=== PATIENT | female | born 1945 | race Caucasian/White ===

== ENCOUNTER → 2018-03-11 08:34 | Outpatient (CLI) | payer MEDICARE, OTHER, SELFPAY ==
[2018-03-13 14:08] LABS: Fecal Immunochemical Test NOT DETECTED
== END ==
PROVIDERS: PCP Physician Assistant; Visit Provider Physician Assistant
DX: Z12.11 Encounter for screening for malignant neoplasm of colon (principal)
CPT/HCPCS: 82274

== ENCOUNTER → 2018-09-01 07:06 | Outpatient (CLI) | payer MEDICARE, OTHER, SELFPAY ==
[2018-09-01 08:06] LABS: Cholesterol 190 mg/dL (140-199); HDL Cholesterol 40 mg/dL (40-60); LDL Cholesterol Calculated 122 mg/dL (<100); Triglycerides 139 mg/dL (35-150)
[2018-09-01 08:40] LABS: Creatinine Urine Random 149.7 mg/dL
[2018-09-01 08:44] LABS: Microalbumi Creatinin Ratio Ur 10.6 ug/mg CR (<30); Microalbumin Urine Random 1.6 mg/dL (0-1.6)
== END ==
PROVIDERS: PCP Physician Assistant; Visit Provider Physician Assistant
DX: I10 Essential (primary) hypertension (principal); E78.2 Mixed hyperlipidemia
CPT/HCPCS: 36415; 80061; 82043; 82570

== ENCOUNTER → 2018-10-07 11:53 | Outpatient (CLI) | payer MEDICARE, OTHER, SELFPAY ==
--- NOTE | 2018-10-07 11:55 | DI.MG.S_ITS ---
BILATERAL DIGITAL SCREENING MAMMOGRAM 3D/2D WITH CAD: 10/07/2018 CLINICAL: Routine screening. Comparison is made to exams dated: 06/19/2017 mammogram, 04/18/2016 mammogram, and 03/22/2015 mammogram - [facility]. There are scattered fibroglandular elements in both breasts. Current study was also evaluated with a Computer Aided Detection (CAD) system. No significant masses, calcifications, or other findings are seen in either breast. There has been no significant interval change. IMPRESSION: NEGATIVE There is no mammographic evidence of malignancy. A 1 year screening mammogram is recommended. This exam was interpreted at Station ID: [id number]. NOTE: For mammograms, a report in lay terms will be sent to the patient. Approximately 15% of breast malignancies will not be visualized mammographically. In the management of a palpable breast mass, a negative mammogram must not discourage biopsy of a clinically suspicious lesion. Electronically Signed By: Rickey cintron/yuliana:10/07/2018 12:18:29 letter sent: Normal Exam ACR BI-RADS Category 1: Negative [id number]
== END ==
PROVIDERS: PCP Physician Assistant; Visit Provider Physician Assistant
DX: Z12.31 Encounter for screening mammogram for malignant neoplasm of breast (principal)
CPT/HCPCS: 77063; 77067

== ENCOUNTER → 2019-04-04 08:17 | Outpatient (CLI) | payer MEDICARE, OTHER, SELFPAY ==
[2019-04-04 09:49] LABS: Creatinine Urine Random 196.4 mg/dL
[2019-04-04 09:51] LABS: Alanine Aminotransferase 34 IU/L (<35); Albumin 4.5 g/dL (3.5-5.0); Albumin Globulin Ratio 1.4 (1.0-2.8); Alkaline Phosphatase 76 U/L (38-126); Aspartate Aminotransferase 50 IU/L (14-36); BUN Creatinine Ratio 23.8 (6-22); Bilirubin Total 0.8 mg/dL (0.2-1.3); Blood Urea Nitrogen 19 mg/dL (7-17); Calcium 10.5 mg/dL (8.4-10.2); Carbon Dioxide 24 mmol/L (22-32); Chloride 107 mmol/L (98-107); Cholesterol 210 mg/dL (140-199); Estimated Glomerular Filt Rate > 60.0 mL/min (>60); Globulin 3.3 g/dL (1.7-4.1); Glucose 129 mg/dL (80-110); HDL Cholesterol 38 mg/dL (40-60); HEMOLYSIS < 15 (0-50); LDL Cholesterol Calculated 140 mg/dL (<100); Potassium 4.4 mmol/L (3.4-5.1); Sodium 141 mmol/L (137-145); Total Protein 7.8 g/dL (6.3-8.2); Triglycerides 158 mg/dL (35-150)
[2019-04-04 09:55] LABS: Microalbumi Creatinin Ratio Ur 50.4 ug/mg CR (<30); Microalbumin Urine Random 9.9 mg/dL (0-1.6)
[2019-04-04 10:00] LABS: Thyroid Stimulating Hormone 2.49 uIU/mL (0.47-4.68)
== END ==
PROVIDERS: PCP Physician Assistant; Visit Provider Physician Assistant
DX: E78.2 Mixed hyperlipidemia (principal); I10 Essential (primary) hypertension
CPT/HCPCS: 36415; 80053; 80061; 82043; 82570; 84443

== ENCOUNTER → 2019-04-10 08:12 | Outpatient (CLI) | payer MEDICARE, OTHER, SELFPAY ==
--- NOTE | 2019-04-10 08:15 | DI.MRI.S_ITS ---
PROCEDURE: MR HEAD/BRAIN WO/W CON INDICATIONS: TIA TECHNIQUE: Noncontrast axial T1 spin echo, axial T2 fast spin echo, sagittal and axial FLAIR, coronal T2 fast spin echo, axial gradient echo, axial diffusion and ADC through the brain. After the administration of contrast, axial and coronal T1 spin echo with fat saturation through the brain. COMPARISON: [facility], , CAROTID ARTERY DOPPLER BILAT, 12/10/2016, 14:42. FINDINGS: Image quality: Excellent. CSF spaces: Basal cisterns are patent. No extra-axial fluid collections. Ventricles are normal in size and shape. Brain: There is a small focus of abnormal diffusion weighted hyperintensity seen within the deep white matter of the right hilum, as on series 11 image 64 there is decreased signal seen within the a.c. Brian at this site, as on series 12 image 15 and developing increased T2-weighted/FLAIR signal can be seen at this site. No midline shift. No intracranial bleeds or masses. No abnormal intracranial enhancement. There is cerebral volume loss for age. There is periventricular white matter chronic small vessel ischemic change. The brainstem appears normal. No chronic ischemic insults. Normal intravascular flow voids are present. Skull and face: Calvarial marrow is normal in signal. Orbits appear normal. Note is made of bilateral lens replacements. Sinuses: Sinuses and mastoids appear clear. IMPRESSION: There is a small focus of subacute infarction seen involving the deep white matter of the right frontal lobe. No masses or abnormal enhancement can be seen. Note is made of age-appropriate brain parenchymal volume loss and chronic small vessel ischemic changes. Dictated by: Aleksandar Bermudez M.D. on 04/10/2019 at 8:54 Approved by: Aleksandar Bermudez M.D. on 04/10/2019 at 8:58
== END ==
PROVIDERS: PCP Physician Assistant; Visit Provider Physician Assistant
DX: G45.9 Transient cerebral ischemic attack, unspecified (principal); E78.2 Mixed hyperlipidemia; I10 Essential (primary) hypertension
CPT/HCPCS: 70553

== ENCOUNTER → 2019-04-24 07:50 | Outpatient (CLI) | payer MEDICARE, OTHER, SELFPAY ==
--- NOTE | 2019-04-24 07:52 | DI.US.S_ITS ---
PROCEDURE: US CAROTID DOPPLER BI INDICATIONS: TIA TECHNIQUE: Color and pulse Doppler interrogation was performed of both carotid systems, with image documentation and velocity measurements. COMPARISON: [facility], [place], CAROTID ARTERY DOPPLER BILAT, 12/10/2016, 14:42. FINDINGS: Stenosis calculations are based on SRU (Society of Radiologists in Ultrasound) criteria. Right side: Brachial blood pressure: 149/73 mm Hg. Common carotid artery peak systolic velocity: 77 cm/sec. Internal carotid artery peak systolic velocity: 121 cm/sec. Internal carotid artery end diastolic velocity: 31 cm/sec. External carotid artery peak systolic velocity: 142 cm/sec. ICA/CCA peak systolic ratio: 1.6. Lennon scale imaging description: Mild/moderate scattered plaque. Right thyroid nodule measuring 14 mm. Cyst Percent internal carotid artery stenosis: Less than 50%. Vertebral artery: Flow direction is antegrade. Left side: Brachial blood pressure: 150/78 mm Hg. Common carotid artery peak systolic velocity: 97 cm/sec. Internal carotid artery peak systolic velocity: 86 cm/sec. Internal carotid artery end diastolic velocity: 21 cm/sec. External carotid artery peak systolic velocity: 123 cm/sec. ICA/CCA peak systolic ratio: 0.9. Lennon scale imaging description: Mild scattered plaque. Percent internal carotid artery stenosis: Less than 50%. Vertebral artery: Flow direction is antegrade. IMPRESSION: 1. Less than 50% bilateral internal carotid artery stenosis. 2. Incidental finding of right thyroid nodule. When clinically feasible recommend normal thyroid ultrasound. Dictated by: Cedrick ORTIZ Interpreted: Olena Lopez MD on 04/24/2019 at 10:54 Approved by: Olena Lopez M.D. on 04/24/2019 at 14:57
--- NOTE | 2019-04-24 07:52 | DI.ECHO.S_ITS ---
[facility] +---------+ : : [address] [place] [address] : : : : [id number] : : : : Phone: [phone] Echocardiogram Report + + :Name: NATALIE COLLAZO Study Date: 04/24/2019 Height: 68 in : :[facility] Weight: 200 lb : : Gender: Female BSA: 2.0 m2 : :: 1945 Age: 73 yrs BP: 152/68 mmHg: :Reason For Study: TIA : : Performed By: Xenia Downs : :Referring: DIAN KAN : + + Interpretation Summary 1) Normal left ventricular thickness, size, wall motion, and systolic function (EF 60-65%). 2) Normal right ventricular size and function. 3) No significant valvular abnormalities. 4) Injection of contrast documented no interatrial shunt. 5) The right ventricular systolic pressure is estimated to be at least 40 mmHg based on an estimated right atrial pressure of 3 mm Hg. 6) Hypertension present during the study (BP 152/68mmHg). 7) Compared to the Echo done 04/05/2014, mild pulmonary hypertension and moderate systemic arterial hypertension are present on this study. Procedure: A two-dimensional transthoracic echocardiogram with color flow and Doppler was performed. The study quality was technically adequate. Comparison is made with the echocardiogram of 11-17-14. The heart rate ranged between 53-59 bpm during the study. Left Ventricle: The left ventricle is normal in size, wall thickness, and systolic function without any focal wall motion abnormalities. The ejection fraction is estimated to be 60-65%. Right Ventricle: The right ventricle grossly appears normal in size with probable normal systolic function. Atria: The left atrium is moderately dilated. Right atrial size is normal. The interatrial septum is intact with no evidence for an atrial septal defect. Injection of contrast documented no interatrial shunt. Mitral Valve: The mitral valve leaflets appear borderline thickened, but open well. There is mild mitral regurgitation. Aortic Valve: The aortic valve is trileaflet. The aortic valve opens well. There is no aortic valve stenosis. No aortic regurgitation is present. Tricuspid Valve: The tricuspid valve leaflets are thin and pliable. There is mild tricuspid regurgitation. The right ventricular systolic pressure is estimated to be at least 40 mmHg based on an estimated right atrial pressure of 3 mm Hg. Pulmonic Valve: The pulmonic valve is not well seen, but is grossly normal. There is no pulmonic valvular regurgitation. Great Vessels: The aortic root is normal size. The ascending aorta is at the upper limits of normal in size. The aortic arch is normal in size. The IVC is of normal diameter and collapses greater than 50% with a sniff. This suggests a low right atrial pressure of 3 mm Hg. Pericardium/ Pleura There is no pericardial effusion. There is no pleural effusion. MMode/2D Measurements & Calculations LVIDd: 5.3 cm Ao root diam: 3.0 cm LVIDs: 3.6 cm Aortic Jxn: 2.8 cm FS: 32.4 % asc Aorta Diam: 3.6 cm EPSS: 0.93 cm Ao Arch Diam (Prox Trans): 2.9 cm IVSd: 1.0 cm LVPWd: 0.80 cm LV germain. diameter/BSA (cm/m^2): 2.6 LV sys. diameter/BSA (cm/m^2): 1.8 LA dimension: 4.4 cm RA long axis: 5.2 cm LA A2 area: 26.7 cm2 RA area: 19.5 cm2 LA A4 area: 24.0 cm2 RA vol: 62.3 ml LA length (vol): 5.4 cm RA : 30.5 ml/m2 LA vol: 101.3 ml IVC diam: 1.7 cm LA vol index: 49.6 ml/m2 RVDd major: 5.0 cm RVD1 (basal): 3.6 cm RVD2 (mid): 3.1 cm Doppler Measurements & Calculations Ao V2 max: 146.8 cm/sec MV E max forest: 103.2 cm/sec Ao V2 mean: 97.0 cm/sec MV A max forest: 56.5 cm/sec Ao max P.6 mmHg MV E/A: 1.8 Ao mean P.3 mmHg Med Peak E' Forest: 5.4 cm/sec Ao V2 VTI: 36.0 cm E/E' med: 19.2 Lat Peak E' Forest: 8.7 cm/sec E/E' lat: 11.8 E/e' average: 15.5 MV dec time: 0.20 sec MV P1/2t: 60.8 msec TR max forest: 304.7 cm/sec MV P1/2t max forest: 103.5 cm/sec TR max P.1 mmHg MVA(P1/2t): 3.6 cm2 PA V2 max: 114.4 cm/sec PA V2 mean: 79.9 cm/sec PA mean P.9 mmHg PA Accel Time: 0.13 sec Reading Physician:02:05 PM
== END ==
PROVIDERS: PCP Physician Assistant; Visit Provider Physician Assistant
DX: G45.9 Transient cerebral ischemic attack, unspecified (principal); I08.1 Rheumatic disorders of both mitral and tricuspid valves; I10 Essential (primary) hypertension; E78.2 Mixed hyperlipidemia; E04.1 Nontoxic single thyroid nodule
CPT/HCPCS: 93306; 93880

== ENCOUNTER 2019-05-05 02:50 | Inpatient (IN) | payer MEDICARE, OTHER, SELFPAY ==
[2019-05-05] VITALS (12 sets, daily range): BP systolic 119–153; BP diastolic 60–92; PULSE 55–79; RESP 11–18; TEMP 36.3–37.1; O2SAT 95–99; BMI 25.5; BMI 31.9
--- NOTE | 2019-05-05 03:18 | DI.RAD.S_ITS ---
PROCEDURE: XR CHEST 1V INDICATIONS: Syncope TECHNIQUE: One view of the chest was acquired. COMPARISON: [facility], , CHEST 1 VIEW, 05/10/2014, 9:22. FINDINGS: Surgical changes and devices: Lower cervical spine fusion. Lungs and pleura: Lungs are clear. No pleural effusions or pneumothorax. Mediastinum: Mediastinal contours appear normal. Heart size is normal. Bones and chest wall: No suspicious bony lesions. Overlying soft tissues appear unremarkable. IMPRESSION: No acute cardiopulmonary disease. Dictated by: Stella Urrutia M.D. on 05/05/2019 at 8:27 Approved by: Stella Urrutia M.D. on 05/05/2019 at 8:28
[2019-05-05] MEDS: SODIUM CHLORIDE 0.9% 1,000 ML 150 ML IV (03:24)
--- NOTE | 2019-05-05 03:32 | ED_ITS ---
HPI - Syncope General Chief Complaint: Syncope Stated Complaint: Found down Time Seen by Provider: 05/05/19 03:04 Source: patient and EMS Mode of arrival: EMS Limitations: no limitations History of Present Illness HPI narrative: The patient took 2 clocks and I, prepping for a colonoscopy. She had to go the bathroom. She apparently passed out. Her heard her fall against the wall. She did not go to the floor. Her discovered her unconscious in the bathroom, slumped from the commode against the wall. He contacted 911, the patient awoke with 911 personnel arriving. She denies dizziness, visual changes, chest pain or palpitations. She now has no confusion, no focal weakness. She has had no recent fever, chills, respiratory symptoms, or nausea vomiting. She has no abdominal pain. The colonoscopy was for routine screening. She has no recent illness. She was found to be in a controlled AFib upon arrival. She was visiting family in [place] January 2019. While there she had a brief event of dysarthria, resolving quickly. She had brief neurologic deficits the right arm. Symptoms resolved within minutes, she was not evaluated at that time. At some point she realized she probably had a TIA, she was seen by her care provider, DILSHAD Hawkins. An MRI was done last month indicating subacute CVA. A carotid Doppler study discovered less than 50% bilateral internal carotid artery stenosis. Echo earlier this month was relatively normal, other than suggesting evolving pulmonary hypertension. The patient apparently had an EKG indicating tachycardia. That EKG is unavailable to me. The patient is on Cardizem. Related Data Home Medications Medication Instructions Recorded Confirmed MULTIVITAMIN (One Daily 1 tab PO Q DAY #0 05/23/11 04/01/19 Multivitamin) [CO-Q-10] 100 mg PO HS #0 12/27/15 04/01/19 clobetasol 0.05 % TOPICAL PRN PRN #0 12/27/15 04/01/19 diltiazem HCl 240 mg PO QDAY #0 02/27/17 05/05/19 DHEA See Rx Instructions .ROUTE .COMPLEX 02/05/18 04/01/19 Diltiazem 12 hour See Rx Instructions .ROUTE .COMPLEX 02/05/18 04/01/19 Fluocinolone 0.01% Scalp See Rx Instructions .ROUTE .COMPLEX 02/05/18 04/01/19 Niacin Non-flush See Rx Instructions .ROUTE .COMPLEX 02/05/18 04/01/19 Prebiotic See Rx Instructions .ROUTE .COMPLEX 02/05/18 04/01/19 [id number] 333 mg PO BID tab 06/12/18 04/01/19 mg-1.7 mg chewable tablet polypodium leucotomos extract 240 240 mg PO .QDAY cap 06/12/18 04/01/19 mg capsule FISH OIL See Rx Instructions .ROUTE .COMPLEX 06/17/18 04/01/19 OLIVE LEAF EXTRACT See Rx Instructions .ROUTE .COMPLEX 06/17/18 04/01/19 hydrocortisone 2.5 % topical cream 1 applictn TOP BID PRN 06/17/18 04/01/19 ketoconazole 2 % shampoo 1 applictn TOP .once a week PRN ml 06/17/18 04/01/19 triamcinolone acetonide 0.1 % 1 applictn TOP BID PRN 06/17/18 04/01/19 topical cream aspirin 325 mg tablet 325 mg PO DAILY 04/01/19 04/01/19 Previous Rx's Medication Instructions Recorded CMP BIEST HRT COMPOUND See Rx Instructions .ROUTE 05/22/18 .COMPLEX #90 enalapril maleate 20 mg tablet 20 mg PO BID #180 tab 02/03/19 progesterone micronized 100 mg See Rx Instructions .ROUTE 02/05/19 capsule .COMPLEX #90 capsule Allergies Allergy/AdvReac Type Severity Reaction Status Date / Time diazepam Allergy Severe SEEING Verified 04/01/19 08:17 DOUBLE, HEART PALPITATIONS, DIFFICULTY BREATHING Sulfa (Sulfonamide Allergy Intermediate VERY SICK Verified 04/01/19 08:17 Antibiotics) beet AdvReac Mild N/V Verified 04/01/19 08:17 Review of Systems Constitutional Constitutional: Denies chills, Denies fever(s), Denies lethargy and Denies weakness Comments: No recent illness Eyes Eyes: Denies change in vision and Denies loss of vision ENT Ears, Nose, Mouth, and Throat: Denies change in voice, Denies vertigo, Denies dizziness, Denies dry mouth, Denies neck pain, Denies disequilibrium and Denies sore throat Cardiovascular Cardiovascular: Denies chest pain, Denies irregular heart rhythm, Denies lightheadedness, Denies palpitations, Denies dyspnea, Denies dyspnea on exertion and Denies orthopnea Respiratory Respiratory: Denies cough, Denies dyspnea, Denies dyspnea on exertion and Denies wheezing Gastrointestinal Gastrointestinal: Denies abdominal pain, Denies change in bowel habits, Denies nausea and Denies vomiting Comments: Loose BMs. No history of GI bleed. Genitourinary Genitourinary: Denies dysuria Musculoskeletal Musculoskeletal: Denies abnormal gait, Denies back pain and Denies neck pain Integumentary/Breasts Skin/Breast: Denies pruritus, Denies erythema, Denies rash and Denies wounds Neurologic Neurologic: Denies abnormal gait, Denies confusion, Denies vertigo, Denies dizziness, Denies loss of vision, Denies disequilibrium and Denies weakness Psychiatric Psychiatric: Denies anxiety and Denies confusion Endocrine Endocrine: Denies palpitations Allergic/Immunologic Allergic/Immunologic: Denies wheezing Patient History Medical History Cervical vertebral fusion (Acute) Surgical History History of bilateral salpingo-oophorectomy (BSO) S/P total abdominal hysterectomy and bilateral salpingo-oophorectomy Family History Brother Coronary artery disease Brother History of oral cancer Father Coronary artery disease Mother Coronary artery disease Carotid artery disease Sister Irregular heart beat Sister Coronary artery disease Carotid artery disease Social History Smoking Status: Never smoker second hand exposure: No alcohol intake: current (twice a week.) substance use type: does not use Smoking Status: Never smoker alcohol intake frequency: 0-2 drinks per day Substance Use Type: does not use Exam Initial Vital Signs Initial Vital Signs: Vital Signs Temperature 97.7 F 05/05/19 03:00 Pulse Rate 63 05/05/19 03:00 Respiratory Rate 14 05/05/19 03:00 Blood Pressure 146/92 H 05/05/19 03:00 Pulse Oximetry 96 05/05/19 03:00 Const General: cooperative and well developed Nutritional Appearance: well nourished Orientation: alert, awake, oriented x3 and not confused [facility] Head: normocephalic and atraumatic Mouth: oral mucosae normal Eyes General: appearance normal, both eyes and all related structures Eyelids: eyelids normal Conjunctivae: conjunctivae normal Sclera: sclerae normal Pupils: PERRL EOM: EOM intact bilaterally Neck Neck: normal visual inspection, trachea midline, No lymphadenopathy, No midline deformity and No JVD Chest Chest: normal inspection of the chest Resp Effort & Inspection: normal respiratory effort and able to speak in complete sentences Auscultation: clear to auscultation bilaterally, no rales, no rhonchi and no wheezes Cardio Rate: regular rate Rhythm: abnormal rhythm irregularly irregular Heart Sounds: S1 normal, S2 normal, no click, no gallops, no murmurs and no rubs Pulses: normal peripheral pulses GI Inspection: non-distended Palpation: soft, no hepatosplenomegaly, No guarding, No pulsatile mass and No tender Auscultation: normal bowel sounds Back/Spine/Pelvis Back: No back tenderness and No CVA tenderness Skin General: no rashes or lesions noted and No petechiae Neuro General: alert, oriented x3, gait normal and no focal motor deficits Speech: speech normal Motor: muscle tone normal throughout Sensory Exam: no sensory deficits noted Extrem General: full ROM, no clubbing, cyanosis or edema, no pedal edema and no calf tenderness Psych Appearance: well kempt Mental Status: mental status grossly normal Attitude: cooperative Thought Content: normal Judgment: judgment good Course Course Course Narrative: The patient has been in a controlled rate of AFib since arrival. She has been alert oriented without neurologic deficits. She has been normotensive. There have been no bradycardia or tachycardia events. The syncope may be attributable to the bowel prep and perhaps a vasovagal event. Concern is the newly discovered arrhythmia, perhaps related to the recent stroke. Are only comparison material is a EKG from 2013 indicating normal sinus rhythm. She has had no history of cardiac concerns, no palpitations, no obviously arrhythmias. The syncope may have also been associated with arrhythmia. The situation discussed with the on-call hospitalist, WAYNE Villafuerte. The patient be anticoagulated initially with Lovenox and admitted on telemetry. Orders Ordered: ED Orders 05/05/19 02:45 Complete Blood Count AUTO DIFF Stat Prothrombin Time INR Stat 05/05/19 02:56 EKG-12 Lead Routine 05/05/19 03:18 XR chest 1V Stat 05/05/19 04:05 Comprehensive Metabolic Panel Stat Magnesium Stat Troponin & CK Cardiac Panel Stat Sodium Chloride (Normal Saline 0.9%) 1,000 mls @ 150 mls/hr IV CONT SIENNA Last Admin: 05/05/19 03:24 Dose: 150 mls/hr Documented by: NIMA Discontinued Medications Enoxaparin Sodium (Lovenox) 75 mg 1 mg/kg (75 mg) SUBCUT NOW ONE Stop: 05/05/19 06:08 Last Admin: 05/05/19 06:25 Dose: 75 mg Documented by: SANDRA Vital Signs Vital signs: Vital Signs - 8 hr 05/05/19 03:00 05/05/19 03:20 05/05/19 03:53 Temperature 97.7 F Pulse Rate 63 77 58 L Respiratory Rate 14 16 12 Blood Pressure 146/92 H Blood Pressure [Right Arm] 123/68 134/80 Pulse Oximetry 96 97 96 05/05/19 05:57 Temperature Pulse Rate 79 Respiratory Rate 12 Blood Pressure Blood Pressure [Right Arm] 119/79 Pulse Oximetry 97 MDM - Syncope Lab Data Result diagrams: 05/05/19 02:45 05/05/19 04:05 Labs: Lab Results 05/05/19 05/05/19 05/05/19 Range/Units 02:45 02:45 04:05 WBC 13.5 H (4.5-11.0) X10^3/uL RBC 4.65 (4.0-5.2) X10^6/uL Hgb 14.3 (12.0-16.0) g/dL Hct 42.9 (36-46) % MCV 92.3 (80-100) fL MCH 30.8 (26-34) PG MCHC 33.4 (30-36) % RDW 13.2 (11.6-14.8) % Plt Count 364 (150-400) X10^3/uL Neut % (Auto) 57.9 (50-75) % Lymph % (Auto) 30.9 (25-40) % Davis % (Auto) 8.1 (3-14) % Eos % (Auto) 2.4 (2-4) % Baso % (Auto) 0.7 (0-2) % Neut # (Auto) 7800 H (1952-4875) /uL Lymph # (Auto) 4200 (4472-7244) /uL Davis # (Auto) 1100 H (0-900) /uL Eos # (Auto) 300 (0-450) /uL Baso # (Auto) 100 (0-100) /uL PT 12.8 H (10.1-12.7) SECONDS INR 1.1 (0.9-1.3) Sodium 141 (137-145) mmol/L Potassium 4.0 (3.4-5.1) mmol/L Chloride 104 (98-107) mmol/L Carbon Dioxide 27 (22-32) mmol/L BUN 21 H (7-17) mg/dL Creatinine 0.70 (0.52-1.04) mg/dL Estimated GFR > 60.0 (>60) mL/min BUN/Creatinine Ratio 30.0 H (6-22) Glucose 122 H (80-110) mg/dL Calcium 11.1 H (8.4-10.2) mg/dL Magnesium 2.1 (1.6-2.3) mg/dL Total Bilirubin 0.6 (0.2-1.3) mg/dL AST 26 (14-36) IU/L ALT 29 (<35) IU/L Alkaline Phosphatase 67 (38-126) U/L Total Creatine Kinase 36 (30-135) U/L CK-MB (CK-2) TNP CK-MB (CK-2) Rel Index TNP Troponin I < 0.012 (0.01-0.034) ng/mL Total Protein 7.5 (6.3-8.2) g/dL Albumin 4.5 (3.5-5.0) g/dL Globulin 3.0 (1.7-4.1) g/dL Albumin/Globulin Ratio 1.5 (1.0-2.8) Imaging Data Chest x-ray: My impression: No acute cardiopulmonary process ECG Data Attestation: I personally reviewed and interpreted this ECG as follows: (Atrial fib rate 65 beats per minute. Nonspecific ST T wave changes. No acute ST elevation.) Critical Care Time Critical Care Time Critical Care Time: Yes Total Critical Care Time: 45 Attestation: Time included the initial evaluation of patient, records review, review of lab, EKG and x-ray data, further discussion with the patient about clinical concerns, and discussion with admitting physician. Discharge Plan Departure Patient Disposition: Admitted as Observation Clinical Impression: History of CVA (cerebrovascular accident) Syncope Qualifiers: Syncope type: unspecified Qualified Code(s): R55 - Syncope and collapse Atrial fibrillation Qualifiers: Atrial fibrillation type: unspecified Qualified Code(s): I48.91 - Unspecified atrial fibrillation Referrals: Berta Hawkins PA-C [Primary Care Provider] - Admit Date/Time: 05/05/19 06:20 Admit Provider: Maycol Villafuerte
[2019-05-05 03:40] LABS: Add Manual Diff / Slide Review NO; Basophils Absolute Auto 100 /uL (0-100); Basophils Percent Auto 0.7 % (0-2); Eosinophils Absolute Auto 300 /uL (0-450); Eosinophils Percent Auto 2.4 % (2-4); Hematocrit 42.9 % (36-46); Hemoglobin 14.3 g/dL (12.0-16.0); Lymphocytes Absolute Auto 4200 /uL (1100-4500); Lymphocytes Percent Auto 30.9 % (25-40); Mean Corpuscular HGB Conc 33.4 % (30-36); Mean Corpuscular Hemoglobin 30.8 PG (26-34); Mean Corpuscular Volume 92.3 fL (80-100); Monocytes Absolute Auto 1100 /uL (0-900); Monocytes Percent Auto 8.1 % (3-14); Neutrophils Absolute Auto 7800 /uL (1500-7000); Neutrophils Percent Auto 57.9 % (50-75); Platelet Count 364 X10^3/uL (150-400); Red Blood Cell Count 4.65 X10^6/uL (4.0-5.2); Red Cell Distribution Width 13.2 % (11.6-14.8); White Blood Cell Count 13.5 X10^3/uL (4.5-11.0)
[2019-05-05 03:44] LABS: INR 1.1 (0.9-1.3); Prothrombin Time 12.8 SECONDS (10.1-12.7)
[2019-05-05 04:28] LABS: Alanine Aminotransferase 29 IU/L (<35); Albumin 4.5 g/dL (3.5-5.0); Albumin Globulin Ratio 1.5 (1.0-2.8); Alkaline Phosphatase 67 U/L (38-126); Aspartate Aminotransferase 26 IU/L (14-36); Bilirubin Total 0.6 mg/dL (0.2-1.3); Blood Urea Nitrogen 21 mg/dL (7-17); Calcium 11.1 mg/dL (8.4-10.2); Carbon Dioxide 27 mmol/L (22-32); Chloride 104 mmol/L (98-107); Creatine Kinase 36 U/L (30-135); Estimated Glomerular Filt Rate > 60.0 mL/min (>60); Glucose 122 mg/dL (80-110); HEMOLYSIS < 15 (0-50); Magnesium 2.1 mg/dL (1.6-2.3); Sodium 141 mmol/L (137-145); Total Protein 7.5 g/dL (6.3-8.2)
[2019-05-05 04:39] LABS: Troponin I < 0.012 ng/mL (0.01-0.034)
[2019-05-05] MEDS: ENOXAPARIN 100 MG/ML SYRINGE 75 MG SUBCUT (06:25)
--- NOTE | 2019-05-05 06:51 | P.HP_ITS ---
History of Present Illness History of Present Illness Date Patient Seen: 05/05/19 Time Patient Seen: 06:20 Chief complaint: Found down Narrative: Ms. Sandeep David is a 73-year-old female with a history SVT, hypertension, hyperlipidemia, mild pulmonary hypertension and stroke who presents to the ER today with a syncopal episode. Patient was getting up to the bathroom at approximately 2:00 a.m. and had been undergoing prep for an elective colonoscopy using Dulcolax. She states when she got up out of bed she felt a little tingly. Her heard a thump in the bathroom and went to check found her sitting on the commode semiconscious attempting to open her eyes in speaking but not making sense. The patient does not recall any antecedent symptoms other than the tingling and the next thing she knew the paramedics were present, she is amnesic to events for approximately 10-20 minutes. Patient denies any recent headaches or dizziness and had been drinking attempt remain hydrated during the bowel prep. She denies nasal congestion or sore throat. S he has had no chest pain and had palpitations in the remote past 5-6 years ago associated with SVT.. The patient denies shortness of breath cough or wheezing. She has no abdominal pain and denies nausea vomiting. Her colonoscopy is elective and has had no rectal bleeding. Patient has had cardiac evaluation 3B self but cannot recall the physician's name. She has an appointment with cardiology at with [facility]. Upon arrival to the ER the patient is afebrile with a temperature 97.7?, heart rate of 63, blood pressure 146/92, respirations of 14 saturating 96% on room air. EKG is obtained finding atrial fibrillation with a ventricular rate of 65, no ectopy, no ST or T-wave changes, no indication of infarct. Chest x-ray is taken and is unremarkable. On laboratory analysis the patient has white count is 13.5, hemoglobin 14.3, hematocrit of 42.9, platelets 364. Her electrolytes are within normal range notably with a potassium 4.0 and a magnesium of 2.1. Her BUN is 21 and creatinine is 0.7 and nonfasting glucose is 122. She has a calcium that's elevated 11.1 and her liver functions are all within normal limits Her troponin is negative at less than 0.012. The patient is admitted to the hospital for new diagnosis of atrial fibrillation in the setting of a syncopal episode. Patient History Medical History (Updated 05/05/19 @ 07:04 by WAYNE Tellez) Essential hypertension (Inactive 09/05/10) History of CVA (cerebrovascular accident) (Inactive) History of malignant melanoma (Inactive) Mixed hyperlipidemia (Inactive 09/05/10) Peripheral edema (Inactive) Scalp psoriasis (Inactive) Serum calcium elevated (Inactive) Supraventricular tachycardia (Acute) Surgical History (Updated 05/05/19 @ 07:04 by WAYNE Tellez) Cervical vertebral fusion (Acute) History of bilateral salpingo-oophorectomy (BSO) S/P total abdominal hysterectomy and bilateral salpingo-oophorectomy Family & Social History Family History Brother Coronary artery disease Brother History of oral cancer Father Coronary artery disease Mother Coronary artery disease Carotid artery disease Sister Irregular heart beat Sister Coronary artery disease Carotid artery disease Safety & Behavioral: Feels Safe in Current Yes Environment Tobacco & Substance use: Smoking Status Never smoker alcohol intake current alcohol intake frequency 0-2 drinks per day Substance Use Type does not use Comment: The patient lives in a single family home with her to whom she has been for 47 years. Smoking: The patient denies use of tobacco products. Alcohol: Patient endorses consuming 2 drinks per week. Substance use: The patient denies recreational pharmaceuticals herbal or cannabis products. Advanced directives: The patient has formal advanced directives states her wishes to be FULL CODE. She designates her to be surrogate decision maker. Meds Home Medications and Allergies Home Medications Medication Instructions Recorded Confirmed Type MULTIVITAMIN (One Daily 1 tab PO Q DAY #0 05/23/11 04/01/19 History Multivitamin) [CO-Q-10] 100 mg PO HS #0 12/27/15 04/01/19 History clobetasol 0.05 % TOPICAL PRN PRN #0 12/27/15 04/01/19 History diltiazem HCl 240 mg PO QDAY #0 02/27/17 05/05/19 History DHEA See Rx Instructions .ROUTE .COMPLEX 02/05/18 04/01/19 History Diltiazem 12 hour See Rx Instructions .ROUTE .COMPLEX 02/05/18 04/01/19 History Fluocinolone 0.01% Scalp See Rx Instructions .ROUTE .COMPLEX 02/05/18 04/01/19 History Niacin Non-flush See Rx Instructions .ROUTE .COMPLEX 02/05/18 04/01/19 History Prebiotic See Rx Instructions .ROUTE .COMPLEX 02/05/18 04/01/19 History CMP BIEST HRT COMPOUND See Rx Instructions .ROUTE 05/22/18 04/01/19 Rx .COMPLEX #90 [id number] 333 mg PO BID tab 06/12/18 04/01/19 History mg-1.7 mg chewable tablet polypodium leucotomos extract 240 240 mg PO .QDAY cap 06/12/18 04/01/19 History mg capsule FISH OIL See Rx Instructions .ROUTE .COMPLEX 06/17/18 04/01/19 History OLIVE LEAF EXTRACT See Rx Instructions .ROUTE .COMPLEX 06/17/18 04/01/19 History hydrocortisone 2.5 % topical cream 1 applictn TOP BID PRN 06/17/18 04/01/19 History ketoconazole 2 % shampoo 1 applictn TOP .once a week PRN ml 06/17/18 04/01/19 History triamcinolone acetonide 0.1 % 1 applictn TOP BID PRN 06/17/18 04/01/19 History topical cream enalapril maleate 20 mg tablet 20 mg PO BID #180 tab 02/03/19 05/05/19 Rx progesterone micronized 100 mg See Rx Instructions .ROUTE 02/05/19 04/01/19 Rx capsule .COMPLEX #90 capsule aspirin 325 mg tablet 325 mg PO DAILY 04/01/19 04/01/19 History Allergies Allergy/AdvReac Type Severity Reaction Status Date / Time diazepam Allergy Severe SEEING Verified 04/01/19 08:17 DOUBLE, HEART PALPITATIONS, DIFFICULTY BREATHING Sulfa (Sulfonamide Allergy Intermediate VERY SICK Verified 04/01/19 08:17 Antibiotics) beet AdvReac Mild N/V Verified 04/01/19 08:17 Review of Systems Review of Systems Narrative: All systems are reviewed and from to unremarkable except as noted in HPI above. Exam Vital Signs (past 8 hours): - 05/05/19 03:00 05/05/19 03:20 05/05/19 03:53 Temperature 97.7 F Pulse Rate 63 77 58 L Respiratory Rate 14 16 12 Blood Pressure 146/92 H Blood Pressure [Right Arm] 123/68 134/80 Pulse Oximetry 96 97 96 05/05/19 05:57 05/05/19 06:32 Temperature Pulse Rate 79 76 Respiratory Rate 12 11 L Blood Pressure Blood Pressure [Right Arm] 119/79 138/69 Pulse Oximetry 97 98 Oxygen Delivery Method Room Air Narrative Exam Narrative: GENERAL APPEARANCE: well developed, well nourished, mildly anxious, in no acute distress. HEENT: Normocephalic, symmetrical face ease, no ptosis, PERRLA, conjunctiva clear, EOMs intact without nystagmus, no rhinorrhea, mucous membranes are moist and pink without lesions or exudate. NECK/THYROID: neck supple, no JVD, no carotid bruit, no thyromegaly, trachea midline. LYMPH NODES: no cervical or supraclavicular lymphadenopathy. SKIN: [place], warm and dry, no visible lesions, rashes, ulcerations or petechiae. HEART: Irregularly irregular rhythm, S1-S2, no murmur, no rubs or gallops, 1+ bilateral dorsalis pedis pulses, trace peripheral edema. LUNGS: clear to auscultation bilaterally, no coarseness crackles or wheezing, no cough present CHEST: Symmetrical movement, no accessory muscle use, good tidal volume. ABDOMEN: Soft, no distention, dull to percussion, no abdominal tenderness, no guarding or peritoneal signs, no organomegaly, no flank tenderness, active bowel tones. EXTREMITIES: moves all extremities, strength is 5/5 and symmetrical, no deformities or joint effusions. NEUROLOGIC: AAO x4, cranial nerves II-XII grossly intact, sensation intact to light touch, hearing grossly normal to speech. PSYCH: Mildly anxious, could recall, good insight, linear thought process, cooperative, appropriate with stable behavior Objective Labs Result Diagrams: 05/05/19 02:45 05/05/19 04:05 Labs: Laboratory Results - last 24 hr 05/05/19 05/05/19 05/05/19 02:45 02:45 04:05 WBC 13.5 H RBC 4.65 Hgb 14.3 Hct 42.9 MCV 92.3 MCH 30.8 MCHC 33.4 RDW 13.2 Plt Count 364 Neut % (Auto) 57.9 Lymph % (Auto) 30.9 Reagan % (Auto) 8.1 Eos % (Auto) 2.4 Baso % (Auto) 0.7 Neut # (Auto) 7800 H Lymph # (Auto) 4200 Reagan # (Auto) 1100 H Eos # (Auto) 300 Baso # (Auto) 100 PT 12.8 H INR 1.1 Sodium 141 Potassium 4.0 Chloride 104 Carbon Dioxide 27 BUN 21 H Creatinine 0.70 Estimated GFR > 60.0 BUN/Creatinine Ratio 30.0 H Glucose 122 H Calcium 11.1 H Magnesium 2.1 Total Bilirubin 0.6 AST 26 ALT 29 Alkaline Phosphatase 67 Total Creatine Kinase 36 CK-MB (CK-2) TNP CK-MB (CK-2) Rel Index TNP Troponin I < 0.012 Total Protein 7.5 Albumin 4.5 Globulin 3.0 Albumin/Globulin Ratio 1.5 Assessment & Plan Assessment & Plan narrative: This is a 73-year-old female patient who had a syncopal episode while undergoing bowel prep with Dulcolax. There is extensive history of cardiovascular disease and the patient has suffered a stroke, has hypertension with pulmonary artery hypertension and now is found tonight to have atrial fibrillation. 1. Syncopal episode, acute, resolved upon arrival, active. -differential diagnosis includes: Vasovagal event commode during bowel prep for elective colonoscopy Hemodynamic instability related to tachy or bradyarrhythmia with atrial fibrillation TIA with history of recent stroke and new finding of atrial fibrillation. -each etiology is expanded upon below. 2. Possible TIA, recent stroke, resolved upon arrival, active -patient had a witnessed his syncope event being found by her becoming semiconscious with unequal eye opening and not making sense. -patient with previous stroke presenting with aphasia right arm weakness and numbness with findings of a small right frontal lobe stroke identified on MRI 04/10/2019. -ABCDs score is 3, NIH score 0 -will obtain MR stroke protocol. 3. Paroxysmal versus persistent atrial fibrillation, present on admission, active -patient with a previous history of SVT stating she has had 3 episodes approximately 5-6 years ago 1 which required cardioversion with no further reoccurrences. -patient with echocardiogram completed on 04/24/2019 at which time she was in sinus rhythm, EF 60-65%, LV is normal structure and function, RV is normal in structure and function. -EKG today reveals atrial fibrillation with ventricular rate of 65, no ectopy, ST or T-wave changes. No indication ischemia or infarct. Troponin is less than 0.012. -electrolytes at adequate levels for the rhythm with potassium is 4.0 and magnesium is 2.1 -will obtain limited echo to rule out thrombus with new diagnosis of atrial fibrillation. -patient is anticoagulated with Lovenox 1 milligram/kilogram. -patient has been evaluated by ice cream maker associated with [facility] but she cannot recall the name and is to be set up with cardiology at Dr. Day Pe[facility]aloza. 4. Essential hypertension, present on admission, active. -patient hypertensive upon arrival to the hospital the pressure 146/92. On admission to the floor the patient is 153/60. -continue routine home medication diltiazem 240 mg daily and enalapril 20 mg twice daily. -will monitor blood pressures. 5. Hyperlipidemia, stable. -patient has been taking vitamin therapy including niacin and omega-3 fish oil. -she is not on statin therapy with a history of stroke and a very strong family history of cardiovascular disease. -will obtain lipid panel. 6. Preventive health exam, colonoscopy -patient has previously undergone full bowel prep and reportedly ate resulting in a postponement of the procedure. Patient is being re-prepped with Dulcolax. -patient has had no symptoms melena hematochezia or abdominal pain. -she has been drinking Gatorade to remain hydrated. VTE prophylaxis: Patient is receiving therapeutic Lovenox Diet: Heart healthy The patient is admitted to the hospital due to the severity of his symptoms and risk for potential complications or adverse events. The patient is admitted as observation with expected length of stay to be less than 2 midnights. Scores GCS [place] coma scale eye opening: Spontaneous [place] coma scale verbal response: Orientated [place] coma scale motor response: Obey commands Rebel coma scale total score: 15 ABCD2 Age >= 60 years: yes Initial BP. Either SBP >= 140 or DBP >= 90.: yes Clinical features of the TIA: other symptoms Duration of symptoms: 10-59 minutes History of diabetes: no ABCD2 Score: 3
[2019-05-05 07:14] LABS: Cholesterol 192 mg/dL (140-199); HDL Cholesterol 34 mg/dL (40-60); LDL Cholesterol Calculated 129 mg/dL (<100); Triglycerides 145 mg/dL (35-150)
--- NOTE | 2019-05-05 07:15 | DI.MRI.S_ITS ---
PROCEDURE: MR STROKE Pre- and post-contrast brain MRI, non-contrast brain MR angiogram, pre- and postcontrast neck MR angiogram INDICATIONS: Syncope, transient neuro symptoms, prior stroke TECHNIQUE: Brain: Noncontrast axial T1 spin echo, axial T2 fast spin echo, sagittal and axial FLAIR, coronal T2 fast spin echo, axial gradient echo, axial diffusion and ADC through the brain. After the administration of contrast, axial 3D VIBE of the cranial vasculature and brain. Brain MRA: Non-contrast 3-D time of flight MR angiogram, with multiple twixial-wlddzgoml-nrbgseonac (MIP) reformats performed. Neck MRA: Axial and sagittal TruFISP through the neck. Coronal dynamic MR angiogram during administration of contrast in the arterial and venous phases, with 3-dimenstional amtxieo-hjzelxieq-qezmdvwocf (MIP) reformats constructed from subtraction images. COMPARISON: [facility], MR, MR HEAD/BRAIN WO/W CON, 04/10/2019, 8:28. FINDINGS: Image quality: Excellent. BRAIN: CSF spaces: Ventricles are normal in size and shape. Basal cisterns are patent. No extra-axial fluid collections. Brain: No intracranial bleeds or mass effects. Lennon-white matter interface is normal. Previously seen infarction within the right mid cordoba radiata is present, and demonstrates increased FLAIR signal intensity, consistent with normal evolution of a late subacute infarct. Within the right superior medial frontal lobe, there are 2 new regions of adjacent diffusion signal elevation measuring roughly 6 mm diameter, which demonstrate mild FLAIR signal elevation, consistent with early subacute infarcts. Mild diffuse cervical volume loss is present, as before. Moderate degree of patchy high FLAIR signal within the periventricular and subcortical met matter is present, consistent with small vessel ischemic disease. Brainstem appears normal. Normal intravascular flow voids are present. No abnormal intracranial enhancement. Skull and face: Calvarial marrow signal is normal. Orbits appear normal. Sinuses: Sinuses and mastoids are clear. BRAIN MR ANGIOGRAM: Anterior circulation: Intracranial internal carotid arteries are normal in size and enhancement. The flow within the paired anterior cerebral arteries is normal and symmetric. The flow within the middle cerebral arteries is normal and symmetric. The anterior communicating artery is seen. No stenoses, occlusions, or aneurysms. Posterior circulation: The visualized portions of the vertebral arteries demonstrate normal caliber. Left vertebral artery appears to terminate in a posterior inferior cervical artery. Basilar artery is patent. The flow within the posterior cerebral arteries is normal and symmetric. No stenoses, occlusions, or aneurysms. NECK MR ANGIOGRAM: Carotids: Great vessels demonstrate a conventional anatomy as they arise from the aortic arch. The origins of the common carotid arteries appear patent. The calibers and courses of both common carotid arteries are normal. The bifurcation regions appear normal bilaterally. The internal carotid arteries demonstrate normal course and caliber. Left vertebral artery terminates in a posterior inferior cerebellar artery. Posterior circulation: The origins of the vertebral arteries are not well-seen. More superior portions of both vertebral arteries demonstrate normal course and caliber. Miscellaneous: Subclavian arteries appear patent. Pre-contrast images through the neck show no soft tissue abnormalities. IMPRESSION: BRAIN MRI: 1. New small subacute infarcts within the right superomedial frontal lobe. 2. Normal evolution of previously seen right cordoba radiata infarct. 3. Volume loss and small vessel ischemic disease. BRAIN MR ANGIOGRAM: Negative cerebral MR angiography. NECK MR ANGIOGRAM: 1. No internal carotid artery stenosis bilaterally. 2. Suboptimally visualized vertebral artery origins, which are otherwise patent. Dictated by: Olena Lopez M.D. on 05/05/2019 at 11:44 Approved by: Olena Lopez M.D. on 05/05/2019 at 11:53
--- NOTE | 2019-05-05 07:25 | DI.ECHO.S_ITS ---
[facility] +---------+ [facility] +---------+ : : [address] [place] : : : : [id number] : : : : Phone: [phone]---------+ Echocardiogram Report + + :Name: NATALIE COLLAZO Study Date: 05/05/2019 Height: 67 in : :[facility] Weight: 163 lb : : Gender: Female BSA: 1.9 m2 : :: 1945 Age: 73 yrs BP: 141/74 mmHg: :Reason For Study: AFIB : : Performed By: [facility] Staff : :Referring: PEREZ STOVALL : + + Interpretation Summary Limited Echo: 1) Normal left ventricular size, thickness, wall motion, and systolic function (EF 60-65%). 2) Normal right ventricular size and function. 3) No significant valvular abnormalities grossly. 4) Compared to the Echo done 04/24/2019, no significant change. Procedure: A two-dimensional transthoracic echocardiogram with color flow and Doppler was performed in limited views only. The study quality was technically adequate. This is a limited echocardiogram for Afib. Prior echo performed on 04/24/09. The patient was in a bradycardic rhythm during the exam. Left Ventricle: The left ventricle is normal in size. There is normal left ventricular wall thickness. Left ventricular systolic function is normal. The ejection fraction is estimated to be 60-65%. Left ventricular wall motion is normal. Right Ventricle: The right ventricle is normal in size and function. Great Vessels: The IVC is dilated (diameter is greater than 2.1 cm) yet it collapses greater than 50% with a sniff. This suggests a right atrial pressure of 8 mm Hg. Pericardium/ Pleura There is no pericardial effusion. There is no pleural effusion. MMode/2D Measurements & Calculations LVIDd: 4.5 cm TAPSE: 2.1 cm LVIDs: 3.2 cm FS: 29.6 % EPSS: 0.91 cm IVSd: 1.4 cm LVPWd: 1.1 cm LV germain. diameter/BSA (cm/m^2): 2.4 LV sys. diameter/BSA (cm/m^2): 1.7 Reading Physician:01:41 PM
[2019-05-05] MEDS: SODIUM CHLORIDE 0.9% 1,000 ML 100 ML IV (08:02)
[2019-05-05] MEDS: ENALAPRIL 20 MG TABLET PO ×2 (08:51→20:44)
[2019-05-05] MEDS: ASPIRIN 325 MG TABLET PO (08:51)
[2019-05-05] MEDS: dilTIAZem CD 240 MG CAP PO (08:51)
--- NOTE | 2019-05-05 10:42 | CM.DANOTE ---
DCP: Case received, EMR reviewed and met with patient. Introduced self and role. Was able to meet with patient to obtain baseline health and history information. , Marino, at bedside. DCP assessment completed with information currently available. Patient is a 73 year old female who admitted early this morning to the care of the hospitalist team. PCP: NAHED Shoemaker. Payer: confirmed: Medicare/[employer]. Patient came to the hospital via ambulance to to a syncopal episode in her bathroom. She had been doing a bowel prep for a colonoscopy, and found her on the floor. Patient holds diagnosis of a-fib. Met with patient and in her room. She is independent, does not use any DME and drives. Stated, this has never happened to her before. She is scheduled for some cardiac tests today. P: DCP to follow closely. Added P.T and O.T. orders per Dr. Pereira in team rounds. Bhavna Pitt RN/Director Career Services
[2019-05-05 11:33] LABS: Appearance Urine UA CLEAR; Bilirubin Urine UA NEGATIVE (NEGATIVE); Color Urine UA YELLOW; Glucose Urine UA NEGATIVE (Negative); Ketones Urine UA NEGATIVE (NEGATIVE); Leukocyte Esterase Urine UA NEGATIVE (NEGATIVE); Nitrite Urine UA NEGATIVE (Negative); Occult Blood Urine UA NEGATIVE (Negative); Protein Urine UA NEGATIVE (Negative); Specific Gravity Urine UA <=1.005 (1.000-1.035); Urobilinogen Urine UA 0.2 E.U./dL (0.2)
[2019-05-05 11:48] LABS: Bacteria Urine Occasional (0-1); Culture Indicated Urine Cult Not Indicated; RBC Urine None Seen (0-5/HPF); Squamous Epithelial Cell Urine 0-1 /HPF (0-5/HPF); WBC Urine 0-1/HPF (0-5/HPF)
--- NOTE | 2019-05-05 12:15 | PC.NURSE ---
Addendum entered by Nadja Gregory R.N. 05/05/19 14:19: Pt Asymptomatic throughout shift. Pt requested MRI disc and report. Along with ECHO report. Film/CD pickup dept called and requested MRI, ECHO, and XR report and disc. Brought up to unit and placed in pt's chart until discharge or Dr. Pereira updates pt with MRI and ECHO results. Authorization to disclose/obtain PHI release form signed by pt. Original Note: Day Shift- Pt arrived to unit room 207 at 0650, per night RN DENVER Stuart oriented pt to call light, room number. Pt's Brian at bedside. Upon this shift assessment, pt re-oriented to call light, bed function, plan for MRI, ECHO, need for urine sample. Pt denies pain, discomfort, nausea, chest pain, pressure, vision changes, light-headedness or dizziness. Pt does have anterior upper lobe expiratory wheeze, pt states she has intermittent with sensitivities to smells. No respiratory distress noted, RR 18bpm. Pt went to MRI at 1035 and back at 1120. Pt aware of new order for PT/OT assessments today. LEft wrist PIV, pt states hurts to bend wrist. No signs of inflammation, infiltration, phlebitis. Will monitor. Pt wants to think about it for a little while if she wants staff to place a new PIV site as offered by this law writer. No other voiced concerns. Call light within reach and bed alarm on.
--- NOTE | 2019-05-05 14:38 | PT.IIE ---
Surgical History (Last Updated 05/05/19 @ 07:04 by WAYNE Tellez) Cervical vertebral fusion (Acute) History of bilateral salpingo-oophorectomy (BSO) S/P total abdominal hysterectomy and bilateral salpingo-oophorectomy Medical History (Last Updated 05/05/19 @ 07:04 by WAYNE Tellez) Essential hypertension (Inactive 09/05/10) History of CVA (cerebrovascular accident) (Inactive) History of malignant melanoma (Inactive) Mixed hyperlipidemia (Inactive 09/05/10) Peripheral edema (Inactive) Scalp psoriasis (Inactive) Serum calcium elevated (Inactive) Supraventricular tachycardia (Acute) Physical Therapy Inpatient Evaluation/Re-Eval M1 PT/OT-IP Prior Functional Status Start: 05/05/19 16:17 Freq: NEEDED Status: Active Protocol: Document 05/05/19 14:38 AB (Rec: 05/05/19 16:40 AB [id number]) Medical Review Prior Functional Status Medical History Reviewed Yes Communication able to make needs known Mobility and Gait pt stated that she is independent with all mobilities and ambulation without AD Social History Household Members spouse Living Arrangements House Number of Floors (Floors) One Floor Number of Stairs To Enter/Railing? no steps to enter Home Environment High Toilet,Built-In Shower Seat Home Equipment Front Wheel Walker,Four Wheel Walker,Quad Cane,Straight Cane ,Bedside Commode,Grab Bars In Shower Additional Social History Comment has a safety toilet frame, transport chair M2 PT-IP Current Condition Start: 05/05/19 16:17 Freq: NEEDED Status: Active Protocol: Document 05/05/19 14:38 AB (Rec: 05/05/19 16:40 AB [id number]) Physical Therapy Current Condition Current Condition Evaluation Date 05/05/19 Treatment Diagnosis CVA; difficulty in walking Onset Date 05/05/19 M3 PT-IP Subjective Start: 05/05/19 16:17 Freq: NEEDED Status: Active Protocol: Document 05/05/19 14:38 AB (Rec: 05/05/19 16:40 AB [id number]) Subjective Physical Therapy Visit Type Type Initial Evaluation Visit Start Time 14:38 Visit Stop Time 14:55 Total Visit Minutes 17 Number of DOOR ASSEMBLER Visits 0 Physical Therapy Visit Comments Patient Comments pt agreeable to do PT Therapy Pain Assessment Pain Present Pain Present Denied Pain M4 PT-IP Mobility and Gait Start: 05/05/19 16:17 Freq: NEEDED Status: Active Protocol: Document 05/05/19 14:38 AB (Rec: 05/05/19 16:40 AB [id number]) PT-Bed Mobility Assessment Supine to Sit Supine to Sit Independent Sit to Supine Sit to Supine Independent Scooting Scooting to Edge of Bed Independent PT-Transfer Assessment Sit to and From Stand Sit to and from Stand Independent Equipment Transfer Assistive Device Gait Belt Orthotic/Prosthetic Devices or Brace: No Transfers Transfer Destination Bed,Chair Transfer Technique Stand Step Pivot Transfer Ability Level of Assist Standby Assistance Gait Assessment Gait Gait Assistance Required: Standby Assistance Distance (Feet) 50 Able to Maintain Weight Bearing Status Yes During Gait Assistive Devices Assistive Device Gait Belt Orthotic/Prosthetic Devices or Brace: No Factors Limiting Gait Function Factors Limiting Gait Function Poor Safety Awareness Stair Climbing Assessment Evaluation Level of Assist On Stairs Standby Assistance Devices Stair Climbing Assistive Devices Left Railing Technique/Endurance Stair Climbing Direction Ascend and Descend Stair Climbing Technique Step Over Step Number of Steps Climbed 3 Query Text: Stair Climbing Set # Repetitions (reps) 2 PT-Balance Assessment Sitting Balance and Reactions Static Sitting Balance Ability Normal Dynamic Sitting Balance Ability Normal Standing Balance and Reactions Static Standing Balance Ability Good Dynamic Standing Balance Ability Good Device Used without AD Functional Assessments Functional Tests Tinetti Balance and Gait Assessment balance score: gait score 04/30 total score: 28 Other Functional Tests Performed Tinetti balance assessment: 28 /28 which relates to low fall risk M5 PT-IP Objective Assessments Start: 05/05/19 16:17 Freq: NEEDED Status: Active Protocol: Document 05/05/19 14:38 AB (Rec: 05/05/19 16:40 AB [id number]) Orientation Orientation/Cognition Level of Alertness Alert Orientation Name,Age,Birthday,Month,Date, Year,Day of Week,Place, Situation Language Function Ability No Deficits Noted Safety Awareness Decreased Safety Awareness Memory Description No Deficits Noted Gross Range of Motion Lower Extremity ROM Assessment Within Functional Limits Strength Lower Extremity Strength Assessment Within Functional Limits Sensation Assessment Sensation Gross Sensation WNL Muscle Tone Muscle Tone WNL Yes M6 PT-IP Treatment Start: 05/05/19 16:17 Freq: NEEDED Status: Active Protocol: Document 05/05/19 14:38 AB (Rec: 05/05/19 16:40 AB [id number]) Physical Therapy Treatment Education Education Provided Safety M7 PT-IP Assessment and Plan Start: 05/05/19 16:17 Freq: NEEDED Status: Active Protocol: Document 05/05/19 14:38 AB (Rec: 05/05/19 16:40 AB [id number]) PT Summary Assessment and Plan Potential Rehabilitation Potential Good Status of Condition at Evaluation Stable Summary Assessment Summary PT eval completed and pt is independent with bed mobility and SBA for transfers and ambulation for safety. pt tends to be impulsive but without LOB during mobility. No further PT intervention indicated at this time. pt plans to go home and spouse will assist pt when necessary. Frequency of Treatment Frequency Of Treatment Discharge Recommendations To Nursing Amount of Assist Needed Standby Assistance Discharge Recommendations PT Discharge Recommendations Home
--- NOTE | 2019-05-05 14:39 | OT.IP.EVAL ---
Past Medical History (Last Updated 05/05/19 @ 07:04 by WAYNE Tellez) Essential hypertension (Inactive 09/05/10) History of CVA (cerebrovascular accident) (Inactive) History of malignant melanoma (Inactive) Mixed hyperlipidemia (Inactive 09/05/10) Peripheral edema (Inactive) Scalp psoriasis (Inactive) Serum calcium elevated (Inactive) Supraventricular tachycardia (Acute) Surgical History (Last Updated 05/05/19 @ 07:04 by WAYNE Tellez) Cervical vertebral fusion (Acute) History of bilateral salpingo-oophorectomy (BSO) S/P total abdominal hysterectomy and bilateral salpingo-oophorectomy Occupational Therapy Inpatient Evaluation/Re-Eval M1 PT/OT-IP Prior Functional Status Start: 05/05/19 16:45 Freq: NEEDED Status: Active Protocol: Document 05/05/19 14:39 [facility] (Rec: 05/05/19 17:02 [facility] [id number]) Medical Review Prior Functional Status Medical History Reviewed Yes Communication able to make needs known Mobility and Gait pt stated that she is independent with all mobilities and ambulation without AD Activities of Daily Living and IADL's Pt states completely independent with bills, cooking, cleaning, medication, and driving. Social History Household Members spouse Living Arrangements House Number of Floors (Floors) One Floor Number of Stairs To Enter/Railing? no steps to enter Home Environment High Toilet,Built-In Shower Seat Home Equipment Front Wheel Walker,Four Wheel Walker,Quad Cane,Straight Cane ,Bedside Commode,Grab Bars In Shower Additional Social History Comment has a safety toilet frame, transport chair M2 OT-IP Current Condition Start: 05/05/19 16:45 Freq: Status: Active Protocol: Document 05/05/19 14:39 [facility] (Rec: 05/05/19 17:02 [facility] [id number]) Occupational Therapy Current Condition Current Condition Evaluation Date 05/05/19 Treatment Diagnosis CVA, right superomedial frontal lobe Diagnosis Onset Date 05/05/19 Weight Bearing Status Weight Bearing Status Weight Bear as Tolerated M3 OT- IP Subjective and Pain Start: 05/05/19 16:45 Freq: Status: Active Protocol: Document 05/05/19 14:39 [facility] (Rec: 05/05/19 17:02 [facility] [id number]) OT- Subjective Occupational Therapy Visit Type Type Initial Evaluation Visit Start Time 14:39 Visit Stop Time 15:25 Total Visit Minutes 46 Occupational Therapy Visit Comments Patient Comments Pt anxious to go home tomorrow and feels that she is back to normal. Patient/Caregiver Goals To go home tomorrow. OT Pain Assessment Pain When Pain Assessed At Rest Pain Present Pain Present Denied Pain M4 OT- IP ADL's Start: 05/05/19 16:45 Freq: Status: Active Protocol: Document 05/05/19 14:39 [facility] (Rec: 05/05/19 17:02 [facility] [id number]) OT [id number] Comments OT Self-Feeding Comments Not at meal time. OT ADL-Grooming Comments OT Grooming Comments Pt states already completed earlier. OT ADL-Dressing General Eval Lower Body Dressing Ability Independent OT ADL-Toileting Comments OT Toileting Comments Not having to go and states able to do on her own. OT ADL-Bathing Comments OT Bathing Comments Pt not wanting to shower at this time. M5 OT- IP IADL's Start: 05/05/19 16:45 Freq: Status: Active Protocol: Document 05/05/19 14:39 [facility] (Rec: 05/05/19 17:02 [facility] [id number]) OT-Instrumental Activities of Daily Living Home Safety Awareness Ability to Problem Solve Emergency Able to Problem Solve Situations Home Safety Comments Pt 100% for hoome safety questionnaire. Medication Management Medication Management No Deficits Identified Money Management Money Management Comments Suggested pt to have supervise initially when at home. Meal Preparation Meal Preparation Comments To have supervision initially. Driving Driving Concerns Identified Regarding Safety M6 OT- IP Functional Cognition Start: 05/05/19 16:45 Freq: Status: Active Protocol: Document 05/05/19 14:39 [facility] (Rec: 05/05/19 17:02 [facility] [id number]) Cognitive Factors Limiting Selfcare Function Cognitive Ability Level of Alertness Alert Patient Orientation Name,Age,Birthday,Month,Date, Year,Day of Week,Place, Situation Attention Span Ability Capable of Focused Attention, Capable of Sustained Attention Ability to Follow Commands Able to Follow Multi-Step Commands Memory Description Short Term Impaired Safety Awareness Underestimates Need for Assistance Problem Solving Ability Needs Assist to Identify Solutions Executive Function Ability Unable to Filter Distractions, Unable to Organize Plans, Unable to Remember Details Cognitive Tests SLUMS Pt scored 21/30 , normal score for pt is 27/30. Pt having difficulty to do math equation , only able to recall 2/5 objects, not able to draw the hour hands corrects, and got 3 /4 questions correct after paragraph read. Pt's score implies cognitive deficits. Cognitive Comments Cognitive Assessment Comments Pt tends to be a little impulsive, needing time to thinks things through before answering questions. Pt initially not able to recall directions of [place] [employer] , however after placing her glasses on and repeating the directions to herself able to complete in 64 seconds which implies no deficits for mental flexiblity, speed of processing, however based on SLUMS and interactions with pt , suggest that pt not drive at this time as pt's cognition and thinking seems to fluctuate. To reassess pt tomorrow. Pt's states prior pt has history of not focusing well for tasks at hand. OT- Vision and Hearing OT- Hearing Assessment OT- Hearing Assessment WFL OT- Vision Assessment Visual Acuity Glasses For Reading M7 OT- IP Mobility and Balance Start: 05/05/19 16:45 Freq: Status: Active Protocol: Document 05/05/19 14:39 [facility] (Rec: 05/05/19 17:02 [facility] [id number]) OT- Bed Mobility Assessment Supine to Sit Supine to Sit Assist Independent Sit to Supine Sit to Supine Assist Independent OT-Transfer Assessment Sit to and From Stand Sit to and from Stand Standby Assistance Transfers Transfer Ability Standby Assistance Technique Transfer Destination Bed,Chair Comments Mobility Comments SBA with gait belt and assit to manage IV pole. OT- Balance Assessment Sitting Balance and Reactions Static Sitting Balance Ability Normal Dynamic Sitting Balance Ability Normal Standing Balance and Reactions Static Standing Balance Ability Normal M8 OT- IP Objective Assessments Start: 05/05/19 16:45 Freq: Status: Active Protocol: Document 05/05/19 14:39 [facility] (Rec: 05/05/19 17:02 [facility] [id number]) OT Gross Range of Motion Upper Extremity Range of Motion Assessment Within Functional Limits ROM Impairments Pt tends to hold her left hand at her chest due to pain from IV line in her wrist. OT Strength Upper Extremity Strength Assessment Within Functional Limits OT Sensation Assessment Comments Summary Comments Intact for light touch, slightly decreased for proprioception for LUE. M9 OT- IP Assessment and Plan Start: 05/05/19 16:45 Freq: Status: Active Protocol: Document 05/05/19 14:39 [facility] (Rec: 05/05/19 17:02 [facility] [id number]) OT Summary Assessment and Plan Potential Rehabilitation Potential Excellent Analytic Complexity at Evaluation Low Summary OT Impairments Pain,Functional Cognition Progress Towards Goals Progressing Toward Goals Assessment Summary Pt low complexity and main barrier is decreased safety awareness and executive thinking and short term memory . Pending progress tomorrow may benefit from outpt OT for short term memory strategies. Pt to go home with pt's . Goals Shower Transfer Goal Independent Patient/Caregiver Education Goal Caregiver Independent Assisting Patient Days to Meet Goals 1 Frequency of Treatment Frequency Of Treatment Once a Day Treatment Plan OT Treatment Plan Functional Cognition Training, Functional Mobility,Patient/ Family Education,Discharge Planning Other Treatment Recommendations and Next shower and reassess cognition Treatment Focus Discharge Recommendations OT Discharge Recommendations Home with Assistance Other Discharge Recommendations Possible outpt OT
--- NOTE | 2019-05-05 18:17 | DI.US.S_ITS ---
PROCEDURE: US PERIPH VENOUS LOW EXTREM BI INDICATIONS: EDEMA TECHNIQUE: Real-time imaging, as well as color and pulse Doppler interrogation, were performed of the deep veins of both legs from the inguinal ligament to the popliteal fossa. COMPARISON: None. FINDINGS: Right: The common femoral, femoral and popliteal veins are normally compressible, and free of intraluminal thrombus. Color and pulse Doppler demonstrate normal phasic intravascular flow. There is normal augmentation response to distal compression maneuver. Left: The common femoral, femoral and popliteal veins are normally compressible, and free of intraluminal thrombus. Color and pulse Doppler demonstrate normal phasic intravascular flow. There is normal augmentation response to distal compression maneuver. IMPRESSION: Negative for deep venous thrombosis in the bilateral lower extremities. Dictated by: Rickey Holguin M.D. on 05/05/2019 at 20:30 Approved by: Rickey Holguin M.D. on 05/05/2019 at 20:32
[2019-05-05 19:08] LABS: Hemoglobin A1C% w Est Avg Glu 5.4 % (4.0-6.0)
[2019-05-05 20:13] LABS: TSH w/ Reflex to FT4 3.97 uIU/mL (0.47-4.68)
[2019-05-05] MEDS: APIXABAN 5 MG TABLET PO (20:44)
[2019-05-06 01:45] VITALS: BP 143/62; PULSE 52; RESP 16; TEMP 36.2; O2SAT 99
--- NOTE | 2019-05-06 02:42 | PC.NURSE ---
Addendum entered by Ramona Quevedo R.N. 05/06/19 06:54: States she is having some tingling in right upper arm this morning but has had similar intermittent symptoms related to cervical problems. NIH performed and is 0. Original Note: Patient is alert and oriented. Breath sounds CTA with RA sat of 99%. HRR but bradycardic in 50's. Telemetry reading at 0000 was SA-SB with occasional PVC's. Denies nausea. BT hypoactive but is passing flatus. Denies dysuria, frequency or urgency and is continent of urine. Able to move self in bed. Fall risk score is moderate so verbalizes agreement to have staff provide SBA when up to bathroom. Denies pain. Wearing bilateral calf SCD's. NIH 1; states touch to left side of face/arms is sharper than on right.
[2019-05-06 06:00] VITALS: BP 147/77; PULSE 51; RESP 16; TEMP 36.2; O2SAT 98
[2019-05-06 07:35] VITALS: BP 155/76; PULSE 57; RESP 17; TEMP 36.1; O2SAT 99
--- NOTE | 2019-05-06 08:32 | PM.DS.1 ---
History of Present Illness History of Present Illness Date Patient Seen: 05/05/19 Chief complaint: Found down Narrative: Written by Maycol BLACK: Ms. Sandeep David is a 73-year-old female with a history SVT, hypertension, hyperlipidemia, mild pulmonary hypertension and stroke who presents to the ER today with a syncopal episode. Patient was getting up to the bathroom at approximately 2:00 a.m. and had been undergoing prep for an elective colonoscopy using Dulcolax. She states when she got up out of bed she felt a little tingly. Her heard a thump in the bathroom and went to check found her sitting on the commode semiconscious attempting to open her eyes in speaking but not making sense. The patient does not recall any antecedent symptoms other than the tingling and the next thing she knew the paramedics were present, she is amnesic to events for approximately 10-20 minutes. Patient denies any recent headaches or dizziness and had been drinking attempt remain hydrated during the bowel prep. She denies nasal congestion or sore throat. She has had no chest pain and had palpitations in the remote past 5-6 years ago associated with SVT.. The patient denies shortness of breath cough or wheezing. She has no abdominal pain and denies nausea vomiting. Her colonoscopy is elective and has had no rectal bleeding. Patient has had cardiac evaluation 3B self but cannot recall the physician's name. She has an appointment with cardiology at with Day Peñaloza. Upon arrival to the ER the patient is afebrile with a temperature 97.7?, heart rate of 63, blood pressure 146/92, respirations of 14 saturating 96% on room air. EKG is obtained finding atrial fibrillation with a ventricular rate of 65, no ectopy, no ST or T-wave changes, no indication of infarct. Chest x-ray is taken and is unremarkable. On laboratory analysis the patient has white count is 13.5, hemoglobin 14.3, hematocrit of 42.9, platelets 364. Her electrolytes are within normal range notably with a potassium 4.0 and a magnesium of 2.1. Her BUN is 21 and creatinine is 0.7 and nonfasting glucose is 122. She has a calcium that's elevated 11.1 and her liver functions are all within normal limits Her troponin is negative at less than 0.012. The patient is admitted to the hospital for new diagnosis of atrial fibrillation in the setting of a syncopal episode. Discharge Providers Provider Date of admission: 05/05/19 06:20 Discharge Date: 05/06/19 Primary care physician: Berta Hawkins PA-C Consults: 05/05/19 06:51 Consult to Discharge Planning Routine Comment: 05/05/19 08:01 Consult to Dietitian, Adult Routine Comment: Reason For Exam: pt trying to lose weight, 12 lbs recent 05/05/19 10:09 Consult to Occupational Therapy Evaluate & Treat Comment: Physician Instructions: Evaluate and treat Consult to Physical Therapy Evaluate & Treat Comment: Physician Instructions: Evaluate and Treat 05/06/19 07:57 Consult to Speech Therapy Evaluate & Treat Comment: frontal CVA, cognitive eval to assess for deficits Physician Instructions: Evaluate and treat Discharge provider: Yaz Pereira DO Summary Hospital Course Discharge Diagnosis: 1. New subacute frontal CVAs, present on admission. Stable. 2. Newly diagnosed paroxysmal atrial fibrillation/flutter, present on admission. Active. 3. Hypertension, chronic, present on admission. Active. 4. Hyperlipidemia, chronic, present on admission. Active. 5. Obstructive sleep apnea, possibly inadequately treated, present on admission. Stable. 6. Planned upcoming colonoscopy. Hospital Course: 1. New subacute frontal CVAs, present on admission. Stable. -Patient presented after syncopal episode with left-sided weakness, facial droop, and dysarthria per that resolved prior to admission. The patient recently had previous small right frontal lobe CVA diagnosed with MR stroke protocol on 04/10/2019. -Cardiovascular risk factors include: Significant family history of cardiovascular disease in multiple primary relatives, hypertension, hyperlipidemia, obstructive sleep apnea possibly inadequately treated, stress, and hormone replacement therapy. -NIH score 0. -Allowed for permissive hypertension for first 24 hours. -EKG demonstrated atrial flutter with ventricular rate of 65, no ectopy, ST or T-wave changes. No indication ischemia or infarct. Troponin is less than 0.012. Continued to monitor closely on telemetry. Patient was in atrial fibrillation and spontaneously converted to sinus rhythm on 05/04 at 6:46. -Risk stratified with hemoglobin A1c which was normal at 5.4% and fasting lipid panel which demonstrated poor lipid control: Total cholesterol 192, triglycerides, 145, LDL 129 (goal < 70), HDL low at 34. -Started anticoagulation with Eliquis 5 mg twice daily as patient likely had embolic stroke. -Discussed statin therapy for which the patient reports statin induced myalgias and intolerance. Recommended she consider low-dose rosuvastatin (high potency and water-soluble with low side effect profile) trial with PCP and close monitoring for myopathy and if patient develops myalgia check a total creatinine kinase level. Started ezetimibe 10 mg daily and continued omega 3 1000 mg daily. -Echocardiogram did not demonstrate any embolic source or interatrial shunt. -Bilateral lower extremity Doppler ultrasound did not demonstrate any DVT. -MR stroke protocol demonstrated new small subacute infarcts within the right superomedial frontal lobe, normal evolution of previously seen right cordoba radiata infarct, volume loss and small vessel ischemic disease, no internal carotid artery stenosis bilaterally and suboptimally visualized vertebral artery origins, which are otherwise patent. -Continued physical, occupational and speech therapy evaluation and treatment. Patient had no significant residual deficits and improved more quickly than anticipated. She was discharged home with no needs. 2. Newly diagnosed paroxysmal atrial fibrillation/flutter, present on admission. Stable. -Patient with a previous history of SVT stating she has had 3 episodes approximately 5-6 years ago of which one episode required cardioversion with no further reoccurrences. -Previous recent echocardiogram 04/24/2019 demonstrated normal sinus rhythm, EF 60-65%, LV is normal structure and function, RV is normal in structure and function. -EKG demonstrated atrial flutter with ventricular rate of 65, no ectopy, ST or T-wave changes. No indication ischemia or infarct. Troponin is less than 0.012. -Electrolytes at adequate levels for the rhythm with potassium 4.0 and magnesium 2.1. -Initially placed on anticoagulation with therapeutic Lovenox 1 mg/kg and switched to Eliquis 5 mg twice daily. -Patient previously followed by cardiology at [facility] but she cannot recall the doctor's name. She is scheduled to be evaluated by cardiology at with Dr. Day Peñaloza. 3. Hypertension, chronic, present on admission. Active. -Patient mildly hypertensive throughout hospitalization with SBP 140-150's. -Allowed for permissive hypertension for first 24 hours. -Continued home medications diltiazem 240 mg daily and enalapril 20 mg twice daily. Started chlorthalidone 25 mg daily for improved blood pressure control. 4. Hyperlipidemia, chronic, present on admission. Active. -Risk stratified with hemoglobin A1c which was normal at 5.4% and fasting lipid panel which demonstrated poor lipid control: Total cholesterol 192, triglycerides, 145, LDL 129 (goal < 70), HDL low at 34. -Discussed statin therapy for which the patient reports statin induced myalgias and intolerance. Recommended she consider low-dose rosuvastatin (high potency and water-soluble with low side effect profile) trial with PCP and close monitoring for myopathy and if patient develops myalgia check a total creatinine kinase level. Started ezetimibe 10 mg daily and continued omega 3 1000 mg daily. 5. Obstructive sleep apnea, possibly inadequately treated, present on admission. Stable. -Patient reports she uses mouth appliances to treat obstructive sleep apnea. -Recommended repeat outpatient sleep study with oral appliances to assure that this is adequately treating LEXY and if not implementation of CPAP. 6. Planned upcoming colonoscopy. -Patient has previously undergone full bowel prep and reportedly ate resulting in a postponement of the procedure. Patient is being re-prepped with Dulcolax. -Patient has had no melena, hematochezia or abdominal pain. -She had been drinking Gatorade to remain hydrated. Exam Vital Signs (past 8 hours): - 05/06/19 01:45 05/06/19 06:00 Temperature 97.1 F L 97.2 F L Pulse Rate 52 L 51 L Respiratory Rate 16 16 Blood Pressure 143/62 H 147/77 H Pulse Oximetry 99 98 Oxygen Delivery Method Room Air Oxygen Flow Rate 0 Narrative Exam Narrative: General: Older female standing in room and in no acute distress, well-developed, well-nourished, appropriately interactive. HEENT: Normocephalic, atraumatic. External ears without defect. Pupils equal, round, and reactive to light. Anicteric sclerae, moist conjunctivae, and no lid lag. Oropharynx free of erythema and cobble stoning with moist mucosa. Neck: Supple with full range of motion. No jugular venous distension. No bruits. No lymphadenopathy or thyromegaly. Cardiovascular: Regular rate and rhythm without murmurs, rubs, or gallops appreciated. Pulmonary: Clear to auscultation bilaterally without crackles, wheezes, or rhonchi. Normal respiratory effort with no use of accessory muscles. Abdomen: Soft, bowel sounds present, nontender, nondistended. No hepatosplenomegaly or masses appreciated. Extremities: No clubbing, cyanosis, or edema. Skin: Normal temperature, turgor, and texture; no rash, ulcers, or subcutaneous nodules appreciated. Neurological: Cranial nerves grossly intact. Normal muscle strength, tone, and bulk. Reflexes, coordination, and sensory function within normal limits. No known gait impairment. No focal neurological deficits. Psychiatric: Normal mood and affect. Alert and oriented to person, place, and time. Objective Labs Result Diagrams: 05/05/19 02:45 05/05/19 04:05 Labs: Laboratory Results - last 24 hr 05/05/19 05/05/19 05/05/19 02:45 04:05 10:15 Hemoglobin A1c 5.4 TSH 3.97 Urine Color Yellow Urine Appearance Clear Urine pH 5.0 Ur Specific [place] <=1.005 Urine Protein Negative Urine Glucose (UA) Negative Urine Ketones Negative Urine Occult Blood Negative Urine Nitrate Negative Urine Bilirubin Negative Urine Urobilinogen 0.2 Ur Leukocyte Esterase Negative Urine RBC None seen Urine WBC 0-1/hpf Ur Squamous Epith Cells 0-1 /hpf Urine Bacteria Occasional (0-1) Ur Culture Indicated? Cult not indicated Discharge Plan Discharge Plan Patient Disposition: Home Discharge comment: You are being discharged home. You have had multiple strokes in your right frontal lobe that are likely secondary to blood clot from your newly diagnosed paroxysmal atrial fibrillation. You have been prescribed a potent blood thinner called Eliquis 5 mg twice daily to protect you from further strokes. You've have been prescribe ezetimibe 10 mg daily to help lower your cholesterol. Please consider a low-dose, high potency, low side effect profile statin trial (Crestor) under the supervision of your primary care provider. You have been prescribed chlorthalidone 25 mg daily in addition to your diltiazem and enalapril to help lower your blood pressure. Highly recommend you stop hormone replacement therapy if possible as this carries high risk of cardiovascular disease (heart attack and stroke) and clot formation. Please follow-up with your primary care provider, Latasha Hawkins, regarding your hospitalization for multiple strokes and referral to outpatient sleep medicine for repeat sleep study with your oral appliances to assure that your obstructive sleep apnea is adequately treated and if not implement CPAP. Continue lifestyle modification with diet and exercise as discussed. The [place] [employer] recommends 150 minutes a week of moderate intensity cardiovascular exercise. If your sedentary start with small obtainable goals and work your way up to 150 minutes. You were provided a handout on Mediterranean diet. Discharge orders & Medications Prescriptions: New chlorthalidone 25 mg Tablet 25 mg PO DAILY Qty: 30 RF: 0 ezetimibe [Zetia] 10 mg Tablet 10 mg PO DAILY Qty: 30 RF: 0 Fish Oil 340-1,000 mg Capsule 1,000 mg PO DAILY Qty: 30 RF: 0 Eliquis 5 mg Tablet 5 mg PO BID Qty: 60 RF: 0 Continued Fluocinolone 0.01% Scalp oil See Rx Instructions .ROUTE .COMPLEX RF: 0 Prebiotic powder 1 dose PO DAILY RF: 0 ketoconazole 2 % shampoo 1 applictn TOP .once a week PRN (Reason: as directed) RF: 0 triamcinolone acetonide 0.1 % cream 1 applictn TOP BID PRN (Reason: as directed) RF: 0 hydrocortisone 2.5 % cream 1 applictn TOP BID PRN (Reason: as directed) RF: 0 OLIVE LEAF EXTRACT 2 cap PO DAILY RF: 0 [id number] [Airborne (ascorbate sodium)] 333-1.7 mg tablet,chewable 0 mg PO BID PRN (Reason: as directed) RF: 0 MULTIVITAMIN (One Daily Multivitamin) 1 tab PO Q DAY Qty: 0 RF: 0 coenzyme Q10 [CoQ-10] 100 mg Capsule 100 mg PO HS Qty: 0 RF: 0 clobetasol 0.05 % solution 0.05 % Topical PRN PRN (Reason: as directed) Qty: 0 RF: 0 diltiazem HCl 240 MG capsule,extended release 24hr 240 mg PO QDAY Qty: 0 RF: 0 polypodium leucotomos extract [Heliocare] 240 mg capsule 240 mg PO DAILY RF: 0 enalapril maleate 20 mg tablet 20 mg PO BID Qty: 180 RF: 3 Discontinued Niacin Non-flush capsule 1 cap PO BEDTIME RF: 0 DHEA tablet See Rx Instructions .ROUTE .COMPLEX RF: 0 CMP BIEST HRT COMPOUND cream See Patient Comments .ROUTE .COMPLEX Qty: 90 RF: 3 aspirin 325 mg tablet 325 mg PO DAILY RF: 0 progesterone micronized 100 mg capsule 100 mg PO QPM RF: 0 Follow up/Referrals: Berta Hawkins PA-C [Primary Care Provider] - Diet/Activity/Treatments Diet: Low-fat, Low-sodium and Low-cholesterol Activity: Activity as tolerated Visit Report/Discharge Packet Instructions: The Mediterranean Diet and Good Health, DI for Stroke-Ischemic, Mediterranean Diet May Reduce the Risk of Stroke in People with High Risk o, Apixaban, Chlorthalidone (By mouth), Ezetimibe (By mouth) Visit Report Forms: Patient Portal/API, Stroke Signs & Symptoms Discharge Data Primary Care Provider: Berta Hawkins Attending Provider: Maycol Villafuerte Admmohamud Date/Time: 05/05/19 06:20 Quality VTE Deep Vein Thrombosis/Pulmonary Embolism Present on Admission: No
--- NOTE | 2019-05-06 09:00 | OT.IP.TRT ---
Occupational Therapy Treatment Note M2 OT-IP Current Condition Start: 05/05/19 16:45 Freq: Status: Active Protocol: Document 05/05/19 14:39 [facility] (Rec: 05/05/19 17:02 [facility] [id number]) Occupational Therapy Current Condition Current Condition Evaluation Date 05/05/19 Treatment Diagnosis CVA, right superomedial frontal lobe Diagnosis Onset Date 05/05/19 Weight Bearing Status Weight Bearing Status Weight Bear as Tolerated M3 OT- IP Subjective and Pain Start: 05/05/19 16:45 Freq: Status: Active Protocol: Document 05/06/19 10:35 [facility] (Rec: 05/06/19 10:58 [facility] [id number]) OT- Subjective Occupational Therapy Visit Type Type Treatment Note Visit Start Time 09:00 Visit Stop Time 10:26 Total Visit Minutes 86 Occupational Therapy Visit Comments Patient Comments Pt anxious to go home today and mainly just feels tired but otherwise back to normal. Pt to shower. Patient/Caregiver Goals To go home. OT Pain Assessment Pain When Pain Assessed At Rest Pain Present Pain Present Denied Pain M4 OT- IP ADL's Start: 05/05/19 16:45 Freq: Status: Active Protocol: Document 05/06/19 10:35 [facility] (Rec: 05/06/19 10:58 [facility] [id number]) OT [id number] Comments OT Self-Feeding Comments Not at meal time, per pt has no trouble. OT ADL-Grooming General Evaluation Grooming Ability Independent OT ADL-Dressing General Eval Upper Body Dressing Ability Independent Lower Body Dressing Ability Independent OT ADL-Toileting General Evaluation Toileting Ability Independent OT ADL-Bathing Bathing Type Bathing Type Shower General Evaluation Bathing Ability Standby Assistance Areas Needing Assistance Retrieving/Setting Up Items Devices Bathing Equipment Shower Chair with Arms Comments OT Bathing Comments Distant SBA, pt able to safely sit to shave her legs and stand to wash her hair and has good awareness for safety. Pt states able to use shower chair at home if needed and to be close by. M5 OT- IP IADL's Start: 05/05/19 16:45 Freq: Status: Active Protocol: Document 05/06/19 10:35 [facility] (Rec: 05/06/19 10:58 [facility] [id number]) OT-Instrumental Activities of Daily Living Home Safety Awareness Ability to Problem Solve Emergency Able to Problem Solve Situations Home Safety Comments Pt 100% for hoome safety questionnaire. Medication Management Medication Management No Deficits Identified Money Management Money Management No Deficits Identified Money Management Comments Pt doing better with calculations today and pt states heavily relies on a calculator at home. Meal Preparation Meal Preparation Comments To have supervision initially. Driving Driving Caregiver Provides Supervision M6 OT- IP Functional Cognition Start: 05/05/19 16:45 Freq: Status: Active Protocol: Document 05/06/19 10:35 [facility] (Rec: 05/06/19 10:58 [facility] [id number]) Cognitive Factors Limiting Selfcare Function Cognitive Ability Level of Alertness Alert Patient Orientation Name,Age,Birthday,Month,Date, Year,Day of Week,Place, Situation Attention Span Ability Capable of Focused Attention, Capable of Sustained Attention Ability to Follow Commands Able to Follow Multi-Step Commands Memory Description Short Term Impaired Safety Awareness No Deficits Noted Problem Solving Ability No deficits Noted Executive Function Ability Unable to Filter Distractions, Unable to Organize Plans, Unable to Remember Details Cognitive Tests SLUMS Pt scored 25/30 today ,much improved from yesterday, main issues is short term memory recall 2/5 objects and got 3/4 questions correct after paragraph read. ACL Pt scored 5.4 out of 6.0 which implies may live alone or with others, may need prompts to anticipate hazards and prevent accidents. Help with estimating effective use of time, and collaboration. Cognitive Comments Cognitive Assessment Comments Pt forgot the sequence and jumped from 5-F versus 5-E , therefore still showing impairments with mental flexibility, speed of processing, and problem solving. At this time, borderline whether safe to drive, pt aware and suggested to have drive initially and then have present when driving before trying to drive on her own. Main issue for pt is at times has trouble with focusing and get distracted. M7 OT- IP Mobility and Balance Start: 05/05/19 16:45 Freq: Status: Active Protocol: Document 05/06/19 10:35 [facility] (Rec: 05/06/19 10:58 [facility] [id number]) OT- Bed Mobility Assessment Supine to Sit Supine to Sit Assist Independent Sit to Supine Sit to Supine Assist Independent OT-Transfer Assessment Sit to and From Stand Sit to and from Stand Independent Transfers Transfer Ability Independent,Standby Assistance Comments Mobility Comments Pt able to get up and down from the floor with use of bench to help push up from . OT- Gait Assessment Gait Gait Assistance Required: Independent OT- Balance Assessment Sitting Balance and Reactions Static Sitting Balance Ability Normal Dynamic Sitting Balance Ability Normal Standing Balance and Reactions Static Standing Balance Ability Normal Dynamic Standing Balance Ability Good M8 OT- IP Objective Assessments Start: 05/05/19 16:45 Freq: Status: Active Protocol: Document 05/06/19 10:35 [facility] (Rec: 05/06/19 10:58 [facility] [id number]) OT- Coordination Assessment Comments Coordination Comments 9 hole peg Right hand 26 sec , Left hand 28 sec M9 OT- IP Assessment and Plan Start: 05/05/19 16:45 Freq: Status: Active Protocol: Document 05/06/19 10:35 [facility] (Rec: 05/06/19 10:58 [facility] [id number]) OT Summary Assessment and Plan Potential Rehabilitation Potential Excellent Analytic Complexity at Evaluation Low Summary OT Impairments Pain,Coordination Progress Towards Goals Safe For Discharge Assessment Summary Pt still having slight short term memory and executive function impairments. Pt showing improvement from yesterday and independent with all ADl and mobility needs at this time. Pt aware that may be best to have drive initially or drive with before driving on her own. Pt feel will be thinking better after able to get some sleep and aware if still having any cognitive issues to speak to her primary to get an order for outpt OT. Goals Patient/Caregiver Education Goal Caregiver Independent Assisting Patient Frequency of Treatment Frequency Of Treatment Once a Day Discharge Recommendations OT Discharge Recommendations Home with Assistance
[2019-05-06] MEDS: ENALAPRIL 20 MG TABLET PO (09:04)
[2019-05-06] MEDS: APIXABAN 5 MG TABLET PO (09:04)
[2019-05-06] MEDS: FISH OIL 1,000 MG CAPSULE 1000 MG PO (09:04)
[2019-05-06] MEDS: dilTIAZem CD 240 MG CAP PO (09:04)
[2019-05-06] MEDS: EZETIMIBE 10 MG TABLET PO (09:04)
[2019-05-06] MEDS: SODIUM CHLORIDE 0.9% FLUSH 10 ML IV (09:05)
[2019-05-06 11:40] VITALS: BP 136/76; PULSE 55; RESP 17; TEMP 36.6; O2SAT 97
[2019-05-06] MEDS: CHLORTHALIDONE 25 MG TABLET PO (12:00)
--- NOTE | 2019-05-06 13:39 | PC.NURSE ---
Day Shift- NIH score is 0. pt asymptomatic. Able to make needs known using call light. Spoke with Dr. Pereira at [phone] regarding pt's anxiousness regarding plan of care events from home to hospitalization regarding spoke. Dr. Pereira to speak with pt, plan for discharge. Pt's present in room. Discharge summary packet given to pt and her . Reviewed all information. aware to picker / packer prescriptions at [facility] in [place]. No further voiced concerns. Pt states she has a follow up appointment already made for PCP. Spoke with medical records department, pt requested reports from previous MRI and previous ECHO, and current discharge summary. Pt aware to go to medical records upon discharge to picker / packer. As noted yesterday, pt now given requested reports from 05/05 MRI, ECHO, XRAY and MRI disc. PHI release authorization signed and placed in pt's chart. Pt left unit via wheelchair with all belongings in no distress at [phone]. with PERSONAL DEVELOPMENT EDUCATOR escort, pt's Brian present to drive pt home.
== END 2019-05-06 12:42 | disposition home or self-care (01) | DRG 65 ==
LOC: ED 04:48 → AC 06:37
PROVIDERS: Internal Medicine; Admitting Provider Nurse Practitioner Adult Health; Emergency Provider Emergency Medicine; PCP Physician Assistant; Visit Provider Nurse Practitioner Adult Health
DX: I63.89 Other cerebral infarction (principal); G81.94 Hemiplegia, unspecified affecting left nondominant side; R29.810 Facial weakness; R47.1 Dysarthria and anarthria; I10 Essential (primary) hypertension; E78.5 Hyperlipidemia, unspecified; I48.0 Paroxysmal atrial fibrillation; G47.33 Obstructive sleep apnea (adult) (pediatric); Z82.49 Family history of ischemic heart disease and other diseases of the circulatory system
CPT/HCPCS: 36415; 70548; 70553; 71045; 80053; 80061; 81001; 82550; 83036; 83735; 84443; 84484; 85025; 85610; 93005; 93010; 93307; 93970; 94762; 96360; 96361; 96372; 97161; 97165; 97530; 97535; 99284; 99285; G0378; A9270; J1650

== ENCOUNTER → 2019-06-10 13:27 | Outpatient (CLI) | payer MEDICARE, OTHER, SELFPAY ==
[2019-05-05 07:49] VITALS: BMI 31.9
--- NOTE | 2019-06-10 13:49 | DIET.PN ---
Dietary Progress Note Assessment: 73y F referred to nutrition for help managing HLD s/p stroke in April. Has been on statin (crestor) since 05/20/19 after stroke, taking 2.5mg every other day, wants to get off of them as her energy is low and she is having side effects. Usual intake: 5am wakes- decaf coffee c stevia drinks a lot of cold water throughout day Rows M, W, F (9-10am) smoothie: 1c spinach, 1 scoop pro powder (chocolate, whey) avocado, prebiotic powder (gundry), 1tbs almond butter, 2 c filtered water after row: paleo bar c water Lunch (1pm): fish fillet (salmon, tuna, francois francois) or chicken breast c salad c evoo balsamic vinegar and sometimes vegetable sn (3-4pm): edamame c fruit D (light): smoothie recently craving carbs: spinach and avocado dip c multigrain chip (10 chips) glass wine (white or red) once or twice per week, very occ crown c club soda Pt went off Coke/Coke zero 2mo ago prior to stroke ate out 1x/w, now less. Pt's diet is excellent with good sources of healthy fats to boost HDL, low levels of saturated fat. Pt has adequate exercise with rowing, could use additional to boost HDL. Pt diet low in soluble fiber. Labs: HDL 34 L, LDL 130 H, Vit D 24 L Interventions: 1. In addition to 3hr per week of rowing, add 2d/w moderate cardiovascular exercise for at least 20 minutes each time. 2. Include 1 tbs mary seeds to daily smoothie to increase soluble fiber. 3. Consider taking 2000 IU vitamin D daily for low lab levels. Monitoring/Evaluations: Will recheck labs on 06/29/2019, f/u as desired by pt.
== END ==
PROVIDERS: PCP Physician Assistant; Visit Provider Physician Assistant
DX: E78.5 Hyperlipidemia, unspecified (principal); Z86.73 Personal history of transient ischemic attack (TIA), and cerebral infarction without residual deficits
CPT/HCPCS: 97802

== ENCOUNTER → 2019-06-29 07:10 | Outpatient (CLI) | payer MEDICARE, OTHER, SELFPAY ==
[2019-05-05 07:49] VITALS: BMI 31.9
[2019-06-29 08:44] LABS: Alanine Aminotransferase 27 IU/L (<35); Albumin 4.6 g/dL (3.5-5.0); Albumin Globulin Ratio 1.3 (1.0-2.8); Alkaline Phosphatase 57 U/L (38-126); Aspartate Aminotransferase 28 IU/L (14-36); BUN Creatinine Ratio 27.5 (6-22); Bilirubin Total 0.8 mg/dL (0.2-1.3); Blood Urea Nitrogen 22 mg/dL (7-17); Calcium 10.6 mg/dL (8.4-10.2); Carbon Dioxide 32 mmol/L (22-32); Chloride 95 mmol/L (98-107); Cholesterol 116 mg/dL (140-199); Estimated Glomerular Filt Rate > 60.0 mL/min (>60); Globulin 3.5 g/dL (1.7-4.1); Glucose 120 mg/dL (80-110); HDL Cholesterol 32 mg/dL (40-60); HEMOLYSIS < 15 (0-50); LDL Cholesterol Calculated 65 mg/dL (<100); Potassium 3.7 mmol/L (3.4-5.1); Sodium 137 mmol/L (137-145); Total Protein 8.1 g/dL (6.3-8.2); Triglycerides 93 mg/dL (35-150)
== END ==
PROVIDERS: PCP Physician Assistant; Referring Provider Physician Assistant; Visit Provider Physician Assistant
DX: E78.5 Hyperlipidemia, unspecified (principal); I10 Essential (primary) hypertension
CPT/HCPCS: 36415; 80053; 80061

== ENCOUNTER → 2019-10-29 07:53 | Outpatient (CLI) | payer MEDICARE, OTHER, SELFPAY ==
[2019-05-05 07:49] VITALS: BMI 31.9
[2019-10-29 08:43] LABS: Add Manual Diff / Slide Review NO; Basophils Absolute Auto 100 /uL (0-100); Basophils Percent Auto 0.6 % (0-2); Eosinophils Absolute Auto 200 /uL (0-450); Eosinophils Percent Auto 2.5 % (2-4); Hematocrit 37.1 % (36-46); Hemoglobin 12.8 g/dL (12.0-16.0); Lymphocytes Absolute Auto 2100 /uL (1100-4500); Lymphocytes Percent Auto 25.9 % (25-40); Mean Corpuscular HGB Conc 34.5 % (30-36); Mean Corpuscular Hemoglobin 31.7 PG (26-34); Mean Corpuscular Volume 91.9 fL (80-100); Monocytes Absolute Auto 600 /uL (0-900); Monocytes Percent Auto 7.6 % (3-14); Neutrophils Absolute Auto 5200 /uL (1500-7000); Neutrophils Percent Auto 63.4 % (50-75); Platelet Count 338 X10^3/uL (150-400); Red Blood Cell Count 4.04 X10^6/uL (4.0-5.2); Red Cell Distribution Width 12.9 % (11.6-14.8); White Blood Cell Count 8.1 X10^3/uL (4.5-11.0)
[2019-10-29 09:41] LABS: Blood Urea Nitrogen 19 mg/dL (7-17); Calcium 10.9 mg/dL (8.4-10.2); Carbon Dioxide 30 mmol/L (22-32); Chloride 97 mmol/L (98-107); Cholesterol 126 mg/dL (140-199); Estimated Glomerular Filt Rate > 60.0 mL/min (>60); Glucose 109 mg/dL (80-110); HDL Cholesterol 46 mg/dL (40-60); HEMOLYSIS < 15 (0-50); LDL Cholesterol Calculated 58 mg/dL (<100); Potassium 3.9 mmol/L (3.4-5.1); Sodium 136 mmol/L (137-145); Triglycerides 110 mg/dL (35-150)
== END ==
PROVIDERS: PCP Nurse Practitioner; Referring Provider Internal Medicine Cardiovascular Disease; Visit Provider Internal Medicine Cardiovascular Disease
DX: E78.5 Hyperlipidemia, unspecified (principal); I48.91 Unspecified atrial fibrillation; I10 Essential (primary) hypertension
CPT/HCPCS: 36415; 80048; 80061; 85025

== ENCOUNTER → 2019-12-11 07:05 | Outpatient (CLI) | payer MEDICARE, OTHER, SELFPAY ==
[2019-05-05 07:49] VITALS: BMI 31.9
[2019-12-11 08:42] LABS: Alanine Aminotransferase 33 IU/L (<35); Albumin 4.8 g/dL (3.5-5.0); Albumin Globulin Ratio 1.7 (1.0-2.8); Alkaline Phosphatase 57 U/L (38-126); Aspartate Aminotransferase 33 IU/L (14-36); BUN Creatinine Ratio 22.4 (6-22); Bilirubin Total 0.9 mg/dL (0.2-1.3); Blood Urea Nitrogen 17 mg/dL (7-17); Calcium 11.3 mg/dL (8.4-10.2); Carbon Dioxide 29 mmol/L (22-32); Chloride 92 mmol/L (98-107); Estimated Glomerular Filt Rate > 60.0 mL/min (>60); Globulin 2.8 g/dL (1.7-4.1); Glucose 106 mg/dL (80-110); HEMOLYSIS < 15 (0-50); Potassium 4.1 mmol/L (3.4-5.1); Sodium 132 mmol/L (137-145); Total Protein 7.6 g/dL (6.3-8.2)
[2019-12-12 07:36] LABS: Calcium 10.8 mg/dL (8.7-10.3); Parathyroid Hormone, Intact 103 pg/mL (15-65)
== END ==
PROVIDERS: PCP Nurse Practitioner; Referring Provider Nurse Practitioner; Visit Provider Nurse Practitioner
DX: E78.5 Hyperlipidemia, unspecified (principal); E83.52 Hypercalcemia; Z86.73 Personal history of transient ischemic attack (TIA), and cerebral infarction without residual deficits; Z79.899 Other long term (current) drug therapy
CPT/HCPCS: 36415; 80053; 82310; 83970

== ENCOUNTER → 2019-12-13 09:38 | Outpatient (CLI) | payer MEDICARE, OTHER, SELFPAY ==
[2019-05-05 07:49] VITALS: BMI 31.9
[2019-12-15 13:43] LABS: COVID19 Sendout Not Detected (Not Detect)
== END ==
PROVIDERS: PCP Nurse Practitioner; Visit Provider Physician Assistant
DX: Z01.818 Encounter for other preprocedural examination (principal)
CPT/HCPCS: 87635

== ENCOUNTER → 2020-01-05 10:25 | Outpatient (CLI) | payer MEDICARE, OTHER, SELFPAY ==
[2019-05-05 07:49] VITALS: BMI 31.9
[2020-01-06 09:36] LABS: COVID19 Sendout Not Detected (Not Detect)
== END ==
PROVIDERS: PCP Nurse Practitioner; Visit Provider Physician Assistant
DX: Z11.59 Encounter for screening for other viral diseases (principal)
CPT/HCPCS: 87635

== ENCOUNTER → 2020-02-04 07:01 | Outpatient (CLI) | payer MEDICARE, OTHER, SELFPAY ==
[2019-05-05 07:49] VITALS: BMI 31.9
[2020-02-04 09:18] LABS: BUN Creatinine Ratio 23.5 (6-22); Blood Urea Nitrogen 20 mg/dL (7-17); Calcium 10.6 mg/dL (8.4-10.2); Carbon Dioxide 26 mmol/L (22-32); Chloride 102 mmol/L (98-107); Estimated Glomerular Filt Rate > 60.0 mL/min (>60); Glucose 117 mg/dL (80-110); HEMOLYSIS < 15 (0-50); Potassium 4.7 mmol/L (3.4-5.1); Sodium 139 mmol/L (137-145)
== END ==
PROVIDERS: PCP Nurse Practitioner; Referring Provider Internal Medicine Endocrinology, Diabetes & Metabolism; Visit Provider Internal Medicine Endocrinology, Diabetes & Metabolism
DX: E21.3 Hyperparathyroidism, unspecified (principal); Z78.0 Asymptomatic menopausal state; Z90.722 Acquired absence of ovaries, bilateral
CPT/HCPCS: 36415; 80048

== ENCOUNTER → 2020-02-04 14:10 | Outpatient (CLI) | payer MEDICARE, OTHER, SELFPAY ==
[2019-05-05 07:49] VITALS: BMI 31.9
== END ==
PROVIDERS: PCP Nurse Practitioner; Referring Provider Internal Medicine Endocrinology, Diabetes & Metabolism; Visit Provider Internal Medicine Endocrinology, Diabetes & Metabolism
DX: Z78.0 Asymptomatic menopausal state (principal); E21.3 Hyperparathyroidism, unspecified; Z90.722 Acquired absence of ovaries, bilateral
CPT/HCPCS: 36415; 77080; 77081; 80048

== ENCOUNTER → 2020-02-12 10:19 | Outpatient (CLI) | payer MEDICARE, OTHER, SELFPAY ==
[2019-05-05 07:49] VITALS: BMI 31.9
--- NOTE | 2020-02-12 10:23 | DI.RAD.S_ITS ---
PROCEDURE: XR SHOULDER RT MIN 2V INDICATIONS: Right shoulder injury TECHNIQUE: 3 views of the shoulder were acquired. COMPARISON: None. FINDINGS: Bones: No fractures or dislocations. No suspicious bony lesions. Visualized ribs appear intact. Mild joint narrowing with periarticular osteophyte formation. Soft tissues: No suspicious soft tissue calcifications. IMPRESSION: Mild acromioclavicular and glenohumeral joint degeneration. Dictated by: Cedrick Claudio [facility] Interpreted: Leonard Ronquillo MD on 02/12/2020 at 10:42 Approved by: Leonard Ronquillo M.D. on 02/12/2020 at 11:49
== END ==
PROVIDERS: PCP Nurse Practitioner; Referring Provider Nurse Practitioner; Visit Provider Family Medicine
DX: S43.401A Unspecified sprain of right shoulder joint, initial encounter (principal); M19.011 Primary osteoarthritis, right shoulder; X58.XXXA Exposure to other specified factors, initial encounter
CPT/HCPCS: 73030

== ENCOUNTER → 2020-02-19 08:40 | Outpatient (CLI) | payer MEDICARE, OTHER, SELFPAY ==
[2019-05-05 07:49] VITALS: BMI 31.9
--- NOTE | 2020-02-19 | DI.RAD.S_ITS ---
PROCEDURE: FL SHOULDER INJECTION MR/CT RT INDICATIONS: RIGHT SHOULDER INJURY TECHNIQUE: The indications, alternatives, benefits, risks, and complications of the procedure were explained to the patient. Written informed consent was obtained and placed in the chart. The shoulder was examined fluoroscopically and a site for needle placement chosen for entry into the glenohumeral joint from an anterior approach. The skin was prepped and draped in a sterile fashion, and 1% lidocaine infiltrated from skin down to joint capsule. A spinal needle was inserted into the glenohumeral joint, and a small amount of iodinated contrast media injected to confirm intra-articular placement of the needle tip. This was followed by approximately 12 mL dilute solution of a gadolinium containing MR contrast agent. The needle was removed and a dressing was applied. The patient was given postprocedural instructions and sent to the MR suite for MR imaging. FINDINGS: A single fluoroscopic spot image demonstrates intra-articular location of injected iodinated contrast. IMPRESSION: Successful fluoroscopically guided administration of dilute Gadolinium solution into the shoulder joint for MR arthrogram. Dictated by: Kevin Holbrook M.D. on 02/19/2020 at 10:38 Approved by: Kevin Holbrook M.D. on 02/19/2020 at 10:39
--- NOTE | 2020-02-19 08:42 | DI.MRI.S_ITS ---
PROCEDURE: MR SHOULDER RT W CON INDICATIONS: Right shoulder injury TECHNIQUE: After the administration of 12 mL of dilute intra-articular Gadolinium contrast, oblique coronal T1 and T2 spin echo with fat saturation, oblique sagittal T1 spin echo with and without fat saturation, oblique sagittal T2 fast spin echo with fat saturation, axial T1 spin echo with fat saturation through the shoulder. COMPARISON: [facility], CR, XR SHOULDER RT MIN 2V, 02/12/2020, 9:27. [facility], RF, FL SHOULDER INJECTION MR/CT RT, 02/19/2020, 8:08. FINDINGS: Image quality: Some sequences are mildly compromised by patient motion. Diagnostic information is obtained. Rotator cuff: There is full-thickness tearing of the supraspinatus tendon and the anterior fibers of the infraspinatus tendon measuring approximately 1.2 cm in anterior-posterior dimension with up to 1.4 cm of proximal tendon retraction. There is moderate tendinosis of the posterior infraspinatus tendon fibers. The teres minor tendon is intact. The subscapularis tendon demonstrates normal thickness as well as a small amount of intrasubstance T1-weighted signal that is likely related to mild extravasation during the arthrogram injection. There is mild grade 1 fatty infiltration of the supraspinatus and infraspinatus muscles without significant atrophy. Additionally, there is mild edema within the medial portion of the supraspinatus muscle compatible with a superimposed low-grade strain. Bones and bursae: No acute bone marrow contusions or fractures. Mild osteophytic ridging is seen in the glenoid rim. Partial-thickness cartilage thinning is seen in the glenohumeral joint. Chronic traction cystic changes are seen in the posterosuperior humeral head and in the lesser tuberosity at the rotator cuff tendon insertions. Contrast material in the subacromial/subdeltoid bursa is most likely due to communication with the glenohumeral joint through the full-thickness rotator cuff tendon tear. A filling defect is seen in the superior subscapularis recess measuring 1.3 x 0.6 by 1.3 cm, which could represent an intra-articular loose body or focal synovial hypertrophy. There is moderate acromioclavicular joint osteoarthrosis. Contrast material in the subacromial/subdeltoid bursa communicates with the acromioclavicular joint space. The acromioclavicular joint is intact. No pathologic subacromial-subdeltoid or subcoracoid bursal fluid is present. Capsule and soft tissues: No displaced labral tear is identified. The biceps long head tendon is intact. There is partial effacement of the normal fat signal in the rotator interval. The inferior glenohumeral ligament is normal in thickness. IMPRESSION: 1. Full-thickness tear of the supraspinatus tendon and the anterior fibers of the infraspinatus tendon measuring 1.2 cm in anterior-posterior dimension with up to 1.4 cm of proximal tendon retraction. Mild edema within the supraspinatus muscle is compatible with a superimposed low-grade muscle strain. 2. 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 3. Filling defect in the superior subscapularis recess measuring 1.3 x 1.3 x 0.6 cm may represent an intra-articular loose body or focal synovial hypertrophy. Dictated by: Lior Paulson M.D. on 02/19/2020 at 9:52 Approved by: Lior Paulson M.D. on 02/19/2020 at 10:07
== END ==
PROVIDERS: PCP Nurse Practitioner; Referring Provider Nurse Practitioner; Visit Provider Family Medicine
DX: S46.011A Strain of muscle(s) and tendon(s) of the rotator cuff of right shoulder, initial encounter (principal); M19.011 Primary osteoarthritis, right shoulder; X58.XXXA Exposure to other specified factors, initial encounter
CPT/HCPCS: 23350; 73040; 73222; 77002

== ENCOUNTER → 2020-02-26 10:32 | Outpatient (CLI) | payer MEDICARE, OTHER, SELFPAY ==
[2019-05-05 07:49] VITALS: BMI 31.9
--- NOTE | 2020-02-26 | DI.US.S_ITS ---
PROCEDURE: US THYROID INDICATIONS: Nontoxic single thyroid nodule TECHNIQUE: Real-time scanning was performed of the thyroid gland, with image documentation. COMPARISON: [facility], [place], US CAROTID DOPPLER BI, 04/24/2019, 10:06. FINDINGS: Right: Thyroid lobe measures 4.4 x 1.4 x 2.2 cm, and is homogeneous in echotexture. Left: Thyroid lobe measures 4.0 x 1.3 x 1.5 cm, and is homogenous in echotexture. Isthmus: 4.7 mm thick. Nodule number: 1 Location: Isthmus Size: 0.8 x 0.6 x 0.3 cm. Composition: Solid Echogenicity: Isoechoic Shape: wider than tall. Margins: Smooth Echogenic foci: None Total points: 4 ACR TI-RADS category: Moderately suspicious Nodule number: 2 Location: Right mid Size: Unchanged at 1.6 x 1.3 x 1.2 cm. Composition: Mixed cystic and solid Echogenicity: Indeterminate Shape: wider than tall. Margins: Smoker Echogenic foci: None Total points: 3 ACR TI-RADS category: Mildly suspicious Nodule number: 3 Location: Left mid Size: 0.6 x 0.5 x 0.3 cm. Composition: Solid Echogenicity: Hypoechoic Shape: wider than tall. Margins: Smooth Echogenic foci: None Total points: 4 ACR TI-RADS category: Moderately suspicious Nodule number: 4 Location: Left mid inferior Size: 0.8 x 0.9 x 0.3 cm. Composition: Solid Echogenicity: Hypoechoic Shape: wider than tall. Margins: Smooth Echogenic foci: None Total points: 4 ACR TI-RADS category: Moderately suspicious IMPRESSION: Thyroid nodules as above. Recommend continued followup ultrasound as detailed below. ACR TI-RADS definitions and recommendations: TI-RADS 1 (benign): 0 points. FNA not needed. TI-RADS 2 (not suspicious): 2 points. FNA not needed. TI-RADS 3 (mildly suspicious): 3 points. * FNA if 2.5 cm or larger, follow up if 1.5 cm or larger (at 1, 3, and 5 years). TI-RADS 4 (moderately suspicious): 4-6 points. * FNA if 1.5 cm or larger, follow up if 1 cm or larger (at 1, 2, 3, and 5 years). TI-RADS 5 (highly suspicious): 7 points or more. * FNA if 1 cm or larger, follow up if 0.5 cm or larger (every year for 5 years). Dictated by: Cedrick ORTIZ Interpreted: Fabian Loo MD on 02/26/2020 at 13:03 Approved by: Fabian Loo M.D. on 02/26/2020 at 17:03
== END ==
PROVIDERS: PCP Nurse Practitioner; Referring Provider Nurse Practitioner; Visit Provider Internal Medicine Endocrinology, Diabetes & Metabolism
DX: E04.2 Nontoxic multinodular goiter (principal)
CPT/HCPCS: 76536

== ENCOUNTER → 2020-06-14 08:43 | Outpatient (CLI) | payer MEDICARE, OTHER, SELFPAY ==
[2019-05-05 07:49] VITALS: BMI 31.9
[2020-06-14] MEDS: COVID-19 VACC #1, MRNA(MOD) 100 MCG/0.5 ML VIAL IM (08:50)
== END ==
PROVIDERS: PCP Nurse Practitioner; Visit Provider Internal Medicine
DX: Z23 Encounter for immunization (principal)
CPT/HCPCS: 0011A; 91301

== ENCOUNTER → 2020-07-12 08:37 | Outpatient (CLI) | payer MEDICARE, OTHER, SELFPAY ==
[2019-05-05 07:49] VITALS: BMI 31.9
[2020-07-12] MEDS: COVID-19 VACC #2, MRNA(MOD) 100 MCG/0.5 ML VIAL IM (08:48)
== END ==
PROVIDERS: PCP Nurse Practitioner; Visit Provider Internal Medicine
DX: Z23 Encounter for immunization (principal)
CPT/HCPCS: 0012A; 91301

== ENCOUNTER → 2020-08-23 16:43 | Outpatient (CLI) | payer MEDICARE, OTHER, SELFPAY ==
[2019-05-05 07:49] VITALS: BMI 31.9
--- NOTE | 2020-08-23 16:45 | DI.MG.S_ITS ---
BILATERAL DIGITAL SCREENING MAMMOGRAM 3D/2D WITH CAD: 08/23/2020 CLINICAL: Routine screening. Comparison is made to exams dated: 10/07/2018 mammogram, 06/19/2017 mammogram, and 04/18/2016 mammogram - [facility]. There are scattered fibroglandular elements in both breasts. Current study was also evaluated with a Computer Aided Detection (CAD) system. No significant masses, calcifications, or other findings are seen in either breast. There has been no significant interval change. IMPRESSION: NEGATIVE There is no mammographic evidence of malignancy. A 1 year screening mammogram is recommended. This exam was interpreted at Station ID: [id number]. NOTE: For mammograms, a report in lay terms will be sent to the patient. Approximately 15% of breast malignancies will not be visualized mammographically. In the management of a palpable breast mass, a negative mammogram must not discourage biopsy of a clinically suspicious lesion. Electronically Signed By: Bennett oconnor/yuliana:08/23/2020 17:14:30 letter sent: Normal Exam ACR BI-RADS Category 1: Negative [id number]
== END ==
PROVIDERS: PCP Nurse Practitioner; Referring Provider Nurse Practitioner; Visit Provider Nurse Practitioner
DX: Z12.31 Encounter for screening mammogram for malignant neoplasm of breast (principal)
CPT/HCPCS: 77063; 77067

== ENCOUNTER 2020-10-03 19:42 | Emergency (ER) | payer MEDICARE, OTHER, SELFPAY ==
[2019-05-05 07:49] VITALS: BMI 31.9
[2020-10-03] VITALS (13 sets, daily range): BP systolic 147–177; BP diastolic 64–73; PULSE 50–56; RESP 13–36; TEMP 37.1; O2SAT 95
--- NOTE | 2020-10-03 20:14 | ED_ITS ---
HPI - General Adult General Chief complaint: Toxicology Problem Stated complaint: Possible overdose of rx medication Time Seen by Provider: 10/03/20 19:50 Source: patient Mode of arrival: Ambulatory Limitations: no limitations History of Present Illness HPI narrative: Patient is a 75-year-old female who is here for evaluation of potentially taking 1 extra dose of her Tikosyn. Currently she takes 250 mg by mouth in the morning and 250 mg by mouth in the evening. She normally takes them around 0700 hours in the morning and 0700 hours at night. She took her normal dose this morning and this evening she states that she took at least 1 of her 250 mg doses and potentially took a 2nd 1 by accident. She is not c ompletely sure that she did so. She contacted the pharmacy who instructed her contact poison Control who advised her to come to the emergency department. Patient has no symptoms peer Related Data Home Medications Medication Instructions Recorded Confirmed MULTIVITAMIN (One Daily 1 tab PO Q DAY #0 05/23/11 09/06/20 Multivitamin) clobetasol 0.05 % TOPICAL PRN PRN #0 12/27/15 09/06/20 Fluocinolone 0.01% Scalp See Rx Instructions .ROUTE .COMPLEX 02/05/18 09/06/20 Prebiotic 1 dose PO DAILY 02/05/18 09/06/20 mv-min-vit C-ascorb 0 mg PO BID PRN tab 06/12/18 09/06/20 Lv-Sjw-Cja-herb #124 333 mg-1.7 mg chewable tablet polypodium leucotomos extract 240 240 mg PO DAILY cap 06/12/18 09/06/20 mg capsule OLIVE LEAF EXTRACT 2 cap PO DAILY 06/17/18 09/06/20 hydrocortisone 2.5 % topical cream 1 applictn TOP BID PRN 06/17/18 09/06/20 coenzyme Q10 100 mg capsule 100 mg PO BID #0 cap 02/12/20 09/06/20 omega-3 fatty acids-fish oil 340 1 cap PO BID cap 07/06/20 09/06/20 mg-1,000 mg capsule cholecalciferol (vitamin D3) 250 250 mcg PO DAILY 08/24/20 09/06/20 mcg (10,000 unit) capsule dofetilide 250 mcg capsule 500 mcg PO Q12H 04/07/21 04/20/21 furosemide 20 mg tablet 10 mg PO DAILY tab 08/24/20 09/06/20 Previous Rx's Medication Instructions Recorded ezetimibe 10 mg tablet 10 mg PO DAILY #90 tab 11/16/19 apixaban 5 mg tablet 5 mg PO BID #60 tab 05/06/20 enalapril maleate 20 mg tablet 20 mg PO BID #180 tab 05/07/20 rosuvastatin 5 mg tablet 2.5 mg PO BEDTIME #45 tab 09/14/20 Allergies Allergy/AdvReac Type Severity Reaction Status Date / Time diazepam Allergy Severe SEEING Verified 10/03/20 20:22 DOUBLE, HEART PALPITATIONS, DIFFICULTY BREATHING Sulfa (Sulfonamide Allergy Intermediate VERY SICK Verified 10/03/20 20:22 Antibiotics) beet AdvReac Mild N/V Verified 10/03/20 20:22 Review of Systems Constitutional Constitutional: Reports system reviewed and no additional complaints, except as documented Cardiovascular Cardiovascular: Reports system reviewed and no additional complaints, except as documented Respiratory Respiratory: Reports system reviewed and no additional complaints, except as documented Gastrointestinal Gastrointestinal: Reports system reviewed and no additional complaints, except as documented Genitourinary Genitourinary: Reports system reviewed and no additional complaints, except as documented Musculoskeletal Musculoskeletal: Reports system reviewed and no additional complaints, except as documented Integumentary/Breasts Skin/Breast: Reports system reviewed and no additional complaints, except as documented Neurologic Neurologic: Reports system reviewed and no additional complaints, except as documented Psychiatric Psychiatric: Reports system reviewed and no additional complaints, except as documented Endocrine Endocrine: Reports system reviewed and no additional complaints, except as documented Hematologic/Lymphatic Hematologic/Lymphatic: Reports system reviewed and no additional complaints, except as documented Allergic/Immunologic Allergic/Immunologic: Reports system reviewed and no additional complaints, except as documented Patient History Medical History Essential hypertension (09/05/10) History of CVA (cerebrovascular accident) History of CVA (cerebrovascular accident) without residual deficits History of malignant melanoma History of paroxysmal supraventricular tachycardia History of stroke Hypercalcemia Hyperlipidemia Mixed hyperlipidemia (09/05/10) Normal breast exam Obesity (BMI 30-39.9) Obstructive sleep apnea syndrome Periodic limb movement disorder (PLMD) Peripheral edema Scalp psoriasis Serum calcium elevated Snoring Status post cervical discectomy (09/03/16) Status post cervical spinal arthrodesis (09/03/16) Supraventricular tachycardia Tear of right infraspinatus tendon Tear of right supraspinatus tendon Surgical History Cervical vertebral fusion History of bilateral salpingo-oophorectomy (BSO) S/P total abdominal hysterectomy and bilateral salpingo-oophorectomy Family History Brother Coronary artery disease Brother History of oral cancer Father Coronary artery disease Mother Carotid artery disease Sister Irregular heart beat Sister Coronary artery disease Carotid artery disease Social History household members: spouse Smoking Status: Never smoker second hand exposure: No alcohol intake: current substance use type: does not use Smoking Status: Never smoker alcohol intake frequency: a few times a week Substance Use Type: does not use Exam Initial Vital Signs Initial Vital Signs: Vital Signs Temperature 98.7 F 10/03/20 19:51 Pulse Rate 54 L 10/03/20 19:51 Respiratory Rate 18 10/03/20 19:51 Blood Pressure 171/73 H 10/03/20 19:51 Pulse Oximetry 95 10/03/20 19:51 Const General: cooperative and comfortable Limitations: mental status not altered HENMT Head: normal to inspection and normocephalic Resp Effort & Inspection: normal respiratory effort Auscultation: clear to auscultation bilaterally Cardio Rate: bradycardic Rhythm: regular rhythm Skin General: no rashes or lesions noted Neuro General: patient alert and patient awake Cognition: normal cognition Speech: speech normal Extrem General: normal to inspection Psych Appearance: grossly normal and well kempt Course Orders Ordered: ED Orders 10/03/20 20:03 EKG-12 Lead Stat 10/03/20 20:47 Basic Metabolic Panel Stat Magnesium Stat 10/04/20 00:45 EKG-12 Lead Stat Vital Signs Vital signs: Vital Signs - 8 hr 10/03/20 19:51 10/03/20 20:20 10/03/20 20:35 Temperature 98.7 F Pulse Rate 54 L 56 L 54 L Respiratory Rate 18 13 16 Blood Pressure 171/73 H 177/72 H 163/72 H Pulse Oximetry 95 10/03/20 21:00 10/03/20 21:01 10/03/20 21:30 Temperature Pulse Rate 53 L 53 L 53 L Respiratory Rate 20 22 22 Blood Pressure 147/68 H 156/70 H Pulse Oximetry 10/03/20 21:57 10/03/20 22:00 10/03/20 22:30 Temperature Pulse Rate 52 L 54 L 50 L Respiratory Rate 24 17 25 H Blood Pressure 174/70 H 164/72 H Pulse Oximetry 10/03/20 22:31 10/03/20 23:01 10/03/20 23:30 Temperature Pulse Rate 56 L 52 L Respiratory Rate 36 H 34 H Blood Pressure 152/69 H 148/64 H Pulse Oximetry 10/03/20 23:31 10/04/20 00:01 10/04/20 00:30 Temperature Pulse Rate 55 L 48 L 50 L Respiratory Rate 23 22 25 H Blood Pressure 165/72 H 164/74 H Pulse Oximetry 10/04/20 00:31 Temperature Pulse Rate Respiratory Rate Blood Pressure 171/72 H Pulse Oximetry Medical Decision Making Lab Data Lab results reviewed: Yes I reviewed the patient's lab results. Result diagrams: 10/03/20 20:47 10/03/20 20:47 Labs: Lab Results 10/03/20 Range/Units 20:47 Sodium 136 L (137-145) mmol/L Potassium 4.2 (3.4-5.1) mmol/L Chloride 98 (98-107) mmol/L Carbon Dioxide 31 (22-32) mmol/L BUN 24 H (7-17) mg/dL Creatinine 0.77 (0.52-1.04) mg/dL Estimated GFR > 60.0 (>60) mL/min BUN/Creatinine Ratio 31.2 H (6-22) Glucose 125 H (80-110) mg/dL Calcium 11.2 H (8.4-10.2) mg/dL Magnesium 2.0 (1.6-2.3) mg/dL ECG Data Attestation: I personally reviewed and interpreted this ECG as follows: Prior ECG tracings: not available for review Interpretation: EKG upon arrival Sinus bradycardia Ventricular rate of 50 a One PVC Normal QRS Normal QTC Repeat EKG Sinus bradycardia Ventricular rate of 48 Occasional PAC Normal QRS Normal QTC MDM Narrative Medical decision making narrative: Poison control recommended EKG and labs to evaluate for potassium and magnesium. They recommended evaluation for 6 hours and a repeat EKG. This was done. She had no symptoms during her time here in the ER. Will discharge home. She was instructed to take her normal dose of Tikosyn in the morning. Discharge Plan Departure Patient Disposition: Home Clinical Impression: Accidental medication overdose Instructions: DI for Safely Taking and Storing Medications -- Adults Activity Restrictions/Additional Instructions: You can continue to take your Tikosyn tomorrow morning like normal. Continue the rest of your medications as directed. Return to the emergency department for any new or worsening symptoms Prescriptions: No Action Fluocinolone 0.01% Scalp oil See Rx Instructions .ROUTE .COMPLEX RF: 0 Prebiotic powder 1 dose PO DAILY RF: 0 hydrocortisone 2.5 % cream 1 applictn TOP BID PRN (Reason: as directed) RF: 0 OLIVE LEAF EXTRACT 2 cap PO DAILY RF: 0 [id number] [Airborne (ascorbate sodium)] 333-1.7 mg tablet,chewable 0 mg PO BID PRN (Reason: as directed) RF: 0 MULTIVITAMIN (One Daily Multivitamin) 1 tab PO Q DAY Qty: 0 RF: 0 clobetasol 0.05 % solution 0.05 % Topical PRN PRN (Reason: as directed) Qty: 0 RF: 0 polypodium leucotomos extract [Heliocare] 240 mg capsule 240 mg PO DAILY RF: 0 ezetimibe [Zetia] 10 mg tablet 10 mg PO DAILY Qty: 90 RF: 3 coenzyme Q10 [CoQ-10] 100 mg capsule 100 mg PO BID Qty: 0 RF: 0 Eliquis 5 mg tablet 5 mg PO BID Qty: 60 RF: 11 enalapril maleate 20 mg tablet 20 mg PO BID Qty: 180 RF: 3 rosuvastatin 5 mg tablet 2.5 mg PO BEDTIME Qty: 45 RF: 0 Fish Oil 340-1,000 mg capsule 1 cap PO BID RF: 0 furosemide 20 mg tablet 10 mg PO DAILY RF: 0 cholecalciferol (vitamin D3) 250 mcg (10,000 unit) capsule 250 mcg PO DAILY RF: 0 dofetilide [Tikosyn] 250 mcg capsule 500 mcg PO Q12H RF: 0 Referrals: Chanel Weiss ARNP [Primary Care Provider] -
[2020-10-03 21:05] LABS: BUN Creatinine Ratio 31.2 (6-22); Blood Urea Nitrogen 24 mg/dL (7-17); Calcium 11.2 mg/dL (8.4-10.2); Carbon Dioxide 31 mmol/L (22-32); Chloride 98 mmol/L (98-107); Estimated Glomerular Filt Rate > 60.0 mL/min (>60); Glucose 125 mg/dL (80-110); HEMOLYSIS < 15 (0-50); Potassium 4.2 mmol/L (3.4-5.1); Sodium 136 mmol/L (137-145)
[2020-10-04 00:01] VITALS: BP 164/74; PULSE 48; RESP 22
[2020-10-04 00:30] VITALS: PULSE 50; RESP 25
[2020-10-04 00:31] VITALS: BP 171/72
== END 2020-10-04 01:07 | disposition home or self-care (01) ==
PROVIDERS: Emergency Provider Emergency Medicine; PCP Nurse Practitioner
DX: T46.2X1A Poisoning by other antidysrhythmic drugs, accidental (unintentional), initial encounter (principal); R00.1 Bradycardia, unspecified
CPT/HCPCS: 36415; 80048; 83735; 93005; 93010; 99283; 99284

== ENCOUNTER → 2020-10-15 12:20 | Outpatient (CLI) | payer MEDICARE, OTHER, SELFPAY ==
[2019-05-05 07:49] VITALS: BMI 31.9
[2020-10-15 13:19] LABS: Albumin 4.3 g/dL (3.5-5.0); BUN Creatinine Ratio 23.9 (6-22); Blood Urea Nitrogen 17 mg/dL (7-17); Calcium 10.8 mg/dL (8.4-10.2); Carbon Dioxide 27 mmol/L (22-32); Chloride 100 mmol/L (98-107); Estimated Glomerular Filt Rate > 60.0 mL/min (>60); Glucose 96 mg/dL (80-110); HEMOLYSIS < 15 (0-50); Phosphorous 2.7 mg/dL (2.8-4.1); Potassium 4.9 mmol/L (3.4-5.1); Sodium 135 mmol/L (137-145)
[2020-10-15 18:25] LABS: Vitamin D 25 Hydroxy (D3) 78.1 ng/mL (30.0-100.0)
[2020-10-16 20:32] LABS: Parathyroid Hormone Int 63 pg/mL (15-65)
== END ==
PROVIDERS: PCP Nurse Practitioner
DX: E21.0 Primary hyperparathyroidism (principal)
CPT/HCPCS: 36415; 80069; 82306; 83970

== ENCOUNTER → 2020-12-19 06:58 | Outpatient (CLI) | payer MEDICARE, OTHER, SELFPAY ==
[2019-05-05 07:49] VITALS: BMI 31.9
[2020-12-19 08:51] LABS: Cholesterol 125 mg/dL (140-199); HDL Cholesterol 52 mg/dL (40-60); LDL Cholesterol Calculated 53 mg/dL (<100); Triglycerides 98 mg/dL (35-150)
== END ==
PROVIDERS: PCP Nurse Practitioner; Referring Provider Nurse Practitioner; Visit Provider Nurse Practitioner
DX: E78.5 Hyperlipidemia, unspecified (principal)
CPT/HCPCS: 36415; 80061

== ENCOUNTER → 2021-01-18 10:35 | Outpatient (CLI) | payer MEDICARE, OTHER, SELFPAY ==
[2019-05-05 07:49] VITALS: BMI 31.9
[2021-01-18 14:50] LABS: Calcium 24 Hour Urine 298 mg/day (100-300); Calcium Urine Random 9.6 mg/dL; Collection Time Urine 24 Hours; Total Volume Urine 3100 mL
[2021-01-18 15:00] LABS: Collection Time Urine 24 Hours; Creatinine 24 Hour Urine 1172 mg/day (800-1800); Creatinine Urine Random 37.8 mg/dL; Total Volume Urine 3100 mL
== END ==
PROVIDERS: PCP Nurse Practitioner; Referring Provider Internal Medicine Endocrinology, Diabetes & Metabolism; Visit Provider Internal Medicine Endocrinology, Diabetes & Metabolism
DX: E21.3 Hyperparathyroidism, unspecified (principal)
CPT/HCPCS: 82340; 82570

== ENCOUNTER → 2021-03-25 09:49 | Outpatient (CLI) | payer MEDICARE, OTHER, SELFPAY ==
[2019-05-05 07:49] VITALS: BMI 31.9
[2021-03-25 10:54] LABS: Blood Urea Nitrogen 16 mg/dL (7-17); Calcium 10.9 mg/dL (8.4-10.2); Carbon Dioxide 28 mmol/L (22-32); Chloride 99 mmol/L (98-107); Estimated Glomerular Filt Rate 54.1 mL/min (>60); Glucose 89 mg/dL (80-110); HEMOLYSIS < 15 (0-50); Potassium 4.4 mmol/L (3.4-5.1); Sodium 136 mmol/L (137-145)
== END ==
PROVIDERS: PCP Nurse Practitioner; Referring Provider Nurse Practitioner Family; Visit Provider Nurse Practitioner Family
DX: I48.91 Unspecified atrial fibrillation (principal)
CPT/HCPCS: 36415; 80048

== ENCOUNTER → 2021-06-03 10:59 | Outpatient (CLI) | payer MEDICARE, OTHER, SELFPAY ==
[2019-05-05 07:49] VITALS: BMI 31.9
[2021-06-03 13:29] LABS: Blood Urea Nitrogen 19 mg/dL (7-17); Carbon Dioxide 29 mmol/L (22-32); Chloride 101 mmol/L (98-107); Estimated Glomerular Filt Rate 57.3 mL/min (>60); Glucose 80 mg/dL (80-110); HEMOLYSIS < 15 (0-50); Potassium 4.5 mmol/L (3.4-5.1); Sodium 138 mmol/L (137-145)
== END ==
PROVIDERS: PCP Nurse Practitioner; Referring Provider Nurse Practitioner Family; Visit Provider Nurse Practitioner Family
DX: I48.91 Unspecified atrial fibrillation (principal)
CPT/HCPCS: 36415; 80048

== ENCOUNTER → 2021-08-30 14:28 | Outpatient (CLI) | payer MEDICARE, OTHER, SELFPAY ==
[2019-05-05 07:49] VITALS: BMI 31.9
--- NOTE | 2021-08-30 14:30 | DI.RAD.S_ITS ---
PROCEDURE: XR THORACIC SPINE 2V INDICATIONS: right thorax back pain TECHNIQUE: 2 views of the thoracic spine were acquired. COMPARISON: [facility], , T-SPINE WITHOUT CONTRAST, 03/06/2010, 17:51. FINDINGS: Lateral view degraded by motion artifact. Bones: No fractures or dislocations. Endplate osteophytosis. 12 pairs of ribs are noted, and appear intact where visualized. Postsurgical change of the lower cervical spine. Soft tissues: No paravertebral stripe thickening. IMPRESSION: No significant abnormality. Dictated by: Dejuan Pink M.D. on 08/30/2021 at 16:09 Approved by: Dejuan Pink M.D. on 08/30/2021 at 16:13
--- NOTE | 2021-08-30 14:30 | DI.RAD.S_ITS ---
PROCEDURE: XR LUMBAR SPINE 2-3V INDICATIONS: back pain TECHNIQUE: 2 views of the lumbar spine were acquired. COMPARISON: None. FINDINGS: Bones: 5 aib-drm-iypofhc vertebrae are present. Maintained bony alignment. Endplate osteophytosis and facet arthrosis, most prominent at L5-S1. No vertebral body compression fractures. Soft tissues: Overlying bowel gas pattern is normal. No suspicious soft tissue calcifications. IMPRESSION: Lumbar spine degeneration. Dictated by: Dejuan Pink M.D. on 08/30/2021 at 16:13 Approved by: Dejuan Pink M.D. on 08/30/2021 at 16:14
== END ==
PROVIDERS: PCP Nurse Practitioner; Referring Provider Nurse Practitioner; Visit Provider Nurse Practitioner
DX: M54.6 Pain in thoracic spine (principal); M54.50 Low back pain, unspecified; M47.817 Spondylosis without myelopathy or radiculopathy, lumbosacral region; M79.604 Pain in right leg
CPT/HCPCS: 72070; 72100

== ENCOUNTER → 2021-08-31 07:21 | Outpatient (CLI) | payer MEDICARE, OTHER, SELFPAY ==
[2019-05-05 07:49] VITALS: BMI 31.9
[2021-08-31 09:33] LABS: Alanine Aminotransferase 35 IU/L (<35); Albumin 4.4 g/dL (3.5-5.0); Albumin Globulin Ratio 1.6 (1.0-2.8); Alkaline Phosphatase 56 U/L (38-126); Aspartate Aminotransferase 30 IU/L (14-36); BUN Creatinine Ratio 25.6 (6-22); Bilirubin Total 0.7 mg/dL (0.2-1.3); Blood Urea Nitrogen 20 mg/dL (7-17); Calcium 10.6 mg/dL (8.4-10.2); Carbon Dioxide 29 mmol/L (22-32); Chloride 103 mmol/L (98-107); Cholesterol 128 mg/dL (140-199); Estimated Glomerular Filt Rate > 60 mL/min (>60); Globulin 2.8 g/dL (1.7-4.1); Glucose 109 mg/dL (80-110); HDL Cholesterol 53 mg/dL (40-60); HEMOLYSIS < 15 (0-50); LDL Cholesterol Calculated 56 mg/dL (<100); Potassium 4.7 mmol/L (3.4-5.1); Sodium 139 mmol/L (137-145); Total Protein 7.2 g/dL (6.3-8.2); Triglycerides 95 mg/dL (35-150)
[2021-08-31 09:42] LABS: Free T4, Direct Thyroxine 1.14 ng/dL (0.78-2.19)
[2021-08-31 09:56] LABS: Thyroid Stimulating Hormone 1.32 uIU/mL (0.47-4.68)
[2021-09-01 09:09] LABS: Calcium 10.7 mg/dL (8.7-10.3); Parathyroid Hormone, Intact 49 pg/mL (15-65)
[2021-09-01 20:16] LABS: Anti Thyroglobulin Antibody <1.0 IU/mL (0.0-0.9); Thyroid Peroxidase Antibodies <8 IU/mL (0-34)
== END ==
PROVIDERS: PCP Nurse Practitioner; Referring Provider Nurse Practitioner; Visit Provider Nurse Practitioner
DX: E78.5 Hyperlipidemia, unspecified (principal); E04.9 Nontoxic goiter, unspecified; E21.0 Primary hyperparathyroidism; E66.9 Obesity, unspecified; I48.0 Paroxysmal atrial fibrillation; Z79.899 Other long term (current) drug therapy; Z86.73 Personal history of transient ischemic attack (TIA), and cerebral infarction without residual deficits
CPT/HCPCS: 36415; 80053; 80061; 82310; 83970; 84439; 84443; 84481; 86376; 86800

== ENCOUNTER → 2021-09-04 10:38 | Outpatient (CLI) | payer MEDICARE, OTHER, SELFPAY ==
[2019-05-05 07:49] VITALS: BMI 31.9
--- NOTE | 2021-09-04 10:40 | DI.CT.S_ITS ---
PROCEDURE: CT ANGIO HEAD INDICATIONS: History of stroke, new sx per endocrinology, r side pain TECHNIQUE: Precontrast 4.5 mm thick angled axial sections acquired from the foramen magnum to the vertex. After the administration of intravenous contrast, 1 mm thick sections acquired through the [place] of [place]. Postcontrast 4.5 mm thick sections then re-acquired from the foramen magnum to the vertex. 10 mm thick yrcclka-wmbnievfv-kxrrrmdapx (MIP) reformats were acquired of the central intracranial vasculature. For radiation dose reduction, the following was used: automated exposure control, adjustment of mA and/or kV according to patient size. COMPARISON: None. FINDINGS: Image quality: Excellent. Anterior circulation: Intracranial internal carotid arteries are normal in size and flow. The flow within the paired anterior cerebral arteries is normal and symmetric. The flow within the middle cerebral arteries is normal and symmetric. The anterior communicating artery is seen. No aneurysms are seen. Posterior circulation: Note is made of bilateral type origins of the posterior cerebral arteries, with an associated diminutive basilar artery. The flow within the posterior cerebral arteries is normal and symmetric. The distal vertebral arteries are overall small in size. Within the right V4 segment, there is focal calcification seen, as on series 8 image 17 and on series 12, image 127, with approximately 50% stenosis. The left V4 segment largely terminates in the left posterior inferior cerebellar artery. No aneurysms are seen. CSF spaces: Ventricles are normal in size and shape. Basal cisterns are patent. No extra-axial fluid collections. Brain: No midline shift. No intracranial bleeds or masses. Lennon-white matter interface appears intact. Skull and face: Calvarium and facial bones appear intact, without suspicious lesions. Sinuses: Visualized sinuses and mastoids are clear. IMPRESSION: No significant intracranial arterial abnormality is seen. Approximately 50% narrowing seen involving the right V4 segment. Zogava-mp-Evrzkb developmental anomalies are incidentally noted. No masses or abnormal enhancement can be seen, to the limits of CT. Dictated by: Aleksandar Bermudez M.D. on 09/04/2021 at 11:10 Approved by: Aleksandar Bermudez M.D. on 09/04/2021 at 11:15
== END ==
PROVIDERS: Family Provider Nurse Practitioner; PCP Nurse Practitioner; Referring Provider Nurse Practitioner; Visit Provider Nurse Practitioner
DX: I65.22 Occlusion and stenosis of left carotid artery (principal); M54.9 Dorsalgia, unspecified; I48.0 Paroxysmal atrial fibrillation; I65.01 Occlusion and stenosis of right vertebral artery; Z86.73 Personal history of transient ischemic attack (TIA), and cerebral infarction without residual deficits
CPT/HCPCS: 70496; Q9967

== ENCOUNTER → 2021-09-26 12:54 | Outpatient (CLI) | payer MEDICARE, OTHER, SELFPAY ==
[2019-05-05 07:49] VITALS: BMI 31.9
--- NOTE | 2021-09-26 13:17 | DI.CT.S_ITS ---
PROCEDURE: CT HEAD/BRAIN WO CON INDICATIONS: History of stroke, new sx per endocrinology, r side pain TECHNIQUE: Noncontrast 4.5 mm thick angled axial sections acquired from the foramen magnum to the vertex, with coronal and sagittal reformats. For radiation dose reduction, the following was used: automated exposure control, adjustment of mA and/or kV according to patient size. COMPARISON: [facility], CT, CT ANGIO HEAD, 09/04/2021, 10:46. FINDINGS: Image quality: Excellent. CSF spaces: Basal cisterns are patent. No extra-axial fluid collections. The ventricles are symmetric in size and shape. Brain: No intracranial bleeds or masses. There is cerebral volume loss for age, with resultant ventricular and sulcal prominence. There are periventricular and deep white matter chronic small vessel ischemic changes. There is intracranial internal carotid artery atherosclerosis. Skull and face: Calvarium and visualized facial bones appear intact, without suspicious lesions. Sinuses: Visualized sinuses and mastoids are clear. IMPRESSION: 1. No acute intracranial process. 2. Moderate atrophy and chronic microvascular ischemic changes. Dictated by: Mago Elaine M.D. on 09/26/2021 at 15:42 Approved by: Mago Elaine M.D. on 09/26/2021 at 15:42
== END ==
PROVIDERS: Family Provider Nurse Practitioner; PCP Nurse Practitioner; Referring Provider Nurse Practitioner; Visit Provider Nurse Practitioner
DX: Z86.73 Personal history of transient ischemic attack (TIA), and cerebral infarction without residual deficits (principal); R42 Dizziness and giddiness
CPT/HCPCS: 70450

== ENCOUNTER → 2021-10-23 14:15 | Outpatient (CLI) | payer MEDICARE, OTHER, SELFPAY ==
[2019-05-05 07:49] VITALS: BMI 31.9
== END ==
PROVIDERS: Family Provider Nurse Practitioner; PCP Nurse Practitioner; Referring Provider Nurse Practitioner; Visit Provider Nurse Practitioner
DX: Z13.820 Encounter for screening for osteoporosis; Z90.710 Acquired absence of both cervix and uterus; Z79.890 Hormone replacement therapy; M81.0 Age-related osteoporosis without current pathological fracture
CPT/HCPCS: 77080

== ENCOUNTER → 2021-10-27 15:21 | Outpatient (CLI) | payer MEDICARE, OTHER, SELFPAY ==
[2019-05-05 07:49] VITALS: BMI 31.9
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
== END ==
PROVIDERS: Family Provider Nurse Practitioner; PCP Nurse Practitioner; Referring Provider Pediatrics; Visit Provider Pediatrics
DX: M12.571 Traumatic arthropathy, right ankle and foot (principal); M25.571 Pain in right ankle and joints of right foot; M77.31 Calcaneal spur, right foot
CPT/HCPCS: 73610; 73630

== ENCOUNTER → 2021-12-01 15:39 | Outpatient (CLI) | payer MEDICARE, OTHER, SELFPAY ==
[2019-05-05 07:49] VITALS: BMI 31.9
--- NOTE | 2021-12-01 15:41 | DI.MRI.S_ITS ---
PROCEDURE: MR ANKLE RT WO CON INDICATIONS: dislocation or right ankle joint TECHNIQUE: Noncontrast sagittal T1 spin echo and T2 fast spin echo with fat saturation, axial proton density fast spin echo and T2 fast spin echo with fat saturation, coronal T1 spin echo and T2 fast spin echo with fat saturation through the ankle/hindfoot. COMPARISON: None. FINDINGS: Image quality: Excellent. Bones and joints: Mild diffuse ankle soft tissue swelling and edema is seen. No bone marrow contusions or fractures. Mild midfoot and hindfoot joint osteoarthritic changes are noted with joint space narrowing and subchondral sclerosis. No hindfoot coalitions. No osteochondral injuries of the talar dome. Small to moderate tibiotalar and subtalar joint effusion is seen. No gross loose bodies. Well-defined plantar calcaneal enthesophyte is seen. Medial structures: The posterior tibialis is mildly thickened with small amount of fluid distending tendon sheath at the level of talonavicular joint and navicular bone. The flexor digitorum longus, and flexor hallucis longus tendons are intact. The posterior tibial neurovascular bundle appears normal within the tarsal tunnel, without extrinsic mass effect. The deep and superficial fibers of deltoid ligament is thickened. The spring ligament complex is also thickened with subtle intrasubstance T2 hyperintense signal. Lateral structures: There is high-grade partial-thickness to full-thickness rupture of anterior talofibular ligament. The calcaneofibular, and posterior talofibular ligaments appear thickened with intrasubstance T2 hyperintense signal. More superiorly, the anterior and posterior tibiofibular ligaments also appears thickened with intrasubstance T2 hyperintense signal. The tibiofibular syndesmosis is normal in width at 2 mm or less. The peroneus longus and brevis tendons are mildly thickened at the level of calcaneocuboid joint. Adjacent bony peroneal tubercle and retrotrochlear prominence are normal in size. The sinus tarsi demonstrates normal fatty signal, without edema, fibrosis, or cyst formation. Visualized sinus tarsi components (cervical ligament, interosseous talocalcaneal ligament, roots of the inferior extensor retinaculum) appear normal. The calcaneonavicular and calcaneocuboid components of the bifurcate ligament appear intact. The dorsal calcaneocuboid ligament appears intact. Anterior structures: The tibialis anterior, extensor hallucis longus, and extensor digitorum longus tendons appear intact. The dorsal talonavicular ligament appears intact. Posterior and plantar structures: Achilles tendon is intact. Medial and lateral bands of the plantar fascia are of normal thickness. No abductor digiti quinti muscle atrophy to suggest Talley neuropathy. IMPRESSION: 1. High-grade partial-thickness tear to full-thickness rupture of anterior talofibular ligament. Sprain/low to moderate grade intrasubstance partial-thickness tear involving posterior talofibular ligament, calcaneofibular ligament, anterior and posterior tibial fibular ligaments. 2. Low-grade sprain/partial-thickness tear also seen involving medial ankle ligaments. 3. Tendinosis and low-grade tenosynovitis involving posterior tibialis tendon at the level of talonavicular joint. Tendinosis also seen involving peroneus tendons at the level of calcaneocuboid joint. 4. No marrow edema. No fracture or dislocation. Mild midfoot and hindfoot joint osteoarthritis. Small to moderate amount of joint effusion. Well-defined plantar and dorsal calcaneal enthesophytes. 5. Mild diffuse ankle soft tissue swelling and edema. Dictated by: Leonard Ronquillo M.D. on 12/01/2021 at 17:07 Approved by: Leonard Ronquillo M.D. on 12/01/2021 at 17:12
== END ==
PROVIDERS: Family Provider Nurse Practitioner; PCP Nurse Practitioner; Referring Provider Nurse Practitioner; Visit Provider Orthopaedic Surgery Foot and Ankle Surgery
DX: S93.04XD Dislocation of right ankle joint, subsequent encounter (principal); S93.491A Sprain of other ligament of right ankle, initial encounter; M17.11 Unilateral primary osteoarthritis, right knee; M25.471 Effusion, right ankle
CPT/HCPCS: 73721

== ENCOUNTER → 2021-12-12 11:24 | Outpatient (CLI) | payer MEDICARE, OTHER, SELFPAY ==
[2019-05-05 07:49] VITALS: BMI 31.9
[2021-12-12 12:43] LABS: Hemoglobin A1C% w Est Avg Glu 5.9 % (4.0-6.0)
== END ==
PROVIDERS: Family Provider Nurse Practitioner; PCP Nurse Practitioner
DX: E11.9 Type 2 diabetes mellitus without complications (principal); I63.9 Cerebral infarction, unspecified
CPT/HCPCS: 36415; 83036

== ENCOUNTER → 2021-12-22 09:46 | Outpatient (CLI) | payer MEDICARE, OTHER, SELFPAY ==
[2019-05-05 07:49] VITALS: BMI 31.9
--- NOTE | 2021-12-22 09:48 | DI.MRI.S_ITS ---
PROCEDURE: MR LUMBAR SPINE WO CON INDICATIONS: Lower back and right leg pain, persistent even with PT TECHNIQUE: Noncontrast sagittal T1 spin echo and T2 fast echo, sagittal STIR, and T2 fast spin echo through the lumbar spine. In cases with scoliosis, additional coronal T2 fast spin echo may be performed. COMPARISON: [facility], , L-SPINE WITHOUT CONTRAST, 03/06/2010, 18:12. FINDINGS: Image quality: Excellent. Alignment and Curvature: There is minimal anterolisthesis at the L2-L3 level. Bone Marrow: Marrow is of normal overall signal. No acute vertebral body compression fractures. Spinal Cord: Conus medullaris terminates at the L1 level. Visualized cord demonstrates normal signal and size. Paraspinous Soft Tissues: No paravertebral masses. T12-L1: Normal appearance. L1-L2: The disc height and disc signal are relatively well preserved. Mild generalized disc bulge is seen. Mild bilateral neural foraminal narrowing is seen. Minimal central canal narrowing is seen. These imaging findings have progressed compared to the prior study. L2-L3: The disc height is well-preserved. Loss of disc signal is seen at this level. Moderate generalized disc bulge is seen. Mild facet joint hypertrophy is seen. There is [id number] left-sided and moderate right-sided neural foraminal narrowing. At least moderate central canal narrowing can be seen. These degenerative changes are worse than in 2010. L3-L4: Mild loss of disc height is seen. Loss of disc signal is seen. Moderate generalized disc bulge is seen. Moderate facet joint hypertrophy is seen. There is at least moderate bilateral neural foraminal narrowing seen, right worse than left. Mild compression can be seen upon the exiting L3 nerve roots, right worse than left. Moderate central canal narrowing is seen. These imaging findings have progressed compared to the prior study. L4-L5: The disc height is well-preserved. Loss of disc signal is seen at this level. Moderate generalized disc bulge is seen. There is a superimposed central disc protrusion. At least moderate facet hypertrophy is seen. Associated hypertrophy of the ligamentum flavum can be seen. There is at least moderate bilateral neural foraminal narrowing seen, right worse than left. There is a mild degree of compression seen upon the exiting right L3 nerve root. At least moderate central canal narrowing is seen. These degenerative changes are worse than in 2010. L5-S1: The disc height and disc signal are relatively well preserved. Mild to moderate disc bulge is seen. At least moderate facet hypertrophy can be seen. There is moderate right-sided and mild left-sided neural foraminal narrowing. Mild central canal narrowing is seen. These imaging findings have progressed compared to the prior study. IMPRESSION: Multiple levels of lumbar spine degenerative change are seen, which are overall worst at the L4-L5 level and have progressed compared to 2010. Dictated by: Aleksandar Bermudez M.D. on 12/22/2021 at 10:47 Approved by: Aleksandar Bermudez M.D. on 12/22/2021 at 10:52
== END ==
PROVIDERS: Family Provider Nurse Practitioner; PCP Nurse Practitioner; Referring Provider Nurse Practitioner; Visit Provider Nurse Practitioner
DX: M47.816 Spondylosis without myelopathy or radiculopathy, lumbar region (principal); M47.817 Spondylosis without myelopathy or radiculopathy, lumbosacral region; M54.50 Low back pain, unspecified; M79.604 Pain in right leg
CPT/HCPCS: 72148

== ENCOUNTER → 2021-12-27 10:17 | Outpatient (CLI) | payer MEDICARE, OTHER, SELFPAY ==
[2019-05-05 07:49] VITALS: BMI 31.9
[2021-12-27 11:36] LABS: Creatinine Urine Random 119.9 mg/dL
[2021-12-27 11:40] LABS: Microalbumi Creatinin Ratio Ur 7.5 ug/mg CR (<30); Microalbumin Urine Random 0.9 mg/dL (0-1.6)
== END ==
PROVIDERS: Family Provider Nurse Practitioner; PCP Nurse Practitioner; Referring Provider Pediatrics; Visit Provider Pediatrics
DX: I10 Essential (primary) hypertension (principal)
CPT/HCPCS: 82043; 82570

== ENCOUNTER 2022-03-26 11:15 | Outpatient (RCR) | payer MEDICARE, OTHER, SELFPAY ==
[2019-05-05 07:49] VITALS: BMI 31.9
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
--- NOTE | 2021-09-28 17:08 | PT.OPPOC ---
Physical, Occupational & Speech Therapy At [facility] Current Diagnoses Pain in right knee (09/28/21) Low back pain, unspecified (09/28/21) Pain in thoracic spine (09/28/21) Muscle weakness (generalized) (09/28/21) Pain in right leg (09/28/21) Visit Care Team Role Provider Type WAYNE Vilchis Attending Provider Advanced Fiber Machine Tender Family Provider Primary Care Provider Referring Provider Specialty: Family Practice Address: [address] [place] [address], [facility] Email: [email or web address] Plan Of Care PT-OP-T Assessment and Plan Start: 09/22/21 18:33 Freq: Status: Active Protocol: Document 09/28/21 15:23 LRN (Rec: 09/28/21 17:11 LRN [id number]) Physical Therapy Assessment Rehab Potential Rehabilitation Potential Good Evaluation Complexity Number of Personal Factors/Comorbidities 1-2 Number of Body Systems Impaired 4 or More Clinical Presentation at Evaluation Evolving Impairments Impairments Activity Tolerance,Pain, Posture,ROM,Sensation,Soft Tissue Mobility,Strength, Transfers Goals Four Impairment Assymmetry of hip mobility. Impairment Hip Rotation (in deg's): ER is 30 R, 55 L; IR is 35 R, 15 L. Short Term Goal (STG) Pt will be independent with HEP of LB/Hip ex's (flex; ER/ IR/lateral hip), STG Duration 10/10/21 Unit Manager Rn Goal (LTG) Normalize hip mobility. LTG Duration 12/27/21 Three Impairment Decreased ability to play with granddaughter due to thoracic and LE pain. Impairment No pain rowing. Pain with moving around with granddaughter. Fdc Goal (LTG) Decrease pain to no greater than 1/10 with pt able to play soccer (standing still to play) with granddaughter. LTG Duration 12/27/21 Two Impairment Thoracic pain rated 3-4, at worst 9/10. Short Term Goal (STG) Eliminate onset of sharp pain with transfers. STG Duration 10/27/21 Unit Manager Rn Goal (LTG) Decrease thoracic pain to 1-2/ 10. LTG Duration 12/27/21 One Impairment Lacks appropriate self care HEP Short Term Goal (STG) Pt will be educated in proper transfer technique for stand<> sit, sit<>supine. STG Duration 10/10/21 Fdc Goal (LTG) Pt will be independent in a self care HEP of mobility ex's for thoracic spine (AROM ex's ), and postural ex's. LTG Duration 12/27/21 Assessment Summary Assessment Pt presents with R lateral thoracic pain that does not appear consistent with a musculoskeletal condition. I could not reproduce her thoracic pain with AROM and MMT of trunk. She had no significant areas of tenderness in the thoracic region with general assessment . Further assessment is needed for her intercostal muscles and joints. She demonstrates excessive lordosis of posture in the lumbar spine that may lead to increased strain in lower thoracic region. If her pain doesn't improve within the next few visits she will be referred back for further assessment. Sandeep does present with positive signs and symptoms of lumbar involvement of her bilateral thigh pain with decrease in pain on manual lumbar traction , and pain with PSLR at 75 deg 's elevation bilaterally. She has weakness of her L hip, probably due to pain from [place]. The pt will benefit from skilled physical therapy to work towards achieving the above stated goals. Physical Therapy Plan Frequency and Duration Frequency of Treatment 2x/Week Plan of Care Start Date 09/28/21 Plan of Care End Date 12/27/21 Therapeutic Interventions Therapeutic Interventions Aquatic Therapy,Home Exercise Program,Manual Therapy, Neuromuscular Re-education, Patient/Caregiver Education, Self-Care/Home Management,Soft Tissue Mobilization, Therapeutic Activities, Therapeutic Exercises Modalities Cold Pack/Ice Massage,Hot Packs,Traction- Mechanical Next Visit Focus/Plan Next Note Type Treatment Note Next Visit Plan Assess Vertical Loading, R lateral trunk facial mobility and R rib mobility. Assess hip strength and Sacral positioning. Improve pt awareness of trunk posture (ribs over pelvis). HEP: Hip mobility ex's: Hamstrings/LE neural stretch; Hip ER R, IR L; DKTC/SKTC. LTR and open book. Manual lumbar traction Core stability program, manual thoracic balancing. Plan of Care Dates Plan of Care Start Date 09/28/21 Plan of Care End Date 12/27/21 Electronically Signed by: Aruna Laurent, PT 09/29/21 [id number] If you are in agreement with this Plan of Care, please return a signed and dated copy. I have reviewed this Plan of Care and certify that the skilled therapy services above are required to meet the patient?s needs. Physician Signature Date Printed Name and Credentials Clinical Instructor Signature Printed Name and Credentials
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
--- NOTE | 2021-10-20 15:42 | PT-OP ANOTE ---
15:26. Attends pt who reports she feels she is in A. Fib. Her HR was 73-93 and fluctuating repeatedly. Pt appt canceled by therapist and it was recommended to the pt that she go to ER if she feels real poorly. Pt agreed but wanted to sit in the waiting room to try and lower her HR through deep breathing and will go to ER if she feels it is needed.
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
--- NOTE | 2021-11-09 17:20 | PT.OPPOC ---
Physical, Occupational & Speech Therapy At [facility] Current Diagnoses Pain in right knee (11/09/21) Low back pain, unspecified (11/09/21) Pain in thoracic spine (11/09/21) Muscle weakness (generalized) (11/09/21) Pain in right leg (11/09/21) Visit Care Team Role Provider Type WAYNE Vilchis Attending Provider Advanced Professor Of Literature Family Provider Primary Care Provider Referring Provider Specialty: Family Practice Address: [address] [place] [address], [facility] Email: [email or web address] Plan Of Care PT-OP-T Assessment and Plan Start: 09/22/21 18:33 Freq: Status: Active Protocol: Document 11/09/21 14:33 LRN (Rec: 11/09/21 17:12 LRN [id number]) Physical Therapy Assessment Rehab Potential Rehabilitation Potential Good Evaluation Complexity Number of Personal Factors/Comorbidities 1-2 Number of Body Systems Impaired 4 or More Clinical Presentation at Evaluation Evolving Impairments Impairments Activity Tolerance,Pain, Posture,ROM,Sensation,Soft Tissue Mobility,Strength, Transfers Goals Three Impairment Decreased ability to play with granddaughter due to thoracic and LE pain. Impairment No pain rowing. Pain with moving around with granddaughter. Alf Goal (LTG) Decrease pain to no greater than 1/10 with pt able to play soccer (standing still to play) with granddaughter. 10/24/21: does get pain after rowing, but taking break this week. (11/09/21: R ankle pain 5-7/10 hurts, and thoracic pain 5/10 is intermittent, when playing with granddaughter). LTG Duration 12/27/21 (11/09/21: progressing) Two Impairment Thoracic pain rated 3-4, at worst 9/10. Short Term Goal (STG) Eliminate onset of sharp pain with transfers. (11/09/21: Occasionally has sharp pain with transfers) STG Duration 10/27/21 (11/09/21: Progressing) Alf Goal (LTG) Decrease thoracic pain to 1-2/ 10. 10/24/21: GOAL MET: not having pain in back anymore, now just R knee. LTG Duration 12/27/21 (GOAL MET 10/24/21) One Impairment Lacks appropriate self care HEP Short Term Goal (STG) Pt will be educated in proper transfer technique for stand<> sit, sit<>supine. 10/18/21: GOAL MET: able to perform with good alignment. STG Duration 10/10/21 (GOAL MET 10/18/21) High Voltage Electrician Goal (LTG) Pt will be independent in a self care HEP of mobility ex's for thoracic spine (AROM ex's ), and postural ex's. 10/18/21: Progressing: TA single leg march, LAQ, resisted 3 way ankle, reviewed self ITB stretch in standing for decrease hip pain. 10/26/21: added HS, piriformis stretch and self STMs with rolling pin. LTG Duration 12/27/21 (progressing 10/25/21 ) Assessment Summary Assessment Pt shows much improved R hip mobility, increased tolerance to ex at the hip and ankle; therefore lessening of pain with playing soccer with her granddaughter and overall decrease in thoracic pain to being intermitttent in nature. Recommend continuation of skilled physical therapy to improve thoracic mobility, core stab, decrease trunk and R ankle pain and strengthen her LE's. Physical Therapy Plan Frequency and Duration Frequency of Treatment 2x/Week Plan of Care Start Date 09/28/21 Plan of Care End Date 12/27/21 Therapeutic Interventions Therapeutic Interventions Aquatic Therapy,Home Exercise Program,Manual Therapy, Neuromuscular Re-education, Patient/Caregiver Education, Self-Care/Home Management,Soft Tissue Mobilization, Therapeutic Activities, Therapeutic Exercises Modalities Cold Pack/Ice Massage,Hot Packs,Traction- Mechanical Next Visit Focus/Plan Next Note Type Treatment Note Next Visit Plan Manual lumbar traction for R ankle pain relief. Assess R lateral trunk facial mobility and if pain, check if consistent with MS pain. Assess hip strength and Sacral positioning. Add manual lumbar traction for LE pain. Improve pt awareness of trunk posture (ribs over pelvis). HEP: Hip mobility ex's: HEP of Hip ex's (flex; ER R/IR L/ lateral hip), Core stability program, manual thoracic balancing. Plan of Care Dates Plan of Care Start Date 09/28/21 Plan of Care End Date 12/27/21 Electronically Signed by: Aruna Laurent, PT 11/09/21 1720 If you are in agreement with this Plan of Care, please return a signed and dated copy. I have reviewed this Plan of Care and certify that the skilled therapy services above are required to meet the patient?s needs. Physician Signature Date Printed Name and Credentials Clinical Instructor Signature Printed Name and Credentials
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
--- NOTE | 2021-11-16 14:11 | PT-OP ANOTE ---
Per phone pt stated she thought her appt was 2:30p, not 1:45p. Pt states she is ready to go to her 2:30 appt. Discussed if pt wants to continue therapy, then recommended pt schedule visits to the end of the month to be seen before discharging because of upcoming ablation procedure.
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
== END 2022-03-27 09:01 | disposition home or self-care (01) ==
LOC: PHYS 11:15
PROVIDERS: Family Provider Nurse Practitioner; PCP Nurse Practitioner; Referring Provider Nurse Practitioner; Visit Provider Nurse Practitioner
DX: M54.6 Pain in thoracic spine (principal); M54.50 Low back pain, unspecified; M79.604 Pain in right leg; M25.561 Pain in right knee; M62.81 Muscle weakness (generalized)
CPT/HCPCS: 97014; 97035; 97110; 97112; 97140; 97162; 97535; G0283

== ENCOUNTER → 2022-04-20 09:20 | Outpatient (CLI) | payer MEDICARE, OTHER, SELFPAY ==
[2019-05-05 07:49] VITALS: BMI 31.9
[2022-04-20 10:48] LABS: Alanine Aminotransferase 37 IU/L (<35); Albumin 4.5 g/dL (3.5-5.0); Albumin Globulin Ratio 1.3 (1.0-2.8); Alkaline Phosphatase 69 U/L (38-126); Aspartate Aminotransferase 32 IU/L (14-36); Bilirubin Total 0.8 mg/dL (0.2-1.3); Bilirubin Unconjugated 0.8 mg/dL (0.0-1.1); Globulin 3.4 g/dL (1.7-4.1); HEMOLYSIS < 15 (0-50); Phosphorous 2.7 mg/dL (2.8-4.1); Total Protein 7.9 g/dL (6.3-8.2)
[2022-04-20 11:09] LABS: Vitamin D 25 Hydroxy (D3) 56.7 ng/mL (30.0-100.0)
[2022-04-21 12:09] LABS: Parathyroid Hormone Int 79 pg/mL (15-65)
== END ==
PROVIDERS: Family Provider Nurse Practitioner; PCP Nurse Practitioner; Referring Provider Internal Medicine Endocrinology, Diabetes & Metabolism; Visit Provider Internal Medicine Endocrinology, Diabetes & Metabolism
DX: E21.0 Primary hyperparathyroidism (principal)
CPT/HCPCS: 36415; 80076; 82306; 83970; 84100

== ENCOUNTER 2022-04-25 13:53 | Emergency (ER) | payer MEDICARE, OTHER, SELFPAY ==
[2019-05-05 07:49] VITALS: BMI 31.9
[2022-04-25 14:09] VITALS: BP 194/87; PULSE 63; RESP 14; TEMP 36; O2SAT 99; BMI 31.3
--- NOTE | 2022-04-25 14:14 | DI.RAD.S_ITS ---
PROCEDURE: XR ELBOW LT MIN 3V INDICATIONS: fall on eliquis TECHNIQUE: 3 views of the elbow were acquired. COMPARISON: None. FINDINGS: Bones: Nondisplaced lucency along the lateral margin of the lateral condyle. Overlying soft tissue folds are present. It is not well appreciated on other views. Soft tissues: No elbow joint effusion. No suspicious soft tissue calcifications. IMPRESSION: Nondisplaced lateral condylar lucency possibly artifactual. However, recommend correlation point tenderness as fracture cannot be definitively excluded. Dictated by: Mago Elaine M.D. on 04/25/2022 at 15:19 Approved by: Mago Elaine M.D. on 04/25/2022 at 15:20
--- NOTE | 2022-04-25 16:20 | ED_ITS ---
HPI - Fall General Chief Complaint: Fall Stated Complaint: Fell, Left elbow lac, On thinners Time Seen by Provider: 04/25/22 16:10 Source: patient Mode of arrival: Ambulatory History of Present Illness HPI Narrative: This is a 76-year-old female who presents to the emergency department complaining of left elbow pain after she tripped on a curb in her yd fell forward striking her left elbow on the ground sustaining a laceration and compl ains of elbow pain. She has full range of motion and limited only due to pain, is able to fully extend, denies any numbness or tingling, denies any bleeding at this time. She is anticoagulated on Xarelto for history of atrial fibrillation, CVA, has a history of chronic pain, denies hitting her head, denies any other symptoms. She is quite anxious about repair of the laceration. Related Data Home Medications Medication Instructions Recorded Confirmed MULTIVITAMIN (One Daily 1 tab PO Q DAY ##0 05/23/11 12/27/21 Multivitamin) clobetasol 0.05 % scalp solution 0.05 % topical PRN PRN as directed 12/27/15 12/27/21 ##0 Fluocinolone 0.01% Scalp See Rx Instructions .Route .COMPLEX 02/05/18 12/27/21 Prebiotic 1 dose PO DAILY 02/05/18 12/27/21 polypodium leucotomos extract 240 240 mg PO DAILY 06/12/18 12/27/21 mg capsule (Heliocare) OLIVE LEAF EXTRACT 2 cap PO DAILY 06/17/18 12/27/21 hydrocortisone 2.5 % topical cream 1 applictn topical BID PRN as 06/17/18 12/27/21 directed coenzyme Q10 100 mg capsule 100 mg PO BID #0 caps 02/12/20 12/27/21 (CoQ-10) omega-3 fatty acids-fish oil 340 1 cap PO BID 07/06/20 12/27/21 mg-1,000 mg capsule (Fish Oil) cholecalciferol (vitamin D3) 250 250 mcg PO DAILY 08/24/20 12/27/21 mcg (10,000 unit) capsule dofetilide 250 mcg capsule 250 mcg PO Q12H 08/30/21 12/27/21 (Tikosyn) furosemide 20 mg tablet 10 mg PO DAILY 08/30/21 12/27/21 Vitamin C See Rx Instructions .Route .COMPLEX 01/01/22 01/01/22 Previous Rx's Medication Instructions Recorded ezetimibe 10 mg tablet See Rx Instructions .Route 11/30/21 .COMPLEX #90 tabs naltrexone 50 mg tablet See Rx Instructions PO .COMPLEX #1 01/02/22 kit magnesium oxide 400 mg PO DAILY #90 caps 01/03/22 apixaban 5 mg tablet (Eliquis) 5 mg PO BID #180 tabs 02/25/22 naltrexone 50 mg tablet See Rx Instructions PO .COMPLEX 03/05/22 #90 tabs enalapril maleate 20 mg tablet See Rx Instructions .Route 03/19/22 .COMPLEX #180 tabs rosuvastatin 5 mg tablet 2.5 mg PO BEDTIME #45 tabs 04/09/22 cephalexin 500 mg capsule 500 mg PO TID 7 days #21 caps 04/25/22 hydrocodone 5 mg-acetaminophen 325 1 tab PO TID PRN pain #14 tabs 04/25/22 mg tablet mupirocin 2 % topical ointment 1 applic topical BID #22 grams 04/25/22 Allergies Allergy/AdvReac Type Severity Reaction Status Date / Time diazepam Allergy Severe SEEING Verified 04/25/22 14:11 DOUBLE, HEART PALPITATIONS, DIFFICULTY BREATHING Sulfa (Sulfonamide Allergy Intermediate VERY SICK Verified 04/25/22 14:11 Antibiotics) beet AdvReac Mild N/V Verified 04/25/22 14:11 Review of Systems Review of Systems Narrative: Review of systems is negative for acute abnormalities unless otherwise noted in HPI Patient History Medical History Ankle pain, right Central stenosis of spinal canal DDD (degenerative disc disease) Essential hypertension (09/05/10) Goiter History of CVA (cerebrovascular accident) History of CVA (cerebrovascular accident) without residual deficits History of malignant melanoma History of paroxysmal supraventricular tachycardia History of stroke Hypercalcemia Hyperlipidemia Irritable bowel syndrome (09/05/10) Lumbar nerve root impingement Mixed hyperlipidemia (09/05/10) Normal breast exam Obesity (BMI 30-39.9) Obstructive sleep apnea syndrome Periodic limb movement disorder (PLMD) Peripheral edema Primary hyperparathyroidism Scalp psoriasis Serum calcium elevated Snoring Status post cervical discectomy (09/03/16) Status post cervical spinal arthrodesis (09/03/16) Supraventricular tachycardia Tear of right infraspinatus tendon Tear of right supraspinatus tendon Traumatic arthropathy, right ankle and foot Surgical History Cervical vertebral fusion History of bilateral salpingo-oophorectomy (BSO) S/P total abdominal hysterectomy and bilateral salpingo-oophorectomy Family History Brother Coronary artery disease Brother History of oral cancer Father Coronary artery disease Mother Carotid artery disease Sister Irregular heart beat Sister Coronary artery disease Carotid artery disease Social History household members: spouse Smoking Status: Never smoker second hand exposure: No alcohol intake: current substance use type: does not use Smoking Status: Never smoker alcohol intake frequency: holidays/special occasions only Substance Use Type: does not use Exam Narrative Exam Narrative: Reviewed vitals signs and nursing notes. General: cooperative, comfortable, in no acute distress, well groomed MSK: moves all extremities, neurovascularly intact, no weakness, normal tone, full range of motion of left arm without deficit, radial pulses 2+, cap refills brisk, patient is able to fully extend and fully flex her left elbow, limited due to pain, wound was thoroughly irrigated with normal saline, no foreign bodies, bone chips, or other abnormal finding, does appear to have a small fracture in the bone in stellate appearance, this could be small dent, we will correlate with x-ray Skin: brisk capillary refill, without pallor or erythema Neuro: normal speech and cognition, A&O x3, ambulatory, clear speech Psych: mental status is grossly normal, congruent mood, normal affect, pleasant and cooperative Initial Vital Signs Initial Vital Signs: Vital Signs Temperature 96.8 F L 04/25/22 14:09 Pulse Rate 63 04/25/22 14:09 Respiratory Rate 14 04/25/22 14:09 Blood Pressure 194/87 H 04/25/22 14:09 Pulse Oximetry 99 04/25/22 14:09 Oxygen Delivery Method 04/25/22 14:09 Procedures Laceration Repair Laceration 1: Site: upper extremity Side (If applicable): left Size (cm): 2.5 Description: linear Depth: simple, single layer and involves muscle layer Local Anesthetic: lidocaine 1% and with epi Amount of anesthesia used (mL): 5 Pre-repair: wound explored, irrigated extensively, deep structures intact and wound margins revised Skin layer closed with: nylon Skin layer suture size: 5-0 Number of sutures: 7 Technique: simple, interrupted Orthopedic Splinting/Casting Injury #1: Side: left Upper Extremity Injury Location: elbow Upper Extremity Immobilizer: sling/shoulder immobilizer Post splinting neuro exam: intact Post splinting vascular exam: intact Placed by: Nursing Course Orders Ordered: ED Orders 04/25/22 14:14 XR elbow LT min 3V Stat Discontinued Medications Hydrocodone Bitart/Acetaminophen (Hydrocodone/Acet 5/325 Tablet) 1 tab PO NOW ONE Stop: 04/25/22 16:41 Last Admin: 04/25/22 17:14 Dose: 1 tab Documented By: NR Ceftriaxone Sodium (Ceftriaxone 2,000 Mg Vial) 1,000 mg IM NOW ONE Stop: 04/25/22 16:41 Last Admin: 04/25/22 17:55 Dose: 1,000 mg Documented By: NR Diphtheria/Tetanus/Acell Pertussis (Tet,Diph,Pertuss(Acell),Vac/Pf 0.5 Ml Syringe) 0.5 ml IM .ONCE ONE Stop: 04/25/22 16:22 Last Admin: 04/25/22 17:14 Dose: 0.5 ml Documented By: JUSTO Lidocaine HCl (Lidocaine 2% Inj Sdv) 5 ml INJ INTRA-OP ONE Stop: 04/25/22 16:22 Consultations Consultation #1: Consultation with Dr. Santiago regarding patient's minimal olecranon fracture of the left with intact mobility and laceration over, he agrees with IM ceftriaxone today and tetanus vaccination, recommends follow-up in week or less to the orthopedic office, a sling for comfort, he is aware that she has a blunt injury to her left olecranon with visible fracture, and mentioned fracture on x-ray. Vital Signs Vital signs: Vital Signs - 8 hr 04/25/22 14:09 04/25/22 18:04 Temperature 96.8 F L Pulse Rate 63 73 Respiratory Rate 14 20 Blood Pressure 194/87 H 190/93 H Pulse Oximetry 99 97 Oxygen Delivery Method Room Air Room Air MDM - Fall Imaging Data Extremity x-ray #1: Radiologist's Impression: PROCEDURE: XR ELBOW LT MIN 3V INDICATIONS: fall on eliquis TECHNIQUE: 3 views of the elbow were acquired. COMPARISON: None. FINDINGS: Bones: Nondisplaced lucency along the lateral margin of the lateral condyle. Overlying soft tissue folds are present. It is not well appreciated on other views. Soft tissues: No elbow joint effusion. No suspicious soft tissue calcifications. IMPRESSION: Nondisplaced lateral condylar lucency possibly artifactual. However, recommend correlation point tenderness as fracture cannot be definitively excluded. Dictated by: Mago Elaine M.D. on 04/25/2022 at 15:19 Approved by: Mago Elaine M.D. on 04/25/2022 at 15:20 [facility] Narrative Medical decision making narrative: This is a 76-year-old lady who presents to the emergency department after a mechanical fall in her yd today, she was wearing a sweater she tripped on a curb, landed on her left elbow, sustained a laceration approximately 3 cm, full- thickness, visible fracture of the olecranon appears to be very minor, with tiny little stellate fracture lines that do not appear to extend. There are no foreign bodies, other fracture this is visible. This was thoroughly irrigated with normal saline, her tetanus was updated, consultation with Dr. Santiago from orthopedics who recommends ceftriaxone IM which she received in the emergency department, she was prescribed cephalexin x7 days and mupirocin ointment, suture repair was uncomplicated, good wound approximation. He recommends antibiotics, follow-up in the clinic, and a sling for comfort if she desires. Discharge Plan Departure Patient Disposition: Home Clinical Impression: Blunt trauma, Elbow fracture, left Fall Qualifiers: Encounter type: initial encounter Qualified Code(s): W19.XXXA - Unspecified fall, initial encounter Laceration of elbow Qualifiers: Encounter type: initial encounter Laterality: left Qualified Code(s): S51.012A - Laceration without foreign body of left elbow, initial encounter Instructions: DI for Elbow Fracture, DI for Laceration Repair -- Complex Activity Restrictions/Additional Instructions: *You have been diagnosed with a laceration with a tiny blunt injury fracture which does not extend all the way through the bone of your left olecranon. Please use the pain medicine I have prescribed for you, take your antibiotics as prescribed, use the antibiotic ointment sutures removed in 10-14 days, wear a sling for comfort, okay to wash with gentle cleanser in the shower, try to avoid scrubbing, try to avoid flexing her elbow all the way because it will cause tension on the sutures. I hope you start feeling better soon, I am sorry for injury and for the, your tetanus was updated today. Is use ice, elevation, and rest, try to avoid overuse, follow-up at [facility], I spoke with Dr. Santiago today. *What to do: *Please continue to take your regular medications as directed. [x ] New medication prescriptions sent to your pharmacy: [ [facility] [ ] New medication written as a paper prescription [ ] No new medications given *Please follow up with your primary care provider in 2-3 days, call for an appointment. Let them know you were seen in the Emergency Department and that we asked that you be seen for follow-up. We will electronically transmit a record of today's note if your PCP is in our system *If you do not have a primary care provider please contact [phone] to establish care with one of the [facility] primary care providers. *Return to Emergency Department if you should have any new, worsening, or concerning symptoms, such as [fever greater than 101F, chills, worsening pain, persistent vomiting or other bothersome symptoms]. Prescriptions: New hydrocodone-acetaminophen 5-325 mg tablet 1 tab PO TID PRN (Reason: pain) Qty: 14 0RF cephalexin 500 mg capsule 500 mg PO TID 7 Days Qty: 21 0RF mupirocin 2 % ointment 1 applic topical BID Qty: 22 0RF No Action Fluocinolone 0.01% Scalp oil See Rx Instructions .ROUTE .COMPLEX Label Comments: Apply enough to saturate scalp. Leave on for 4 hours and then wash it off PRN Rx Instructions: Apply enough to saturate scalp. Leave on for 4 hours and then wash it off PRN Prebiotic powder 1 dose PO DAILY Label Comments: 1 scoop with 8 oz water PO QDAY Rx Instructions: 1 scoop with 8 oz water PO QDAY hydrocortisone 2.5 % cream 1 applictn TOP BID PRN (Reason: as directed) OLIVE LEAF EXTRACT 2 cap PO DAILY Label Comments: 2 CAPS (2 X 500 MG) PO QDAY Rx Instructions: 2 CAPS (2 X 500 MG) PO QDAY MULTIVITAMIN (One Daily Multivitamin) 1 tab PO Q DAY Qty: 0 clobetasol 0.05 % solution 0.05 % Topical PRN PRN (Reason: as directed) Qty: 0 polypodium leucotomos extract [Heliocare] 240 mg capsule 240 mg PO DAILY coenzyme Q10 [CoQ-10] 100 mg capsule 100 mg PO BID Qty: 0 ezetimibe 10 mg tablet See Rx Instructions .ROUTE .COMPLEX Qty: 90 3RF Dose Instruction: TAKE ONE TABLET BY MOUTH ONE TIME DAILY Rx Instructions: TAKE ONE TABLET BY MOUTH ONE TIME DAILY naltrexone 50 mg tablet See Rx Instructions PO .COMPLEX Qty: 1 0RF Rx Instructions: Compound starter kit, 0.5mg start kit, 0.5mg by mouth at bedtime, increase by 0.5mg every week until at 4.5mg or best tolerated dose. magnesium oxide 400 mg magnesium capsule 400 mg PO DAILY Qty: 90 0RF Eliquis 5 mg tablet 5 mg PO BID Qty: 180 1RF naltrexone 50 mg tablet See Rx Instructions PO .COMPLEX Qty: 90 3RF Rx Instructions: compound 4.5mg caps, Take one capsule by mouth nightly enalapril maleate 20 mg tablet See Rx Instructions .ROUTE .COMPLEX Qty: 180 3RF Dose Instruction: TAKE ONE TABLET BY MOUTH TWICE DAILY Rx Instructions: TAKE ONE TABLET BY MOUTH TWICE DAILY rosuvastatin 5 mg tablet 2.5 mg PO BEDTIME Qty: 45 1RF Fish Oil 340-1,000 mg capsule 1 cap PO BID cholecalciferol (vitamin D3) 250 mcg (10,000 unit) capsule 250 mcg PO DAILY dofetilide [Tikosyn] 250 mcg capsule 250 mcg PO Q12H furosemide 20 mg tablet 10 mg PO DAILY Vitamin C See Rx Instructions .ROUTE .COMPLEX Rx Instructions: Take Vitamin C supplement in place of [facility].; Referrals: [facility] [Provider Group] Chanel Weiss ARNP [Primary Care Provider] - Visit Report Forms: Patient Portal/API
[2022-04-25] MEDS: TET,DIPH,PERTUSS(ACELL),VAC/PF 0.5 ML SYRINGE IM (17:14)
[2022-04-25] MEDS: HYDROCODONE/ACET 5/325 TABLET 1 TAB PO (17:14)
[2022-04-25] MEDS: cefTRIAXone 2,000 MG VIAL 1000 MG IM (17:55)
[2022-04-25 18:04] VITALS: BP 190/93; PULSE 73; RESP 20; O2SAT 97
== END 2022-04-25 18:20 | disposition home or self-care (01) ==
PROVIDERS: Emergency Provider Nurse Practitioner Critical Care Medicine; Family Provider Nurse Practitioner; PCP Nurse Practitioner
DX: S51.012A Laceration without foreign body of left elbow, initial encounter (principal); S42.402A Unspecified fracture of lower end of left humerus, initial encounter for closed fracture; W01.0XXA Fall on same level from slipping, tripping and stumbling without subsequent striking against object, initial encounter; Z79.01 Long term (current) use of anticoagulants; Z23 Encounter for immunization
CPT/HCPCS: 12001; 73080; 90471; 96372; 99283; 99284; 90715; J0696

== ENCOUNTER → 2022-04-28 09:55 | Outpatient (CLI) | payer MEDICARE, OTHER, SELFPAY ==
[2019-05-05 07:49] VITALS: BMI 31.9
[2022-04-28 11:04] LABS: BUN Creatinine Ratio 24.6 (6-22); Blood Urea Nitrogen 16 mg/dL (7-17); Calcium 10.6 mg/dL (8.4-10.2); Carbon Dioxide 29 mmol/L (22-32); Chloride 100 mmol/L (98-107); Estimated Glomerular Filt Rate > 60 mL/min (>60); Glucose 111 mg/dL (80-110); HEMOLYSIS < 15 (0-50); Magnesium 1.9 mg/dL (1.6-2.3); Potassium 4.4 mmol/L (3.4-5.1); Sodium 136 mmol/L (137-145)
== END ==
PROVIDERS: Family Provider Nurse Practitioner; PCP Nurse Practitioner; Referring Provider Nurse Practitioner Family; Visit Provider Nurse Practitioner Family
DX: Z79.899 Other long term (current) drug therapy (principal); Z51.81 Encounter for therapeutic drug level monitoring
CPT/HCPCS: 36415; 80048; 83735

== ENCOUNTER 2022-07-24 16:49 | Emergency (ER) | payer MEDICARE, OTHER, SELFPAY ==
[2019-05-05 07:49] VITALS: BMI 31.9
[2022-07-24 17:38] VITALS: PULSE 63; RESP 19; TEMP 36.6; O2SAT 97; BMI 35.2
--- NOTE | 2022-07-24 18:12 | DI.RAD.S_ITS ---
PROCEDURE: XR CHEST 2V INDICATIONS: eval for PNA TECHNIQUE: 2 views of the chest were acquired. COMPARISON: [facility], , CHEST 1 VIEW, 05/10/2014, 9:22. FINDINGS: Surgical changes and devices: None. Lungs and pleura: Lungs are clear. No pleural effusions or pneumothorax. Mediastinum: Mediastinal contours are normal. Heart size is normal. Bones and chest wall: No suspicious bony abnormalities. Soft tissues appear unremarkable. ACDF in the lower cervical spine. IMPRESSION: No acute cardiopulmonary abnormality. Dictated by: Marcelo Szymanski M.D. on 07/24/2022 at 18:01 Approved by: Marcelo Szymanski M.D. on 07/24/2022 at 18:02
[2022-07-24 18:58] LABS: Adenovirus Not Detected (Not Detect); B. parapertussis Not Detected (Not Detecte); Bordetella pertussis Not Detected (Not Detecte); Chlamydophila pneumoniae Not Detected (Not Detect); Coronavirus 229E Not Detected (Not Detect); Coronavirus HKU1 Not Detected (Not Detect); Coronavirus NL 63 Not Detected (Not Detect); Coronavirus OC43 Not Detected (Not Detect); Human Metapneumovirus Not Detected (Not Detect); Human Rhinovirus/Enterovirus Not Detected (Not Detect); Influenza A Not Detected (Not Detect); Influenza B Not Detected (Not Detect); Mycoplasma pneumoniae Not Detected (Not Detect); Parainfluenza Virus 1 Not Detected (Not Detect); Parainfluenza Virus 2 Not Detected (Not Detect); Parainfluenza Virus 3 Not Detected (Not Detect); Parainfluenza Virus 4 Not Detected (Not Detect); Respiratory Syncytial Virus Not Detected (Not Detect)
[2022-07-24 19:00] LABS: SARS- CoV-2 Detected (Not Detecte)
--- NOTE | 2022-07-24 19:46 | ED.URI ---
HPI - URI/Sore Throat <Faraz Romano PA-C - Last Filed: 07/24/22 19:50> General Chief Complaint: Upper Respiratory Symptoms Stated Complaint: cough x 3 days, sent by [facility] Time Seen by Provider: 07/24/22 19:36 Source: patient Mode of arrival: Ambulatory History of Present Illness HPI Narrative: 76-year-old female with past medical history atrial fibrillation, hyperlipidemia presents to the ED with 3 days of nasal congestion, cough, fever. Patient denies chest pain, shortness of breath, nausea, vomiting, diarrhea. Related Data Home Medications Medication Instructions Recorded Confirmed MULTIVITAMIN (One Daily 1 tab PO Q DAY ##0 05/23/11 12/27/21 Multivitamin) clobetasol 0.05 % scalp solution 0.05 % topical PRN PRN as directed 12/27/15 12/27/21 ##0 Fluocinolone 0.01% Scalp See Rx Instructions .Route .COMPLEX 02/05/18 12/27/21 Prebiotic 1 dose PO DAILY 02/05/18 12/27/21 polypodium leucotomos extract 240 240 mg PO DAILY 06/12/18 12/27/21 mg capsule (Heliocare) OLIVE LEAF EXTRACT 2 cap PO DAILY 06/17/18 12/27/21 hydrocortisone 2.5 % topical cream 1 applictn topical BID PRN as 06/17/18 12/27/21 directed coenzyme Q10 100 mg capsule 100 mg PO BID #0 caps 02/12/20 12/27/21 (CoQ-10) omega-3 fatty acids-fish oil 340 1 cap PO BID 07/06/20 12/27/21 mg-1,000 mg capsule (Fish Oil) cholecalciferol (vitamin D3) 250 250 mcg PO DAILY 08/24/20 12/27/21 mcg (10,000 unit) capsule dofetilide 250 mcg capsule 250 mcg PO Q12H 08/30/21 12/27/21 (Tikosyn) furosemide 20 mg tablet 10 mg PO DAILY 08/30/21 12/27/21 Vitamin C See Rx Instructions .Route .COMPLEX 01/01/22 01/01/22 Previous Rx's Medication Instructions Recorded ezetimibe 10 mg tablet See Rx Instructions .Route 11/30/21 .COMPLEX #90 tabs naltrexone 50 mg tablet See Rx Instructions PO .COMPLEX #1 01/02/22 kit magnesium oxide 400 mg PO DAILY #90 caps 01/03/22 apixaban 5 mg tablet (Eliquis) 5 mg PO BID #180 tabs 02/25/22 naltrexone 50 mg tablet See Rx Instructions PO .COMPLEX 03/05/22 #90 tabs enalapril maleate 20 mg tablet See Rx Instructions .Route 03/19/22 .COMPLEX #180 tabs rosuvastatin 5 mg tablet 2.5 mg PO BEDTIME #45 tabs 04/09/22 hydrocodone 5 mg-acetaminophen 325 1 tab PO TID PRN pain #14 tabs 04/25/22 mg tablet mupirocin 2 % topical ointment 1 applic topical BID #22 grams 04/25/22 Allergies Allergy/AdvReac Type Severity Reaction Status Date / Time diazepam Allergy Severe SEEING Verified 04/25/22 14:11 DOUBLE, HEART PALPITATIONS, DIFFICULTY BREATHING Sulfa (Sulfonamide Allergy Intermediate VERY SICK Verified 04/25/22 14:11 Antibiotics) beet AdvReac Mild N/V Verified 04/25/22 14:11 Review of Systems <Faraz Romano PA-C - Last Filed: 07/24/22 19:50> Review of Systems ROS Unobtainable: All systems reviewed & are unremarkable except as noted in HPI and below Constitutional Constitutional: Denies chills, Denies fatigue, Reports fever(s), Denies frequent falls, Denies lethargy and Denies weakness Eyes Eyes: Denies change in vision, Denies eye discharge, Denies irritation and Denies loss of vision ENT Ears, Nose, Mouth, and Throat: Denies change in voice, Denies dizziness, Reports nasal congestion, Reports nasal discharge, Denies neck pain, Denies sore throat and Denies throat swelling Cardiovascular Cardiovascular: Denies chest pain, Denies irregular heart rhythm, Denies lightheadedness, Denies palpitations, Denies dyspnea, Denies dyspnea on exertion and Denies orthopnea Respiratory Respiratory: Reports cough, Denies dyspnea, Denies dyspnea on exertion and Denies wheezing Gastrointestinal Gastrointestinal: Denies abdominal pain, Denies change in bowel habits, Denies diarrhea, Denies nausea and Denies vomiting Genitourinary Genitourinary: Denies hematuria, Denies flank pain, Denies urinary incontinence and Denies urinary urgency Musculoskeletal Musculoskeletal: Denies back pain, Denies muscle weakness, Denies neck pain, Denies numbness and Denies tingling Integumentary/Breasts Skin/Breast: Denies pruritus, Denies erythema, Denies rash and Denies wounds Neurologic Neurologic: Denies behavioral changes, Denies confusion, Denies dizziness, Denies frequent falls, Denies loss of vision, Denies numbness, Denies tingling and Denies weakness Psychiatric Psychiatric: Denies anxiety, Denies behavioral changes, Denies confusion, Denies depression, Denies homicidal ideation and Denies suicidal ideation Endocrine Endocrine: Denies fatigue, Denies flushing and Denies palpitations Hematologic/Lymphatic Hematologic/Lymphatic: Denies easy bruising Allergic/Immunologic Allergic/Immunologic: Denies urticaria, Denies throat swelling and Denies wheezing Patient History <Faraz Romano PA-C - Last Filed: 07/24/22 19:50> Medical History Ankle pain, right Central stenosis of spinal canal DDD (degenerative disc disease) Essential hypertension (09/05/10) Goiter History of CVA (cerebrovascular accident) History of CVA (cerebrovascular accident) without residual deficits History of malignant melanoma History of paroxysmal supraventricular tachycardia History of stroke Hypercalcemia Hyperlipidemia Irritable bowel syndrome (09/05/10) Lumbar nerve root impingement Mixed hyperlipidemia (09/05/10) Normal breast exam Obesity (BMI 30-39.9) Obstructive sleep apnea syndrome Periodic limb movement disorder (PLMD) Peripheral edema Primary hyperparathyroidism Scalp psoriasis Serum calcium elevated Snoring Status post cervical discectomy (09/03/16) Status post cervical spinal arthrodesis (09/03/16) Supraventricular tachycardia Tear of right infraspinatus tendon Tear of right supraspinatus tendon Traumatic arthropathy, right ankle and foot Surgical History Cervical vertebral fusion History of bilateral salpingo-oophorectomy (BSO) S/P total abdominal hysterectomy and bilateral salpingo-oophorectomy Family History Brother Coronary artery disease Brother History of oral cancer Father Coronary artery disease Mother Carotid artery disease Sister Irregular heart beat Sister Coronary artery disease Carotid artery disease Social History household members: spouse Smoking Status: Never smoker second hand exposure: No alcohol intake: current substance use type: does not use Smoking Status: Never smoker alcohol intake frequency: a few times a week Substance Use Type: does not use Exam <Faraz Romano PA-C - Last Filed: 07/24/22 19:50> Narrative Exam Narrative: Const General:?cooperative, healthy appearing and comfortable [facility] Head:?normal to inspection Ears:?hearing grossly normal bilaterally Nose:?external nose normal Face and sinus:?normal facial exam and sinuses nontender Mouth:?oral mucosae normal Throat:?posterior oropharynx normal Eyes General:?appearance normal, both eyes and all related structures Neck Neck:?normal visual inspection and no lymphadenopathy noted Resp Effort & Inspection:?normal respiratory effort Auscultation:?clear to auscultation bilaterally Cardio Rate:?regular rate Rhythm:?regular rhythm Neuro General:?patient alert, patient awake and patient oriented x3 Initial Vital Signs Initial Vital Signs: Vital Signs Temperature 97.9 F 07/24/22 17:38 Pulse Rate 63 07/24/22 17:38 Respiratory Rate 19 07/24/22 17:38 Pulse Oximetry 97 07/24/22 17:38 Oxygen Delivery Method Room Air 07/24/22 17:38 <DO Josefina Gavin Last Filed: 07/25/22 01:45> Initial Vital Signs Initial Vital Signs: Vital Signs Temperature 97.9 F 07/24/22 17:38 Pulse Rate 63 07/24/22 17:38 Respiratory Rate 19 07/24/22 17:38 Pulse Oximetry 97 07/24/22 17:38 Oxygen Delivery Method Room Air 07/24/22 17:38 Course <Faraz Romano PA-C - Last Filed: 07/24/22 19:50> Orders Ordered: ED Orders 07/24/22 17:45 Respiratory Panel (Film Array) Stat 07/24/22 18:12 XR chest 2V Stat Vital Signs Vital signs: Vital Signs - 8 hr 07/24/22 19:55 Pulse Rate 66 Blood Pressure 180/89 H Pulse Oximetry 95 Oxygen Delivery Method Room Air <DO Josefina Gavin Last Filed: 07/25/22 01:45> Orders Ordered: ED Orders 07/24/22 17:45 Respiratory Panel (Film Array) Stat 07/24/22 18:12 XR chest 2V Stat Vital Signs Vital signs: Vital Signs - 8 hr 07/24/22 19:55 Pulse Rate 66 Blood Pressure 180/89 H Pulse Oximetry 95 Oxygen Delivery Method Room Air MDM - URI/Sore Throat <Faraz Romano PA-C - Last Filed: 07/24/22 19:50> Lab Data Labs: Lab Results 07/24/22 Range/Units 17:45 Chlamy pneumoniae PCR Not detected (Not Detect) Adenovirus (PCR) Not detected (Not Detect) B. pertussis DNA (PCR) Not detected (Not Detecte) B.parapertussis DNA PCR Not detected (Not Detecte) Coronavirus OC43 (PCR) Not detected (Not Detect) Coronavirus HKU1 (PCR) Not detected (Not Detect) Coronavirus 229E (PCR) Not detected (Not Detect) SARS-CoV-2 (PCR) Detected H (Not Detecte) Coronavirus NL63 (PCR) Not detected (Not Detect) Human Metapneumovir PCR Not detected (Not Detect) Influenza Type A (PCR) Not detected (Not Detect) Influenza Type B (PCR) Not detected (Not Detect) M. pneumoniae (PCR) Not detected (Not Detect) Parainfluenza 1 (PCR) Not detected (Not Detect) Parainfluenza 2 (PCR) Not detected (Not Detect) Parainfluenza 3 (PCR) Not detected (Not Detect) Parainfluenza 4 (PCR) Not detected (Not Detect) RSV (PCR) Not detected (Not Detect) Entero/Rhino (PCR) Not detected (Not Detect) MDM Narrative Medical decision making narrative: 76-year-old female with past medical history atrial fibrillation, hyperlipidemia presents to the ED with 3 days of nasal congestion, cough, fever. Respiratory panel was positive for COVID-19 infection. Counseled patient on supportive care with Tylenol, ibuprofen, [id number] cough and cold medicines, good hydration. ED return precautions were discussed with patient. Patient verbalized understanding. Medical records reviewed: Yes <Min Hinojosa DO - Last Filed: 07/25/22 01:45> Lab Data Labs: Lab Results 07/24/22 Range/Units 17:45 Chlamy pneumoniae PCR Not detected (Not Detect) Adenovirus (PCR) Not detected (Not Detect) B. pertussis DNA (PCR) Not detected (Not Detecte) B.parapertussis DNA PCR Not detected (Not Detecte) Coronavirus OC43 (PCR) Not detected (Not Detect) Coronavirus HKU1 (PCR) Not detected (Not Detect) Coronavirus 229E (PCR) Not detected (Not Detect) SARS-CoV-2 (PCR) Detected H (Not Detecte) Coronavirus NL63 (PCR) Not detected (Not Detect) Human Metapneumovir PCR Not detected (Not Detect) Influenza Type A (PCR) Not detected (Not Detect) Influenza Type B (PCR) Not detected (Not Detect) M. pneumoniae (PCR) Not detected (Not Detect) Parainfluenza 1 (PCR) Not detected (Not Detect) Parainfluenza 2 (PCR) Not detected (Not Detect) Parainfluenza 3 (PCR) Not detected (Not Detect) Parainfluenza 4 (PCR) Not detected (Not Detect) RSV (PCR) Not detected (Not Detect) Entero/Rhino (PCR) Not detected (Not Detect) Discharge Plan Departure Patient Disposition: Home Clinical Impression: COVID-19 Instructions: COVID-19 Activity Restrictions/Additional Instructions: You were evaluated in the ED today for nasal congestion, cough. You tested positive for the COVID-19 virus. Your physical exam is reassuring, your chest x-ray does not show any signs of pneumonia. You may continue to take Tylenol, ibuprofen, [id number] cough and cold medicines. Continue to hydrate well with water. Return to the ED if you experience any chest pain, trouble breathing. Prescriptions: No Action Fluocinolone 0.01% Scalp oil See Rx Instructions .ROUTE .COMPLEX Patient Comments: Apply enough to saturate scalp. Leave on for 4 hours and then wash it off PRN Rx Instructions: Apply enough to saturate scalp. Leave on for 4 hours and then wash it off PRN Prebiotic powder 1 dose PO DAILY Patient Comments: 1 scoop with 8 oz water PO QDAY Rx Instructions: 1 scoop with 8 oz water PO QDAY hydrocortisone 2.5 % cream 1 applictn TOP BID PRN (Reason: as directed) OLIVE LEAF EXTRACT 2 cap PO DAILY Patient Comments: 2 CAPS (2 X 500 MG) PO QDAY Rx Instructions: 2 CAPS (2 X 500 MG) PO QDAY MULTIVITAMIN (One Daily Multivitamin) 1 tab PO Q DAY Qty: 0 clobetasol 0.05 % solution 0.05 % Topical PRN PRN (Reason: as directed) Qty: 0 polypodium leucotomos extract [Heliocare] 240 mg capsule 240 mg PO DAILY coenzyme Q10 [CoQ-10] 100 mg capsule 100 mg PO BID Qty: 0 ezetimibe 10 mg tablet See Rx Instructions .ROUTE .COMPLEX Qty: 90 3RF Dose Instruction: TAKE ONE TABLET BY MOUTH ONE TIME DAILY Rx Instructions: TAKE ONE TABLET BY MOUTH ONE TIME DAILY naltrexone 50 mg tablet See Rx Instructions PO .COMPLEX Qty: 1 0RF Rx Instructions: Compound starter kit, 0.5mg start kit, 0.5mg by mouth at bedtime, increase by 0.5mg every week until at 4.5mg or best tolerated dose. magnesium oxide 400 mg magnesium capsule 400 mg PO DAILY Qty: 90 0RF Eliquis 5 mg tablet 5 mg PO BID Qty: 180 1RF naltrexone 50 mg tablet See Rx Instructions PO .COMPLEX Qty: 90 3RF Rx Instructions: compound 4.5mg caps, Take one capsule by mouth nightly enalapril maleate 20 mg tablet See Rx Instructions .ROUTE .COMPLEX Qty: 180 3RF Dose Instruction: TAKE ONE TABLET BY MOUTH TWICE DAILY Rx Instructions: TAKE ONE TABLET BY MOUTH TWICE DAILY rosuvastatin 5 mg tablet 2.5 mg PO BEDTIME Qty: 45 1RF Fish Oil 340-1,000 mg capsule 1 cap PO BID cholecalciferol (vitamin D3) 250 mcg (10,000 unit) capsule 250 mcg PO DAILY dofetilide [Tikosyn] 250 mcg capsule 250 mcg PO Q12H furosemide 20 mg tablet 10 mg PO DAILY Vitamin C See Rx Instructions .ROUTE .COMPLEX Rx Instructions: Take Vitamin C supplement in place of Airborne.; hydrocodone-acetaminophen 5-325 mg tablet 1 tab PO TID PRN (Reason: pain) Qty: 14 0RF mupirocin 2 % ointment 1 applic topical BID Qty: 22 0RF Referrals: Chanel Weiss ARNP [Primary Care Provider] - Stand Alone Forms: Patient Portal/API <Min Hinojosa DO - Last Filed: 07/25/22 01:45> Cosign ED Attending Cosignature Attestation: Dr Hinojosa Co-Sign Statement: I was available for consultation during this patient's emergency department visit. This chart is signed by myself for administrative purposes only. I did not have direct contact with this patient during this visit. They were seen independently by the APC.
[2022-07-24 19:55] VITALS: BP 180/89; PULSE 66; O2SAT 95
== END 2022-07-24 19:55 | disposition home or self-care (01) ==
PROVIDERS: Emergency Medicine; Emergency Provider Student in an Organized Health Care Education/Training Program; Family Provider Nurse Practitioner; PCP Nurse Practitioner
DX: U07.1 COVID-19 (principal)
CPT/HCPCS: 71046; 87633; 99281; 99283

== ENCOUNTER → 2022-08-02 15:17 | Outpatient (CLI) | payer MEDICARE, OTHER, SELFPAY ==
[2019-05-05 07:49] VITALS: BMI 31.9
--- NOTE | 2022-08-02 15:18 | DI.RAD.S_ITS ---
PROCEDURE: XR CHEST 2V INDICATIONS: cough, covid-19 TECHNIQUE: 2 views of the chest were acquired. COMPARISON: [facility], CR, XR CHEST 2V, 07/24/2022, 18:31. [facility], CR, XR CHEST 1V, 05/05/2019, 3:35. FINDINGS: Surgical changes and devices: None. Lungs and pleura: Lungs are clear. No pleural effusions or pneumothorax. Mediastinum: Mediastinal contours are normal. Heart size is normal. Bones and chest wall: No suspicious bony abnormalities. Soft tissues appear unremarkable. IMPRESSION: No evidence of viral pneumonia. Dictated by: Zhao Bernstein M.D. on 08/02/2022 at 16:14 Approved by: Zhao Bernstein M.D. on 08/02/2022 at 16:14
== END ==
PROVIDERS: Family Provider Nurse Practitioner; PCP Nurse Practitioner; Referring Provider Nurse Practitioner; Visit Provider Nurse Practitioner
DX: U07.1 COVID-19 (principal); R05.9 Cough, unspecified
CPT/HCPCS: 71046

== ENCOUNTER → 2022-08-13 11:10 | Outpatient (CLI) | payer MEDICARE, OTHER, SELFPAY ==
[2019-05-05 07:49] VITALS: BMI 31.9
--- NOTE | 2022-08-13 | DI.US.S_ITS ---
PROCEDURE: US RENAL COMPLETE INDICATIONS: PRIMARY HYPERPARATHYROIDISM - ASSESS FOR KIDNEY STONES TECHNIQUE: Real-time scanning was performed of the kidneys and bladder, with image documentation. Technical note: Examination is somewhat technically limited secondary to patient's body habitus. COMPARISON: None. FINDINGS: Kidneys: Kidneys are normal in size. Right kidney measures 11 cm long; left kidney measures 11.6 cm long. Right renal cortical thickness is 1.4 cm; left renal cortical thickness is 2.2. Renal cortical echotexture is normal. No hydronephrosis. No suspicious solid mass lesions. There are multiple of echogenic foci present bilaterally suggesting small bilateral renal calculi. If further evaluation is clinically indicated a noncontrast CT of the abdomen and pelvis may be of further clinical value. Bladder: Pre-void bladder volume is 383 mL. Post-void residual is 0 mL. Pre-void images demonstrate no intraluminal masses or stones. Bilateral ureteral jets are noted. Miscellaneous: No free pelvic fluid. IMPRESSION: Multiple small echogenic foci scattered throughout both kidneys suggesting small renal calculi. If further evaluation is clinically indicated a CT of the abdomen and pelvis with without intravenous contrast may be of further clinical value. Dictated by: Min Lee M.D. on 08/13/2022 at 12:43 Approved by: Min Lee M.D. on 08/13/2022 at 12:48
== END ==
PROVIDERS: Family Provider Nurse Practitioner; PCP Nurse Practitioner; Referring Provider Internal Medicine Endocrinology, Diabetes & Metabolism; Visit Provider Internal Medicine Endocrinology, Diabetes & Metabolism
DX: R93.421 Abnormal radiologic findings on diagnostic imaging of right kidney (principal); R93.422 Abnormal radiologic findings on diagnostic imaging of left kidney; E21.0 Primary hyperparathyroidism
CPT/HCPCS: 76770

== ENCOUNTER → 2023-01-30 14:54 | Outpatient (CLI) | payer MEDICARE, OTHER, SELFPAY ==
[2019-05-05 07:49] VITALS: BMI 31.9
[2023-01-30 16:40] LABS: Add Manual Diff / Slide Review NO; Basophils Absolute Auto 100 /uL (0-100); Eosinophils Absolute Auto 200 /uL (0-450); Hemoglobin 12.1 g/dL (12.0-16.0); Lymphocytes Absolute Auto 2200 /uL (1100-4500); Lymphocytes Percent Auto 24.2 % (25-40); Mean Corpuscular HGB Conc 33.5 % (30-36); Mean Corpuscular Hemoglobin 30.6 PG (26-34); Mean Corpuscular Volume 91.3 fL (80-100); Monocytes Absolute Auto 700 /uL (0-900); Monocytes Percent Auto 7.2 % (3-14); Neutrophils Absolute Auto 6000 /uL (1500-7000); Neutrophils Percent Auto 65.6 % (50-75); Platelet Count 321 X10^3/uL (150-400); Red Blood Cell Count 3.94 X10^6/uL (4.0-5.2); Red Cell Distribution Width 13.3 % (11.6-14.8); White Blood Cell Count 9.1 X10^3/uL (4.5-11.0)
[2023-01-30 16:42] LABS: Alanine Aminotransferase 39 IU/L (<35); Albumin 4.3 g/dL (3.5-5.0); Albumin Globulin Ratio 1.6 (1.0-2.8); Alkaline Phosphatase 76 U/L (38-126); Aspartate Aminotransferase 30 IU/L (14-36); BUN Creatinine Ratio 26.9 (6-22); Bilirubin Total 0.7 mg/dL (0.2-1.3); Blood Urea Nitrogen 18 mg/dL (7-17); Calcium 10.7 mg/dL (8.4-10.2); Carbon Dioxide 26 mmol/L (22-32); Chloride 100 mmol/L (98-107); Estimated Glomerular Filt Rate > 60 mL/min (>60); Globulin 2.7 g/dL (1.7-4.1); Glucose 94 mg/dL (80-110); HEMOLYSIS < 15 (0-50); Potassium 4.2 mmol/L (3.4-5.1); Sodium 135 mmol/L (137-145)
[2023-01-30 16:58] LABS: Free T3, Triiodothyronine Free 4.32 pg/mL (2.77-5.27); Free T4, Direct Thyroxine 0.96 ng/dL (0.78-2.19)
[2023-01-30 17:12] LABS: Thyroid Stimulating Hormone 1.24 uIU/mL (0.47-4.68)
[2023-01-31 16:39] LABS: Hep C Virus Ab w/Reflex Quant NEGATIVE s/c (NEGATIVE)
[2023-02-02 10:25] LABS: Calcium 10.4 mg/dL (8.7-10.3); Parathyroid Hormone, Intact 91 pg/mL (15-65)
== END ==
PROVIDERS: Family Provider Nurse Practitioner; PCP Nurse Practitioner; Referring Provider Nurse Practitioner; Visit Provider Nurse Practitioner
DX: E21.0 Primary hyperparathyroidism (principal); E78.5 Hyperlipidemia, unspecified; E21.5 Disorder of parathyroid gland, unspecified; I48.91 Unspecified atrial fibrillation; Z79.899 Other long term (current) drug therapy; Z11.59 Encounter for screening for other viral diseases
CPT/HCPCS: 36415; 80053; 82310; 83970; 84439; 84443; 84481; 85025; 86803

== ENCOUNTER → 2023-02-12 07:01 | Outpatient (CLI) | payer MEDICARE, OTHER, SELFPAY ==
[2019-05-05 07:49] VITALS: BMI 31.9
[2023-02-12 08:29] LABS: Cholesterol 117 mg/dL (140-199); HDL Cholesterol 41 mg/dL (40-60); LDL Cholesterol Calculated 48 mg/dL (<100); Triglycerides 139 mg/dL (35-150)
[2023-02-12 09:08] LABS: Creatinine Urine Random 147.4 mg/dL
[2023-02-12 09:12] LABS: Microalbumi Creatinin Ratio Ur 8.1 ug/mg CR (<30); Microalbumin Urine Random 1.2 mg/dL (0-1.6)
[2023-02-15 15:24] LABS: Calcium 10.4 mg/dL (8.7-10.3); Parathyroid Hormone, Intact 75 pg/mL (15-65)
== END ==
PROVIDERS: Family Provider Nurse Practitioner; PCP Nurse Practitioner; Referring Provider Nurse Practitioner; Visit Provider Nurse Practitioner
DX: E78.5 Hyperlipidemia, unspecified (principal); E21.5 Disorder of parathyroid gland, unspecified; E83.52 Hypercalcemia; E21.0 Primary hyperparathyroidism; Z79.899 Other long term (current) drug therapy; I48.91 Unspecified atrial fibrillation
CPT/HCPCS: 36415; 80061; 82043; 82310; 82570; 83970

== ENCOUNTER → 2023-04-16 08:06 | Outpatient (CLI) | payer MEDICARE, OTHER, SELFPAY ==
[2023-03-18 13:10] VITALS: BMI 31.9
[2023-04-16 10:20] LABS: BUN Creatinine Ratio 25.8 (6-22); Blood Urea Nitrogen 16 mg/dL (7-17); Calcium 11.2 mg/dL (8.4-10.2); Carbon Dioxide 26 mmol/L (22-32); Chloride 100 mmol/L (98-107); Estimated Glomerular Filt Rate > 60 mL/min (>60); Glucose 100 mg/dL (80-110); HEMOLYSIS < 15 (0-50); Potassium 4.2 mmol/L (3.4-5.1); Sodium 135 mmol/L (137-145)
== END ==
PROVIDERS: Family Provider Nurse Practitioner; PCP Nurse Practitioner; Referring Provider Nurse Practitioner Family; Visit Provider Nurse Practitioner Family
DX: Z79.899 Other long term (current) drug therapy (principal); Z51.81 Encounter for therapeutic drug level monitoring
CPT/HCPCS: 36415; 80048; 83735

== ENCOUNTER → 2023-07-15 11:06 | Outpatient (CLI) | payer MEDICARE, OTHER, SELFPAY ==
[2023-03-18 13:10] VITALS: BMI 31.9
[2023-07-15 12:17] LABS: Alanine Aminotransferase 50 IU/L (<35); Albumin 4.4 g/dL (3.5-5.0); Albumin Globulin Ratio 1.5 (1.0-2.8); Alkaline Phosphatase 73 U/L (38-126); Aspartate Aminotransferase 34 IU/L (14-36); BUN Creatinine Ratio 18.8 (6-22); Bilirubin Total 0.8 mg/dL (0.2-1.3); Blood Urea Nitrogen 13 mg/dL (7-17); Calcium 11.1 mg/dL (8.4-10.2); Carbon Dioxide 28 mmol/L (22-32); Chloride 99 mmol/L (98-107); Estimated Glomerular Filt Rate > 60 mL/min (>60); Glucose 94 mg/dL (80-110); HEMOLYSIS < 15 (0-50); Potassium 4.8 mmol/L (3.4-5.1); Sodium 136 mmol/L (137-145); Total Protein 7.4 g/dL (6.3-8.2)
[2023-07-18 14:32] LABS: Calcium 10.9 mg/dL (8.7-10.3); Parathyroid Hormone, Intact 84 pg/mL (15-65)
== END ==
LOC: LAB 11:13
PROVIDERS: Family Provider Nurse Practitioner; PCP Nurse Practitioner; Referring Provider Nurse Practitioner Family; Visit Provider Nurse Practitioner Family
DX: Z79.899 Other long term (current) drug therapy (principal); Z51.81 Encounter for therapeutic drug level monitoring; I48.91 Unspecified atrial fibrillation; E21.5 Disorder of parathyroid gland, unspecified
CPT/HCPCS: 36415; 80053; 82310; 83735; 83970

== ENCOUNTER 2023-07-16 08:15 | Outpatient (RCR) | payer MEDICARE, OTHER, SELFPAY ==
[2023-03-18 13:10] VITALS: BMI 31.9
--- NOTE | 2023-04-25 16:49 | PT.OIE ---
Current Diagnoses Stiffness of unspecified hip, not elsewhere classified (04/25/23) Lumbago with sciatica, left side (04/25/23) Muscle weakness (generalized) (04/25/23) Postmenopausal atrophic vaginitis (04/25/23) Past Medical History (Last Reviewed 04/23/23 @ 14:16 by Ernie Talavera) Acute bacterial bronchitis Ankle pain, right Central stenosis of spinal canal DDD (degenerative disc disease) Essential hypertension (09/05/10) Goiter History of CVA (cerebrovascular accident) History of CVA (cerebrovascular accident) without residual deficits History of malignant melanoma History of paroxysmal supraventricular tachycardia History of stroke Hypercalcemia Hyperlipidemia Irritable bowel syndrome (09/05/10) Lumbar nerve root impingement Mixed hyperlipidemia (09/05/10) Normal breast exam Obesity (BMI 30-39.9) Obstructive sleep apnea syndrome Parathyroid abnormality Periodic limb movement disorder (PLMD) Peripheral edema Primary hyperparathyroidism Scalp psoriasis Serum calcium elevated Snoring Status post cervical discectomy (09/03/16) Status post cervical spinal arthrodesis (09/03/16) Supraventricular tachycardia Tear of right infraspinatus tendon Tear of right supraspinatus tendon Traumatic arthropathy, right ankle and foot Vaginal atrophy Past Surgical History (Last Reviewed 04/23/23 @ 14:16 by Ernie Talavera) Cervical vertebral fusion History of bilateral salpingo-oophorectomy (BSO) S/P total abdominal hysterectomy and bilateral salpingo-oophorectomy Status post lumbar surgery Visit Care Team Role Provider Type WAYNE Vilchis Attending Provider Advanced Typing Checker Family Provider Primary Care Provider Referring Provider Specialty: [facility] Address: [address] [place] [address], [facility] Email: [email or web address] Physical Therapy Initial Evaluation PT-OP-A Visit Information Start: 04/09/23 17:29 Freq: Status: Active Protocol: Document 04/25/23 07:30 LRN (Rec: 04/25/23 08:16 LRN [id number]) Out-Patient Physical Therapy Visit Information Visit Information Visit Type Initial Evaluation Visit Start Time 07:30 Visit Stop Time 08:10 Total Visit Minutes 40 Visit Number 1 Evaluation Information Evaluation Date 04/25/23 Precautions Precautions Latex Allergy, 25# lift restriction, 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 PT-OP-B Current Condition Start: 04/09/23 17:29 Freq: Status: Active Protocol: Document 04/25/23 07:30 LRN (Rec: 04/25/23 08:16 LRN [id number]) Current Condition History of Current Condition Onset Date December 2022 Current Complaints Urinary leakage mainly w/urge first in AM walking to bathroom. History of Current Condition Pt reports on her last health exam she was told her vaginal wall was collapsing into her vaginal canal; therefore was given estrogen started on estrogen 2x/week and referred to PT. When waking in the morning with an urge she reports urinary leakage. She denies urinary leakage with activities and denies feelings of falling out or heaviness in pelvic region. She has had recent lumbar laminectomy surgery due to L lateral hip and posterolateral thigh pain that sometimes radiates to the ankle. Pain prior to surgery was on her R side and is now on her L side. She states she was doing well until she participated in rowing and is now having the L sided sciatic pain. Treatment Goals Patient/Caregiver Goals Learn exercises to strength bladder area. Eliminate urinary leakage first in AM with an urge. 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 Constipation from Ozempic (for weight control), requiring Miralax to help control the constipation. Strokes 01/2017 and 2018 with ongoing memory loss. Lumbar laminectomy (L4-L5)-. PT-OP-C Subjective Start: 04/09/23 17:29 Freq: Status: Active Protocol: Document 04/25/23 07:30 LRN (Rec: 04/25/23 08:16 LRN [id number]) Patient Questionnaires Pelvic Pain and Urgency/Frequency Patient Symptom Scale Pelvic Pain Score 6 PT-OP-I Pelvic Floor Start: 04/09/23 17:29 Freq: Status: Active Protocol: Document 04/25/23 07:30 LRN (Rec: 04/25/23 08:16 LRN [id number]) Pelvic Floor Assessment Urine Other Urinary Symptoms Urge first in AM resulting in urinary leakage, no leakage during the day. Leakage Size Small Other Leakage Causes Rarely urinary leakage with big cough or sneeze. Nocturia 1-2 Pads Used In 24 Hours 0 Bowel Bowel Symptoms Constipation Bowel Movement Frequency daily [place] Stool Chart Type 1-7 4 Prolapse Cystocele Grade 1 Rectocele Grade 2 Perineal Descent Resting Absent Bearing Absent Contraction Ability Voluntary Contraction Weak Voluntary Relaxation Moderate Manual Muscle Testing Left 1 Manual Muscle Testing Right 0 Manual Muscle Testing Anterior 0 Manual Muscle Testing Posterior 1 Muscle Endurance (Seconds) 5 Number of Quick Contractions In 10 2 Seconds Comments Pelvic Floor Comments With Miralax BM's are now daily, otherwise normally every 2 days, before medications was every 2-3 days . PT-OP-J Posture/Palpation/Skin Start: 04/09/23 17:29 Freq: Status: Active Protocol: Document 04/25/23 07:30 LRN (Rec: 04/25/23 08:16 LRN [id number]) Posture Evaluation Position Standing T-Spine Posture Flattened L-Spine Posture Increased Lordosis Shoulder Posture (L) Elevated Pelvis Posture Anteriorly Tilted,(L) PSIS Posterior Knee Posture (L) Genu Valgus,(R) Genu Valgus Ankle/Foot Posture (L) Supinated,(R) Supinated Comments Posture Comments Increased lordosis is mild, dowagers hump. PT-OP-K Range of Motion Start: 04/09/23 17:29 Freq: Status: Active Protocol: Document 04/25/23 07:30 LRN (Rec: 04/25/23 08:16 LRN [id number]) Lumbar Spine Range of Motion Lumbar Spine Active Degrees Testing Position Standing Flexion 95 Extension 15 Lateral Flexion Left 10 Lateral Flexion Right 10 Comments Trunk AROM: Flexion is 95 deg ?s with 70 deg?s hip flexion, Trunk extension is 15 deg?s with 10 deg?s hip extension. R SB caused L hip catch pain . Hip Goniometric Range of Motion Hip Right Passive Testing Position Supine Abduction 45 Internal Rotation 45 External Rotation 35 Left Passive Testing Position Supine Abduction 45 Internal Rotation 15 External Rotation 85 PT-OP-M Strength Start: 04/09/23 17:29 Freq: Status: Active Protocol: Document 04/25/23 07:30 LRN (Rec: 04/25/23 08:16 LRN [id number]) Trunk Strength Trunk Manual Muscle Testing Core Stabilization Abdominal doming. Not able to tighten her Transverse Abdominus muscle. Hip Strength Hip Manual Muscle Testing Right Flexion (L2) 5 Normal Abduction 5 Normal Adduction 5 Normal Internal Rotation 5 Normal Left Flexion (L2) 5 Normal Abduction 3 Fair Adduction 5 Normal Internal Rotation 3+ Fair+ PT-OP-Q Treatments Start: 04/09/23 17:29 Freq: Status: Active Protocol: Document 04/25/23 07:30 LRN (Rec: 04/25/23 08:16 LRN [id number]) Self-Care/Home Management Treatment Education Other Education Discussed results of evaluation, goals, and plan of care (POC). Pt agreeable to goals and POC. Discussed and educated pt in specifics for completion of in use of Bladder Diary and I/S in tracking for 1 week. Activities Self-Care/Home Management Activities Issued & reviewed HEP: [place] ex's and discussed exercise of Quick Flicks, Long Holds and Aggravators (contraction before getting up). PT-OP-T Assessment and Plan Start: 04/09/23 17:29 Freq: Status: Active Protocol: Document 04/25/23 07:30 LRN (Rec: 04/25/23 08:16 LRN [id number]) Physical Therapy Assessment Rehab Potential Rehabilitation Potential Good Evaluation Complexity Number of Personal Factors/Comorbidities 1-2 Number of Body Systems Impaired 4 or More Clinical Presentation at Evaluation Evolving Impairments Impairments Pain,Posture,ROM,Soft Tissue Mobility,Strength,Transfers Goals Two Impairment Urinary leakage in first AM walking to bathroom Short Term Goal (STG) Pt will be educated in delay urinary techinque. STG Duration 1 wk-05/03/23 Senior Sharepoint Developer Goal (LTG) Eliminate urinary leakage first in AM with an urge. LTG Duration 12 wks-07/24/23 One Impairment Pt lacks an independent self care HEP. Short Term Goal (STG) Pt educated in proper transfers to lessen core abdominal pressure. STG Duration 2 wks-05/10/23 Senior Sharepoint Developer Goal (LTG) Pt will be independent in a self care HEP for PF strengthening and hip/core mobility and strengthening exercises. LTG Duration 12 wks-07/24/23 Four Impairment LBP & L sciatic pain Senior Sharepoint Developer Goal (LTG) Decrease perception of LBP & L sciatic pain. LTG Duration 6 wks-06/14/22 Three Impairment Lacks awareness of proper PF contraction and core pressure management Short Term Goal (STG) Pt will be educated in core pressure management w/ADLs. STG Duration 4 wks-05/31/23 Senior Sharepoint Developer Goal (LTG) Pt will be able to perform a PF contraction in isolation of her substitute muscles. Pt will be able to tighten her TA. LTG Duration 12 wks-07/24/23 Assessment Summary Assessment Pt is a 77 yo female with urge urinary incontinence primarily first waking in the morning. She denies urinary leakage throughout the day with activities. Her recent lumbar laminectomy with recent onset of L sciatic pain, opposite of her initial pain before surgery. She has weakness in her quick contractions and is able to hold a long (10sec) contraction but has gradual weaking of the contraction. Her comorbidities (LBP/L sciatic pain) might hinder her progress and require treatment to her LB & sciatic pain, resulting in a longer rehabilitation time. The pt will benefit from skilled physical therapy to work towards achieving the above stated goals. Physical Therapy Plan Frequency and Duration Frequency of Treatment 1x/Week Duration of treatment (weeks) 12 Plan of Care Start Date 04/25/23 Plan of Care End Date 07/24/23 Therapeutic Interventions Therapeutic Interventions Home Exercise Program,Manual Therapy,Neuromuscular Re- education,Self-Care/Home Management,Soft Tissue Mobilization,Therapeutic Activities Next Visit Focus/Plan Next Note Type Treatment Note Next Visit Plan Next: Review bladder diary, pt education in bladder retraining with urge deference technique, proper Kegel without use of substitute muscles, reduction of intra- abdominal pressure, proper deep breathing, and proper breathing with transfers and body mechanics. Ther Ex: PF/core(TA)/hip (L IR) strengthening, Improve hip mobility (R ER, L IR), Educate & train Kegel without use of substitute muscles. POC: Pt education, Manual therapy (Ilipsoas release). ? Biofeedback with vaginal sensor. Therapeutic Exercises, Therapeutic Activities, Neuromuscular Reeducation.
--- NOTE | 2023-04-25 16:49 | PT.OPPOC ---
Physical, Occupational & Speech Therapy At [facility] Current Diagnoses Stiffness of unspecified hip, not elsewhere classified (04/25/23) Lumbago with sciatica, left side (04/25/23) Muscle weakness (generalized) (04/25/23) Postmenopausal atrophic vaginitis (04/25/23) Visit Care Team Role Provider Type WAYNE Vilchis Attending Provider Advanced Blanket Inspector Family Provider Primary Care Provider Referring Provider Specialty: Family Practice Address: [address] [place] [address], [facility] Email: [email or web address] Plan Of Care PT-OP-T Assessment and Plan Start: 04/09/23 17:29 Freq: Status: Active Protocol: Document 04/25/23 07:30 LRN (Rec: 04/25/23 08:16 LRN [id number]) Physical Therapy Assessment Rehab Potential Rehabilitation Potential Good Evaluation Complexity Number of Personal Factors/Comorbidities 1-2 Number of Body Systems Impaired 4 or More Clinical Presentation at Evaluation Evolving Impairments Impairments Pain,Posture,ROM,Soft Tissue Mobility,Strength,Transfers Goals Two Impairment Urinary leakage in first AM walking to bathroom Short Term Goal (STG) Pt will be educated in delay urinary techinque. STG Duration 1 wk-05/03/23 Track Inspector Goal (LTG) Eliminate urinary leakage first in AM with an urge. LTG Duration 12 wks-07/24/23 One Impairment Pt lacks an independent self care HEP. Short Term Goal (STG) Pt educated in proper transfers to lessen core abdominal pressure. STG Duration 2 wks-05/10/23 Senior Living Goal (LTG) Pt will be independent in a self care HEP for PF strengthening and hip/core mobility and strengthening exercises. LTG Duration 12 wks-07/24/23 Four Impairment LBP & L sciatic pain Track Inspector Goal (LTG) Decrease perception of LBP & L sciatic pain. LTG Duration 6 wks-06/14/22 Three Impairment Lacks awareness of proper PF contraction and core pressure management Short Term Goal (STG) Pt will be educated in core pressure management w/ADLs. STG Duration 4 wks-05/31/23 Track Inspector Goal (LTG) Pt will be able to perform a PF contraction in isolation of her substitute muscles. Pt will be able to tighten her TA. LTG Duration 12 wks-07/24/23 Assessment Summary Assessment Pt is a 77 yo female with urge urinary incontinence primarily first waking in the morning. She denies urinary leakage throughout the day with activities. Her recent lumbar laminectomy with recent onset of L sciatic pain, opposite of her initial pain before surgery. She has weakness in her quick contractions and is able to hold a long (10sec) contraction but has gradual weaking of the contraction. Her comorbidities (LBP/L sciatic pain) might hinder her progress and require treatment to her LB & sciatic pain, resulting in a longer rehabilitation time. The pt will benefit from skilled physical therapy to work towards achieving the above stated goals. Physical Therapy Plan Frequency and Duration Frequency of Treatment 1x/Week Duration of treatment (weeks) 12 Plan of Care Start Date 04/25/23 Plan of Care End Date 07/24/23 Therapeutic Interventions Therapeutic Interventions Home Exercise Program,Manual Therapy,Neuromuscular Re- education,Self-Care/Home Management,Soft Tissue Mobilization,Therapeutic Activities Next Visit Focus/Plan Next Note Type Treatment Note Next Visit Plan Next: Review bladder diary, pt education in bladder retraining with urge deference technique, proper Kegel without use of substitute muscles, reduction of intra- abdominal pressure, proper deep breathing, and proper breathing with transfers and body mechanics. Ther Ex: PF/core(TA)/hip (L IR) strengthening, Improve hip mobility (R ER, L IR), Educate & train Kegel without use of substitute muscles. POC: Pt education, Manual therapy (Ilipsoas release). ? Biofeedback with vaginal sensor. Therapeutic Exercises, Therapeutic Activities, Neuromuscular Reeducation. Plan of Care Dates Plan of Care Start Date 04/25/23 Plan of Care End Date 07/24/23 Electronically Signed by: Aruna Laurent, PT 04/26/23 [id number] If you are in agreement with this Plan of Care, please return a signed and dated copy. I have reviewed this Plan of Care and certify that the skilled therapy services above are required to meet the patient?s needs. Physician Signature Date Printed Name and Credentials Clinical Instructor Signature Printed Name and Credentials
--- NOTE | 2023-04-30 16:48 | PT.OTN ---
Current Diagnoses Stiffness of unspecified hip, not elsewhere classified (04/30/23) Lumbago with sciatica, left side (04/30/23) Muscle weakness (generalized) (04/30/23) Postmenopausal atrophic vaginitis (04/30/23) Physical Therapy Treatment Note PT-OP-A Visit Information Start: 04/09/23 17:29 Freq: Status: Active Protocol: Document 04/30/23 07:31 LRN (Rec: 04/30/23 08:17 LRN [id number]) Out-Patient Physical Therapy Visit Information Visit Information Visit Type Treatment Note Visit Start Time 07:31 Visit Stop Time 08:10 Total Visit Minutes 39 Visit Number 2 Evaluation Information Evaluation Date 04/25/23 Precautions Precautions Latex Allergy, 25# lift restriction, 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 PT-OP-B Current Condition Start: 04/09/23 17:29 Freq: Status: Active Protocol: Document 04/25/23 07:30 LRN (Rec: 04/25/23 08:16 LRN [id number]) Current Condition History of Current Condition Onset Date December 2022 Current Complaints Urinary leakage mainly w/urge first in AM walking to bathroom. History of Current Condition Pt reports on her last health exam she was told her vaginal wall was collapsing into her vaginal canal; therefore was given estrogen started on estrogen 2x/week and referred to PT. When waking in the morning with an urge she reports urinary leakage. She denies urinary leakage with activities and denies feelings of falling out or heaviness in pelvic region. She has had recent lumbar laminectomy surgery due to L lateral hip and posterolateral thigh pain that sometimes radiates to the ankle. Pain prior to surgery was on her R side and is now on her L side. She states she was doing well until she participated in rowing and is now having the L sided sciatic pain. Treatment Goals Patient/Caregiver Goals Learn exercises to strength bladder area. Eliminate urinary leakage first in AM with an urge. 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 Constipation from Ozempic (for weight control), requiring Miralax to help control the constipation. 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 Lumbar laminectomy (L4-L5)-. PT-OP-C Subjective Start: 04/09/23 17:29 Freq: Status: Active Protocol: Document 04/30/23 07:31 LRN (Rec: 04/30/23 08:17 LRN [id number]) OP-PT Subjective Patient Comments Patient Comments Since doing the different kind of Kegel, isn't leaking first in the AM. Sciatic pain is bothering her more today. States the more she does the Kegels in standing the more the sciatic pain hurts. PT-OP-I Pelvic Floor Start: 04/09/23 17:29 Freq: Status: Active Protocol: Document 04/25/23 07:30 LRN (Rec: 04/25/23 08:16 LRN [id number]) Pelvic Floor Assessment Urine Other Urinary Symptoms Urge first in AM resulting in urinary leakage, no leakage during the day. Leakage Size Small Other Leakage Causes Rarely urinary leakage with big cough or sneeze. Nocturia 1-2 Pads Used In 24 Hours 0 Bowel Bowel Symptoms Constipation Bowel Movement Frequency daily [place] Stool Chart Type 1-7 4 Prolapse Cystocele Grade 1 Rectocele Grade 2 Perineal Descent Resting Absent Bearing Absent Contraction Ability Voluntary Contraction Weak Voluntary Relaxation Moderate Manual Muscle Testing Left 1 Manual Muscle Testing Right 0 Manual Muscle Testing Anterior 0 Manual Muscle Testing Posterior 1 Muscle Endurance (Seconds) 5 Number of Quick Contractions In 10 2 Seconds Comments Pelvic Floor Comments With Miralax BM's are now daily, otherwise normally every 2 days, before medications was every 2-3 days . PT-OP-J Posture/Palpation/Skin Start: 04/09/23 17:29 Freq: Status: Active Protocol: Document 04/25/23 07:30 LRN (Rec: 04/25/23 08:16 LRN [id number]) Posture Evaluation Position Standing T-Spine Posture Flattened L-Spine Posture Increased Lordosis Shoulder Posture (L) Elevated Pelvis Posture Anteriorly Tilted,(L) PSIS Posterior Knee Posture (L) Genu Valgus,(R) Genu Valgus Ankle/Foot Posture (L) Supinated,(R) Supinated Comments Posture Comments Increased lordosis is mild, dowagers hump. PT-OP-K Range of Motion Start: 04/09/23 17:29 Freq: Status: Active Protocol: Document 04/25/23 07:30 LRN (Rec: 04/25/23 08:16 LRN [id number]) Lumbar Spine Range of Motion Lumbar Spine Active Degrees Testing Position Standing Flexion 95 Extension 15 Lateral Flexion Left 10 Lateral Flexion Right 10 Comments Trunk AROM: Flexion is 95 deg ?s with 70 deg?s hip flexion, Trunk extension is 15 deg?s with 10 deg?s hip extension. R SB caused L hip catch pain . Hip Goniometric Range of Motion Hip Right Passive Testing Position Supine Abduction 45 Internal Rotation 45 External Rotation 35 Left Passive Testing Position Supine Abduction 45 Internal Rotation 15 External Rotation 85 PT-OP-M Strength Start: 04/09/23 17:29 Freq: Status: Active Protocol: Document 04/25/23 07:30 LRN (Rec: 04/25/23 08:16 LRN [id number]) Trunk Strength Trunk Manual Muscle Testing Core Stabilization Abdominal doming. Not able to tighten her Transverse Abdominus muscle. Hip Strength Hip Manual Muscle Testing Right Flexion (L2) 5 Normal Abduction 5 Normal Adduction 5 Normal Internal Rotation 5 Normal Left Flexion (L2) 5 Normal Abduction 3 Fair Adduction 5 Normal Internal Rotation 3+ Fair+ PT-OP-Q Treatments Start: 04/09/23 17:29 Freq: Status: Active Protocol: Document 04/30/23 07:31 LRN (Rec: 04/30/23 08:17 LRN [id number]) Therapeutic Exercises Sitting Exercises Kegel Sitting Exercise Name Kegel Reps/Minutes 3' Other Exercises Transfer sup<>sit Other Exercise Name TA tight/exhale with exertion/ SBA Side right Reps/Minutes 3' Manual Therapy Treatment Manual Traction Lumbar Details L leg & janis legs @ 45 deg angle. Body Position Supine Reps/Duration 8' Comments Extra time was taken to determine max tolerated pull and best position of pull. Same relief of pain with single leg and janis leg. Self-Care/Home Management Treatment Education Patient Education Body Mechanics,Posture Other Education Reviewed Bladder dairy and discussed fluid intake (AM/PM) , bowel movement frequency, & nighttime voiding frequency. Pt lengthy education and discussion in Urinary urge technique with handout issued. Discussed pt's postural positioning for lying at nighttime and positioning during the day. Discussed & educated pt in proper log roll transfer and with coordination of breathing to decrease intraabdominal pressure with transfer. Activities Self-Care/Home Management Activities Issued and reviewed Urge deference/bladder retraining handout. PT-OP-T Assessment and Plan Start: 04/09/23 17:29 Freq: Status: Active Protocol: Document 04/30/23 07:31 LRN (Rec: 04/30/23 08:17 LRN [id number]) Physical Therapy Assessment Goals Two Impairment Urinary leakage in first AM walking to bathroom Short Term Goal (STG) Pt will be educated in delay urinary techinque. STG Duration 1 wk-05/03/23 [employer] Goal (LTG) Eliminate urinary leakage first in AM with an urge. LTG Duration 12 wks-07/24/23 One Impairment Pt lacks an independent self care HEP. Short Term Goal (STG) Pt educated in proper transfers to lessen core abdominal pressure. STG Duration 2 wks-05/10/23 [facility] Goal (LTG) Pt will be independent in a self care HEP for PF strengthening and hip/core mobility and strengthening exercises. LTG Duration 12 wks-07/24/23 Four Impairment LBP & L sciatic pain [employer] Goal (LTG) Decrease perception of LBP & L sciatic pain. LTG Duration 6 wks-06/14/22 Three Impairment Lacks awareness of proper PF contraction and core pressure management Short Term Goal (STG) Pt will be educated in core pressure management w/ADLs. STG Duration 4 wks-05/31/23 [employer] Goal (LTG) Pt will be able to perform a PF contraction in isolation of her substitute muscles. Pt will be able to tighten her TA. LTG Duration 12 wks-07/24/23 Assessment Summary Assessment Pt with urge urinary incontinence primarily first waking in the morning that is improve with Kegel ex's. She has been able to mostly maintain continence first in morning. Her biggest complaint at this time is waking with L Sciatic pain, making it difficult to get to bathroom to void in a timely manner. Pt is in much L sciatic pain today, making mobility a slow process on plinth for treatment. Physical Therapy Plan Frequency and Duration Frequency of Treatment 1x/Week Duration of treatment (weeks) 12 Plan of Care Start Date 04/25/23 Plan of Care End Date 07/24/23 Next Visit Focus/Plan Next Note Type Treatment Note Next Visit Plan Next: Focus change to L sciatic pain after: assess response to use of bladder retraining with urge deference technique. Assess for proper deep breathing. Teach proper Kegel without use of substitute muscles. Monitor reduction of intra- abdominal pressure and proper breathing with transfers and body mechanics. Manual: Gentle manual L/S traction; STM (?sidelie or prone) to L LB/Piriformis and improve hip mobility, neural glide when appropriate. Ther Ex: PF/core(TA)/hip (L IR) strengthening, Improve hip mobility (R ER, L IR), Educate & train Kegel without use of substitute muscles. POC: Pt education, Manual therapy (Ilipsoas release). ? Biofeedback with vaginal sensor. Therapeutic Exercises, Therapeutic Activities, Neuromuscular Reeducation.
--- NOTE | 2023-05-09 10:51 | PT.OTN ---
Current Diagnoses Stiffness of unspecified hip, not elsewhere classified (05/09/23) Lumbago with sciatica, left side (05/09/23) Muscle weakness (generalized) (05/09/23) Postmenopausal atrophic vaginitis (05/09/23) Physical Therapy Treatment Note PT-OP-A Visit Information Start: 04/09/23 17:29 Freq: Status: Active Protocol: Document 05/09/23 07:33 LRN (Rec: 05/09/23 08:19 LRN [id number]) Out-Patient Physical Therapy Visit Information Visit Information Visit Type Treatment Note Visit Start Time 07:33 Visit Stop Time 08:16 Total Visit Minutes 43 Visit Number 3 Evaluation Information Evaluation Date 04/25/23 Precautions Precautions Latex Allergy, 25# lift restriction, 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 PT-OP-B Current Condition Start: 04/09/23 17:29 Freq: Status: Active Protocol: Document 04/25/23 07:30 LRN (Rec: 04/25/23 08:16 LRN [id number]) Current Condition History of Current Condition Onset Date December 2022 Current Complaints Urinary leakage mainly w/urge first in AM walking to bathroom. History of Current Condition Pt reports on her last health exam she was told her vaginal wall was collapsing into her vaginal canal; therefore was given estrogen started on estrogen 2x/week and referred to PT. When waking in the morning with an urge she reports urinary leakage. She denies urinary leakage with activities and denies feelings of falling out or heaviness in pelvic region. She has had recent lumbar laminectomy surgery due to L lateral hip and posterolateral thigh pain that sometimes radiates to the ankle. Pain prior to surgery was on her R side and is now on her L side. She states she was doing well until she participated in rowing and is now having the L sided sciatic pain. Treatment Goals Patient/Caregiver Goals Learn exercises to strength bladder area. Eliminate urinary leakage first in AM with an urge. 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 Constipation from Ozempic (for weight control), requiring Miralax to help control the constipation. 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 Lumbar laminectomy (L4-L5)-. PT-OP-C Subjective Start: 04/09/23 17:29 Freq: Status: Active Protocol: Document 05/09/23 07:33 LRN (Rec: 05/09/23 08:19 LRN [id number]) OP-PT Subjective Patient Comments Patient Comments States she has pain in bed, but if gets up and walks, then pain is decreased. Able to get back to sleep after walking. No rowing due to weather. Just walking and doing ex's. PT-OP-I Pelvic Floor Start: 04/09/23 17:29 Freq: Status: Active Protocol: Document 04/25/23 07:30 LRN (Rec: 04/25/23 08:16 LRN [id number]) Pelvic Floor Assessment Urine Other Urinary Symptoms Urge first in AM resulting in urinary leakage, no leakage during the day. Leakage Size Small Other Leakage Causes Rarely urinary leakage with big cough or sneeze. Nocturia 1-2 Pads Used In 24 Hours 0 Bowel Bowel Symptoms Constipation Bowel Movement Frequency daily [place] Stool Chart Type 1-7 4 Prolapse Cystocele Grade 1 Rectocele Grade 2 Perineal Descent Resting Absent Bearing Absent Contraction Ability Voluntary Contraction Weak Voluntary Relaxation Moderate Manual Muscle Testing Left 1 Manual Muscle Testing Right 0 Manual Muscle Testing Anterior 0 Manual Muscle Testing Posterior 1 Muscle Endurance (Seconds) 5 Number of Quick Contractions In 10 2 Seconds Comments Pelvic Floor Comments With Miralax BM's are now daily, otherwise normally every 2 days, before medications was every 2-3 days . PT-OP-J Posture/Palpation/Skin Start: 04/09/23 17:29 Freq: Status: Active Protocol: Document 04/25/23 07:30 LRN (Rec: 04/25/23 08:16 LRN [id number]) Posture Evaluation Position Standing T-Spine Posture Flattened L-Spine Posture Increased Lordosis Shoulder Posture (L) Elevated Pelvis Posture Anteriorly Tilted,(L) PSIS Posterior Knee Posture (L) Genu Valgus,(R) Genu Valgus Ankle/Foot Posture (L) Supinated,(R) Supinated Comments Posture Comments Increased lordosis is mild, dowagers hump. PT-OP-K Range of Motion Start: 04/09/23 17:29 Freq: Status: Active Protocol: Document 04/25/23 07:30 LRN (Rec: 04/25/23 08:16 LRN [id number]) Lumbar Spine Range of Motion Lumbar Spine Active Degrees Testing Position Standing Flexion 95 Extension 15 Lateral Flexion Left 10 Lateral Flexion Right 10 Comments Trunk AROM: Flexion is 95 deg ?s with 70 deg?s hip flexion, Trunk extension is 15 deg?s with 10 deg?s hip extension. R SB caused L hip catch pain . Hip Goniometric Range of Motion Hip Right Passive Testing Position Supine Abduction 45 Internal Rotation 45 External Rotation 35 Left Passive Testing Position Supine Abduction 45 Internal Rotation 15 External Rotation 85 PT-OP-M Strength Start: 04/09/23 17:29 Freq: Status: Active Protocol: Document 04/25/23 07:30 LRN (Rec: 04/25/23 08:16 LRN [id number]) Trunk Strength Trunk Manual Muscle Testing Core Stabilization Abdominal doming. Not able to tighten her Transverse Abdominus muscle. Hip Strength Hip Manual Muscle Testing Right Flexion (L2) 5 Normal Abduction 5 Normal Adduction 5 Normal Internal Rotation 5 Normal Left Flexion (L2) 5 Normal Abduction 3 Fair Adduction 5 Normal Internal Rotation 3+ Fair+ PT-OP-Q Treatments Start: 04/09/23 17:29 Freq: Status: Active Protocol: Document 05/09/23 07:33 LRN (Rec: 05/09/23 08:19 LRN [id number]) Therapeutic Exercises Sidelying Exercises TA tightening Sidelying Exercise Name TA tightening/towel roll lateral trunk. Side bilateral Reps/Minutes 10 SH x 10 Comments Extra time taken for rolling due to R hip pain. Sitting Exercises Kegel w/TBAnd Sitting Exercise Name Kegel w/TBand/cryotherapy to LB. Equipment Used Cold pack to low back. Reps/Minutes 10x Comments extra time taken for positioning and coordinating exercise Standing Exercises Wall slides Standing Exercise Name Wall slides Reps/Minutes 5' Comments Extra time taken for transfer due to pain. Other Exercises Transfer sup<>sit Other Exercise Name TA tight/exhale with exertion/ SBA Side right Reps/Minutes 5' Comments Extra time taken due to pain with transfers. Self-Care/Home Management Treatment Education Patient Education Body Mechanics,Posture Other Education Discussed & Educated in: - Proper posture: Wheeler to Safe Movement (stress on back in various positions), - Daily Activities body mechanics, - Transfers w/coordination of breath. Activities Self-Care/Home Management Activities Issued handouts for education subjects above. PT-OP-T Assessment and Plan Start: 04/09/23 17:29 Freq: Status: Active Protocol: Document 05/09/23 07:33 LRN (Rec: 05/09/23 08:19 LRN [id number]) Physical Therapy Assessment Goals Two Impairment Urinary leakage in first AM walking to bathroom Short Term Goal (STG) Pt will be educated in delay urinary techinque. 04/30/23: Pt educated in delay urinary technique. STG Duration 1 wk-05/03/23 04/30/23: MET GOAL) Shelter Goal (LTG) Eliminate urinary leakage first in AM with an urge. 05/09/23: Pt having no leakage first in AM w/an urge. LTG Duration 12 wks-07/24/23 (05/09/23: MET GOAL) One Impairment Pt lacks an independent self care HEP. Short Term Goal (STG) Pt educated in proper transfers to lessen core abdominal pressure. 05/09/23: Pt educated in log roll transfer, coordinating breathwork to lessen core abdominal pressure with transfers. STG Duration 2 wks-05/10/23 (05/09/23: MET GOAL). Shelter Goal (LTG) Pt will be independent in a self care HEP for PF strengthening and hip/core mobility and strengthening exercises. LTG Duration 12 wks-07/24/23 Four Impairment LBP & L sciatic pain Superintendent Tests Goal (LTG) Decrease perception of LBP & L sciatic pain. LTG Duration 6 wks-06/14/22 Three Impairment Lacks awareness of proper PF contraction and core pressure management Short Term Goal (STG) Pt will be educated in core pressure management w/ADLs. STG Duration 4 wks-05/31/23 Shelter Goal (LTG) Pt will be able to perform a PF contraction in isolation of her substitute muscles. Pt will be able to tighten her TA. LTG Duration 12 wks-07/24/23 Assessment Summary Assessment Pt is 5 months post op lumbar surgery. Positive response to education on use of urge deference technique with goal #2 being MET; pt not leaking with an urge first in AM. Pt primary concer is reducing cystocele and decreasing L LBP /L Sciatic pain. Pt not tolerating rolling R side>L side due to pain R lateral hip pain and poor core stabilization. Pt reports less hip pain with lateral trunk support in sidelie (for spine). Physical Therapy Plan Frequency and Duration Frequency of Treatment 1x/Week Duration of treatment (weeks) 12 Plan of Care Start Date 04/25/23 Plan of Care End Date 07/24/23 Next Visit Focus/Plan Next Note Type Treatment Note Next Visit Plan Next: Try SI belt with transfers. Focus to decrease L sciatic pain and decreasing cystocele & rectocele. Assess for proper deep breathing. Manual: Gentle manual L/S traction; STM (?sidelie or prone) to L LB/Piriformis and improve hip mobility, neural glide when appropriate. Monitor reduction of intra- abdominal pressure and proper breathing with transfers and body mechanics. Ther Ex: PF/core(TA)-all positions/hip (L IR) strengthening, Improve hip mobility (R ER, L IR), Educate & train Kegel without use of substitute muscles. POC: Pt education, Manual therapy (Ilipsoas release). ? Biofeedback with vaginal sensor. Therapeutic Exercises, Therapeutic Activities, Neuromuscular Reeducation.
--- NOTE | 2023-05-23 11:05 | PT.OTN ---
Current Diagnoses Stiffness of unspecified hip, not elsewhere classified (05/23/23) Lumbago with sciatica, left side (05/23/23) Muscle weakness (generalized) (05/23/23) Postmenopausal atrophic vaginitis (05/23/23) Physical Therapy Treatment Note PT-OP-A Visit Information Start: 04/09/23 17:29 Freq: Status: Active Protocol: Document 05/23/23 07:32 LRN (Rec: 05/23/23 08:22 LRN [id number]) Out-Patient Physical Therapy Visit Information Visit Information Visit Type Treatment Note Visit Start Time 07:32 Visit Stop Time 08:20 Total Visit Minutes 48 Visit Number 4 total, 06/07 Evaluation Information Evaluation Date 04/25/23 Precautions Precautions Latex Allergy, 25# lift restriction, 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 PT-OP-B Current Condition Start: 04/09/23 17:29 Freq: Status: Active Protocol: Document 04/25/23 07:30 LRN (Rec: 04/25/23 08:16 LRN [id number]) Current Condition History of Current Condition Onset Date December 2022 Current Complaints Urinary leakage mainly w/urge first in AM walking to bathroom. History of Current Condition Pt reports on her last health exam she was told her vaginal wall was collapsing into her vaginal canal; therefore was given estrogen started on estrogen 2x/week and referred to PT. When waking in the morning with an urge she reports urinary leakage. She denies urinary leakage with activities and denies feelings of falling out or heaviness in pelvic region. She has had recent lumbar laminectomy surgery due to L lateral hip and posterolateral thigh pain that sometimes radiates to the ankle. Pain prior to surgery was on her R side and is now on her L side. She states she was doing well until she participated in rowing and is now having the L sided sciatic pain. Treatment Goals Patient/Caregiver Goals Learn exercises to strength bladder area. Eliminate urinary leakage first in AM with an urge. 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 Constipation from Ozempic (for weight control), requiring Miralax to help control the constipation. 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 Lumbar laminectomy (L4-L5)-. PT-OP-C Subjective Start: 04/09/23 17:29 Freq: Status: Active Protocol: Document 05/23/23 07:32 LRN (Rec: 05/23/23 08:22 LRN [id number]) OP-PT Subjective Patient Comments Patient Comments States she has not been able to get comfortable between the LBP and acid reflux. With Blue strap at L SIJ, pain was reduced 75%. PT-OP-I Pelvic Floor Start: 04/09/23 17:29 Freq: Status: Active Protocol: Document 04/25/23 07:30 LRN (Rec: 04/25/23 08:16 LRN [id number]) Pelvic Floor Assessment Urine Other Urinary Symptoms Urge first in AM resulting in urinary leakage, no leakage during the day. Leakage Size Small Other Leakage Causes Rarely urinary leakage with big cough or sneeze. Nocturia 1-2 Pads Used In 24 Hours 0 Bowel Bowel Symptoms Constipation Bowel Movement Frequency daily [place] Stool Chart Type 1-7 4 Prolapse Cystocele Grade 1 Rectocele Grade 2 Perineal Descent Resting Absent Bearing Absent Contraction Ability Voluntary Contraction Weak Voluntary Relaxation Moderate Manual Muscle Testing Left 1 Manual Muscle Testing Right 0 Manual Muscle Testing Anterior 0 Manual Muscle Testing Posterior 1 Muscle Endurance (Seconds) 5 Number of Quick Contractions In 10 2 Seconds Comments Pelvic Floor Comments With Miralax BM's are now daily, otherwise normally every 2 days, before medications was every 2-3 days . PT-OP-J Posture/Palpation/Skin Start: 04/09/23 17:29 Freq: Status: Active Protocol: Document 04/25/23 07:30 LRN (Rec: 04/25/23 08:16 LRN [id number]) Posture Evaluation Position Standing T-Spine Posture Flattened L-Spine Posture Increased Lordosis Shoulder Posture (L) Elevated Pelvis Posture Anteriorly Tilted,(L) PSIS Posterior Knee Posture (L) Genu Valgus,(R) Genu Valgus Ankle/Foot Posture (L) Supinated,(R) Supinated Comments Posture Comments Increased lordosis is mild, dowagers hump. PT-OP-K Range of Motion Start: 04/09/23 17:29 Freq: Status: Active Protocol: Document 04/25/23 07:30 LRN (Rec: 04/25/23 08:16 LRN [id number]) Lumbar Spine Range of Motion Lumbar Spine Active Degrees Testing Position Standing Flexion 95 Extension 15 Lateral Flexion Left 10 Lateral Flexion Right 10 Comments Trunk AROM: Flexion is 95 deg ?s with 70 deg?s hip flexion, Trunk extension is 15 deg?s with 10 deg?s hip extension. R SB caused L hip catch pain . Hip Goniometric Range of Motion Hip Right Passive Testing Position Supine Abduction 45 Internal Rotation 45 External Rotation 35 Left Passive Testing Position Supine Abduction 45 Internal Rotation 15 External Rotation 85 PT-OP-M Strength Start: 04/09/23 17:29 Freq: Status: Active Protocol: Document 04/25/23 07:30 LRN (Rec: 04/25/23 08:16 LRN [id number]) Trunk Strength Trunk Manual Muscle Testing Core Stabilization Abdominal doming. Not able to tighten her Transverse Abdominus muscle. Hip Strength Hip Manual Muscle Testing Right Flexion (L2) 5 Normal Abduction 5 Normal Adduction 5 Normal Internal Rotation 5 Normal Left Flexion (L2) 5 Normal Abduction 3 Fair Adduction 5 Normal Internal Rotation 3+ Fair+ PT-OP-Q Treatments Start: 04/09/23 17:29 Freq: Status: Active Protocol: Document 05/23/23 07:32 LRN (Rec: 05/23/23 08:22 LRN [id number]) Therapeutic Exercises Supine Exercises L hip ER/R hip IR Supine Exercise Name L hip ER/R hip IR Reps/Minutes 4' Comments assessed not needed R hip ER stretch Supine Exercise Name R hip ER stretch (ankle over opp knee w/overpressure on R knee) Side right Reps/Minutes 3' Comments Extra time taken to determine max tolerated stretch. L Pir[place]is stretch Supine Exercise Name L Piriformis stretch (knee to opp shldr/L foot on R knee) Side left Reps/Minutes 3' Comments Extra time taken to determine max tolerated stretch. Therapeutic Activity Therapeutic Activity Transfer training w/Blue strap Name Transfer training w/blue strap & education on applying if SI belt Reps/Minutes 5' Self-Care/Home Management Treatment Education Patient Education Home Exercise Program,Pain Management Other Education Discussed indepth and educated pt in anatomy of LB/Sacrum with model, and discussed exercise, movement, pain and core stabilization with ADLs. Activities Self-Care/Home Management Activities Issued & Reviewed HEP: L hip IR stretch (piriformis) & R hip ER stretch. PT-OP-T Assessment and Plan Start: 04/09/23 17:29 Freq: Status: Active Protocol: Document 05/23/23 07:32 LRN (Rec: 05/23/23 08:22 LRN [id number]) Physical Therapy Assessment Goals One Impairment Pt lacks an independent self care HEP. Short Term Goal (STG) Pt educated in proper transfers to lessen core abdominal pressure. 05/09/23: Pt educated in log roll transfer, coordinating breathwork to lessen core abdominal pressure with transfers. STG Duration 2 wks-05/10/23 (05/09/23: MET GOAL). Alf Goal (LTG) Pt will be independent in a self care HEP for PF strengthening and hip/core mobility and strengthening exercises. 05/23/23: Indepth education on anatomy, pain, ex to promote pt awareness of core stab with activity. LTG Duration 12 wks-07/24/23 progresssed 05/23/23 Four Impairment LBP & L sciatic pain Alf Goal (LTG) Decrease perception of LBP & L sciatic pain. 05/23/23: SI Belt-like strap for trial with pain reduction of 75%. LTG Duration 6 wks-06/14/22 progressed Three Impairment Lacks awareness of proper PF contraction and core pressure management Short Term Goal (STG) Pt will be educated in core pressure management w/ADLs. STG Duration 4 wks-05/31/23 Manager Home Healthcare Goal (LTG) Pt will be able to perform a PF contraction in isolation of her substitute muscles. Pt will be able to tighten her TA. LTG Duration 12 wks-07/24/23 Assessment Summary Assessment Pt is 5 months post op lumbar surgery. 75% reduction in pain with use of SI belt. Limited L hip IR and R hip ER mobility compared to opp side. Pt receptive to education concepts showing improved awareness of need to stabilize core. Physical Therapy Plan Frequency and Duration Frequency of Treatment 1x/Week Duration of treatment (weeks) 12 Plan of Care Start Date 04/25/23 Plan of Care End Date 07/24/23 Next Visit Focus/Plan Next Note Type Treatment Note Next Visit Plan Next: SI belt donning training when pt obtains belt. Focus to decrease L sciatic pain and decreasing cystocele & rectocele. Assess for proper deep breathing and educate in core pressure management w/ADLs. Monitor reduction of intra- abdominal pressure and proper breathing with transfers and body mechanics. Manual: Gentle manual L/S traction; STM (?sidelie or prone) to L LB/Piriformis and improve hip mobility, neural glide when appropriate. Ther Ex: PF/core(TA)-all positions/hip (L IR) strengthening, Improve hip mobility (R ER, L IR), Educate & train Kegel without use of substitute muscles. POC: Pt education, Manual therapy (Ilipsoas release). ? Biofeedback with vaginal sensor. Therapeutic Exercises, Therapeutic Activities, Neuromuscular Reeducation.
--- NOTE | 2023-05-28 10:55 | PT.OTN ---
Current Diagnoses Stiffness of unspecified hip, not elsewhere classified (05/28/23) Lumbago with sciatica, left side (05/28/23) Muscle weakness (generalized) (05/28/23) Postmenopausal atrophic vaginitis (05/28/23) Physical Therapy Treatment Note PT-OP-A Visit Information Start: 04/09/23 17:29 Freq: Status: Active Protocol: Document 05/28/23 09:47 LRN (Rec: 05/28/23 10:36 LRN [id number]) Out-Patient Physical Therapy Visit Information Visit Information Visit Type Treatment Note Visit Start Time 09:47 Visit Stop Time 10:32 Total Visit Minutes 45 Visit Number 5 total, 07/08 Evaluation Information Evaluation Date 04/25/23 Precautions Precautions Latex Allergy, 25# lift restriction, 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 PT-OP-B Current Condition Start: 04/09/23 17:29 Freq: Status: Active Protocol: Document 04/25/23 07:30 LRN (Rec: 04/25/23 08:16 LRN [id number]) Current Condition History of Current Condition Onset Date December 2022 Current Complaints Urinary leakage mainly w/urge first in AM walking to bathroom. History of Current Condition Pt reports on her last health exam she was told her vaginal wall was collapsing into her vaginal canal; therefore was given estrogen started on estrogen 2x/week and referred to PT. When waking in the morning with an urge she reports urinary leakage. She denies urinary leakage with activities and denies feelings of falling out or heaviness in pelvic region. She has had recent lumbar laminectomy surgery due to L lateral hip and posterolateral thigh pain that sometimes radiates to the ankle. Pain prior to surgery was on her R side and is now on her L side. She states she was doing well until she participated in rowing and is now having the L sided sciatic pain. Treatment Goals Patient/Caregiver Goals Learn exercises to strength bladder area. Eliminate urinary leakage first in AM with an urge. 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 Constipation from Ozempic (for weight control), requiring Miralax to help control the constipation. 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 Lumbar laminectomy (L4-L5)-. PT-OP-C Subjective Start: 04/09/23 17:29 Freq: Status: Active Protocol: Document 05/28/23 09:47 LRN (Rec: 05/28/23 10:36 LRN [id number]) OP-PT Subjective Patient Comments Patient Comments States she had to modify her hip ER stretch in sitting due neg response to stretch. Has had acid relux with supine ex and felt it was helpful with her acid relux and decreasing her LBP (along with ex) changed from 8/10 to 4/10. Pain at rest is 0/10 and with transfer is 1/10. PT-OP-I Pelvic Floor Start: 04/09/23 17:29 Freq: Status: Active Protocol: Document 04/25/23 07:30 LRN (Rec: 04/25/23 08:16 LRN [id number]) Pelvic Floor Assessment Urine Other Urinary Symptoms Urge first in AM resulting in urinary leakage, no leakage during the day. Leakage Size Small Other Leakage Causes Rarely urinary leakage with big cough or sneeze. Nocturia 1-2 Pads Used In 24 Hours 0 Bowel Bowel Symptoms Constipation Bowel Movement Frequency daily [place] Stool Chart Type 1-7 4 Prolapse Cystocele Grade 1 Rectocele Grade 2 Perineal Descent Resting Absent Bearing Absent Contraction Ability Voluntary Contraction Weak Voluntary Relaxation Moderate Manual Muscle Testing Left 1 Manual Muscle Testing Right 0 Manual Muscle Testing Anterior 0 Manual Muscle Testing Posterior 1 Muscle Endurance (Seconds) 5 Number of Quick Contractions In 10 2 Seconds Comments Pelvic Floor Comments With Miralax BM's are now daily, otherwise normally every 2 days, before medications was every 2-3 days . PT-OP-J Posture/Palpation/Skin Start: 04/09/23 17:29 Freq: Status: Active Protocol: Document 04/25/23 07:30 LRN (Rec: 04/25/23 08:16 LRN [id number]) Posture Evaluation Position Standing T-Spine Posture Flattened L-Spine Posture Increased Lordosis Shoulder Posture (L) Elevated Pelvis Posture Anteriorly Tilted,(L) PSIS Posterior Knee Posture (L) Genu Valgus,(R) Genu Valgus Ankle/Foot Posture (L) Supinated,(R) Supinated Comments Posture Comments Increased lordosis is mild, dowagers hump. PT-OP-K Range of Motion Start: 04/09/23 17:29 Freq: Status: Active Protocol: Document 04/25/23 07:30 LRN (Rec: 04/25/23 08:16 LRN [id number]) Lumbar Spine Range of Motion Lumbar Spine Active Degrees Testing Position Standing Flexion 95 Extension 15 Lateral Flexion Left 10 Lateral Flexion Right 10 Comments Trunk AROM: Flexion is 95 deg ?s with 70 deg?s hip flexion, Trunk extension is 15 deg?s with 10 deg?s hip extension. R SB caused L hip catch pain . Hip Goniometric Range of Motion Hip Right Passive Testing Position Supine Abduction 45 Internal Rotation 45 External Rotation 35 Left Passive Testing Position Supine Abduction 45 Internal Rotation 15 External Rotation 85 PT-OP-M Strength Start: 04/09/23 17:29 Freq: Status: Active Protocol: Document 04/25/23 07:30 LRN (Rec: 04/25/23 08:16 LRN [id number]) Trunk Strength Trunk Manual Muscle Testing Core Stabilization Abdominal doming. Not able to tighten her Transverse Abdominus muscle. Hip Strength Hip Manual Muscle Testing Right Flexion (L2) 5 Normal Abduction 5 Normal Adduction 5 Normal Internal Rotation 5 Normal Left Flexion (L2) 5 Normal Abduction 3 Fair Adduction 5 Normal Internal Rotation 3+ Fair+ PT-OP-Q Treatments Start: 04/09/23 17:29 Freq: Status: Active Protocol: Document 05/28/23 09:47 LRN (Rec: 05/28/23 10:36 LRN [id number]) Therapeutic Exercises Supine Exercises LE roll in-out/DB/PF/TA Supine Exercise Name Semi-reclined/hooklie: LE roll in-out/breath/TA/Kegel/TB /Ball Reps/Minutes 15x Comments Much extra time taken to coordinate mvmt with constant v cuing. LE roll in-out/DB Supine Exercise Name Semi-reclined/hooklie: LE roll in-out/DB/TB/Ball Equipment Used TBand/Ball Reps/Minutes 15x - 4' Comments Extra time to coordinate ex w/ breath and phys assist to keep ball in place. Deep Breathing Supine Exercise Name Semi-reclined/hooklie: Deep Breathing Reps/Minutes 3' Comments Cuing for abdomen excursion, pt had to use hands to chest/ abdomen Sitting Exercises Hip AB/AD/Kegel Sitting Exercise Name Hip AB/AD/Kegel Comments Cuing to keep TA tight. Other Exercises Transfer sit<>stand/Kegel/TA Other Exercise Name Transfer sit<>stand w/Kegel/TA coordination. Reps/Minutes 3' Comments V cuing to coordinate. Transfer sup<>sit Other Exercise Name TA tight/exhale with exertion Side right Reps/Minutes 3' Comments V cuing to coordinate. Self-Care/Home Management Treatment Education Patient Education Home Exercise Program Other Education Discussed at length regarding sciatic nerve pain with use of model, activities/ stabilization of the sacrum and core, and educated at length in future activities and effects of hip/core mobility on possible onset of sciatic nerve. Discussed pros /cons of use of SI Belt with activities pt wanting to continue participation in. Activities Self-Care/Home Management Activities Issued & reviewed HEP: LE roll in/out with PF contraction. PT-OP-T Assessment and Plan Start: 04/09/23 17:29 Freq: Status: Active Protocol: Document 05/28/23 09:47 LRN (Rec: 05/28/23 10:36 LRN [id number]) Physical Therapy Assessment Goals One Impairment Pt lacks an independent self care HEP. Short Term Goal (STG) Pt educated in proper transfers to lessen core abdominal pressure. 05/09/23: Pt educated in log roll transfer, coordinating breathwork to lessen core abdominal pressure with transfers. STG Duration 2 wks-05/10/23 (05/09/23: MET GOAL). Mcfp Goal (LTG) Pt will be independent in a self care HEP for PF strengthening and hip/core mobility and strengthening exercises. 05/23/23: Indepth education on anatomy, pain, ex to promote pt awareness of core stab with activity. 05/28/23: HEP: LE roll in/outs /PF/breath. Indepth review of PF/Hip/Lumbar/Sciatic nerve anatomy, and effect on structures with exercise. LTG Duration 12 wks-07/24/23 progresssed 05/28/23 Four Impairment LBP & L sciatic pain [employer] Goal (LTG) Decrease perception of LBP & L sciatic pain. 05/23/23: SI Belt-like strap for trial with pain reduction of 75%. 01/09/24: Sciatic/LBP rated 0 -4/10 with movement, 0/10 at rest. LTG Duration 6 wks-06/14/22 progressed Three Impairment Lacks awareness of proper PF contraction and core pressure management Short Term Goal (STG) Pt will be educated in core pressure management w/ADLs. STG Duration 4 wks-05/31/23 Mcfp Goal (LTG) Pt will be able to perform a PF contraction in isolation of her substitute muscles. Pt will be able to tighten her TA. 05/28/23: Pt able to perform TA contraction. Noted not holding w/o cuing. LTG Duration 12 wks-07/24/23 progressed 05/28/23 Assessment Summary Assessment + response to pt use of [place] milk and transfer modifications of getting in/ out of car with pain reducation of sciatic nerve pain 50%. Pt able to perform deep breathing without difficulty using self awarness of hands on chest/abdomen. No pain with transfer with use of blue strap (imitating SI belt). Pt able to do LE roll in/out/breath/PF/TA with v cuing. Physical Therapy Plan Frequency and Duration Frequency of Treatment 1x/Week Duration of treatment (weeks) 12 Plan of Care Start Date 04/25/23 Plan of Care End Date 07/24/23 Next Visit Focus/Plan Next Note Type Treatment Note Next Visit Plan Next: Educate in core pressure management w/ADLs ( STG #3), SI belt donning training when pt obtains belt. Focus to decrease L sciatic pain and decreasing cystocele & rectocele. Monitor reduction of intra- abdominal pressure and proper breathing with transfers and body mechanics (STG #3), Educate & train Kegel without use of substitute muscles (LTG #3). Manual: Gentle manual L/S traction; STM (?sidelie or prone) to L LB/Piriformis and improve hip mobility, neural glide when appropriate. Ther Ex: PF/core(TA)-all positions/hip (L IR) strengthening, Improve hip mobility (R ER, L IR) POC: Pt education, Manual therapy (Ilipsoas release). ? Biofeedback with vaginal sensor. Therapeutic Exercises, Therapeutic Activities, Neuromuscular Reeducation.
--- NOTE | 2023-06-04 15:33 | PT.OTN ---
Current Diagnoses Stiffness of unspecified hip, not elsewhere classified (06/04/23) Lumbago with sciatica, left side (06/04/23) Muscle weakness (generalized) (06/04/23) Postmenopausal atrophic vaginitis (06/04/23) Physical Therapy Treatment Note PT-OP-A Visit Information Start: 04/09/23 17:29 Freq: Status: Active Protocol: Document 06/04/23 13:34 LRN (Rec: 06/04/23 15:28 LRN [id number]) Out-Patient Physical Therapy Visit Information Visit Information Visit Type Treatment Note Visit Start Time 14:30 Visit Stop Time 15:11 Total Visit Minutes 40 Visit Number 6 total, 08/05 Evaluation Information Evaluation Date 04/25/23 Precautions Precautions Latex Allergy, 25# lift restriction, 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 PT-OP-B Current Condition Start: 04/09/23 17:29 Freq: Status: Active Protocol: Document 04/25/23 07:30 LRN (Rec: 04/25/23 08:16 LRN [id number]) Current Condition History of Current Condition Onset Date December 2022 Current Complaints Urinary leakage mainly w/urge first in AM walking to bathroom. History of Current Condition Pt reports on her last health exam she was told her vaginal wall was collapsing into her vaginal canal; therefore was given estrogen started on estrogen 2x/week and referred to PT. When waking in the morning with an urge she reports urinary leakage. She denies urinary leakage with activities and denies feelings of falling out or heaviness in pelvic region. She has had recent lumbar laminectomy surgery due to L lateral hip and posterolateral thigh pain that sometimes radiates to the ankle. Pain prior to surgery was on her R side and is now on her L side. She states she was doing well until she participated in rowing and is now having the L sided sciatic pain. Treatment Goals Patient/Caregiver Goals Learn exercises to strength bladder area. Eliminate urinary leakage first in AM with an urge. 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 Constipation from Ozempic (for weight control), requiring Miralax to help control the constipation. 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 Lumbar laminectomy (L4-L5)-. PT-OP-C Subjective Start: 04/09/23 17:29 Freq: Status: Active Protocol: Document 06/04/23 13:34 LRN (Rec: 06/04/23 15:28 LRN [id number]) OP-PT Subjective Patient Comments Patient Comments .......... PT-OP-I Pelvic Floor Start: 04/09/23 17:29 Freq: Status: Active Protocol: Document 04/25/23 07:30 LRN (Rec: 04/25/23 08:16 LRN [id number]) Pelvic Floor Assessment Urine Other Urinary Symptoms Urge first in AM resulting in urinary leakage, no leakage during the day. Leakage Size Small Other Leakage Causes Rarely urinary leakage with big cough or sneeze. Nocturia 1-2 Pads Used In 24 Hours 0 Bowel Bowel Symptoms Constipation Bowel Movement Frequency daily Vance Stool Chart Type 1-7 4 Prolapse Cystocele Grade 1 Rectocele Grade 2 Perineal Descent Resting Absent Bearing Absent Contraction Ability Voluntary Contraction Weak Voluntary Relaxation Moderate Manual Muscle Testing Left 1 Manual Muscle Testing Right 0 Manual Muscle Testing Anterior 0 Manual Muscle Testing Posterior 1 Muscle Endurance (Seconds) 5 Number of Quick Contractions In 10 2 Seconds Comments Pelvic Floor Comments With Miralax BM's are now daily, otherwise normally every 2 days, before medications was every 2-3 days . PT-OP-J Posture/Palpation/Skin Start: 04/09/23 17:29 Freq: Status: Active Protocol: Document 04/25/23 07:30 LRN (Rec: 04/25/23 08:16 LRN [id number]) Posture Evaluation Position Standing T-Spine Posture Flattened L-Spine Posture Increased Lordosis Shoulder Posture (L) Elevated Pelvis Posture Anteriorly Tilted,(L) PSIS Posterior Knee Posture (L) Genu Valgus,(R) Genu Valgus Ankle/Foot Posture (L) Supinated,(R) Supinated Comments Posture Comments Increased lordosis is mild, dowagers hump. PT-OP-K Range of Motion Start: 04/09/23 17:29 Freq: Status: Active Protocol: Document 04/25/23 07:30 LRN (Rec: 12/07/23 08:16 LRN [id number]) Lumbar Spine Range of Motion Lumbar Spine Active Degrees Testing Position Standing Flexion 95 Extension 15 Lateral Flexion Left 10 Lateral Flexion Right 10 Comments Trunk AROM: Flexion is 95 deg ?s with 70 deg?s hip flexion, Trunk extension is 15 deg?s with 10 deg?s hip extension. R SB caused L hip catch pain . Hip Goniometric Range of Motion Hip Right Passive Testing Position Supine Abduction 45 Internal Rotation 45 External Rotation 35 Left Passive Testing Position Supine Abduction 45 Internal Rotation 15 External Rotation 85 PT-OP-M Strength Start: 04/09/23 17:29 Freq: Status: Active Protocol: Document 04/25/23 07:30 LRN (Rec: 04/25/23 08:16 LRN [id number]) Trunk Strength Trunk Manual Muscle Testing Core Stabilization Abdominal doming. Not able to tighten her Transverse Abdominus muscle. Hip Strength Hip Manual Muscle Testing Right Flexion (L2) 5 Normal Abduction 5 Normal Adduction 5 Normal Internal Rotation 5 Normal Left Flexion (L2) 5 Normal Abduction 3 Fair Adduction 5 Normal Internal Rotation 3+ Fair+ PT-OP-Q Treatments Start: 04/09/23 17:29 Freq: Status: Active Protocol: Document 06/04/23 13:34 LRN (Rec: 06/04/23 15:28 LRN [id number]) Therapeutic Exercises Other Exercises Gait with TA/PF/breathing Other Exercise Name Gait with TA/PF/breathing Reps/Minutes 35 ft x 4 with 1/2 turns Comments Cuing to lead w/feet, Core stable w/TA/PF tight- especially w/conversation. Transfer sit<>stand/Kegel/TA Other Exercise Name Transfer sit<>stand w/Kegel/TA /breath coordination. Equipment Used stick for core stab & 2 different hgts of seating Reps/Minutes 20' Comments V cuing to coordinate. Therapeutic Activity Therapeutic Activity Body mechanics training Name Positioning/posturing training for talking to people. Reps/Minutes 3' Comments Pt needed constant v cuing to keep from rotating trunk. Self-Care/Home Management Treatment Education Patient Education Body Mechanics,Joint Protection,Pain Management, Posture Other Education Education in transfers into car and discussion of use of car swivel seating. Discussed modifications to carseating to limit uneven surface sitting. Recommended cushion support or use of swivel seat, and adjusting distance of seat from steering wheel, for ease of getting in/out of car. SI belt donning training when pt obtains belt PT-OP-T Assessment and Plan Start: 04/09/23 17:29 Freq: Status: Active Protocol: Document 06/04/23 13:34 LRN (Rec: 06/04/23 15:28 LRN [id number]) Physical Therapy Assessment Goals One Impairment Pt lacks an independent self care HEP. Short Term Goal (STG) Pt educated in proper transfers to lessen core abdominal pressure. 05/09/23: Pt educated in log roll transfer, coordinating breathwork to lessen core abdominal pressure with transfers. STG Duration 2 wks-05/10/23 (05/09/23: MET GOAL). Care Home Goal (LTG) Pt will be independent in a self care HEP for PF strengthening and hip/core mobility and strengthening exercises. 05/23/23: Indepth education on anatomy, pain, ex to promote pt awareness of core stab with activity. 05/28/23: HEP: LE roll in/outs /PF/breath. Indepth review of PF/Hip/Lumbar/Sciatic nerve anatomy, and effect on structures with exercise. LTG Duration 12 wks-07/24/23 progresssed 05/28/23 Four Impairment LBP & L sciatic pain Care Home Goal (LTG) Decrease perception of LBP & L sciatic pain. 05/23/23: SI Belt-like strap for trial with pain reduction of 75%. 05/28/23: Sciatic/LBP rated 0 -4/10 with movement, 0/10 at rest. LTG Duration 6 wks-06/14/22 progressed Three Impairment Lacks awareness of proper PF contraction and core pressure management Short Term Goal (STG) Pt will be educated in core pressure management w/ADLs. 06/04/23: Pt educated in core pressure management for sit<> stand transfer. STG Duration 4 wks-05/31/23 progresed Medical Research Associate Goal (LTG) Pt will be able to perform a PF contraction in isolation of her substitute muscles. Pt will be able to tighten her TA. 05/28/23: Pt able to perform TA contraction. Noted not holding w/o cuing. LTG Duration 12 wks-07/24/23 progressed 05/28/23 Assessment Summary Assessment Pt is 5 months post op lumbar surgery. Pt after training and education was able to transfer sit<>stand, tile picker objects and walking without SIJ pain due to core stab, hip hinging, Kegel and breathwork . Physical Therapy Plan Frequency and Duration Frequency of Treatment 1x/Week Duration of treatment (weeks) 12 Plan of Care Start Date 04/25/23 Plan of Care End Date 07/24/23 Next Visit Focus/Plan Next Note Type Treatment Note Next Visit Plan Next: Review hip hinging and transfers. Educate in core pressure management w/ADLs ( STG #3). Focus to decrease L sciatic pain and decreasing cystocele & rectocele. Monitor reduction of intra- abdominal pressure and proper breathing with transfers and body mechanics (STG #3), Educate & train Kegel without use of substitute muscles (LTG #3). Manual: Gentle manual L/S traction; STM (?sidelie or prone) to L LB/Piriformis and improve hip mobility, neural glide when appropriate. Ther Ex: PF/core(TA)-all positions/hip (L IR) strengthening, Improve hip mobility (R ER, L IR) POC: Pt education, Manual therapy (Ilipsoas release). ? Biofeedback with vaginal sensor. Therapeutic Exercises, Therapeutic Activities, Neuromuscular Reeducation.
--- NOTE | 2023-06-11 15:55 | PT.OTN ---
Current Diagnoses Stiffness of unspecified hip, not elsewhere classified (06/11/23) Lumbago with sciatica, left side (06/11/23) Muscle weakness (generalized) (06/11/23) Postmenopausal atrophic vaginitis (06/11/23) Physical Therapy Treatment Note PT-OP-A Visit Information Start: 04/09/23 17:29 Freq: Status: Active Protocol: Document 06/11/23 13:00 LRN (Rec: 06/11/23 13:47 LRN [id number]) Out-Patient Physical Therapy Visit Information Visit Information Visit Type Treatment Note Visit Start Time 13:00 Visit Stop Time 13:42 Total Visit Minutes 42 Visit Number 7 total, 09/05 Evaluation Information Evaluation Date 04/25/23 Precautions Precautions Latex Allergy, 25# lift restriction, 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 PT-OP-B Current Condition Start: 04/09/23 17:29 Freq: Status: Active Protocol: Document 04/25/23 07:30 LRN (Rec: 04/25/23 08:16 LRN [id number]) Current Condition History of Current Condition Onset Date December 2022 Current Complaints Urinary leakage mainly w/urge first in AM walking to bathroom. History of Current Condition Pt reports on her last health exam she was told her vaginal wall was collapsing into her vaginal canal; therefore was given estrogen started on estrogen 2x/week and referred to PT. When waking in the morning with an urge she reports urinary leakage. She denies urinary leakage with activities and denies feelings of falling out or heaviness in pelvic region. She has had recent lumbar laminectomy surgery due to L lateral hip and posterolateral thigh pain that sometimes radiates to the ankle. Pain prior to surgery was on her R side and is now on her L side. She states she was doing well until she participated in rowing and is now having the L sided sciatic pain. Treatment Goals Patient/Caregiver Goals Learn exercises to strength bladder area. Eliminate urinary leakage first in AM with an urge. 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 Constipation from Ozempic (for weight control), requiring Miralax to help control the constipation. 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 Lumbar laminectomy (L4-L5)-. PT-OP-C Subjective Start: 04/09/23 17:29 Freq: Status: Active Protocol: Document 06/11/23 13:00 LRN (Rec: 06/11/23 13:47 LRN [id number]) OP-PT Subjective Patient Comments Patient Comments States if she rotates her trunk in any way she has pain. Baking and cooking tweeked her back many times. Able to get in/out of car w/o pain swiveling around in seat. States she notices her abdomen is sticking out as much. Waking at night, R arm fell asleep and L hip very painful, then must get up and walk around; therefore really tired . PT-OP-I Pelvic Floor Start: 04/09/23 17:29 Freq: Status: Active Protocol: Document 04/25/23 07:30 LRN (Rec: 04/25/23 08:16 LRN [id number]) Pelvic Floor Assessment Urine Other Urinary Symptoms Urge first in AM resulting in urinary leakage, no leakage during the day. Leakage Size Small Other Leakage Causes Rarely urinary leakage with big cough or sneeze. Nocturia 1-2 Pads Used In 24 Hours 0 Bowel Bowel Symptoms Constipation Bowel Movement Frequency daily [place] Stool Chart Type 1-7 4 Prolapse Cystocele Grade 1 Rectocele Grade 2 Perineal Descent Resting Absent Bearing Absent Contraction Ability Voluntary Contraction Weak Voluntary Relaxation Moderate Manual Muscle Testing Left 1 Manual Muscle Testing Right 0 Manual Muscle Testing Anterior 0 Manual Muscle Testing Posterior 1 Muscle Endurance (Seconds) 5 Number of Quick Contractions In 10 2 Seconds Comments Pelvic Floor Comments With Miralax BM's are now daily, otherwise normally every 2 days, before medications was every 2-3 days . PT-OP-J Posture/Palpation/Skin Start: 04/09/23 17:29 Freq: Status: Active Protocol: Document 04/25/23 07:30 LRN (Rec: 04/25/23 08:16 LRN [id number]) Posture Evaluation Position Standing T-Spine Posture Flattened L-Spine Posture Increased Lordosis Shoulder Posture (L) Elevated Pelvis Posture Anteriorly Tilted,(L) PSIS Posterior Knee Posture (L) Genu Valgus,(R) Genu Valgus Ankle/Foot Posture (L) Supinated,(R) Supinated Comments Posture Comments Increased lordosis is mild, dowagers hump. PT-OP-K Range of Motion Start: 04/09/23 17:29 Freq: Status: Active Protocol: Document 04/25/23 07:30 LRN (Rec: 04/25/23 08:16 LRN [id number]) Lumbar Spine Range of Motion Lumbar Spine Active Degrees Testing Position Standing Flexion 95 Extension 15 Lateral Flexion Left 10 Lateral Flexion Right 10 Comments Trunk AROM: Flexion is 95 deg ?s with 70 deg?s hip flexion, Trunk extension is 15 deg?s with 10 deg?s hip extension. R SB caused L hip catch pain . Hip Goniometric Range of Motion Hip Right Passive Testing Position Supine Abduction 45 Internal Rotation 45 External Rotation 35 Left Passive Testing Position Supine Abduction 45 Internal Rotation 15 External Rotation 85 PT-OP-M Strength Start: 04/09/23 17:29 Freq: Status: Active Protocol: Document 04/25/23 07:30 LRN (Rec: 04/25/23 08:16 LRN [id number]) Trunk Strength Trunk Manual Muscle Testing Core Stabilization Abdominal doming. Not able to tighten her Transverse Abdominus muscle. Hip Strength Hip Manual Muscle Testing Right Flexion (L2) 5 Normal Abduction 5 Normal Adduction 5 Normal Internal Rotation 5 Normal Left Flexion (L2) 5 Normal Abduction 3 Fair Adduction 5 Normal Internal Rotation 3+ Fair+ PT-OP-Q Treatments Start: 04/09/23 17:29 Freq: Status: Active Protocol: Document 06/11/23 13:00 LRN (Rec: 06/11/23 13:47 LRN [id number]) Therapeutic Exercises Sidelying Exercises TA tightening Sidelying Exercise Name TA tightening/towel roll lateral trunk. Side bilateral Equipment Used Untightened SIJ belt, pillow btn knees. Reps/Minutes 10 SH x 20 Comments Extra time taken for rolling due to R hip pain. Pt counting fast w/10 SH Sitting Exercises Hip hinging Sitting Exercise Name Hip hinging with TA/PF/breath Equipment Used dowel stick, SIJ belt. Reps/Minutes 3x 5 Hip AB/AD/Kegel Sitting Exercise Name Hip AB/AD/Kegel Reps/Minutes 10 x 3 Comments Cuing to keep TA tight. Other Exercises Transfer sit<>stand/Kegel/TA Other Exercise Name Hip hinge sit<>stand w/Kegel/ TA/breath coordination. Resistance Dowel stick. SIJ belt Equipment Used stick for core stab & multi- different hgts of seating Reps/Minutes 14' 3 rep f/b PF rest. Comments SIJ belt adjustment needed. Therapeutic Activity Therapeutic Activity Body mechanics training Name Body mechanics education: picking up objects from ground , washing dishes Reps/Minutes 10' Comments Other education movements practiced: Sweeping & vaccuming. And I/S in putting socks/shoes on in sitting. Hip hinging when flexing at trunk/hips, and practiced squaring away before acitivies . PT-OP-T Assessment and Plan Start: 04/09/23 17:29 Freq: Status: Active Protocol: Document 06/11/23 13:00 LRN (Rec: 06/11/23 13:47 LRN [id number]) Physical Therapy Assessment Goals Two Impairment Urinary leakage in first AM walking to bathroom Short Term Goal (STG) Pt will be educated in delay urinary techinque. 04/30/23: Pt educated in delay urinary technique. STG Duration 1 wk-05/03/23 04/30/23: MET GOAL) Rv Servicer Goal (LTG) Eliminate urinary leakage first in AM with an urge. 05/09/23: Pt having no leakage first in AM w/an urge. LTG Duration 12 wks-07/24/23 (05/09/23: MET GOAL) One Impairment Pt lacks an independent self care HEP. Short Term Goal (STG) Pt educated in proper transfers to lessen core abdominal pressure. 05/09/23: Pt educated in log roll transfer, coordinating breathwork to lessen core abdominal pressure with transfers. STG Duration 2 wks-05/10/23 (05/09/23: MET GOAL). Rv Servicer Goal (LTG) Pt will be independent in a self care HEP for PF strengthening and hip/core mobility and strengthening exercises. 05/23/23: Indepth education on anatomy, pain, ex to promote pt awareness of core stab with activity. 05/28/23: HEP: LE roll in/outs /PF/breath. Indepth review of PF/Hip/Lumbar/Sciatic nerve anatomy, and effect on structures with exercise. LTG Duration 12 wks-07/24/23 progresssed 05/28/23 Four Impairment LBP & L sciatic pain Halfway Goal (LTG) Decrease perception of LBP & L sciatic pain. 05/23/23: SI Belt-like strap for trial with pain reduction of 75%. 05/28/23: Sciatic/LBP rated 0 -4/10 with movement, 0/10 at rest. LTG Duration 6 wks-06/14/22 progressed Three Impairment Lacks awareness of proper PF contraction and core pressure management Short Term Goal (STG) Pt will be educated in core pressure management w/ADLs. 06/04/23: Pt educated in core pressure management for sit<> stand transfer. 06/11/23: Pt educated in core pressure management w/ADLS. STG Duration 4 wks-05/31/23 (06/11/23: MET GOAL) Halfway Goal (LTG) Pt will be able to perform a PF contraction in isolation of her substitute muscles. Pt will be able to tighten her TA. 05/28/23: Pt able to perform TA contraction. Noted not holding w/o cuing. LTG Duration 12 wks-07/24/23 progressed 05/28/23 Assessment Summary Assessment Pt demonstrating much improved body mechanics, hip hinging, and a lessening of L sciatic pain onset with use of SI Belt and proper body mechanics. Cuing given for breathing/TA tightening/Kegel contraction with ADLs and transfers, although pt reports she is doing it. Physical Therapy Plan Frequency and Duration Frequency of Treatment 1x/Week Duration of treatment (weeks) 12 Plan of Care Start Date 04/25/23 Plan of Care End Date 07/24/23 Next Visit Focus/Plan Next Note Type Treatment Note Next Visit Plan Next: Focus to decrease L sciatic pain and decreasing cystocele & rectocele (Review bladder diary of APR). Educate & train Kegel without use of substitute muscles (LTG #3). Assess if pt is doing proper intra-abdominal pressure mgmt with proper breathing/Kegel with transfers and body mechanics (STG #3). Progress PF strengthening ( anter/skilled labor) and core stabilization (Progress LE roll in/out ex). Manual: Improve hip mobility (R ER, L IR) w/o flaring L Sciatic pain, neural glide when appropriate. Ther Ex: PF/core(TA)-all positions/hip (L IR) strengthening. POC: Pt education, Manual therapy (Ilipsoas release). ? Biofeedback with vaginal sensor. Therapeutic Exercises, Therapeutic Activities, Neuromuscular Reeducation.
--- NOTE | 2023-06-20 08:23 | PT.OTN ---
Current Diagnoses Stiffness of unspecified hip, not elsewhere classified (06/20/23) Lumbago with sciatica, left side (06/20/23) Muscle weakness (generalized) (06/20/23) Postmenopausal atrophic vaginitis (06/20/23) Physical Therapy Treatment Note PT-OP-A Visit Information Start: 04/09/23 17:29 Freq: Status: Active Protocol: Document 06/20/23 07:30 LRN (Rec: 06/20/23 08:20 LRN [id number]) Out-Patient Physical Therapy Visit Information Visit Information Visit Type Treatment Note Visit Start Time 07:32 Visit Stop Time 08:10 Visit Number 8 total, 09/05 Evaluation Information Evaluation Date 04/25/23 Precautions Precautions Latex Allergy, 25# lift restriction, 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 PT-OP-B Current Condition Start: 04/09/23 17:29 Freq: Status: Active Protocol: Document 04/25/23 07:30 LRN (Rec: 04/25/23 08:16 LRN [id number]) Current Condition History of Current Condition Onset Date December 2022 Current Complaints Urinary leakage mainly w/urge first in AM walking to bathroom. History of Current Condition Pt reports on her last health exam she was told her vaginal wall was collapsing into her vaginal canal; therefore was given estrogen started on estrogen 2x/week and referred to PT. When waking in the morning with an urge she reports urinary leakage. She denies urinary leakage with activities and denies feelings of falling out or heaviness in pelvic region. She has had recent lumbar laminectomy surgery due to L lateral hip and posterolateral thigh pain that sometimes radiates to the ankle. Pain prior to surgery was on her R side and is now on her L side. She states she was doing well until she participated in rowing and is now having the L sided sciatic pain. Treatment Goals Patient/Caregiver Goals Learn exercises to strength bladder area. Eliminate urinary leakage first in AM with an urge. 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 Constipation from Ozempic (for weight control), requiring Miralax to help control the constipation. 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 Lumbar laminectomy (L4-L5)-. PT-OP-C Subjective Start: 04/09/23 17:29 Freq: Status: Active Protocol: Document 06/20/23 07:30 LRN (Rec: 06/20/23 08:20 LRN [id number]) OP-PT Subjective Patient Comments Patient Comments Getting better at tuming her body with activities (instead of twisting). States she has pain only in the L lower leg and posterior buttock. PT-OP-I Pelvic Floor Start: 04/09/23 17:29 Freq: Status: Active Protocol: Document 04/25/23 07:30 LRN (Rec: 04/25/23 08:16 LRN [id number]) Pelvic Floor Assessment Urine Other Urinary Symptoms Urge first in AM resulting in urinary leakage, no leakage during the day. Leakage Size Small Other Leakage Causes Rarely urinary leakage with big cough or sneeze. Nocturia 1-2 Pads Used In 24 Hours 0 Bowel Bowel Symptoms Constipation Bowel Movement Frequency daily Elizabeth Stool Chart Type 1-7 4 Prolapse Cystocele Grade 1 Rectocele Grade 2 Perineal Descent Resting Absent Bearing Absent Contraction Ability Voluntary Contraction Weak Voluntary Relaxation Moderate Manual Muscle Testing Left 1 Manual Muscle Testing Right 0 Manual Muscle Testing Anterior 0 Manual Muscle Testing Posterior 1 Muscle Endurance (Seconds) 5 Number of Quick Contractions In 10 2 Seconds Comments Pelvic Floor Comments With Miralax BM's are now daily, otherwise normally every 2 days, before medications was every 2-3 days . PT-OP-J Posture/Palpation/Skin Start: 04/09/23 17:29 Freq: Status: Active Protocol: Document 04/25/23 07:30 LRN (Rec: 04/25/23 08:16 LRN [id number]) Posture Evaluation Position Standing T-Spine Posture Flattened L-Spine Posture Increased Lordosis Shoulder Posture (L) Elevated Pelvis Posture Anteriorly Tilted,(L) PSIS Posterior Knee Posture (L) Genu Valgus,(R) Genu Valgus Ankle/Foot Posture (L) Supinated,(R) Supinated Comments Posture Comments Increased lordosis is mild, dowagers hump. PT-OP-K Range of Motion Start: 04/09/23 17:29 Freq: Status: Active Protocol: Document 04/25/23 07:30 LRN (Rec: 04/25/23 08:16 LRN [id number]) Lumbar Spine Range of Motion Lumbar Spine Active Degrees Testing Position Standing Flexion 95 Extension 15 Lateral Flexion Left 10 Lateral Flexion Right 10 Comments Trunk AROM: Flexion is 95 deg ?s with 70 deg?s hip flexion, Trunk extension is 15 deg?s with 10 deg?s hip extension. R SB caused L hip catch pain . Hip Goniometric Range of Motion Hip Right Passive Testing Position Supine Abduction 45 Internal Rotation 45 External Rotation 35 Left Passive Testing Position Supine Abduction 45 Internal Rotation 15 External Rotation 85 PT-OP-M Strength Start: 04/09/23 17:29 Freq: Status: Active Protocol: Document 04/25/23 07:30 LRN (Rec: 04/25/23 08:16 LRN [id number]) Trunk Strength Trunk Manual Muscle Testing Core Stabilization Abdominal doming. Not able to tighten her Transverse Abdominus muscle. Hip Strength Hip Manual Muscle Testing Right Flexion (L2) 5 Normal Abduction 5 Normal Adduction 5 Normal Internal Rotation 5 Normal Left Flexion (L2) 5 Normal Abduction 3 Fair Adduction 5 Normal Internal Rotation 3+ Fair+ PT-OP-Q Treatments Start: 04/09/23 17:29 Freq: Status: Active Protocol: Document 06/20/23 07:30 LRN (Rec: 06/20/23 08:20 LRN [id number]) Therapeutic Exercises Sidelying Exercises TA tightening Sidelying Exercise Name TA tightening/towel roll lateral trunk. Side bilateral Equipment Used Untightened SIJ belt, pillow btn knees. Reps/Minutes 10 SH x 20 Comments Extra time taken for rolling due to R hip pain. Pt counting fast w/10 SH Sitting Exercises LE neural glides Sitting Exercise Name LE slider>tensioner>slider Side bilateral Reps/Minutes 5x each Comments Cued to not move into pain. Tightness same on both sides, dec'd w/reps Standing Exercises Gastrocsoleus stretch Standing Exercise Name GAstrocsoleus stretch - HEP issued Side left Reps/Minutes 60 each Comments Cued for toes forward, wgt on back leg. Other Exercises Transfer sit<>stand/Kegel/TA Other Exercise Name Review Hip hinge sit<>stand w/ Kegel/TA/breath coordination. Resistance SIJ belt Reps/Minutes 3 rep f/b PF rest. Comments Cuing & training for lift of PF with Kegel. Neuro Re-Education Treatment Movement Re-Education Movement Re-education Activities Core stabilization rotation training: Paloff press bilaterally w/Lev2 TB. Much phys cuing needed as pt did ex to maintain core stability and teach pt ms to counteract the force of the TBand. Attempted step outs, but pt not able to retain core stability. Self-Care/Home Management Treatment Education Patient Education Home Exercise Program Activities Self-Care/Home Management Activities HEP issued: L Gastroc and soleus stretch. PT-OP-T Assessment and Plan Start: 04/09/23 17:29 Freq: Status: Active Protocol: Document 06/20/23 07:30 LRN (Rec: 06/20/23 08:20 LRN [id number]) Physical Therapy Assessment Goals Two Impairment Urinary leakage in first AM walking to bathroom Short Term Goal (STG) Pt will be educated in delay urinary techinque. 04/30/23: Pt educated in delay urinary technique. STG Duration 1 wk-05/03/23 04/30/23: MET GOAL) Custodial Goal (LTG) Eliminate urinary leakage first in AM with an urge. 05/09/23: Pt having no leakage first in AM w/an urge. LTG Duration 12 wks-07/24/23 (05/09/23: MET GOAL) One Impairment Pt lacks an independent self care HEP. Short Term Goal (STG) Pt educated in proper transfers to lessen core abdominal pressure. 05/09/23: Pt educated in log roll transfer, coordinating breathwork to lessen core abdominal pressure with transfers. STG Duration 2 wks-05/10/23 (05/09/23: MET GOAL). Mechanic And Welder Goal (LTG) Pt will be independent in a self care HEP for PF strengthening and hip/core mobility and strengthening exercises. 05/23/23: Indepth education on anatomy, pain, ex to promote pt awareness of core stab with activity. 05/28/23: HEP: LE roll in/outs /PF/breath. Indepth review of PF/Hip/Lumbar/Sciatic nerve anatomy, and effect on structures with exercise. LTG Duration 12 wks-07/24/23 progresssed 05/28/23 Four Impairment LBP & L sciatic pain Custodial Goal (LTG) Decrease perception of LBP & L sciatic pain. 05/23/23: SI Belt-like strap for trial with pain reduction of 75%. 05/28/23: Sciatic/LBP rated 0 -4/10 with movement, 0/10 at rest. 06/20/23: HEP issued: L Gastroc and soleus stretch. LTG Duration 6 wks-06/14/22 progressed Three Impairment Lacks awareness of proper PF contraction and core pressure management Short Term Goal (STG) Pt will be educated in core pressure management w/ADLs. 06/04/23: Pt educated in core pressure management for sit<> stand transfer. 06/11/23: Pt educated in core pressure management w/ADLS. STG Duration 4 wks-05/31/23 (06/11/23: MET GOAL) Custodial Goal (LTG) Pt will be able to perform a PF contraction in isolation of her substitute muscles. Pt will be able to tighten her TA. 05/28/23: Pt able to perform TA contraction. Noted not holding w/o cuing. LTG Duration 12 wks-07/24/23 progressed 05/28/23 Assessment Summary Assessment Pt is 6 months post-op lumbar surgery with L sciatic pain and initially had urinary urge incontinence. Incontinence is resolved w/occasional leakage first in the morning. Today the p demonstrates tightness of L gastrocnemius ms that is probably the cause of some of her occasional lower leg pain. Her LBP is mostly focused at the hip and occasionally down the lateral thigh. +response to LE neural glide with lessening of tension behind the L knee. Poor core stab with Paloff press and worse with step outs . Physical Therapy Plan Frequency and Duration Frequency of Treatment 1x/Week Duration of treatment (weeks) 12 Plan of Care Start Date 04/25/23 Plan of Care End Date 07/24/23 Next Visit Focus/Plan Next Note Type Treatment Note Next Visit Plan Next: Manual: Improve hip mobility (R ER, L IR) w/o flaring L Sciatic pain, neural glide when appropriate. Focus to decrease L sciatic pain and decreasing cystocele & rectocele (Review bladder diary of APR). Educate & train Kegel without use of substitute muscles (LTG #3). Assess if pt is doing proper intra-abdominal pressure mgmt with proper breathing/Kegel with transfers and body mechanics (STG #3). Progress PF strengthening ( anter/lead pressman) and core stabilization (Progress LE roll in/out ex). Ther Ex: PF/core(TA)-all positions/hip (L IR) strengthening. POC: Pt education, Manual therapy (Ilipsoas release). ? Biofeedback with vaginal sensor. Therapeutic Exercises, Therapeutic Activities, Neuromuscular Reeducation.
--- NOTE | 2023-06-25 09:20 | PT.OTN ---
Current Diagnoses Stiffness of unspecified hip, not elsewhere classified (06/25/23) Lumbago with sciatica, left side (06/25/23) Muscle weakness (generalized) (06/25/23) Postmenopausal atrophic vaginitis (06/25/23) Physical Therapy Treatment Note PT-OP-A Visit Information Start: 04/09/23 17:29 Freq: Status: Active Protocol: Document 06/25/23 08:19 LRN (Rec: 06/25/23 09:20 LRN [id number]) Out-Patient Physical Therapy Visit Information Visit Information Visit Type Treatment Note Visit Start Time 08:19 Visit Stop Time 09:01 Visit Number 9 total, 10/05 Evaluation Information Evaluation Date 04/25/23 Precautions Precautions Latex Allergy, 25# lift restriction, 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 PT-OP-B Current Condition Start: 04/09/23 17:29 Freq: Status: Active Protocol: Document 04/25/23 07:30 LRN (Rec: 04/25/23 08:16 LRN [id number]) Current Condition History of Current Condition Onset Date December 2022 Current Complaints Urinary leakage mainly w/urge first in AM walking to bathroom. History of Current Condition Pt reports on her last health exam she was told her vaginal wall was collapsing into her vaginal canal; therefore was given estrogen started on estrogen 2x/week and referred to PT. When waking in the morning with an urge she reports urinary leakage. She denies urinary leakage with activities and denies feelings of falling out or heaviness in pelvic region. She has had recent lumbar laminectomy surgery due to L lateral hip and posterolateral thigh pain that sometimes radiates to the ankle. Pain prior to surgery was on her R side and is now on her L side. She states she was doing well until she participated in rowing and is now having the L sided sciatic pain. Treatment Goals Patient/Caregiver Goals Learn exercises to strength bladder area. Eliminate urinary leakage first in AM with an urge. 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 Constipation from Ozempic (for weight control), requiring Miralax to help control the constipation. 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 Lumbar laminectomy (L4-L5)-. PT-OP-C Subjective Start: 04/09/23 17:29 Freq: Status: Active Protocol: Document 06/25/23 08:19 LRN (Rec: 06/25/23 09:20 LRN [id number]) OP-PT Subjective Patient Comments Patient Comments States no urinary leakage because able to get to bathroom in time. Tough night , not breathing well. Started private pilates last month, really mild and is doing balance exs (walking line). States the new ex is bothering her (gastrocsoleus stretch). HR is 65 and irregular. PT-OP-I Pelvic Floor Start: 04/09/23 17:29 Freq: Status: Active Protocol: Document 04/25/23 07:30 LRN (Rec: 04/25/23 08:16 LRN [id number]) Pelvic Floor Assessment Urine Other Urinary Symptoms Urge first in AM resulting in urinary leakage, no leakage during the day. Leakage Size Small Other Leakage Causes Rarely urinary leakage with big cough or sneeze. Nocturia 1-2 Pads Used In 24 Hours 0 Bowel Bowel Symptoms Constipation Bowel Movement Frequency daily [place] Stool Chart Type 1-7 4 Prolapse Cystocele Grade 1 Rectocele Grade 2 Perineal Descent Resting Absent Bearing Absent Contraction Ability Voluntary Contraction Weak Voluntary Relaxation Moderate Manual Muscle Testing Left 1 Manual Muscle Testing Right 0 Manual Muscle Testing Anterior 0 Manual Muscle Testing Posterior 1 Muscle Endurance (Seconds) 5 Number of Quick Contractions In 10 2 Seconds Comments Pelvic Floor Comments With Miralax BM's are now daily, otherwise normally every 2 days, before medications was every 2-3 days . PT-OP-J Posture/Palpation/Skin Start: 04/09/23 17:29 Freq: Status: Active Protocol: Document 04/25/23 07:30 LRN (Rec: 04/25/23 08:16 LRN [id number]) Posture Evaluation Position Standing T-Spine Posture Flattened L-Spine Posture Increased Lordosis Shoulder Posture (L) Elevated Pelvis Posture Anteriorly Tilted,(L) PSIS Posterior Knee Posture (L) Genu Valgus,(R) Genu Valgus Ankle/Foot Posture (L) Supinated,(R) Supinated Comments Posture Comments Increased lordosis is mild, dowagers hump. PT-OP-K Range of Motion Start: 04/09/23 17:29 Freq: Status: Active Protocol: Document 04/25/23 07:30 LRN (Rec: 04/25/23 08:16 LRN [id number]) Lumbar Spine Range of Motion Lumbar Spine Active Degrees Testing Position Standing Flexion 95 Extension 15 Lateral Flexion Left 10 Lateral Flexion Right 10 Comments Trunk AROM: Flexion is 95 deg ?s with 70 deg?s hip flexion, Trunk extension is 15 deg?s with 10 deg?s hip extension. R SB caused L hip catch pain . Hip Goniometric Range of Motion Hip Right Passive Testing Position Supine Abduction 45 Internal Rotation 45 External Rotation 35 Left Passive Testing Position Supine Abduction 45 Internal Rotation 15 External Rotation 85 PT-OP-M Strength Start: 04/09/23 17:29 Freq: Status: Active Protocol: Document 04/25/23 07:30 LRN (Rec: 04/25/23 08:16 LRN [id number]) Trunk Strength Trunk Manual Muscle Testing Core Stabilization Abdominal doming. Not able to tighten her Transverse Abdominus muscle. Hip Strength Hip Manual Muscle Testing Right Flexion (L2) 5 Normal Abduction 5 Normal Adduction 5 Normal Internal Rotation 5 Normal Left Flexion (L2) 5 Normal Abduction 3 Fair Adduction 5 Normal Internal Rotation 3+ Fair+ PT-OP-Q Treatments Start: 04/09/23 17:29 Freq: Status: Active Protocol: Document 06/25/23 08:19 LRN (Rec: 06/25/23 09:20 LRN [id number]) Therapeutic Exercises Sitting Exercises Kegel Sitting Exercise Name Kegel in isolation of TA Reps/Minutes 10 SH x 5 Comments Pt cued to monitor at her on ASISs' Standing Exercises Gastrocsoleus stretch Standing Exercise Name Gastrocsoleus stretch - HEP issued Side left Equipment Used Wall Reps/Minutes 13' Comments Back against wall to keep core straight Manual Therapy Treatment Soft Tissue Mobilization Ilipsoas release Body Location Deandre Ilipsoas @ L/S & femur attachments Mobilization Type Sustained Pressure Intensity/Depth Moderate Body Position Sup chest elevated Comments Pt on pillows. Chest/head elevated due to gastric flex. Neuro Re-Education Treatment Other Activities TA coordination w/activities Details Evans-evans, cough, & sneeze Reps/Duration 10' Comments V cuing even through natural laughing and sneezing. Breathing Re-ed Details Breathing, holding TA tight, starting with TA/inhale, hold thru exhale. Reps/Duration 9' Comments In standing and sitting breathing with TA tight training. Much cuing for in breath>pulling TA tight and hlding though exhale without collapsing in abdominal region . PT-OP-T Assessment and Plan Start: 04/09/23 17:29 Freq: Status: Active Protocol: Document 06/25/23 08:19 LRN (Rec: 06/25/23 09:20 LRN [id number]) Physical Therapy Assessment Goals One Impairment Pt lacks an independent self care HEP. Short Term Goal (STG) Pt educated in proper transfers to lessen core abdominal pressure. 05/09/23: Pt educated in log roll transfer, coordinating breathwork to lessen core abdominal pressure with transfers. STG Duration 2 wks-05/10/23 (05/09/23: MET GOAL). Detention Goal (LTG) Pt will be independent in a self care HEP for PF strengthening and hip/core mobility and strengthening exercises. 05/23/23: Indepth education on anatomy, pain, ex to promote pt awareness of core stab with activity. 05/28/23: HEP: LE roll in/outs /PF/breath. Indepth review of PF/Hip/Lumbar/Sciatic nerve anatomy, and effect on structures with exercise. 06/25/23: Pt educated in Kegel in isolation of TA. LTG Duration 12 wks-07/24/23 progresssed 06/25/23 Four Impairment LBP & L sciatic pain Climbing Guide Goal (LTG) Decrease perception of LBP & L sciatic pain. 05/23/23: SI Belt-like strap for trial with pain reduction of 75%. 05/28/23: Sciatic/LBP rated 0 -4/10 with movement, 0/10 at rest. 06/20/23: HEP issued: L Gastroc and soleus stretch. LTG Duration 6 wks-06/14/22 progressed Three Impairment Lacks awareness of proper PF contraction and core pressure management Short Term Goal (STG) Pt will be educated in core pressure management w/ADLs. 06/04/23: Pt educated in core pressure management for sit<> stand transfer. 06/11/23: Pt educated in core pressure management w/ADLS. STG Duration 4 wks-05/31/23 (06/11/23: MET GOAL) Climbing Guide Goal (LTG) Pt will be able to perform a PF contraction in isolation of her substitute muscles. Pt will be able to tighten her TA. 05/28/23: Pt able to perform TA contraction. Noted not holding w/o cuing. 06/25/23: Pt reporting she can perform Kegel without TA tightening. LTG Duration 12 wks-07/24/23 progressed 05/28/23 Assessment Summary Assessment Pt is 6 months post-op lumbar surgery with L sciatic pain and initially had urinary urge incontinence. No L LBP with gastroc standing stretch after further training. Pt improved with coordination of activity (laugh, cough, sneeze , breath) with TA tightening after training/ex. Pt HR is good after ex at 64 bpm. Pt reported taking her BP earlier and was good, but pt looking very tired due to report of poor operation of her CPAP machine. Pt encouraged to contact overseeing physician. Physical Therapy Plan Frequency and Duration Frequency of Treatment 1x/Week Duration of treatment (weeks) 12 Plan of Care Start Date 04/25/23 Plan of Care End Date 07/24/23 Next Visit Focus/Plan Next Note Type Treatment Note Next Visit Plan Next: Assess if pt can do Kegel isolating from TA (LTG # 3). Assess response to Ilipsoas stretch on LBP and her ability to auto contract TA with laugh, cough, sneeze. Ther Ex: hip (L IR) strengthening. Ther Ex: PF strengthening ( anter/realty specialist) & core(TA) stab- all positions (Progress LE roll in/out ex). Manual: Improve hip mobility (R ER, L IR) w/o flaring L Sciatic pain, neural glide when appropriate. Assess if pt is doing proper intra-abdominal pressure mgmt with proper breathing/Kegel with transfers and body mechanics (STG #3). Focus: decrease L sciatic pain and decrease cystocele & rectocele (Review bladder diary of APR). POC: Pt education, Manual therapy (Ilipsoas release). ? Biofeedback with vaginal sensor. Therapeutic Exercises, Therapeutic Activities, Neuromuscular Reeducation.
--- NOTE | 2023-07-02 12:40 | PT.OTN ---
Current Diagnoses Stiffness of unspecified hip, not elsewhere classified (07/02/23) Lumbago with sciatica, left side (07/02/23) Muscle weakness (generalized) (07/02/23) Postmenopausal atrophic vaginitis (07/02/23) Physical Therapy Treatment Note PT-OP-A Visit Information Start: 04/09/23 17:29 Freq: Status: Active Protocol: Document 07/02/23 08:19 LRN (Rec: 07/02/23 09:03 LRN [id number]) Out-Patient Physical Therapy Visit Information Visit Information Visit Type Treatment Note Visit Start Time 08:19 Visit Stop Time 08:59 Visit Number 10 total, 11/05 Evaluation Information Evaluation Date 04/25/23 Precautions Precautions Latex Allergy, 25# lift restriction, 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 PT-OP-B Current Condition Start: 04/09/23 17:29 Freq: Status: Active Protocol: Document 04/25/23 07:30 LRN (Rec: 04/25/23 08:16 LRN [id number]) Current Condition History of Current Condition Onset Date December 2022 Current Complaints Urinary leakage mainly w/urge first in AM walking to bathroom. History of Current Condition Pt reports on her last health exam she was told her vaginal wall was collapsing into her vaginal canal; therefore was given estrogen started on estrogen 2x/week and referred to PT. When waking in the morning with an urge she reports urinary leakage. She denies urinary leakage with activities and denies feelings of falling out or heaviness in pelvic region. She has had recent lumbar laminectomy surgery due to L lateral hip and posterolateral thigh pain that sometimes radiates to the ankle. Pain prior to surgery was on her R side and is now on her L side. She states she was doing well until she participated in rowing and is now having the L sided sciatic pain. Treatment Goals Patient/Caregiver Goals Learn exercises to strength bladder area. Eliminate urinary leakage first in AM with an urge. 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 Constipation from Ozempic (for weight control), requiring Miralax to help control the constipation. 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 Lumbar laminectomy (L4-L5)-. PT-OP-C Subjective Start: 04/09/23 17:29 Freq: Status: Active Protocol: Document 07/02/23 08:19 LRN (Rec: 07/02/23 09:03 LRN [id number]) OP-PT Subjective Patient Comments Patient Comments States yesterday she did her ex's and had a good night, so in the L LB she has more pain, rated 6/10, after 4' walking pain decreased to 2/10. PT-OP-I Pelvic Floor Start: 04/09/23 17:29 Freq: Status: Active Protocol: Document 04/25/23 07:30 LRN (Rec: 04/25/23 08:16 LRN [id number]) Pelvic Floor Assessment Urine Other Urinary Symptoms Urge first in AM resulting in urinary leakage, no leakage during the day. Leakage Size Small Other Leakage Causes Rarely urinary leakage with big cough or sneeze. Nocturia 1-2 Pads Used In 24 Hours 0 Bowel Bowel Symptoms Constipation Bowel Movement Frequency daily [place] Stool Chart Type 1-7 4 Prolapse Cystocele Grade 1 Rectocele Grade 2 Perineal Descent Resting Absent Bearing Absent Contraction Ability Voluntary Contraction Weak Voluntary Relaxation Moderate Manual Muscle Testing Left 1 Manual Muscle Testing Right 0 Manual Muscle Testing Anterior 0 Manual Muscle Testing Posterior 1 Muscle Endurance (Seconds) 5 Number of Quick Contractions In 10 2 Seconds Comments Pelvic Floor Comments With Miralax BM's are now daily, otherwise normally every 2 days, before medications was every 2-3 days . PT-OP-J Posture/Palpation/Skin Start: 04/09/23 17:29 Freq: Status: Active Protocol: Document 04/25/23 07:30 LRN (Rec: 04/25/23 08:16 LRN [id number]) Posture Evaluation Position Standing T-Spine Posture Flattened L-Spine Posture Increased Lordosis Shoulder Posture (L) Elevated Pelvis Posture Anteriorly Tilted,(L) PSIS Posterior Knee Posture (L) Genu Valgus,(R) Genu Valgus Ankle/Foot Posture (L) Supinated,(R) Supinated Comments Posture Comments Increased lordosis is mild, dowagers hump. PT-OP-K Range of Motion Start: 04/09/23 17:29 Freq: Status: Active Protocol: Document 04/25/23 07:30 LRN (Rec: 04/25/23 08:16 LRN [id number]) Lumbar Spine Range of Motion Lumbar Spine Active Degrees Testing Position Standing Flexion 95 Extension 15 Lateral Flexion Left 10 Lateral Flexion Right 10 Comments Trunk AROM: Flexion is 95 deg ?s with 70 deg?s hip flexion, Trunk extension is 15 deg?s with 10 deg?s hip extension. R SB caused L hip catch pain . Hip Goniometric Range of Motion Hip Right Passive Testing Position Supine Abduction 45 Internal Rotation 45 External Rotation 35 Left Passive Testing Position Supine Abduction 45 Internal Rotation 15 External Rotation 85 PT-OP-M Strength Start: 04/09/23 17:29 Freq: Status: Active Protocol: Document 04/25/23 07:30 LRN (Rec: 04/25/23 08:16 LRN [id number]) Trunk Strength Trunk Manual Muscle Testing Core Stabilization Abdominal doming. Not able to tighten her Transverse Abdominus muscle. Hip Strength Hip Manual Muscle Testing Right Flexion (L2) 5 Normal Abduction 5 Normal Adduction 5 Normal Internal Rotation 5 Normal Left Flexion (L2) 5 Normal Abduction 3 Fair Adduction 5 Normal Internal Rotation 3+ Fair+ PT-OP-Q Treatments Start: 04/09/23 17:29 Freq: Status: Active Protocol: Document 07/02/23 08:19 LRN (Rec: 07/02/23 09:03 LRN [id number]) Therapeutic Exercises Sitting Exercises Isolated PF contraction Sitting Exercise Name Isolating PF contraction from substitue ms and breathing. Reps/Minutes 3' LE roll in-out/breath/TA/Kegel/TB/Ball Sitting Exercise Name Semi-reclined/hooklie: LE roll in-out/breath/TA/Kegel/TB /Ball Reps/Minutes 13' Comments Extra time for coordinating activity and for allowing for PF relaxation Ankle PF Sitting Exercise Name Ankle PF AROM for proper mvmt Side right Equipment Used Initially use L2 TB, but removed to get proper mvmt Reps/Minutes 6' Comments Cuing to keep toes from Adducting inward Ankle EV Sitting Exercise Name Ankle EV strengthening Side right Equipment Used L2 TB Reps/Minutes 6' Comments Extra time needed for proper performance and awareness of knee/ankle stabil Standing Exercises Gastrocsoleus stretch Standing Exercise Name Gastrocsoleus stretch L>R - HEP issued Side bilateral Resistance 2x L, 1x R. Equipment Used Wall Reps/Minutes 5' Comments Back against wall to keep core straight Other Exercises Gait with TA/PF/breathing Other Exercise Name Gait with TA/PF/breathing Reps/Minutes 4' Comments Cuing to lead w/feet, Core stable w/TA/PF tight- especially w/conversation. Self-Care/Home Management Treatment Activities Self-Care/Home Management Activities I/S & discussed pt focus to be on body awareness, avoid twisting, and over stretching into flexion. For PF pt to make sure she achieves relaxation of PF after contraction. PT-OP-T Assessment and Plan Start: 04/09/23 17:29 Freq: Status: Active Protocol: Document 07/02/23 08:19 LRN (Rec: 07/02/23 09:03 LRN [id number]) Physical Therapy Assessment Goals One Impairment Pt lacks an independent self care HEP. Short Term Goal (STG) Pt educated in proper transfers to lessen core abdominal pressure. 05/09/23: Pt educated in log roll transfer, coordinating breathwork to lessen core abdominal pressure with transfers. STG Duration 2 wks-05/10/23 (05/09/23: MET GOAL). Paper Baling Machine Operator Goal (LTG) Pt will be independent in a self care HEP for PF strengthening and hip/core mobility and strengthening exercises. 05/23/23: Indepth education on anatomy, pain, ex to promote pt awareness of core stab with activity. 05/28/23: HEP: LE roll in/outs /PF/breath. Indepth review of PF/Hip/Lumbar/Sciatic nerve anatomy, and effect on structures with exercise. 06/25/23: Pt educated in Kegel in isolation of TA. LTG Duration 12 wks-07/24/23 progresssed 06/25/23 Four Impairment LBP & L sciatic pain Residential Goal (LTG) Decrease perception of LBP & L sciatic pain. 05/23/23: SI Belt-like strap for trial with pain reduction of 75%. 05/28/23: Sciatic/LBP rated 0 -4/10 with movement, 0/10 at rest. 06/20/23: HEP issued: L Gastroc and soleus stretch. LTG Duration 6 wks-06/14/22 progressed Three Impairment Lacks awareness of proper PF contraction and core pressure management Short Term Goal (STG) Pt will be educated in core pressure management w/ADLs. 06/04/23: Pt educated in core pressure management for sit<> stand transfer. 06/11/23: Pt educated in core pressure management w/ADLS. STG Duration 4 wks-05/31/23 (06/11/23: MET GOAL) Residential Goal (LTG) Pt will be able to perform a PF contraction in isolation of her substitute muscles. Pt will be able to tighten her TA. 05/28/23: Pt able to perform TA contraction. Noted not holding w/o cuing. 06/25/23: Pt reporting she can perform Kegel without TA tightening. 07/02/23: Pt able to perform TA contraction in isolation, but tends to hold breath. LTG Duration 12 wks-07/24/23 progressed 07/01/23 Assessment Summary Assessment Pt is ~6 months post-op lumbar surgery with L sciatic pain and initially had urinary urge incontinence. Pt is better with tightening of TA with activities, but tends to be impulsive with reaching and rotating of trunk, which is probably causing continued irritation to the L LB. Her back pain is greatly reduced with walking, pain reduced from 6 to 2/10 after 4' of walking. Pt laughing with auto pull in of TA. No pain with Ilipsoas stretch. Physical Therapy Plan Frequency and Duration Frequency of Treatment 1x/Week Duration of treatment (weeks) 12 Plan of Care Start Date 04/25/23 Plan of Care End Date 07/24/23 Next Visit Focus/Plan Next Note Type Treatment Note Next Visit Plan Next: Assess if pt can do Kegel isolating but not breath holding (LTG #3). Assess ability to auto contract TA with cough, sneeze. Assess if pt is doing proper intra-abdominal pressure mgmt with proper breathing/Kegel with transfers and body mechanics (STG #3). Ther Ex: hip (L IR) strengthening. Ther Ex: PF strengthening ( anter/insulator helper) & core(TA) stab- all positions (Progress LE roll in/out ex). Manual: Improve hip mobility (R ER, L IR) w/o flaring L Sciatic pain, neural glide when appropriate. Focus: decrease L sciatic pain and decrease cystocele & rectocele (Review bladder diary of APR). POC: Pt education, Manual therapy (Ilipsoas release). ? Biofeedback with vaginal sensor. Therapeutic Exercises, Therapeutic Activities, Neuromuscular Reeducation.
--- NOTE | 2023-07-09 09:25 | PT.OTN ---
Current Diagnoses Stiffness of unspecified hip, not elsewhere classified (07/09/23) Lumbago with sciatica, left side (07/09/23) Muscle weakness (generalized) (07/09/23) Postmenopausal atrophic vaginitis (07/09/23) Physical Therapy Treatment Note PT-OP-A Visit Information Start: 04/09/23 17:29 Freq: Status: Active Protocol: Document 07/09/23 08:19 LRN (Rec: 07/09/23 09:25 LRN [id number]) Out-Patient Physical Therapy Visit Information Visit Information Visit Type Treatment Note Visit Start Time 08:19 Visit Stop Time 09:04 Visit Number 11 total, 12/05 Evaluation Information Evaluation Date 04/25/23 Precautions Precautions Latex Allergy, 25# lift restriction, 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 PT-OP-B Current Condition Start: 04/09/23 17:29 Freq: Status: Active Protocol: Document 04/25/23 07:30 LRN (Rec: 04/25/23 08:16 LRN [id number]) Current Condition History of Current Condition Onset Date December 2022 Current Complaints Urinary leakage mainly w/urge first in AM walking to bathroom. History of Current Condition Pt reports on her last health exam she was told her vaginal wall was collapsing into her vaginal canal; therefore was given estrogen started on estrogen 2x/week and referred to PT. When waking in the morning with an urge she reports urinary leakage. She denies urinary leakage with activities and denies feelings of falling out or heaviness in pelvic region. She has had recent lumbar laminectomy surgery due to L lateral hip and posterolateral thigh pain that sometimes radiates to the ankle. Pain prior to surgery was on her R side and is now on her L side. She states she was doing well until she participated in rowing and is now having the L sided sciatic pain. Treatment Goals Patient/Caregiver Goals Learn exercises to strength bladder area. Eliminate urinary leakage first in AM with an urge. 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 Constipation from Ozempic (for weight control), requiring Miralax to help control the constipation. 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 Lumbar laminectomy (L4-L5)-. PT-OP-C Subjective Start: 04/09/23 17:29 Freq: Status: Active Protocol: Document 07/09/23 08:19 LRN (Rec: 07/09/23 09:25 LRN [id number]) OP-PT Subjective Patient Comments Patient Comments States she is doing good now, but an hour ago was having a hard time. PT-OP-I Pelvic Floor Start: 04/09/23 17:29 Freq: Status: Active Protocol: Document 04/25/23 07:30 LRN (Rec: 04/25/23 08:16 LRN [id number]) Pelvic Floor Assessment Urine Other Urinary Symptoms Urge first in AM resulting in urinary leakage, no leakage during the day. Leakage Size Small Other Leakage Causes Rarely urinary leakage with big cough or sneeze. Nocturia 1-2 Pads Used In 24 Hours 0 Bowel Bowel Symptoms Constipation Bowel Movement Frequency daily [place] Stool Chart Type 1-7 4 Prolapse Cystocele Grade 1 Rectocele Grade 2 Perineal Descent Resting Absent Bearing Absent Contraction Ability Voluntary Contraction Weak Voluntary Relaxation Moderate Manual Muscle Testing Left 1 Manual Muscle Testing Right 0 Manual Muscle Testing Anterior 0 Manual Muscle Testing Posterior 1 Muscle Endurance (Seconds) 5 Number of Quick Contractions In 10 2 Seconds Comments Pelvic Floor Comments With Miralax BM's are now daily, otherwise normally every 2 days, before medications was every 2-3 days . PT-OP-J Posture/Palpation/Skin Start: 04/09/23 17:29 Freq: Status: Active Protocol: Document 04/25/23 07:30 LRN (Rec: 04/25/23 08:16 LRN [id number]) Posture Evaluation Position Standing T-Spine Posture Flattened L-Spine Posture Increased Lordosis Shoulder Posture (L) Elevated Pelvis Posture Anteriorly Tilted,(L) PSIS Posterior Knee Posture (L) Genu Valgus,(R) Genu Valgus Ankle/Foot Posture (L) Supinated,(R) Supinated Comments Posture Comments Increased lordosis is mild, dowagers hump. PT-OP-K Range of Motion Start: 04/09/23 17:29 Freq: Status: Active Protocol: Document 04/25/23 07:30 LRN (Rec: 04/25/23 08:16 LRN [id number]) Lumbar Spine Range of Motion Lumbar Spine Active Degrees Testing Position Standing Flexion 95 Extension 15 Lateral Flexion Left 10 Lateral Flexion Right 10 Comments Trunk AROM: Flexion is 95 deg ?s with 70 deg?s hip flexion, Trunk extension is 15 deg?s with 10 deg?s hip extension. R SB caused L hip catch pain . Hip Goniometric Range of Motion Hip Right Passive Testing Position Supine Abduction 45 Internal Rotation 45 External Rotation 35 Left Passive Testing Position Supine Abduction 45 Internal Rotation 15 External Rotation 85 PT-OP-M Strength Start: 04/09/23 17:29 Freq: Status: Active Protocol: Document 04/25/23 07:30 LRN (Rec: 04/25/23 08:16 LRN [id number]) Trunk Strength Trunk Manual Muscle Testing Core Stabilization Abdominal doming. Not able to tighten her Transverse Abdominus muscle. Hip Strength Hip Manual Muscle Testing Right Flexion (L2) 5 Normal Abduction 5 Normal Adduction 5 Normal Internal Rotation 5 Normal Left Flexion (L2) 5 Normal Abduction 3 Fair Adduction 5 Normal Internal Rotation 3+ Fair+ PT-OP-Q Treatments Start: 04/09/23 17:29 Freq: Status: Active Protocol: Document 07/09/23 08:19 LRN (Rec: 07/09/23 09:25 LRN [id number]) Therapeutic Exercises Supine Exercises TA tightening through breaths Supine Exercise Name TA tightening while breathing. Reps/Minutes 4' Comments Phys & v cues needed. Isolated Kegel Supine Exercise Name Isolated Kegel Reps/Minutes 8' Comments VCs needed, but pt able to isolate with cues Sitting Exercises R hip ER stretch Sitting Exercise Name Side sit on R hip/L leg to ground & R ankle over opp knee . Side right Reps/Minutes 13' Ankle PF Sitting Exercise Name Ankle PF AROM for proper mvmt Side bilateral Equipment Used Initially use L2 TB, but removed to get proper mvmt Reps/Minutes 6' Comments Cuing to keep toes from Adducting inward Ankle EV Sitting Exercise Name Ankle EV strengthening Side bilateral Equipment Used L2 TB Reps/Minutes 6' Comments Extra time needed for proper performance and awareness of knee/ankle stabil Therapeutic Activity Therapeutic Activity Transfers boat deck to boat Name Transfer boat deck to boat Reps/Minutes 10' Comments Tried different ways to transfer with focus on keeping neutral in core with weightbearing LE. Self-Care/Home Management Treatment Education Patient Education Body Mechanics Other Education Discussed at length how best to transfer from boat deck into boat. PT-OP-T Assessment and Plan Start: 04/09/23 17:29 Freq: Status: Active Protocol: Document 07/09/23 08:19 LRN (Rec: 07/09/23 09:25 LRN [id number]) Physical Therapy Assessment Goals One Impairment Pt lacks an independent self care HEP. Short Term Goal (STG) Pt educated in proper transfers to lessen core abdominal pressure. 05/09/23: Pt educated in log roll transfer, coordinating breathwork to lessen core abdominal pressure with transfers. STG Duration 2 wks-05/10/23 (05/09/23: MET GOAL). Detention Goal (LTG) Pt will be independent in a self care HEP for PF strengthening and hip/core mobility and strengthening exercises. 05/23/23: Indepth education on anatomy, pain, ex to promote pt awareness of core stab with activity. 05/28/23: HEP: LE roll in/outs /PF/breath. Indepth review of PF/Hip/Lumbar/Sciatic nerve anatomy, and effect on structures with exercise. 06/25/23: Pt educated in Kegel in isolation of TA. LTG Duration 12 wks-07/24/23 progresssed 06/25/23 Four Impairment LBP & L sciatic pain Obiee Consultant Goal (LTG) Decrease perception of LBP & L sciatic pain. 05/23/23: SI Belt-like strap for trial with pain reduction of 75%. 05/28/23: Sciatic/LBP rated 0 -4/10 with movement, 0/10 at rest. 06/20/23: HEP issued: L Gastroc and soleus stretch. 07/18/23: Pt feels her LBP/L sciatic pain onset is less. LTG Duration 6 wks-06/14/22 (07/18/23: MET GOAL) Three Impairment Lacks awareness of proper PF contraction and core pressure management Short Term Goal (STG) Pt will be educated in core pressure management w/ADLs. 06/04/23: Pt educated in core pressure management for sit<> stand transfer. 06/11/23: Pt educated in core pressure management w/ADLS. STG Duration 4 wks-05/31/23 (06/11/23: MET GOAL) Detention Goal (LTG) Pt will be able to perform a PF contraction in isolation of her substitute muscles. Pt will be able to tighten her TA. 05/28/23: Pt able to perform TA contraction. Noted not holding w/o cuing. 06/25/23: Pt reporting she can perform Kegel without TA tightening. 07/02/23: Pt able to perform TA contraction in isolation, but tends to hold breath. 07/09/23: Pt able to perform PF contraction in isolation and with breath. She is able to tighten her TA. She is not able to fully maintain a TA contraction while breathing . LTG Duration 12 wks-07/24/23 (07/09/23: MET GOAL) Assessment Summary Assessment Pt is ~6 months post-op lumbar surgery with L sciatic pain and initially had urinary urge incontinence. Pt needed review of her HEP of ankle EV strengthening and hip stretches. She is able to tighten her PF in isolation of substitute ms and is able to hold a TA contraction, but is not fully able to hold while breathing, but is much better with improved awareness of the TA contraction. Her TA contraction is not automatic with laugh, cough but she is more aware that she is not performing the TA with these things. Her R hip ER is tight vs L hip ER. The pt is having L sciatic pain onset it appears when her posture is not good and she is twisting in her core. Pt needs time to correct body habits of twisting with activities and strengthening her core. Pt feels her PF strength and problem with urinary leakage has been well addressed. Physical Therapy Plan Frequency and Duration Frequency of Treatment 1x/Week Duration of treatment (weeks) 12 Plan of Care Start Date 04/25/23 Plan of Care End Date 07/24/23 Next Visit Focus/Plan Next Note Type Discharge Summary Next Visit Plan DC to HEP. Next: Assess ability to auto contract TA with cough, sneeze. Assess hip ER R, IR L for improved mobility. Assess if pt is doing proper intra-abdominal pressure mgmt with proper breathing/Kegel with transfers and body mechanics (STG #3). Ther Ex: add hip (L IR) strengthening. Try neural glide if appropriate add to HEP. If time, check cystocele & rectocele & if needed, review bladder diary of
--- NOTE | 2023-07-16 18:02 | PT.OTN ---
Current Diagnoses Stiffness of unspecified hip, not elsewhere classified (07/16/23) Lumbago with sciatica, left side (07/16/23) Muscle weakness (generalized) (07/16/23) Postmenopausal atrophic vaginitis (07/16/23) Physical Therapy Treatment Note PT-OP-A Visit Information Start: 04/09/23 17:29 Freq: Status: Active Protocol: Document 07/16/23 08:22 LRN (Rec: 07/16/23 09:03 LRN [id number]) Out-Patient Physical Therapy Visit Information Visit Information Visit Type Treatment Note Visit Start Time 08:22 Visit Stop Time 09:01 Visit Number 12 total, 01/05 Evaluation Information Evaluation Date 04/25/23 Precautions Precautions Latex Allergy, 25# lift restriction, 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 PT-OP-B Current Condition Start: 04/09/23 17:29 Freq: Status: Active Protocol: Document 04/25/23 07:30 LRN (Rec: 04/25/23 08:16 LRN [id number]) Current Condition History of Current Condition Onset Date December 2022 Current Complaints Urinary leakage mainly w/urge first in AM walking to bathroom. History of Current Condition Pt reports on her last health exam she was told her vaginal wall was collapsing into her vaginal canal; therefore was given estrogen started on estrogen 2x/week and referred to PT. When waking in the morning with an urge she reports urinary leakage. She denies urinary leakage with activities and denies feelings of falling out or heaviness in pelvic region. She has had recent lumbar laminectomy surgery due to L lateral hip and posterolateral thigh pain that sometimes radiates to the ankle. Pain prior to surgery was on her R side and is now on her L side. She states she was doing well until she participated in rowing and is now having the L sided sciatic pain. Treatment Goals Patient/Caregiver Goals Learn exercises to strength bladder area. Eliminate urinary leakage first in AM with an urge. 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 Constipation from Ozempic (for weight control), requiring Miralax to help control the constipation. 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 Lumbar laminectomy (L4-L5)-. PT-OP-C Subjective Start: 04/09/23 17:29 Freq: Status: Active Protocol: Document 07/16/23 08:22 LRN (Rec: 07/16/23 09:03 LRN [id number]) OP-PT Subjective Patient Comments Patient Comments States she had a bad night. Now feeling good, but IT Band is sensitive. Might have overstretched. States she is ready for discharge. She knows what she needs to do and can now get to toilet. Daily BMs with Mirolax. States her L hip pain is painful in morning, but after walking around ~10 minutes pain reduces to 1-2/10. Patient Questionnaires Pelvic Pain and Urgency/Frequency Patient Symptom Scale Pelvic Pain Score 6 OP-PT Pain Assessment Pain Assessment Grid Paper Pain Assessment Grid Completed Yes Location L Lateral lower leg Pain Location Details L posterolateral lower leg Intensity 2 Scale Used Numeric (0 - 10) Description- Other 1-2/10, lasts for no more than 10 minutes Pain Aggravating Factors Sitting L lateral thighs Pain Location Details Lateral thighs along IT Band. Intensity 3 Scale Used Numeric (0 - 10) Description- Other Often but light L buttock Pain Location Details L lateral buttock Intensity 4 Scale Used Numeric (0 - 10) Description Aching Description- Other Often more intense PT-OP-I Pelvic Floor Start: 04/09/23 17:29 Freq: Status: Active Protocol: Document 04/25/23 07:30 LRN (Rec: 04/25/23 08:16 LRN [id number]) Pelvic Floor Assessment Urine Other Urinary Symptoms Urge first in AM resulting in urinary leakage, no leakage during the day. Leakage Size Small Other Leakage Causes Rarely urinary leakage with big cough or sneeze. Nocturia 1-2 Pads Used In 24 Hours 0 Bowel Bowel Symptoms Constipation Bowel Movement Frequency daily [place] Stool Chart Type 1-7 4 Prolapse Cystocele Grade 1 Rectocele Grade 2 Perineal Descent Resting Absent Bearing Absent Contraction Ability Voluntary Contraction Weak Voluntary Relaxation Moderate Manual Muscle Testing Left 1 Manual Muscle Testing Right 0 Manual Muscle Testing Anterior 0 Manual Muscle Testing Posterior 1 Muscle Endurance (Seconds) 5 Number of Quick Contractions In 10 2 Seconds Comments Pelvic Floor Comments With Miralax BM's are now daily, otherwise normally every 2 days, before medications was every 2-3 days . PT-OP-J Posture/Palpation/Skin Start: 04/09/23 17:29 Freq: Status: Active Protocol: Document 04/25/23 07:30 LRN (Rec: 04/25/23 08:16 LRN [id number]) Posture Evaluation Position Standing T-Spine Posture Flattened L-Spine Posture Increased Lordosis Shoulder Posture (L) Elevated Pelvis Posture Anteriorly Tilted,(L) PSIS Posterior Knee Posture (L) Genu Valgus,(R) Genu Valgus Ankle/Foot Posture (L) Supinated,(R) Supinated Comments Posture Comments Increased lordosis is mild, dowagers hump. PT-OP-K Range of Motion Start: 04/09/23 17:29 Freq: Status: Active Protocol: Document 07/16/23 08:22 LRN (Rec: 07/16/23 09:03 LRN [id number]) Hip Goniometric Range of Motion Hip Right Passive Testing Position Semi-reclined Internal Rotation 35 External Rotation 40 Left Passive Testing Position Semi-reclined Internal Rotation 20 External Rotation 85 PT-OP-M Strength Start: 04/09/23 17:29 Freq: Status: Active Protocol: Document 04/25/23 07:30 LRN (Rec: 04/25/23 08:16 LRN [id number]) Trunk Strength Trunk Manual Muscle Testing Core Stabilization Abdominal doming. Not able to tighten her Transverse Abdominus muscle. Hip Strength Hip Manual Muscle Testing Right Flexion (L2) 5 Normal Abduction 5 Normal Adduction 5 Normal Internal Rotation 5 Normal Left Flexion (L2) 5 Normal Abduction 3 Fair Adduction 5 Normal Internal Rotation 3+ Fair+ PT-OP-Q Treatments Start: 04/09/23 17:29 Freq: Status: Active Protocol: Document 07/16/23 08:22 LRN (Rec: 07/16/23 09:03 LRN [id number]) Therapeutic Exercises Supine Exercises L hip ER/R hip IR Supine Exercise Name hip ER stretch Side bilateral Reps/Minutes 3' Comments ROM taken after stretch R hip ER stretch Supine Exercise Name hip ER stretch Side bilateral Reps/Minutes 3' Comments ROM taken after stretch Sitting Exercises Hip IR Sitting Exercise Name Hip IR strengthening Side bilateral Reps/Minutes Holding at top 1-2 secs. 10x3 with rest between. R hip ER stretch Sitting Exercise Name ankle over opp knee. Side bilateral Reps/Minutes 5' Other Exercises Transfer sit<>stand/Kegel/TA Other Exercise Name Transfer sit<>stand/TA/exhale. Reps/Minutes 6' Transfer sup<>sit Other Exercise Name TA tight/exhale with exertion Side right Reps/Minutes 6' Comments V cuing to coordinate. Self-Care/Home Management Treatment Activities Self-Care/Home Management Activities Issued & reviewed HEP: sitting hip IR strengthening PT-OP-T Assessment and Plan Start: 04/09/23 17:29 Freq: Status: Active Protocol: Document 07/16/23 08:22 LRN (Rec: 07/16/23 09:03 LRN [id number]) Physical Therapy Assessment Goals Two Impairment Urinary leakage in first AM walking to bathroom Short Term Goal (STG) Pt will be educated in delay urinary techinque. 04/30/23: Pt educated in delay urinary technique. STG Duration 1 wk-05/03/23 04/30/23: MET GOAL) Shelter Goal (LTG) Eliminate urinary leakage first in AM with an urge. 05/09/23: Pt having no leakage first in AM w/an urge. LTG Duration 12 wks-07/24/23 (05/09/23: MET GOAL) One Impairment Pt lacks an independent self care HEP. Short Term Goal (STG) Pt educated in proper transfers to lessen core abdominal pressure. 05/09/23: Pt educated in log roll transfer, coordinating breathwork to lessen core abdominal pressure with transfers. STG Duration 2 wks-05/10/23 (05/09/23: MET GOAL). Promotional Advertising Assistant Goal (LTG) Pt will be independent in a self care HEP for PF strengthening and hip/core mobility and strengthening exercises. 05/23/23: Indepth education on anatomy, pain, ex to promote pt awareness of core stab with activity. 05/28/23: HEP: LE roll in/outs /PF/breath. Indepth review of PF/Hip/Lumbar/Sciatic nerve anatomy, and effect on structures with exercise. 06/25/23: Pt educated in Kegel in isolation of TA. 07/16/23: HEP: Sit hip IR strengthening. LTG Duration 12 wks-07/24/23 (07/16/23: MET GOAL) Four Impairment LBP & L sciatic pain Shelter Goal (LTG) Decrease perception of LBP & L sciatic pain. 05/23/23: SI Belt-like strap for trial with pain reduction of 75%. 05/28/23: Sciatic/LBP rated 0 -4/10 with movement, 0/10 at rest. 06/20/23: HEP issued: L Gastroc and soleus stretch. 07/18/23: Pt feels her LBP/L sciatic pain onset is less. 06/26/23: No LBP, L Sciatic rated 0/10 (first in morning for 10 min is 5/10) LTG Duration 6 wks-06/14/22 (07/16/23: MET GOAL) Three Impairment Lacks awareness of proper PF contraction and core pressure management Short Term Goal (STG) Pt will be educated in core pressure management w/ADLs. 06/04/23: Pt educated in core pressure management for sit<> stand transfer. 06/11/23: Pt educated in core pressure management w/ADLS. STG Duration 4 wks-05/31/23 (06/11/23: MET GOAL) Promotional Advertising Assistant Goal (LTG) Pt will be able to perform a PF contraction in isolation of her substitute muscles. Pt will be able to tighten her TA. 05/28/23: Pt able to perform TA contraction. Noted not holding w/o cuing. 06/25/23: Pt reporting she can perform Kegel without TA tightening. 07/02/23: Pt able to perform TA contraction in isolation, but tends to hold breath. 07/09/23: Pt able to perform PF contraction in isolation and with breath. She is able to tighten her TA. She is not able to fully maintain a TA contraction while breathing . LTG Duration 12 wks-07/24/23 (07/09/23: MET GOAL) Assessment Summary Assessment Pt is ~6 months post-op lumbar surgery with L sciatic pain and initially had urinary urge incontinence. There is no change in her PUF score, but she no longer has episodes of incontinence because she is able to ambulate to the commode without leakage using the delay technique. Her L sciatic pain is less and she has learned how to move properly to avoid the pain and is working on improving her core strength to provide more stability to her low back/ pelvis. She feels confident to continue with her HEP to work towards decreasing onset of her LBP. The pt exhibits functional movements that might exacerbate her pain and if she is not able to improve her core stability PT in the future for stabilization and further education for proper movement would be appropriate. Physical Therapy Plan Discharge Physical Therapy Discharge Reasons Goals Met Discharge Comments See assessment above. Thank you for your referral.
== END 2023-07-17 10:40 | disposition home or self-care (01) ==
LOC: PHYS 08:15
PROVIDERS: Family Provider Nurse Practitioner; PCP Nurse Practitioner; Referring Provider Nurse Practitioner; Visit Provider Nurse Practitioner
DX: N95.2 Postmenopausal atrophic vaginitis (principal); M62.81 Muscle weakness (generalized); M25.659 Stiffness of unspecified hip, not elsewhere classified; M54.42 Lumbago with sciatica, left side
CPT/HCPCS: 97110; 97112; 97140; 97162; 97530; 97535

== ENCOUNTER → 2023-10-12 08:19 | Outpatient (CLI) | payer MEDICARE, OTHER, SELFPAY ==
[2023-03-18 13:10] VITALS: BMI 31.9
[2023-10-12 09:36] LABS: BUN Creatinine Ratio 27.9 (6-22); Blood Urea Nitrogen 19 mg/dL (7-17); Calcium 10.9 mg/dL (8.4-10.2); Carbon Dioxide 29 mmol/L (22-32); Chloride 104 mmol/L (98-107); Estimated Glomerular Filt Rate > 60 mL/min (>60); Glucose 103 mg/dL (80-110); HEMOLYSIS < 15 (0-50); Magnesium 2.1 mg/dL (1.6-2.3); Potassium 5.3 mmol/L (3.4-5.1); Sodium 138 mmol/L (137-145)
[2023-10-12 09:40] LABS: Albumin 4.3 g/dL (3.5-5.0); BUN Creatinine Ratio 29.2 (6-22); Blood Urea Nitrogen 19 mg/dL (7-17); Calcium 10.7 mg/dL (8.4-10.2); Carbon Dioxide 30 mmol/L (22-32); Chloride 103 mmol/L (98-107); Estimated Glomerular Filt Rate > 60 mL/min (>60); Glucose 102 mg/dL (80-110); HEMOLYSIS < 15 (0-50); Sodium 138 mmol/L (137-145)
[2023-10-12 09:54] LABS: Vitamin D 25 Hydroxy (D3) 80.7 ng/mL (30.0-100.0)
== END ==
PROVIDERS: Internal Medicine Endocrinology, Diabetes & Metabolism; Family Provider Nurse Practitioner; PCP Nurse Practitioner; Referring Provider Nurse Practitioner Family; Visit Provider Nurse Practitioner Family
DX: Z51.81 Encounter for therapeutic drug level monitoring (principal); Z79.899 Other long term (current) drug therapy; I48.91 Unspecified atrial fibrillation
CPT/HCPCS: 36415; 80048; 80069; 82306; 83735; 83970

== ENCOUNTER → 2023-11-06 11:47 | Outpatient (CLI) | payer MEDICARE, OTHER, SELFPAY ==
[2023-03-18 13:10] VITALS: BMI 31.9
--- NOTE | 2023-11-06 | DI.US.S_ITS ---
PROCEDURE: US THYROID INDICATIONS: Nontoxic multinodular goiter, primary hyperparathyroidism TECHNIQUE: Real-time scanning was performed of the thyroid gland, with image documentation. COMPARISON: [facility], [place], US THYROID, 02/26/2020, 11:16. FINDINGS: Thyroid: Right lobe measures 4.4 x 2.0 x 1.8 cm. Left lobe measures 3.5 x 1.4 x 1.3 cm. Isthmus measures 4 mm in thickness Echotexture is homogeneous. Nodule number: 1 Location: Right mid Size: 2.3 x 1.4 x 1.2 cm, previously 1.6 x 1.3 x 1.2 cm. Composition: Solid Echogenicity: Hypoechoic Shape: wider than tall. Margins: Smooth Echogenic foci: Punctate Total points: 7 ACR TI-RADS category: 5 Nodule number: 2 Location: Right inferior Size: 0.5 x 0.5 x 0.2 cm, previously 0.3 x 0.2 x 0.2 cm. Composition: Predominantly cystic Echogenicity: Hypoechoic Shape: wider than tall. Margins: Smooth Echogenic foci: None Total points: 3 ACR TI-RADS category: 3 Nodule number: 3 Location: Left mid Size: 0.5 x 0.4 x 0.4 cm, previously 0.6 x 0.5 x 0.3 cm. Composition: Predominantly cystic Echogenicity: Hypoechoic Shape: wider than tall. Margins: Smooth Echogenic foci: None Total points: 3 ACR TI-RADS category: 3 Nodule number: 4 Location: Left mid Size: 0.7 x 1.0 x 0.5 cm, previously 0.8 x 0.9 x 0.3 cm. Composition: Predominantly cystic Echogenicity: Hypoechoic Shape: wider than tall. Margins: Smooth Echogenic foci: Punctate Total points: 6 ACR TI-RADS category: 4 IMPRESSION: Stable thyroid nodules nodule 1 meets ACR criteria for FNA ACR TI-RADS definitions and recommendations: TI-RADS 1 (benign): 0 points. FNA not needed. TI-RADS 2 (not suspicious): 2 points. FNA not needed. TI-RADS 3 (mildly suspicious): 3 points. * FNA if 2.5 cm or larger, follow up if 1.5 cm or larger (at 1, 3, and 5 years). TI-RADS 4 (moderately suspicious): 4-6 points. * FNA if 1.5 cm or larger, follow up if 1 cm or larger (at 1, 2, 3, and 5 years). TI-RADS 5 (highly suspicious): 7 points or more. * FNA if 1 cm or larger, follow up if 0.5 cm or larger (every year for 5 years). 1. Dictated by: Juan Bonds M.D. on 11/06/2023 at 18:19 Approved by: Juan Bonds M.D. on 11/06/2023 at 18:25
--- NOTE | 2023-11-06 | DI.RAD.S_ITS ---
PROCEDURE: XR DEXA AXIAL SKELETON INDICATIONS: Nontoxic multinodular goiter, primary hyperparathyroidism COMPARISON: [facility], [place], XR DEXA AXIAL SKELETON, 10/23/2021, 14:39. FINDINGS: Lumbar Spine: Bone mineral density 1.079 g/cm2, T score 0.4. Left Hip: Bone mineral density 1.051 g/cm2, T score 0.9. Left Femoral Neck: Bone mineral density 0.906 g/cm2, T score 0.5. Right Hip: Bone mineral density 0.985 g/cm2, T score 0.3. Right Femoral Neck: Bone mineral density 0.92 for g/cm2, T score 0.7. Fracture Risk Calculation (when applicable): 10-year fracture risk of a major osteoporotic fracture without prior fracture 7.1%, with prior fracture 11% and of a hip fracture without prior fracture 0.6%, with prior fracture 0.8%. (T score greater or equal to -1.0 to: NORMAL) (T score from -1.1 to -2.4: OSTEOPENIA) (T score less than or equal to -2.5: OSTEOPOROSIS) IMPRESSION: No osteopenia or osteoporosis of the bilateral hips or the lumbar spine. Follow-up guidelines as follows: Osteoporosis: Consider a repeat DEXA and Vertebral Fracture Assessment (VFA) exam in 2 years or sooner if medically necessary, to reassess this patient's status. Osteopenia: Consider a repeat DEXA in 2-3 years to reassess this patient's status, or if there is a new clinical indication. Normal: Consider a repeat DEXA in 5 years or sooner, or if there is a new clinical indication. All treatment decisions require clinical judgment and consideration of individual patient factors, including patient preferences, comorbidities, previous drug use, risk factors not captured in the FRAX model (e.g., frailty, falls, vitamin D deficiency, increased bone turnover, interval significant decline in bone density ) and possible under- or over-estimation of fracture risk by FRAX. In addition, the NOF Guide recommends that FDA-approved medical therapies be considered in postmenopausal women and men age >= 50 years with a: * Hip or vertebral (clinical or morphometric) fracture * T-score of <=-2.5 at the spine or hip * Ten-year fracture probability by FRAX of >= 3% for hip fracture or >=20% for major osteoporotic fracture. People with diagnosed cases of osteoporosis or at high risk for fracture should have regular bone mineral density tests. For patients eligible for Medicare, routine testing is allowed once every 2 years. The testing frequency can be increased to one year for patients who have rapidly progressing disease, those who are receiving or discontinuing medical therapy to restore bone mass, or have additional risk factors. Dictated by: Aruna Randle M.D. on 11/06/2023 at 15:26 Approved by: Aruna Randle M.D. on 11/06/2023 at 15:27
== END ==
PROVIDERS: Family Provider Nurse Practitioner; PCP Nurse Practitioner; Referring Provider Internal Medicine Endocrinology, Diabetes & Metabolism; Visit Provider Internal Medicine Endocrinology, Diabetes & Metabolism
DX: E21.0 Primary hyperparathyroidism (principal); E04.2 Nontoxic multinodular goiter
CPT/HCPCS: 76536; 77080

== ENCOUNTER → 2024-01-07 12:20 | Outpatient (CLI) | payer MEDICARE, OTHER, SELFPAY ==
[2023-03-18 13:10] VITALS: BMI 31.9
--- NOTE | 2024-01-07 12:22 | DI.MRI.S_ITS ---
PROCEDURE: MR KNEE RT WO CON INDICATIONS: OSTEOARTHRITIS BILATERAL KNEES. Right knee pain TECHNIQUE: Noncontrast sagittal PD fast spin echo and T2 fast spin echo with fat saturation, sagittal 3-D FLASH with fat saturation; coronal T1 spin echo and PD fast spin echo with fat saturation, and axial PD fast spin echo with fat saturation through the knee. COMPARISON: [facility] [place], [place], XR KNEE 4+ VIEWS RIGHT, 07/31/2021, 15:23. FINDINGS: Image quality: Excellent Menisci: The medial meniscus is unremarkable. In the lateral meniscus, there is a radial tear involving the central portion of the posterior horn . There is additional complex tear of the lateral meniscus body, with a undersurface component of the inner margin, and a horizontal and vertical component at the junction of the anterior horn and the meniscus body (series 10, image 16). No extrusion of the lateral meniscus body. Cruciate ligaments: The anterior and posterior cruciate ligaments appear intact. Medial structures: The medial collateral ligament appears intact. The posterior oblique ligament, semimembranosus tendon insertions, oblique popliteal ligament, and meniscocapsular junction appear intact. Visualized portions of the pes anserinus tendons appear normal. No abnormal bursal fluid. Lateral structures: The lateral collateral ligament, long and short heads of the biceps femoris tendon appear intact. The popliteus tendon appears normal; the popliteofibular ligament appears intact. The posterosuperior and anteroinferior popliteomeniscal fascicles appear intact. The arcuate and fabellofibular ligaments appear intact, on either side of the lateral inferior geniculate artery. Iliotibial band appears normal. Anterior structures: The quadriceps and patellar tendons appear intact. Patellar alignment is normal. No femoral trochlear dysplasia or ventral trochlear prominence. No edema in the infrapatellar fat pad. Bones and cartilage: There is mild chondral irregularity in the median ridge of the patella, with mild subchondral marrow edema. Cartilage of the trochlea is well maintained. In the medial compartment, the cartilage is grossly well maintained. In the lateral compartment, there is high-grade chondral loss in the nonweightbearing portion of the femoral condyle. No acute fracture. Joint space: Small knee effusion. No popliteal cyst. Numerable small intra-articular bodies posterior to the distal PCL. Multiple small ganglion cyst about the proximal ACL. Small ganglion cysts with small intra-articular body anterior to the distal PCL. Moderate subcutaneous edema superficial to the patella tendon. IMPRESSION: 1. Complex tear of the lateral meniscus. 2. Moderate, lateral compartment predominant chondrosis. 3. Multiple small ganglion cysts about the intercondylar notch. Numerable small intra-articular bodies posterior to the distal PCL. Dictated by: Nadja Pino M.D. on 01/07/2024 at 23:00 Approved by: Nadja Pino M.D. on 01/07/2024 at 23:15
--- NOTE | 2024-01-07 12:22 | DI.MRI.S_ITS ---
PROCEDURE: MR KNEE LT WO CON INDICATIONS: OSTEOARTHRITIS BILATERAL KNEES. Left knee pain TECHNIQUE: Noncontrast sagittal PD fast spin echo and T2 fast spin echo with fat saturation, sagittal 3-D FLASH with fat saturation; coronal T1 spin echo and PD fast spin echo with fat saturation, and axial PD fast spin echo with fat saturation through the knee. COMPARISON: [facility], MR, MR KNEE RT WO CON, 01/07/2024, 12:30. FINDINGS: Image quality: Excellent. Menisci: In the medial meniscus, there is a horizontal tear of the meniscus body, extending to the tibial articular surface. No extrusion of the medial meniscus body. In the lateral meniscus, there is a small horizontal tear of the lateral meniscus body as well, extending to the femoral articular surface. No extrusion of the lateral meniscus body. Cruciate ligaments: The anterior and posterior cruciate ligaments appear intact. Medial structures: The medial collateral ligament appears intact. The posterior oblique ligament, semimembranosus tendon insertions, oblique popliteal ligament, and meniscocapsular junction appear intact. Visualized portions of the pes anserinus tendons appear normal. No abnormal bursal fluid. Lateral structures: The lateral collateral ligament, long and short heads of the biceps femoris tendon appear intact. The popliteus tendon appears normal; the popliteofibular ligament appears intact. The posterosuperior and anteroinferior popliteomeniscal fascicles appear intact. The arcuate and fabellofibular ligaments appear intact, on either side of the lateral inferior geniculate artery. Iliotibial band appears normal. Anterior structures: The quadriceps and patellar tendons appear intact. Patellar alignment is normal. No femoral trochlear dysplasia or ventral trochlear prominence. No edema in the infrapatellar fat pad. Bones and cartilage: Cartilage of the patellofemoral compartment is well maintained. Cartilage of the medial and lateral compartments are well maintained as well. No acute fracture. No marrow edema. Joint space: Small knee effusion. Trace popliteal cyst. Popliteal vasculature is unremarkable. Moderate subcutaneous edema superficial to the patellar tendon. No intra-articular body. IMPRESSION: 1. Tear of the medial and lateral meniscus body. 2. Cartilage of the left knee is grossly well maintained. 3. Trace popliteal cyst. Dictated by: Nadja Pino M.D. on 01/07/2024 at 23:15 Approved by: Nadja Pino M.D. on 01/07/2024 at 23:24
== END ==
LOC: MRI 12:20
PROVIDERS: Family Provider Nurse Practitioner; PCP Nurse Practitioner; Referring Provider Chiropractor; Visit Provider Chiropractor
DX: M94.261 Chondromalacia, right knee (principal); S83.271A Complex tear of lateral meniscus, current injury, right knee, initial encounter; M67.461 Ganglion, right knee; S83.242A Other tear of medial meniscus, current injury, left knee, initial encounter; S83.282A Other tear of lateral meniscus, current injury, left knee, initial encounter; M17.0 Bilateral primary osteoarthritis of knee; M25.561 Pain in right knee
CPT/HCPCS: 73721

== ENCOUNTER → 2024-01-27 12:16 | Outpatient (CLI) | payer MEDICARE, OTHER, SELFPAY ==
[2023-03-18 13:10] VITALS: BMI 31.9
[2024-01-27 13:57] LABS: BUN Creatinine Ratio 32.4 (6-22); Blood Urea Nitrogen 22 mg/dL (7-17); Carbon Dioxide 24 mmol/L (22-32); Chloride 104 mmol/L (98-107); Estimated Glomerular Filt Rate > 60 mL/min (>60); Glucose 115 mg/dL (80-110); HEMOLYSIS < 15 (0-50); Magnesium 1.9 mg/dL (1.6-2.3); Potassium 4.5 mmol/L (3.4-5.1); Sodium 137 mmol/L (137-145)
== END ==
LOC: LAB 12:18
PROVIDERS: Family Provider Nurse Practitioner; PCP Nurse Practitioner; Referring Provider Nurse Practitioner Family; Visit Provider Nurse Practitioner Family
DX: Z51.81 Encounter for therapeutic drug level monitoring (principal); Z79.899 Other long term (current) drug therapy; I48.91 Unspecified atrial fibrillation
CPT/HCPCS: 36415; 80048; 83735

== ENCOUNTER → 2024-02-26 10:36 | Outpatient (CLI) | payer MEDICARE, OTHER, SELFPAY ==
[2023-03-18 13:10] VITALS: BMI 31.9
[2024-02-26 14:11] LABS: Albumin 4.3 g/dL (3.5-5.0); Calcium 10.7 mg/dL (8.4-10.2)
[2024-02-26 18:48] LABS: Vitamin D 25 Hydroxy (D3) 73.9 ng/mL (30.0-100.0)
[2024-02-28 08:13] LABS: Parathyroid Hormone Int 67 pg/mL (15-65)
== END ==
PROVIDERS: Family Provider Nurse Practitioner; PCP Family Medicine; Referring Provider Internal Medicine Endocrinology, Diabetes & Metabolism; Visit Provider Internal Medicine Endocrinology, Diabetes & Metabolism
DX: E21.0 Primary hyperparathyroidism (principal)
CPT/HCPCS: 36415; 82040; 82306; 82310; 83970

== ENCOUNTER → 2024-04-04 08:25 | Outpatient (CLI) | payer MEDICARE, OTHER, SELFPAY ==
[2023-03-18 13:10] VITALS: BMI 31.9
[2024-04-04 10:40] LABS: Blood Urea Nitrogen 16 mg/dL (7-17); Calcium 11.1 mg/dL (8.4-10.2); Carbon Dioxide 27 mmol/L (22-32); Chloride 102 mmol/L (98-107); Estimated Glomerular Filt Rate > 60 mL/min (>60); Glucose 101 mg/dL (80-110); HEMOLYSIS < 15 (0-50); Magnesium 1.9 mg/dL (1.6-2.3); Potassium 4.7 mmol/L (3.4-5.1); Sodium 135 mmol/L (137-145)
[2024-04-07 08:11] LABS: Calcium 10.8 mg/dL (8.7-10.3); Parathyroid Hormone, Intact 52 pg/mL (15-65)
== END ==
PROVIDERS: Nurse Practitioner; Family Provider Family Medicine; PCP Family Medicine; Referring Provider Nurse Practitioner Family; Visit Provider Nurse Practitioner Family
DX: Z51.81 Encounter for therapeutic drug level monitoring (principal); Z79.899 Other long term (current) drug therapy; I48.91 Unspecified atrial fibrillation; E21.5 Disorder of parathyroid gland, unspecified; E83.52 Hypercalcemia
CPT/HCPCS: 36415; 80048; 82310; 83735; 83970

== ENCOUNTER → 2024-04-23 11:06 | Outpatient (CLI) | payer MEDICARE, OTHER, SELFPAY ==
[2023-03-18 13:10] VITALS: BMI 31.9
== END ==
PROVIDERS: Family Provider Family Medicine; PCP Family Medicine; Visit Provider Student in an Organized Health Care Education/Training Program
DX: R05.1 Acute cough (principal)
CPT/HCPCS: 87070

== ENCOUNTER 2024-05-26 10:45 | Outpatient (RCR) | payer MEDICARE, OTHER, SELFPAY ==
[2023-03-18 13:10] VITALS: BMI 31.9
--- NOTE | 2024-04-28 18:12 | PT.OIE ---
Current Diagnoses Pain in right knee (04/28/24) Pain in left knee (04/28/24) Complex tear of medial meniscus, current injury, left knee, initial encounter (04/28/24) Complex tear of lateral meniscus, current injury, right knee, initial encounter (04/28/24) Past Medical History (Last Reviewed 04/23/24 @ 11:38 by Zunilda Valles PA-C) Acute bacterial bronchitis Ankle pain, right Benign essential hypertension Central stenosis of spinal canal DDD (degenerative disc disease) Essential hypertension (09/05/10) Goiter History of CVA (cerebrovascular accident) History of CVA (cerebrovascular accident) without residual deficits History of malignant melanoma History of paroxysmal supraventricular tachycardia History of stroke Hypercalcemia Hyperlipidemia Irritable bowel syndrome (09/05/10) Lumbar nerve root impingement Mixed hyperlipidemia (09/05/10) Normal breast exam Obesity (BMI 30-39.9) Obesity (BMI 35.0-39.9 without comorbidity) Obstructive sleep apnea syndrome Parathyroid abnormality Periodic limb movement disorder (PLMD) Peripheral edema Primary hyperparathyroidism Scalp psoriasis Serum calcium elevated Snoring Status post cervical discectomy (09/03/16) Status post cervical spinal arthrodesis (09/03/16) Supraventricular tachycardia Tear of right infraspinatus tendon Tear of right supraspinatus tendon Traumatic arthropathy, right ankle and foot Vaginal atrophy Past Surgical History (Last Reviewed 04/23/24 @ 11:38 by Zunilda Valles PA-C) Cervical vertebral fusion History of bilateral salpingo-oophorectomy (BSO) S/P total abdominal hysterectomy and bilateral salpingo-oophorectomy Status post lumbar surgery Visit Care Team Role Provider Type Manuel Phan DO Family Provider Physician Primary Care Provider Specialty: Family Practice Address: [address] [place] [address], [address], [address] Email: [email or web address] - Private Location App Russ Ayon MD Attending Provider Non-Staff Referring Provider Specialty: Orthopedic Surgery Address: [address] [place], [place] [address], [address] Email: Physical Therapy Initial Evaluation PT-OP-A Visit Information Start: 04/05/24 14:53 Freq: Status: Active Protocol: Document 04/28/24 11:34 LRN (Rec: 04/28/24 12:29 LRN [id number]) Out-Patient Physical Therapy Visit Information Visit Information Visit Type Initial Evaluation Visit Start Time 11:34 Visit Stop Time 12:26 Visit Number 1 Evaluation Information Evaluation Date 04/28/24 Precautions Precautions Hx review: Latex Allergy, Strokes 01/2017 and 2018 with ongoing memory loss, lumbar laminectomy (L4-L5)-01/09, cervical laminectory (C5-C6-C7 )-2014, blood clotting condition controlled by meds, arthritis. PT-OP-B Current Condition Start: 04/05/24 14:53 Freq: Status: Active Protocol: Document 04/28/24 11:34 LRN (Rec: 04/28/24 12:29 LRN [id number]) Current Condition History of Current Condition Onset Date 2 months ago Current Complaints Janis knee pain, front/lat on R, front/lat on L, R>L pain. History of Current Condition 2 months ago lifting heavy suitcases up/down stairs and into cars resulting in R>L knee pain. MRI 01/07/24: shows tear of medial & lateral meniscus, trace popliteal cyst (see below). States having treatments of laser ( janis knees) and Red light therapy (janis knees/LB) has helped tremendously to reduce pain. Pt is rowing 2x/ week and uses home laser and red light therapy. Prior Treatments and Tests X-ray from other healthcare provider: R knee: tear of lateral meniscus, chondrosis of lateral compartment, multiple small ganglion cysts about the intercondylar notch, intra -articular bodies posterior to the distal PCL. L knee: tear of medial and lateral meniscus body, trace popliteal cyst. Developmental History Developmental History Hx: Lumbar laminectomy (L4-L5) -01/09, good until Oct and went back to rowing and has had sciatica pain since and then onset of bilateral knee pain. Treatment Goals Patient/Caregiver Goals Pt goals: - HEP to help manage her knee pain. Personal Factors Other Personal Factors That May Effect Per past records and pt report Therapy/Recovery : Arthritis, A. Fib, Stroke in 01/2017, 04/2019, with ongoing memory loss. Parathyroid disease, Lumbar laminectomy (L4-L5)-, f/b LBP w/sciatica bilaterally. PT-OP-C Subjective Start: 04/05/24 14:53 Freq: Status: Active Protocol: Document 04/28/24 11:34 LRN (Rec: 04/28/24 12:29 LRN [id number]) Patient Questionnaires Lower Extremity Functional Scale LEFS Score 61 LEFS Impairment 20 to 39% Impaired (Score 48- 62) OP-PT Pain Assessment Pain Assessment Grid Paper Pain Assessment Grid Completed Yes Location L knee Pain Location Details Posterior and lateral Intensity 1 Description Aching Frequency Intermittent Pain Alleviating Factors Darkened Room Other Pain Alleviating Factors Laser 3x/wk, and Red light therapy 2-3x/week. Salve pain medication. R knee Pain Location Details Anterior and lateral Intensity 1 Scale Used Numeric (0 - 10) Description Aching Frequency Intermittent Pain Alleviating Factors Cold,Medication Other Pain Alleviating Factors Laser 3x/wk, and Red light therapy 2-3x/week. Salve pain medication. PT-OP-H Neuro Start: 04/05/24 14:53 Freq: Status: Active Protocol: Document 04/28/24 11:34 LRN (Rec: 04/28/24 12:29 LRN [id number]) Sensation Evaluation Gross Sensation Gross Sensation WNL PT-OP-J Posture/Palpation/Skin Start: 04/05/24 14:53 Freq: Status: Active Protocol: Document 04/28/24 11:34 LRN (Rec: 04/28/24 12:29 LRN [id number]) Posture Evaluation Position Standing Head/C-Spine Posture Side Bent Right L-Spine Posture Increased Lordosis Shoulder Posture (L) Elevated Pelvis Posture Neutral Knee Posture (L) Genu Valgus,(R) Genu Valgus Ankle/Foot Posture (L) Calcaneal Eversion Comments Posture Comments Dowagers hump. Palpation Assessment Location L hip Palpation Location Greater trochanter Palpation Findings Tenderness R knee Palpation Location anterolateral above and below the joint, and bulge posteriorly. Palpation Findings Tenderness L knee Palpation Location anterolateral knee tibial plateu, point specific. Palpation Details Pain with palpation. PT-OP-K Range of Motion Start: 04/05/24 14:53 Freq: Status: Active Protocol: Document 04/28/24 11:34 LRN (Rec: 04/28/24 12:29 LRN [id number]) Hip Goniometric Range of Motion Hip Right Passive Testing Position Supine Internal Rotation 45 External Rotation 50 Left Passive Testing Position Supine Internal Rotation 20 External Rotation 85 Knee Goniometric Range of Motion Knee Right Patient Position Supine Comments AROM: 0-128 deg's Left Patient Position Supine Comments AROM: 0-130 deg's Ankle and Foot Goniometric Range of Motion Ankle and Foot Right Active Ankle/Foot ROM WFL Yes Testing Position Sitting Left Active Ankle/Foot ROM WFL No Testing Position Sitting Comments Ankle eversion is decreased ~ 50% compared to right ankle IV . PT-OP-M Strength Start: 04/05/24 14:53 Freq: Status: Active Protocol: Document 04/28/24 11:34 LRN (Rec: 04/28/24 12:29 LRN [id number]) Knee Strength Knee Manual Muscle Testing Right Comments Strength is 5/5. Left Comments Strength is 5/5. Ankle/Foot Strength Ankle and Foot Manual Muscle Testing Right Comments Strength is 5/5 Left Comments Strength is 5/5 PT-OP-Q Treatments Start: 04/05/24 14:53 Freq: Status: Active Protocol: Document 04/28/24 11:34 LRN (Rec: 04/28/24 18:04 LRN [id number]) Self-Care/Home Management Treatment Education Other Education Discussed results of evaluation, goals, treatment, and plan of care (POC) with pt , attendance/cx/dns policy; pt agreeable to evaluation, goals, treatment, attendance/ cx/dns policy and POC. Reviewed some of the pt's current HEP, but due to the volume of ex's chose one exer for the pt to focus on, but for her to continue with her regular program of exercises. Activities Self-Care/Home Management Activities HEP: Reissued pt's current ankle AROM ex with modificationi or ankle IV ROM for L ankle and EV ROM for R ankle. PT-OP-T Assessment and Plan Start: 04/05/24 14:53 Freq: Status: Active Protocol: Document 04/28/24 11:34 LRN (Rec: 04/28/24 12:29 LRN [id number]) Physical Therapy Assessment Rehab Potential Rehabilitation Potential Good Evaluation Complexity Number of Personal Factors/Comorbidities 3 or More Impairments Impairments Pain,Posture,ROM,Soft Tissue Mobility Goals Two Impairment L ankle decreased mobility with inversion. Fpc Goal (LTG) HEP to improve L ankle mobility in order to improve gait mechanics to normalize stress on her janis valgus knees . LTG Duration 06/12/24 One Impairment Pt lacks appropriate HEP to manage her janis knee pain. Short Term Goal (STG) Review with pt proper body mechanics for ADLs and for exercise. 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 04/28/24: HEP: Reissued pt's current ankle AROM ex with modificationi or ankle IV ROM for L ankle and EV ROM for R ankle. LTG Duration 06/12/24 progressed 04/28/24. Assessment Summary Assessment Pt is a 78 yo female who presents with bilateral knee pain and c/o bilateral sciatic pain and requesting a home exercise program (HEP) to help her limit onset of janis knee pain. She brings in an X-rays showing positioning of knees with R femur medially shifted on Tib due to chondrosis laterally (L knee looks good). She has decreased L ankle mobility for inversion causing her to walk with dysfunction. Functional score of LEFS Questionnaire is 61, indicating 20-39% impairment ( score 48-62). Pain in janis knees is 1/10 and seh has tenderness of L IT band at greater trochanter and lateral knee. Decreased L hip IR supine mobility, but stretch to L piriformis did not demonstrate restricted mobility, and R hip ER mobility > left. Knee mobility is normal bilaterally . Posture shows increased lordosis and a dowagers hump. Bilateral knee & hip strength is normal; hip strength not assessed due to time contraints. Pt may choose to have quick review of her HEP and based on availability of scheduling and the holidays, she may need 2- 6 wks to achieve her goals as stated above. The pt will benefit from skilled physcial therapy to place her on a HEP to help her manage her bilateral knee pain. Physical Therapy Plan Frequency and Duration Frequency of Treatment 2x/Week Duration of treatment (weeks) 6 Plan of Care Start Date 04/28/24 Plan of Care End Date 06/12/24 Therapeutic Interventions Therapeutic Interventions Gait Training,Home Exercise Program,Manual Therapy, Neuromuscular Re-education, Self-Care/Home Management,Soft Tissue Mobilization, Therapeutic Activities, Therapeutic Exercises Next Visit Focus/Plan Next Note Type Treatment Note Next Visit Plan DC to HEP when pt is independent and consistent with her HEP. Next: Assess janis hip strength and issue HEP as needed in areas of deficit. Review pt's current HEP and modify as needed to manage her janis hip pain. Core stabilization. Pt education in proper body mechanics and self care for pain management and in log roll transfers. HEP: L ankle IV stretching and strengthening if needed, and ex's for janis Sciatic pain.
--- NOTE | 2024-04-30 10:43 | PT.OTN ---
Current Diagnoses Pain in right knee (04/30/24) Pain in left knee (04/30/24) Complex tear of medial meniscus, current injury, left knee, initial encounter (04/30/24) Complex tear of lateral meniscus, current injury, right knee, initial encounter (04/30/24) Physical Therapy Treatment Note PT-OP-A Visit Information Start: 04/05/24 14:53 Freq: Status: Active Protocol: Document 04/30/24 09:44 LRN (Rec: 04/30/24 10:43 LRN [id number]) Out-Patient Physical Therapy Visit Information Visit Information Visit Type Treatment Note Visit Start Time 09:44 Visit Stop Time 10:28 Visit Number 07/13 Evaluation Information Evaluation Date 04/28/24 Precautions Precautions Hx review: Latex Allergy, Strokes 01/2017 and 2018 with ongoing memory loss, lumbar laminectomy (L4-L5)-01/09, cervical laminectory (C5-C6-C7 )-2014, blood clotting condition controlled by meds, arthritis. PT-OP-B Current Condition Start: 04/05/24 14:53 Freq: Status: Active Protocol: Document 04/28/24 11:34 LRN (Rec: 04/28/24 12:29 LRN [id number]) Current Condition History of Current Condition Onset Date 2 months ago Current Complaints Deandre knee pain, front/lat on R, front/lat on L, R>L pain. History of Current Condition 2 months ago lifting heavy suitcases up/down stairs and into cars resulting in R>L knee pain. MRI 01/07/24: shows tear of medial & lateral meniscus, trace popliteal cyst (see below). States having treatments of laser ( deandre knees) and Red light therapy (deandre knees/LB) has helped tremendously to reduce pain. Pt is rowing 2x/ week and uses home laser and red light therapy. Prior Treatments and Tests X-ray from other healthcare provider: R knee: tear of lateral meniscus, chondrosis of lateral compartment, multiple small ganglion cysts about the intercondylar notch, intra -articular bodies posterior to the distal PCL. L knee: tear of medial and lateral meniscus body, trace popliteal cyst. Developmental History Developmental History Hx: Lumbar laminectomy (L4-L5) -01/09, good until Oct and went back to rowing and has had sciatica pain since and then onset of bilateral knee pain. Treatment Goals Patient/Caregiver Goals Pt goals: - HEP to help manage her knee pain. Personal Factors Other Personal Factors That May Effect Per past records and pt report Therapy/Recovery : Arthritis, A. Fib, Stroke in 01/2017, 04/2019, with ongoing memory loss. Parathyroid disease, Lumbar laminectomy (L4-L5)-, f/b LBP w/sciatica bilaterally. PT-OP-C Subjective Start: 04/05/24 14:53 Freq: Status: Active Protocol: Document 04/30/24 09:44 LRN (Rec: 04/30/24 10:43 LRN [id number]) OP-PT Subjective Patient Comments Patient Comments States she thinks the referral is for 2 visits, but is willing to attend more therapy if needed (pt informed the referral was for max 24 visits ). PT-OP-H Neuro Start: 04/05/24 14:53 Freq: Status: Active Protocol: Document 04/28/24 11:34 LRN (Rec: 04/28/24 12:29 LRN [id number]) Sensation Evaluation Gross Sensation Gross Sensation WNL PT-OP-J Posture/Palpation/Skin Start: 04/05/24 14:53 Freq: Status: Active Protocol: Document 04/28/24 11:34 LRN (Rec: 04/28/24 12:29 LRN [id number]) Posture Evaluation Position Standing Head/C-Spine Posture Side Bent Right L-Spine Posture Increased Lordosis Shoulder Posture (L) Elevated Pelvis Posture Neutral Knee Posture (L) Genu Valgus,(R) Genu Valgus Ankle/Foot Posture (L) Calcaneal Eversion Comments Posture Comments Dowagers hump. Palpation Assessment Location L hip Palpation Location Greater trochanter Palpation Findings Tenderness R knee Palpation Location anterolateral above and below the joint, and bulge posteriorly. Palpation Findings Tenderness L knee Palpation Location anterolateral knee tibial plateu, point specific. Palpation Details Pain with palpation. PT-OP-K Range of Motion Start: 04/05/24 14:53 Freq: Status: Active Protocol: Document 04/28/24 11:34 LRN (Rec: 04/28/24 12:29 LRN [id number]) Hip Goniometric Range of Motion Hip Right Passive Testing Position Supine Internal Rotation 45 External Rotation 50 Left Passive Testing Position Supine Internal Rotation 20 External Rotation 85 Knee Goniometric Range of Motion Knee Right Patient Position Supine Comments AROM: 0-128 deg's Left Patient Position Supine Comments AROM: 0-130 deg's Ankle and Foot Goniometric Range of Motion Ankle and Foot Right Active Ankle/Foot ROM WFL Yes Testing Position Sitting Left Active Ankle/Foot ROM WFL No Testing Position Sitting Comments Ankle eversion is decreased ~ 50% compared to right ankle IV . PT-OP-M Strength Start: 04/05/24 14:53 Freq: Status: Active Protocol: Document 04/30/24 09:44 LRN (Rec: 04/30/24 10:43 LRN [id number]) Hip Strength Hip Manual Muscle Testing Right Abduction 2 Poor Comments Strength is 5/5 except as indicated above. R hip AD strength limited by hip AB pain. Left Extension (S1) 4 Good Adduction 1 Trace Comments Strength is 5/5 except as indicated above. Hip Ext causes LB/hip pain PT-OP-Q Treatments Start: 04/05/24 14:53 Freq: Status: Active Protocol: Document 04/30/24 09:44 LRN (Rec: 04/30/24 10:43 LRN [id number]) Therapeutic Exercises Supine Exercises Hip AB Supine Exercise Name ankle inward and tried knees inward. Side bilateral Reps/Minutes 10' Comments Pt able to perform 3-4 reps before onset of discomfort L hip. Sitting Exercises Hip ER strengtehning Sitting Exercise Name Foot swings inward Side bilateral Reps/Minutes 7' L ankle EV strengthening Sitting Exercise Name AAROM ankle EV strengthening. Side left Resistance Pt moves slow. Reps/Minutes 10 SH x 15, 1-2 SH x 15. Comments Extra time taken to deter max tolerated exercise L ankle EV stretch Sitting Exercise Name Ankle EV stretch - pt researching on phone her chiropractor that gave eqp Side left Equipment Used Belt Reps/Minutes 13' Comments Extra time taken to deter best equip and position for marbella stretch. Gait Training Gait Activity Proper gait Description Limiting L foot AB/EV during swing through phase. Distance/Duration 4' Treatment Focus Normalizing gait mechanics Comments Pt EV's L foot on toe off > swing through phase. Self-Care/Home Management Treatment Education Other Education Brief review of what pt brought to therapy today and her treatment plan. Activities Self-Care/Home Management Activities Pt has hip ER strengthening already. PT-OP-T Assessment and Plan Start: 04/05/24 14:53 Freq: Status: Active Protocol: Document 04/30/24 09:44 LRN (Rec: 04/30/24 10:43 LRN [id number]) Physical Therapy Assessment Goals Two Impairment L ankle decreased mobility with inversion. 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 LTG Duration 06/12/24 One Impairment Pt lacks appropriate HEP to manage her deandre knee pain. Short Term Goal (STG) Review with pt proper body mechanics for ADLs and for exercise. STG Duration 05/15/24 Continuous Process Coffee Roaster Goal (LTG) Pt will be independent in a self care HEP of mobility and strength ex's of core, hip, knee and ankle ROM and mobility ex's to manage her bilateral knee/sciatic pain. 04/28/24: HEP: Reissued pt's current ankle AROM ex with modificationi or ankle IV ROM for L ankle and EV ROM for R ankle. LTG Duration 06/12/24 progressed 04/28/24. Assessment Summary Assessment 78 yo female with deandre knee pain due to meniscus injury and jt degeneration, deandre sciatic pain (L>R) w/hip weakness due to pain, dec'd left ankle IV mobility causing EV during toe off->swing through phase, and requesting HEP. Today the pt was shown L ankle stretch and strengthening that took excessive amount of time due to pt confusion with exercise. Poor tolerance to hip strengthenig; therefore futher assessment to get pt an ex that will work for her hips. Physical Therapy Plan Frequency and Duration Frequency of Treatment 2x/Week Duration of treatment (weeks) 6 Plan of Care Start Date 04/28/24 Plan of Care End Date 06/12/24 Next Visit Focus/Plan Next Note Type Treatment Note Next Visit Plan DC to HEP when pt is independent and consistent with her HEP. Next: Issue HEP of hip ADstrengthening that pt can tolerated for hip AB/AD, extension, ER, IT Band [employer]. Per referral, also deandre knee VMO strengthening. Monitor B knee ROM/strength. Review pt's current HEP and modify as needed to manage her deandre hip pain. Core stabilization. Pt education in proper body mechanics and self care for pain management and in log roll transfers. HEP: L ankle IV stretching and strengthening, and ex's for deandre Sciatic pain (hip AB/AD, extension, ER, IT Band Stretch ).
--- NOTE | 2024-05-05 12:35 | PT.OTN ---
Current Diagnoses Pain in right knee (05/05/24) Pain in left knee (05/05/24) Complex tear of medial meniscus, current injury, left knee, initial encounter (05/05/24) Complex tear of lateral meniscus, current injury, right knee, initial encounter (05/05/24) Physical Therapy Treatment Note PT-OP-A Visit Information Start: 04/05/24 14:53 Freq: Status: Active Protocol: Document 05/05/24 11:33 LRN (Rec: 05/05/24 12:35 LRN [id number]) Out-Patient Physical Therapy Visit Information Visit Information Visit Type Treatment Note Visit Start Time 11:33 Visit Stop Time 12:19 Visit Number 08/10 Evaluation Information Evaluation Date 04/28/24 Precautions Precautions Hx review: Latex Allergy, Strokes 01/2017 and 2018 with ongoing memory loss, lumbar laminectomy (L4-L5)-01/09, cervical laminectory (C5-C6-C7 )-2014, blood clotting condition controlled by meds, arthritis. PT-OP-B Current Condition Start: 04/05/24 14:53 Freq: Status: Active Protocol: Document 04/28/24 11:34 LRN (Rec: 04/28/24 12:29 LRN [id number]) Current Condition History of Current Condition Onset Date 2 months ago Current Complaints Deandre knee pain, front/lat on R, front/lat on L, R>L pain. History of Current Condition 2 months ago lifting heavy suitcases up/down stairs and into cars resulting in R>L knee pain. MRI 01/07/24: shows tear of medial & lateral meniscus, trace popliteal cyst (see below). States having treatments of laser ( deandre knees) and Red light therapy (deandre knees/LB) has helped tremendously to reduce pain. Pt is rowing 2x/ week and uses home laser and red light therapy. Prior Treatments and Tests X-ray from other healthcare provider: R knee: tear of lateral meniscus, chondrosis of lateral compartment, multiple small ganglion cysts about the intercondylar notch, intra -articular bodies posterior to the distal PCL. L knee: tear of medial and lateral meniscus body, trace popliteal cyst. Developmental History Developmental History Hx: Lumbar laminectomy (L4-L5) -01/09, good until Feb and went back to rowing and has had sciatica pain since and then onset of bilateral knee pain. Treatment Goals Patient/Caregiver Goals Pt goals: - HEP to help manage her knee pain. Personal Factors Other Personal Factors That May Effect Per past records and pt report Therapy/Recovery : Arthritis, A. Fib, Stroke in 01/2017, 04/2019, with ongoing memory loss. Parathyroid disease, Lumbar laminectomy (L4-L5)-, f/b LBP w/sciatica bilaterally. PT-OP-C Subjective Start: 04/05/24 14:53 Freq: Status: Active Protocol: Document 05/05/24 11:33 LRN (Rec: 05/05/24 12:35 LRN [id number]) OP-PT Subjective Patient Comments Patient Comments Brought in HEP for review. PT-OP-H Neuro Start: 04/05/24 14:53 Freq: Status: Active Protocol: Document 04/28/24 11:34 LRN (Rec: 04/28/24 12:29 LRN [id number]) Sensation Evaluation Gross Sensation Gross Sensation WNL PT-OP-J Posture/Palpation/Skin Start: 04/05/24 14:53 Freq: Status: Active Protocol: Document 04/28/24 11:34 LRN (Rec: 04/28/24 12:29 LRN [id number]) Posture Evaluation Position Standing Head/C-Spine Posture Side Bent Right L-Spine Posture Increased Lordosis Shoulder Posture (L) Elevated Pelvis Posture Neutral Knee Posture (L) Genu Valgus,(R) Genu Valgus Ankle/Foot Posture (L) Calcaneal Eversion Comments Posture Comments Dowagers hump. Palpation Assessment Location L hip Palpation Location Greater trochanter Palpation Findings Tenderness R knee Palpation Location anterolateral above and below the joint, and bulge posteriorly. Palpation Findings Tenderness L knee Palpation Location anterolateral knee tibial plateu, point specific. Palpation Details Pain with palpation. PT-OP-K Range of Motion Start: 04/05/24 14:53 Freq: Status: Active Protocol: Document 04/28/24 11:34 LRN (Rec: 04/28/24 12:29 LRN [id number]) Hip Goniometric Range of Motion Hip Right Passive Testing Position Supine Internal Rotation 45 External Rotation 50 Left Passive Testing Position Supine Internal Rotation 20 External Rotation 85 Knee Goniometric Range of Motion Knee Right Patient Position Supine Comments AROM: 0-128 deg's Left Patient Position Supine Comments AROM: 0-130 deg's Ankle and Foot Goniometric Range of Motion Ankle and Foot Right Active Ankle/Foot ROM WFL Yes Testing Position Sitting Left Active Ankle/Foot ROM WFL No Testing Position Sitting Comments Ankle eversion is decreased ~ 50% compared to right ankle IV . PT-OP-M Strength Start: 04/05/24 14:53 Freq: Status: Active Protocol: Document 04/30/24 09:44 LRN (Rec: 04/30/24 10:43 LRN [id number]) Hip Strength Hip Manual Muscle Testing Right Abduction 2 Poor Comments Strength is 5/5 except as indicated above. R hip AD strength limited by hip AB pain. Left Extension (S1) 4 Good Adduction 1 Trace Comments Strength is 5/5 except as indicated above. Hip Ext causes LB/hip pain PT-OP-Q Treatments Start: 04/05/24 14:53 Freq: Status: Active Protocol: Document 05/05/24 11:33 LRN (Rec: 05/05/24 12:35 LRN [id number]) Therapeutic Exercises Supine Exercises Hip AB Supine Exercise Name Assisted hip AB w/Knees pointing straight ahead Side bilateral Reps/Minutes 7' Comments Pt able to perform 8 reps before sudden onset of L SIJ & R upper back pain. Sitting Exercises L ankle IV/R ankle EV Side bilateral Reps/Minutes 7' Comments Extra time needed to determine direction of mvmt and ex. Standing Exercises Sit<>Stand Reps/Minutes 10x Other Exercises IT BAnd stretch Other Exercise Name Attempted bilaterally Reps/Minutes 3' Comments Pt not able to perform due to L sciatic pain. REview of HEP. Reps/Minutes 27' Comments modify as needed to manage her deandre hip pain PT-OP-T Assessment and Plan Start: 04/05/24 14:53 Freq: Status: Active Protocol: Document 05/05/24 11:33 LRN (Rec: 05/05/24 12:35 LRN [id number]) Physical Therapy Assessment Goals Two Impairment L ankle decreased mobility with inversion. Obstetrics Technician Goal (LTG) HEP to improve L ankle mobility in order to improve gait mechanics to normalize stress on her deandre valgus knees . LTG Duration 06/12/24 One Impairment Pt lacks appropriate HEP to manage her deandre knee pain. Short Term Goal (STG) Review with pt proper body mechanics for ADLs and for exercise. STG Duration 05/15/24 Obstetrics Technician Goal (LTG) Pt will be independent in a self care HEP of mobility and strength ex's of core, hip, knee and ankle ROM and mobility ex's to manage her bilateral knee/sciatic pain. 04/28/24: HEP: Reissued pt's current ankle AROM ex with modificationi or ankle IV ROM for L ankle and EV ROM for R ankle. LTG Duration 06/12/24 progressed 04/28/24. Assessment Summary Assessment Pt did not tolerate standing IT band stretch from her previous HEP and supine hip AB due to onset of L SIJ pain. She had pain on sit>mining helper R thoracic paraspinals. Pt happy with her modification of her HEP to place focus on ex' s of her knee strengthening and including her hips and ankles. Pt encouraged to use ice for pain management when having L SIJ pain. Physical Therapy Plan Frequency and Duration Frequency of Treatment 2x/Week Duration of treatment (weeks) 6 Plan of Care Start Date 04/28/24 Plan of Care End Date 06/12/24 Next Visit Focus/Plan Next Note Type Treatment Note Next Visit Plan DC to HEP when pt is independent and consistent with her HEP. Next: (caution L SIJ pain sudden onset possible with ex) , Issue best tolerated HEP of hip AD strengthening, extension, & ER. Tolerated IT Band Stretch. Per referral, also deandre knee VMO strengthening. Monitor B knee ROM/strength. Core stabilization. Pt review of proper body mechanics and self care for pain management and in log roll transfers. HEP: L ankle IV stretching and strengthening, and ex's for deandre Sciatic pain (hip AB/AD, extension, ER, IT Band Stretch ).
--- NOTE | 2024-05-07 10:44 | PT.OTN ---
Current Diagnoses Pain in right knee (05/07/24) Pain in left knee (05/07/24) Complex tear of medial meniscus, current injury, left knee, initial encounter (05/07/24) Complex tear of lateral meniscus, current injury, right knee, initial encounter (05/07/24) Physical Therapy Treatment Note PT-OP-A Visit Information Start: 04/05/24 14:53 Freq: Status: Active Protocol: Document 05/07/24 09:53 LRN (Rec: 05/07/24 10:43 LRN [id number]) Out-Patient Physical Therapy Visit Information Visit Information Visit Type Treatment Note Visit Start Time 09:53 Visit Stop Time 10:31 Visit Number 09/10 PT-OP-B Current Condition Start: 04/05/24 14:53 Freq: Status: Active Protocol: Document 04/28/24 11:34 LRN (Rec: 04/28/24 12:29 LRN [id number]) Current Condition History of Current Condition Onset Date 2 months ago Current Complaints Kaitlynn knee pain, front/lat on R, front/lat on L, R>L pain. History of Current Condition 2 months ago lifting heavy suitcases up/down stairs and into cars resulting in R>L knee pain. MRI 01/07/24: shows tear of medial & lateral meniscus, trace popliteal cyst (see below). States having treatments of laser ( kaitlynn knees) and Red light therapy (kaitlynn knees/LB) has helped tremendously to reduce pain. Pt is rowing 2x/ week and uses home laser and red light therapy. Prior Treatments and Tests X-ray from other healthcare provider: R knee: tear of lateral meniscus, chondrosis of lateral compartment, multiple small ganglion cysts about the intercondylar notch, intra -articular bodies posterior to the distal PCL. L knee: tear of medial and lateral meniscus body, trace popliteal cyst. Developmental History Developmental History Hx: Lumbar laminectomy (L4-L5) -01/09, good until Feb and went back to rowing and has had sciatica pain since and then onset of bilateral knee pain. Treatment Goals Patient/Caregiver Goals Pt goals: - HEP to help manage her knee pain. Personal Factors Other Personal Factors That May Effect Per past records and pt report Therapy/Recovery : Arthritis, A. Fib, Stroke in 01/2017, 04/2019, with ongoing memory loss. Parathyroid disease, Lumbar laminectomy (L4-L5)-, f/b LBP w/sciatica bilaterally. PT-OP-C Subjective Start: 04/05/24 14:53 Freq: Status: Active Protocol: Document 05/07/24 09:53 LRN (Rec: 05/07/24 10:43 LRN [id number]) OP-PT Subjective Patient Comments Patient Comments [place] bad until yesterday started to feel better. Did icing and massage and stretching. No rowing today. Back feels tight today. Hasn 't slept well because of indigestion and LBP, states her BP/HR is okay, she monitors it. PT-OP-H Neuro Start: 04/05/24 14:53 Freq: Status: Active Protocol: Document 04/28/24 11:34 LRN (Rec: 04/28/24 12:29 LRN [id number]) Sensation Evaluation Gross Sensation Gross Sensation WNL PT-OP-J Posture/Palpation/Skin Start: 04/05/24 14:53 Freq: Status: Active Protocol: Document 04/28/24 11:34 LRN (Rec: 04/28/24 12:29 LRN [id number]) Posture Evaluation Position Standing Head/C-Spine Posture Side Bent Right L-Spine Posture Increased Lordosis Shoulder Posture (L) Elevated Pelvis Posture Neutral Knee Posture (L) Genu Valgus,(R) Genu Valgus Ankle/Foot Posture (L) Calcaneal Eversion Comments Posture Comments Dowagers hump. Palpation Assessment Location L hip Palpation Location Greater trochanter Palpation Findings Tenderness R knee Palpation Location anterolateral above and below the joint, and bulge posteriorly. Palpation Findings Tenderness L knee Palpation Location anterolateral knee tibial plateu, point specific. Palpation Details Pain with palpation. PT-OP-K Range of Motion Start: 04/05/24 14:53 Freq: Status: Active Protocol: Document 04/28/24 11:34 LRN (Rec: 04/28/24 12:29 LRN [id number]) Hip Goniometric Range of Motion Hip Right Passive Testing Position Supine Internal Rotation 45 External Rotation 50 Left Passive Testing Position Supine Internal Rotation 20 External Rotation 85 Knee Goniometric Range of Motion Knee Right Patient Position Supine Comments AROM: 0-128 deg's Left Patient Position Supine Comments AROM: 0-130 deg's Ankle and Foot Goniometric Range of Motion Ankle and Foot Right Active Ankle/Foot ROM WFL Yes Testing Position Sitting Left Active Ankle/Foot ROM WFL No Testing Position Sitting Comments Ankle eversion is decreased ~ 50% compared to right ankle IV . PT-OP-M Strength Start: 04/05/24 14:53 Freq: Status: Active Protocol: Document 04/30/24 09:44 LRN (Rec: 04/30/24 10:43 LRN [id number]) Hip Strength Hip Manual Muscle Testing Right Abduction 2 Poor Comments Strength is 5/5 except as indicated above. R hip AD strength limited by hip AB pain. Left Extension (S1) 4 Good Adduction 1 Trace Comments Strength is 5/5 except as indicated above. Hip Ext causes LB/hip pain PT-OP-Q Treatments Start: 04/05/24 14:53 Freq: Status: Active Protocol: Document 05/07/24 09:53 LRN (Rec: 05/07/24 10:43 LRN [id number]) Therapeutic Exercises Supine Exercises Core Kaitlynn rot strengthening Supine Exercise Name Hands to ceiling and holding elbows. Side bilateral Reps/Minutes 23' Comments Much extra time taken to get correct mvmt w/breath and Trunk rot/TA tighten Sitting Exercises Kaitlynn LAQ Side bilateral Reps/Minutes 10x Standing Exercises Shallow Squats Standing Exercise Name 0-40 deg squats Side bilateral Equipment Used small ball Reps/Minutes 30x & 30x with ball squeezing Comments Cued for core tight pulling in ribcage & belly button and proture Manual Therapy Treatment Consent Patient gave verbal consent for manual Yes treatment Soft Tissue Mobilization R ankle Body Location R ankle Mobilization Type Sustained Pressure Comments To improve R ankle EV/L ankle IV PT-OP-T Assessment and Plan Start: 04/05/24 14:53 Freq: Status: Active Protocol: Document 05/07/24 09:53 LRN (Rec: 05/07/24 10:43 LRN [id number]) Physical Therapy Assessment Goals Two Impairment L ankle decreased mobility with inversion. Manager Intel Goal (LTG) HEP to improve L ankle mobility in order to improve gait mechanics to normalize stress on her kaitlynn valgus knees . LTG Duration 06/12/24 One Impairment Pt lacks appropriate HEP to manage her kaitlynn knee pain. Short Term Goal (STG) Review with pt proper body mechanics for ADLs and for exercise. STG Duration 05/15/24 Manager Intel Goal (LTG) Pt will be independent in a self care HEP of mobility and strength ex's of core, hip, knee and ankle ROM and mobility ex's to manage her bilateral knee/sciatic pain. 04/28/24: HEP: Reissued pt's current ankle AROM ex with modificationi or ankle IV ROM for L ankle and EV ROM for R ankle. 05/07/24: I/S pt in supine - upper trunk core rot strengthening. LTG Duration 06/12/24 progressed 05/07/24. Assessment Summary Assessment 78 yo female with kaitlynn knee pain due to meniscus injury and jt degeneration, kaitlynn sciatic pain (L>R) w/hip weakness due to pain, dec'd left ankle IV mobility causing EV during toe off->swing through phase, and requesting HEP. Today, pt was moving slowly due to L sciatic (pt pointing to area of L Piriformis) discomfort/fear of pain. Pt was able to perform core strengthening w/o difficulty. TA weakness most notable around umbilicus. Physical Therapy Plan Frequency and Duration Frequency of Treatment 2x/Week Duration of treatment (weeks) 6 Plan of Care Start Date 04/28/24 Plan of Care End Date 06/12/24 Next Visit Focus/Plan Next Note Type Treatment Note Next Visit Plan DC to HEP when pt is independent and consistent with her HEP. Next: (caution L SIJ pain sudden onset possible with ex) , Issue best tolerated HEP of hip AD strengthening, extension, & ER. Tolerated IT Band Stretch. Per referral, also kaitlynn knee VMO strengthening. Monitor B knee ROM/strength. Progress Core stabilization. Pt review of proper body mechanics and self care for pain management and in log roll transfers. HEP: L ankle IV stretching and strengthening, and ex's for kaitlynn Sciatic pain (hip AB/AD, extension, ER, IT Band Stretch ).
--- NOTE | 2024-05-26 12:15 | PT.OTN ---
Current Diagnoses Pain in right knee (05/26/24) Pain in left knee (05/26/24) Complex tear of medial meniscus, current injury, left knee, initial encounter (05/26/24) Complex tear of lateral meniscus, current injury, right knee, initial encounter (05/26/24) Physical Therapy Treatment Note PT-OP-A Visit Information Start: 04/05/24 14:53 Freq: Status: Active Protocol: Document 05/26/24 10:51 LRN (Rec: 05/26/24 11:48 LRN [id number]) Out-Patient Physical Therapy Visit Information Visit Information Visit Type Treatment Note Visit Start Time 10:51 Visit Stop Time 11:31 Visit Number 10/10 Evaluation Information Evaluation Date 04/28/24 Precautions Precautions Hx review: Latex Allergy, Strokes 01/2017 and 2018 with ongoing memory loss, lumbar laminectomy (L4-L5)-01/09, cervical laminectory (C5-C6-C7 )-2014, blood clotting condition controlled by meds, arthritis. PT-OP-B Current Condition Start: 04/05/24 14:53 Freq: Status: Active Protocol: Document 04/28/24 11:34 LRN (Rec: 04/28/24 12:29 LRN [id number]) Current Condition History of Current Condition Onset Date 2 months ago Current Complaints Deandre knee pain, front/lat on R, front/lat on L, R>L pain. History of Current Condition 2 months ago lifting heavy suitcases up/down stairs and into cars resulting in R>L knee pain. MRI 01/07/24: shows tear of medial & lateral meniscus, trace popliteal cyst (see below). States having treatments of laser ( deandre knees) and Red light therapy (deandre knees/LB) has helped tremendously to reduce pain. Pt is rowing 2x/ week and uses home laser and red light therapy. Prior Treatments and Tests X-ray from other healthcare provider: R knee: tear of lateral meniscus, chondrosis of lateral compartment, multiple small ganglion cysts about the intercondylar notch, intra -articular bodies posterior to the distal PCL. L knee: tear of medial and lateral meniscus body, trace popliteal cyst. Developmental History Developmental History Hx: Lumbar laminectomy (L4-L5) -01/09, good until Oct and went back to rowing and has had sciatica pain since and then onset of bilateral knee pain. Treatment Goals Patient/Caregiver Goals Pt goals: - HEP to help manage her knee pain. Personal Factors Other Personal Factors That May Effect Per past records and pt report Therapy/Recovery : Arthritis, A. Fib, Stroke in 01/2017, 04/2019, with ongoing memory loss. Parathyroid disease, Lumbar laminectomy (L4-L5)-, f/b LBP w/sciatica bilaterally. PT-OP-C Subjective Start: 04/05/24 14:53 Freq: Status: Active Protocol: Document 05/26/24 10:51 LRN (Rec: 05/26/24 11:48 LRN [id number]) OP-PT Subjective Patient Comments Patient Comments Knees have felt good. Only problem is in L lateral thigh down to calf. States she has been sick. Seeing orthopedist next week. States she feels ready for discharge to her HEP . Patient Questionnaires Lower Extremity Functional Scale LEFS Score 56 LEFS Impairment 20 to 39% Impaired (Score 48- 62) PT-OP-H Neuro Start: 04/05/24 14:53 Freq: Status: Active Protocol: Document 04/28/24 11:34 LRN (Rec: 04/28/24 12:29 LRN [id number]) Sensation Evaluation Gross Sensation Gross Sensation WNL PT-OP-J Posture/Palpation/Skin Start: 04/05/24 14:53 Freq: Status: Active Protocol: Document 04/28/24 11:34 LRN (Rec: 04/28/24 12:29 LRN [id number]) Posture Evaluation Position Standing Head/C-Spine Posture Side Bent Right L-Spine Posture Increased Lordosis Shoulder Posture (L) Elevated Pelvis Posture Neutral Knee Posture (L) Genu Valgus,(R) Genu Valgus Ankle/Foot Posture (L) Calcaneal Eversion Comments Posture Comments Dowagers hump. Palpation Assessment Location L hip Palpation Location Greater trochanter Palpation Findings Tenderness R knee Palpation Location anterolateral above and below the joint, and bulge posteriorly. Palpation Findings Tenderness L knee Palpation Location anterolateral knee tibial plateu, point specific. Palpation Details Pain with palpation. PT-OP-K Range of Motion Start: 04/05/24 14:53 Freq: Status: Active Protocol: Document 05/26/24 10:51 LRN (Rec: 05/26/24 11:48 LRN [id number]) Ankle and Foot Goniometric Range of Motion Ankle and Foot Right Active Testing Position Supine Dorsiflexion with Knee Extended 10 Plantarflexion 50 Inversion 24 Eversion 20 Left Active Testing Position Supine Dorsiflexion with Knee Extended 12 Plantarflexion 47 Inversion 32 Eversion 20 PT-OP-M Strength Start: 04/05/24 14:53 Freq: Status: Active Protocol: Document 04/30/24 09:44 LRN (Rec: 04/30/24 10:43 LRN [id number]) Hip Strength Hip Manual Muscle Testing Right Abduction 2 Poor Comments Strength is 5/5 except as indicated above. R hip AD strength limited by hip AB pain. Left Extension (S1) 4 Good Adduction 1 Trace Comments Strength is 5/5 except as indicated above. Hip Ext causes LB/hip pain PT-OP-Q Treatments Start: 04/05/24 14:53 Freq: Status: Active Protocol: Document 05/26/24 10:51 LRN (Rec: 05/26/24 11:48 LRN [id number]) Therapeutic Exercises Sitting Exercises Ankle IV/EV ROM Sitting Exercise Name L EV> R, Deandre IV Side bilateral Reps/Minutes 14' Comments also, ROM taken, and for DF/PF Standing Exercises Hip strengthening Standing Exercise Name AD, Flex, Ext Side bilateral Reps/Minutes 10' Comments Cuing needed for pelvic stab awareness, denice with RLE mvmts Gastroc/Soleus stretch Side bilateral Reps/Minutes 8' Comments Extra time needed for review and finding of pt's handout for stretch Other Exercises CHild's Pose Reps/Minutes 2' IT BAnd stretch Other Exercise Name DC'd due to L sciatic pain Self-Care/Home Management Treatment Education Other Education Reviewed and discussed proper body mechanics (with handout viewed) for ADLs and for exercise beyond her HEP. PT-OP-T Assessment and Plan Start: 04/05/24 14:53 Freq: Status: Active Protocol: Document 05/26/24 10:51 LRN (Rec: 05/26/24 11:48 LRN [id number]) Physical Therapy Assessment Goals Two Impairment L ankle decreased mobility with inversion. Powder Shoveler Goal (LTG) HEP to improve L ankle mobility in order to improve gait mechanics to normalize stress on her deandre valgus knees . 05/26/24: No inner knee pain, improved ankle mobility. LTG Duration 06/12/24 (05/26/24: MET GOAL) One Impairment Pt lacks appropriate HEP to manage her deandre knee pain. Short Term Goal (STG) Review with pt proper body mechanics for ADLs and for exercise. 05/26/24: Reviewed proper body mechanics for ADLs with handout reviewed, and discussed for pt's ex's beyond her HEP. STG Duration 05/15/24 (05/26/24: MET GOAL ) Powder Shoveler Goal (LTG) Pt will be independent in a self care HEP of mobility and strength ex's of core, hip, knee and ankle ROM and mobility ex's to manage her bilateral knee/sciatic pain. 04/28/24: HEP: Reissued pt's current ankle AROM ex with modificationi or ankle IV ROM for L ankle and EV ROM for R ankle. 05/07/24: I/S pt in supine - upper trunk core rot strengthening. 05/26/24: Reviewed Strengthening ex's: Bridging for hip ext, Clamshell for hip ER - Her Pilates program and standing at sink hip AD, flex, Ext. LTG Duration 06/12/24 (05/26/24: MET GOAL ) Assessment Summary Assessment Pt is a 78 yo female who was being seen for deandre knee pain due to miniscus injury and jt degeneration, deandre sciatic pain (L>R) w/hip weakness due to pain, dec'd left ankle IV mobility causing EV during toe off->swing through phase, and requesting HEP. She has been progressed on her HEP with ankle, knee & hip ROM and strengthening ex's and over time she has had flare ups of L hip and sciatic pain. Today she reports no knee pain and is feeling good. The pt is ready to be placed on her independent HEP; therefore the pt is being discharged from therapy today. Physical Therapy Plan Discharge Physical Therapy Discharge Reasons Goals Met Discharge Comments Thank you for your referral.
== END 2024-05-28 13:25 | disposition home or self-care (01) ==
LOC: PHYS 10:45
PROVIDERS: Family Provider Family Medicine; PCP Family Medicine; Referring Provider Orthopaedic Surgery; Visit Provider Orthopaedic Surgery
DX: M25.561 Pain in right knee (principal); M25.562 Pain in left knee; S83.232A Complex tear of medial meniscus, current injury, left knee, initial encounter; S83.271A Complex tear of lateral meniscus, current injury, right knee, initial encounter
CPT/HCPCS: 97110; 97140; 97162; 97535

== ENCOUNTER → 2024-06-23 11:12 | Outpatient (CLI) | payer MEDICARE, OTHER, SELFPAY ==
[2023-03-18 13:10] VITALS: BMI 31.9
[2024-06-23 12:16] LABS: Add Manual Diff / Slide Review NO; Basophils Absolute Auto 100 /uL (0-100); Basophils Percent Auto 1.3 % (0-2); Eosinophils Absolute Auto 600 /uL (0-450); Eosinophils Percent Auto 6.3 % (2-4); Hematocrit 38.9 % (36-46); Hemoglobin 13.2 g/dL (12.0-16.0); Lymphocytes Absolute Auto 2100 /uL (1100-4500); Lymphocytes Percent Auto 22.3 % (25-40); Mean Corpuscular HGB Conc 33.9 % (30-36); Mean Corpuscular Volume 91.5 fL (80-100); Monocytes Absolute Auto 600 /uL (0-900); Neutrophils Absolute Auto 5900 /uL (1500-7000); Neutrophils Percent Auto 63.1 % (50-75); Platelet Count 309 X10^3/uL (150-400); Red Blood Cell Count 4.25 X10^6/uL (4.0-5.2); Red Cell Distribution Width 13.1 % (11.6-14.8); White Blood Cell Count 9.3 X10^3/uL (4.5-11.0)
[2024-06-23 12:46] LABS: Blood Urea Nitrogen 22 mg/dL (7-17); Carbon Dioxide 25 mmol/L (22-32); Chloride 100 mmol/L (98-107); Estimated Glomerular Filt Rate > 60 mL/min (>60); Glucose 94 mg/dL (80-110); HEMOLYSIS < 15 (0-50); Magnesium 1.9 mg/dL (1.6-2.3); Potassium 4.8 mmol/L (3.4-5.1); Sodium 135 mmol/L (137-145)
== END ==
LOC: LAB 11:17
PROVIDERS: Family Provider Family Medicine; PCP Family Medicine; Referring Provider Nurse Practitioner Family; Visit Provider Nurse Practitioner Family
DX: I48.19 Other persistent atrial fibrillation (principal); Z51.81 Encounter for therapeutic drug level monitoring; Z79.01 Long term (current) use of anticoagulants
CPT/HCPCS: 36415; 80048; 83735; 85025

== ENCOUNTER → 2024-09-16 15:38 | Outpatient (CLI) | payer MEDICARE, OTHER, SELFPAY ==
[2023-03-18 13:10] VITALS: BMI 31.9
[2024-09-16 17:13] LABS: BUN Creatinine Ratio 28.6 (6-22); Blood Urea Nitrogen 20 mg/dL (7-17); Carbon Dioxide 26 mmol/L (22-32); Chloride 102 mmol/L (98-107); Estimated Glomerular Filt Rate > 60 mL/min (>60); Glucose 119 mg/dL (70-99); HEMOLYSIS < 15 (0-50); Potassium 4.2 mmol/L (3.4-5.1); Sodium 138 mmol/L (137-145)
== END ==
PROVIDERS: Family Provider Family Medicine; PCP Family Medicine; Referring Provider Nurse Practitioner Family; Visit Provider Nurse Practitioner Family
DX: Z51.81 Encounter for therapeutic drug level monitoring (principal); I48.19 Other persistent atrial fibrillation; Z79.899 Other long term (current) drug therapy
CPT/HCPCS: 36415; 80048

== ENCOUNTER → 2025-01-25 15:53 | Outpatient (CLI) | payer MEDICARE, OTHER, SELFPAY ==
[2023-03-18 13:10] VITALS: BMI 31.9
[2025-01-25 17:28] LABS: Magnesium 1.8 mg/dL (1.6-2.3)
== END ==
PROVIDERS: Family Provider Family Medicine; PCP Family Medicine; Referring Provider Nurse Practitioner Family; Visit Provider Nurse Practitioner Family
DX: I48.19 Other persistent atrial fibrillation (principal); Z51.81 Encounter for therapeutic drug level monitoring; Z79.899 Other long term (current) drug therapy
CPT/HCPCS: 36415; 83735

== ENCOUNTER → 2025-01-29 10:56 | Outpatient (CLI) | payer MEDICARE, OTHER, SELFPAY ==
[2023-03-18 13:10] VITALS: BMI 31.9
[2025-01-29 12:15] LABS: Albumin 4.4 g/dL (3.5-5.0); Calcium 11.2 mg/dL (8.4-10.2)
[2025-01-29 12:33] LABS: Vitamin D 25 Hydroxy (D3) 99.1 ng/mL (30.0-100.0)
== END ==
PROVIDERS: Family Provider Family Medicine; PCP Family Medicine; Referring Provider Family Medicine; Visit Provider Internal Medicine Endocrinology, Diabetes & Metabolism
DX: E21.0 Primary hyperparathyroidism (principal)
CPT/HCPCS: 36415; 82040; 82306; 82310; 83970

== ENCOUNTER → 2025-02-05 14:41 | Outpatient (CLI) | payer MEDICARE, OTHER, SELFPAY ==
[2023-03-18 13:10] VITALS: BMI 31.9
--- NOTE | 2025-02-05 14:45 | DI.US.S_ITS ---
PROCEDURE: US SOFT TISSUE HEAD AND NECK INDICATIONS: goiter TECHNIQUE: Real-time scanning was performed of thyroid, with image documentation. COMPARISON: [facility], [place], US THYROID, 11/06/2023, 12:11. FINDINGS: The right thyroid lobe measures 4 cm in the left thyroid lobe measures 4.1 cm. Isthmus measures 3 millimeter. Heterogeneous echotexture. On the right there is a solid nodule measuring 2.1 x 1.4 x 1.7 cm which is solid, hypoechoic, smooth margins, no calcifications, wider than tall. This measured 2.3 x 1.4 x 1.2 cm previously. On the left there is a nodule in the mid to lower portion measuring 7 x 4 x 11 millimeter which is predominantly cystic, with smooth margins, no calcifications, wider than tall. IMPRESSION: Stable size versus minimal enlargement of the dominant solid nodule in the right lobe, no new focal lesion seen. Dictated by: Soto Christian M.D. on 02/07/2025 at 20:12 Approved by: Soto Christian M.D. on 02/07/2025 at 20:16
== END ==
LOC: US 14:44
PROVIDERS: Family Provider Family Medicine; PCP Family Medicine; Referring Provider Internal Medicine Endocrinology, Diabetes & Metabolism; Visit Provider Internal Medicine Endocrinology, Diabetes & Metabolism
DX: E04.2 Nontoxic multinodular goiter (principal)
CPT/HCPCS: 76536

== ENCOUNTER → 2025-02-10 09:49 | Outpatient (CLI) | payer MEDICARE, OTHER, SELFPAY ==
[2023-03-18 13:10] VITALS: BMI 31.9
--- NOTE | 2025-02-10 09:50 | DI.RAD.S_ITS ---
PROCEDURE: XR DEXA AXIAL SKELETON INDICATIONS: primary hyperparathyroidism COMPARISON: [facility], [place], XR DEXA AXIAL SKELETON, 11/06/2023, 13:15. [facility], CR, XR DEXA AXIAL SKELETON, 10/23/2021, 14:39. FINDINGS: Lumbar Spine (L1-L3): Bone mineral density 1.183 g/cm2, T score 1.5. Prior DEXA was performed using dissimilar scan type or analysis method. Left Femoral Neck: Bone mineral density 0.881 g/cm2, T score 0.3. Left Hip: Bone mineral density 1.074 g/cm2, T score 1.1. Prior DEXA was performed using dissimilar scan type or analysis method. Fracture Risk Calculation (when applicable): FRAX score not reported due to T-scores greater than or equal to -1.0. (T score greater or equal to -1.0 to: NORMAL) (T score from -1.1 to -2.4: OSTEOPENIA) (T score less than or equal to -2.5: OSTEOPOROSIS) IMPRESSION: By WHO criteria, patient has normal bone mineral density. Follow-up guidelines as follows: Osteoporosis: Consider a repeat DEXA and Vertebral Fracture Assessment (VFA) exam in 2 years or sooner if medically necessary, to reassess this patient's status. Osteopenia: Consider a repeat DEXA in 2-3 years to reassess this patient's status, or if there is a new clinical indication. Normal: Consider a repeat DEXA in 5 years or sooner, or if there is a new clinical indication. All treatment decisions require clinical judgment and consideration of individual patient factors, including patient preferences, comorbidities, previous drug use, risk factors not captured in the FRAX model (e.g., frailty, falls, vitamin D deficiency, increased bone turnover, interval significant decline in bone density ) and possible under- or over-estimation of fracture risk by FRAX. In addition, the NOF Guide recommends that FDA-approved medical therapies be considered in postmenopausal women and men age >= 50 years with a: * Hip or vertebral (clinical or morphometric) fracture * T-score of <=-2.5 at the spine or hip * Ten-year fracture probability by FRAX of >= 3% for hip fracture or >=20% for major osteoporotic fracture. Approved by: Lior Paulson M.D. on 02/11/2025 at 20:15
== END ==
PROVIDERS: Family Provider Family Medicine; PCP Family Medicine; Referring Provider Internal Medicine Endocrinology, Diabetes & Metabolism; Visit Provider Internal Medicine Endocrinology, Diabetes & Metabolism
DX: E21.0 Primary hyperparathyroidism (principal)
CPT/HCPCS: 77080

== ENCOUNTER → 2025-04-07 09:51 | Outpatient (CLI) | payer MEDICARE, OTHER, SELFPAY ==
[2023-03-18 13:10] VITALS: BMI 31.9
[2025-04-07 10:52] LABS: Blood Urea Nitrogen 21 mg/dL (7-17); Calcium 11.2 mg/dL (8.4-10.2); Carbon Dioxide 25 mmol/L (22-32); Chloride 99 mmol/L (98-107); Estimated Glomerular Filt Rate > 60 mL/min (>60); Glucose 110 mg/dL (70-99); HEMOLYSIS < 15 (0-50); Magnesium 1.9 mg/dL (1.6-2.3); Potassium 4.5 mmol/L (3.4-5.1); Sodium 135 mmol/L (137-145)
== END ==
PROVIDERS: Family Provider Family Medicine; PCP Family Medicine; Referring Provider Nurse Practitioner Family; Visit Provider Nurse Practitioner Family
DX: I48.19 Other persistent atrial fibrillation (principal); Z51.81 Encounter for therapeutic drug level monitoring; Z79.899 Other long term (current) drug therapy
CPT/HCPCS: 36415; 80048; 83735